=== PATIENT | male | born 1940 | race Caucasian/White ===

== ENCOUNTER 2019-05-14 06:48 | Observation (INO) ==
--- NOTE | 2019-04-29 08:36 | Anesthesiology Consultation ---
Date of Service April 29, 2019 Assessment & Plan (1) Encounter for pre-operative examination: Chart Review Chart Review: Acceptable Risk for Surgery and Patient seen in Pre Admission Testing EKG reviewed by cardio- no significant change since 2014. Discussed with Dr. Nguyen, due to nature of surgery, patient's unremarkable PE and vital signs, no cardiac symptoms, and no significant noted risk factors, patient is acceptable risk for surgery. Teaching & Discussion Pre-Anesthesia Teaching/Discussion Notes: Instructed NPO after midnight before surgery,except medications with 15 cc of water. Medication instructions provided according to the PAT guidelines. History Surgery Operation Date: 05/14/19 09:15 Proposed Procedures p Left Total Knee Arthroplasty - Sánchez Wright DO Height/Weight Height: 5 ft 4 in Weight: 74.5 kg Allergies Allergy/AdvReac Type Severity Reaction Status Date / Time No Known Allergies Allergy Unverified 04/27/19 10:34 Medications Home Medications Medication Instructions Recorded Confirmed Last Taken No Known Home Medications 04/27/19 04/27/19 Unknown Past Medical History Medical History [place] (hard of hearing) Osteoarthritis Right club foot congenital Exercise / Class Metabolic Activity II 4-5 Yardwork/Stairs/Walk up hill (one flight of stairs- no chest pain or SOB ) Past Family History Family History Other No family history of adverse response to anesthesia Past Surgical History Surgical History History of surgery Right clubfoot correction - multiple procedures as a child Past Anesthesia History No Hx of Anesthesia Complications and No Family Hx of Anesthesia Complications History of PONV No Hx of PONV and No Hx of Motion Sickness Social History Smoking Status: Former smoker (Smoked x 25 years - <1PPD ) tobacco type: cigarettes and smokeless tobacco Do You Dip or Chew Tobacco: Yes (Using alternate snuff (nicotine free per patient) 1/3can per day ) Smoking End Date: 30 years ago Hx Alcohol Use: Yes Alcohol type: beer alcohol intake frequency: a few times a week Alcohol Intake Frequency Comment: Drinks usually weekends - total 12 beers; occ on weekedays 2/day Hx Substance Use: Yes substance use type: marijuana (Occasionally ) Last Used Substance Other:: 3-4 weeks ago Review of Systems Patient denies chest pain, shortness of breath, dyspnea on exertion, reflux, cough, wheezing, palpitations. No hx of seizures, stroke, SC, apnea/snoring. No hx of blood clots or blood transfusions No recent steroid use Physical Exam Vital Signs VITALS BP 134/91 P 96 TEMP 98.5 SP02 97% RESP 20 Constitutional no acute distress ENMT Mouth: + dentures; no TMJ clicking Thyromental Distance: > or= 3.5 Finger Breadths (3.5) Mallampati Class: III Full dentures top and bottom Neck + limited neck extension (minimal ) Respiratory normal respiratory effort; no respiratory distress Auscultation: lungs clear to auscultation bilaterally and + diminished lung sounds (mildly throughout ); no wheezes Cardiovascular Rate/Rhythm: regular rate and regular rhythm Heart Sounds: no murmur Vessels: no carotid bruit Extremities: no edema Musculoskeletal Spine: no pain with cervical ROM Neurologic moves all extremities Psychiatric Orientation: alert Testing Laboratory Results 04/29/19 08:50 04/29/19 08:50 PT 10.2 Seconds (9.0-12.0) 04/29/19 08:50 INR 1.0 (0.9-1.1) 04/29/19 08:50 APTT 27.1 Seconds (21.0-31.0) 04/29/19 08:50 Hemoglobin A1c 5.0 % (4.5-5.6) 04/29/19 08:50 Blood Type O Positive 04/29/19 08:50 Antibody Screen NEGATIVE 04/29/19 08:50 Electrocardiogram Date: 04/29/19 Findings: + NSR @ (87) Possible inferior infarct (cited on or before 02/12/15); compared to 02/12/15- fusion complexes no longer present, PVCs no longer present Chest X-Ray Date: 04/29/19 Cardiomegaly and minor basilar interstitial thickening. No evidence of lobar consolidation. No evidence of failure.
--- NOTE | 2019-04-29 09:20 | XRay Report ---
XR chest Pre-admission PA/Lat CLINICAL HISTORY: Preoperative chest COMPARISON STUDY: February 12, 2015 FINDINGS: The cardiac and mediastinal contours are normal. There is no evidence of focal pulmonary co nsolidation. There is no evidence of failure. No pleural effusions are visualized.[ IMPRESSION: Cardiomegaly and minor basilar interstitial thickening. No evidence of lobar consolidatio n. No evidence of failure. ACT 112: Negative or not required by law. Electronically signed by: Mauricio Palmer M.D. 04/29/2019 9:18 AM
[2019-04-29 11:02] LABS: Basophils # (auto) 0.02 K/uL (0-0.2); Basophils % (auto) 0.2 %; Eosinophils # (auto) 0.27 K/uL (0-0.5); Eosinophils % (auto) 2.7 %; Hematocrit (blood only) 44.6 % (42-52); Hemoglobin 14.9 g/dL (14.0-18.0); Immature Granulocytes # (auto) 0.05 K/uL (0.00-0.02); Immature Granulocytes % (auto) 0.5 %; Lymphocytes # (auto) 2.08 K/uL (1.2-3.4); Lymphocytes % (auto) 21.2 %; Mean Corpuscular Hemoglobin 30.1 pg (25-34); Mean Corpuscular Hgb Conc 33.4 g/dL (32-36); Mean Corpuscular Volume 90.1 fL (80-100); Mean Platelet Volume 10.7 fL (7.4-10.4); Monocytes # (auto) 0.88 K/uL (0.11-0.59); Neutrophils # (auto) 6.53 K/uL (1.4-6.5); Neutrophils % (auto) 66.4 %; Platelet Count 186 K/uL (130-400); RDW Coefficient of Variation 13.7 % (11.5-14.5); RDW Standard Deviation 44.5 fL (36.4-46.3); Red Blood Count 4.95 M/uL (4.7-6.1); White Blood Count 9.83 K/uL (4.8-10.8)
[2019-04-29 11:14] LABS: Partial Thromboplastin Time 27.1 Seconds (21.0-31.0); Prothrombin Time 10.2 Seconds (9.0-12.0)
[2019-04-29 11:24] LABS: Albumin Level 3.3 gm/dl (3.4-5.0); BUN Creatinine Ratio 25.8 (10-20); Calcium 9.4 mg/dl (8.5-10.1); Creatinine Clr Calc Pharmacy 67.5 ml/min; Est GFR (African American) 97.6; Est GFR (Non-African American) 84.2; Potassium 4.2 mmol/L (3.5-5.1)
[2019-04-29 11:41] LABS: Estimated Average Glucose 97 mg/dl
--- NOTE | 2019-04-30 00:18 | Electrocardiogram Report ---
Test Reason : Blood Pressure : / mmHG Vent. Rate : 087 BPM Atrial Rate : 087 BPM P-R Int : 142 ms QRS Dur : 076 ms QT Int : 342 ms P-R-T Axes : 053 010 048 degrees QTc Int : 411 ms Normal sinus rhythm Possible Inferior infarct (cited on or before 12-FEB-2015) Abnormal ECG When compared with ECG of 12-FEB-2015 17:08, Fusion complexes are no longer Present Premature ventricular complexes are no longer Present Confirmed by Jose Larios [id number]) on 04/30/2019 12:18:21 AM Referred By: Sánchez Wright Confirmed By:Jose Larios
--- NOTE | 2019-05-12 13:31 | History & Physical Report ---
Date of Service May 12, 2019 Assessment & Plan (1) Osteoarthritis of left knee: Schedule a Left Total Knee Replacement with Sagola with long stem implants in femur and tibia for 05.14.2019. All potential risks, benefits, complications, alternatives, and rehab have been discussed with the patient and he wishes to proceed. Plan for home with home health upon d/c. ASA 81 mg BID x 30 days post op for DVT prophylaxis. (2) Genu varum of left lower extremity: History of Present Illness Chief Complaint: left knee pain and deformity Primary Care Provider: Bryant Celaya MD This is a patient with a chronic left knee deformity and pain. He was treated conservatively for knee osteoarthritis, however, he has failed all conservative management. He had previously undergone removal of maximino from the distal femur with the understanding that he will need to have a TKA. He is now being set up for left TKA. Allergies Allergy/AdvReac Type Severity Reaction Status Date / Time No Known Allergies Allergy Unverified 04/27/19 10:34 Home Medications Home Medications Medication Instructions Recorded Confirmed Type No Known Home Medications 04/27/19 04/27/19 History Past Med/Surg History Medical History [place] (hard of hearing) Osteoarthritis Right club foot congenital Surgical History History of surgery Right clubfoot correction - multiple procedures as a child Family History Other No family history of adverse response to anesthesia Social History Preferred Language: Sami Communication Ability: Effective 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 Beliefs That Will Affect Care: None Current Living Situation: Alone Other Information That Helps Us Care for You: No Feels Safe at Home: Yes Safety Concerns: Feels Safe At This Time Smoking Status: Former smoker (Smoked x 25 years - <1PPD ) Tobacco Type: cigarettes and smokeless tobacco ; Do You Dip or Chew Tobacco: Yes (Using alternate snuff (nicotine free per patient) 1/3can per day ) ; Smoking End Date: 30 years ago ; Second Hand Exposure: No ; Tobacco Cessation Education Requested by Patient: No Hx Alcohol Use: Yes Alcohol type: beer Hx Substance Use: Yes substance use type: marijuana (Occasionally ) Last Used Substance Other:: 3-4 weeks ago Physical Exam Constitutional: well developed and well nourished; no acute distress Neck: trachea midline, no thyromegaly Respiratory: normal respiratory effort, lungs clear to auscultation Cardiovascular: Rate/Rhythm: regular rate and regular rhythm Gastrointestinal (Abdomen): normal bowel sounds, soft, nontender, no hepatosplenomegaly Musculoskeletal: Gait: + antalgic gait (left) Knee: + effusion (left), + abarca rgical incision (healed left knee incisions), + limited ROM of knee (left with flexion and extension), + joint line tenderness (medial and lateral left ) and + varus alignment (left); no skin erythema and no ecchymosis Skin: no rashes, warm and dry Neurologic: normal touch/pain/proprioception Psychiatric: A+Ox3, euthymic affect Lymphatic: no cervical or axillary lymphadenopathy
[~2019-05-14 06:48] MED LIST: ACETAMINOPHEN 500 MG TAB PO SCH; BUPIVACAINE 0.5 % 5 MG/1 ML PF 10ML VIAL ONE; CEFAZOLIN 2000MG 2,000 MG/15 ML SYR IV SCH; CeleBREX 200 MG CAP PO SCH; EPINEPHrine INJ 1 MG/ML AMP ONE; FAMOTIDINE 20 MG TAB PO SCH; GABAPENTIN 300 MG CAP PO SCH; LR 500ML BOLUS, THEN 15ML/HR IV SCH; METOCLOPRAMIDE HCL 10 MG TABLET PO SCH; ROPIVACAINE 0.5% 5 MG/ML 30 ML VIAL ONE; ROPIVACAINE 0.5% HCL/PF 150 MG, BUPIVACAINE 0.5% MPF 30 ML, EPINEPHrine 30MG/30ML (OR U... INSTIL SCH; dexAMETHasone 4 MG TAB PO SCH
[2019-05-14] MEDS ORDERED: HYDROmorphone INJ 1 MG/ML SYRINGE IV PRN (08:29)
[2019-05-14] MEDS ORDERED: fentaNYL citrate 100 MCG/2 ML VIAL IV PRN (08:29)
[2019-05-14] MEDS ORDERED: ePHEDrine sulfate 50 MG/ML AMP IV PRN (08:29)
[2019-05-14] MEDS ORDERED: MEPERIDINE HCL 25 MG/ML CARP/VIAL IV PRN (08:29)
[2019-05-14] MEDS ORDERED: ATROPINE SULFATE 0.1 MG/ML 10ML SYR IV PRN (08:29)
[2019-05-14] MEDS ORDERED: LABETALOL HCL IV 5 MG/ML 20ML IV PRN (08:29)
[2019-05-14] MEDS ORDERED: PHENYLEPHRINE 100MCG/ML 5ML SYR IV PRN (08:29)
[2019-05-14] MEDS ORDERED: ONDANSETRON INJ 2 MG/ML 2 ML VIAL IV PRN ×2 (08:29→15:48)
[2019-05-14] MEDS ORDERED: LIDOCAINE HCL 2% 2 ML VIAL/AMP(20MG/ML) INFIL ONE (08:52)
[2019-05-14] MEDS ORDERED: ONDANSETRON INJ 2 MG/ML 2 ML VIAL ONE (08:52)
[2019-05-14] MEDS ORDERED: MIDAZOLAM HCL 1 MG/ML 2ML VIAL ONE (08:52)
[2019-05-14] MEDS ORDERED: fentaNYL citrate 100 MCG/2 ML VIAL ONE ×2 (08:52→14:13)
[2019-05-14] MEDS ORDERED: PROPOFOL IV EMULSION 10 MG/ML 20 ML VIAL IV ONE ×6 (08:52→14:24)
[2019-05-14] MEDS ORDERED: ORTHO JOINT ANESTHETIC ONE (09:07)
[2019-05-14] MEDS ORDERED: BACITRACIN INJ 50,000 UNIT VIAL ONE (09:07)
[2019-05-14] MEDS ORDERED: TRANEXAMIC ACID / 0.7% NACL 1,000 MG/100 ML BAG IV STA (10:02)
--- NOTE | 2019-05-14 10:05 | History & Physical Bridge Note ---
Date of Service May 14, 2019 History & Physical Bridge Note I have examined the patient, reviewed the History & Physical and in the interval since the performance of the History & Physical I have noted the following changes of clinical significance: no changes noted
--- NOTE | 2019-05-14 13:17 | Fluoroscopy Report ---
FL knee LT 1 or 2V CLINICAL HISTORY: LEFT TKA COMPARISON STUDY: None. FLUOROSCOPY TIME: 10 seconds. FINDINGS: 2 fluoroscopic spot images of the left knee were submitted for review. Only the distal femu r is identified. There is a long stem knee prosthesis. The hardware appears intact. No fractures. IMPRESSION: Fluoroscopy provided for left total knee arthroplasty stem positioning. ACT 112: Negative or not required by law. Electronically signed by: Donovan Nguyen M.D. 05/14/2019 1:16 PM
[2019-05-14] MEDS ORDERED: KETAMINE HCL INJ 50 MG/ML 10 ML VIAL ONE (14:06)
--- NOTE | 2019-05-14 14:11 | Post Operative Brief Note ---
Immediate Post Op Note v1 Date of Surgery May 14, 2019 Pre & Post Diagnosis Operation Date: 05/14/19 10:05 Pre-Op Diagnosis: Left Knee Osteoarthritis, genu varum, flexion contracture, leg length discrepancy, severe bone loss of tibia and medial femur Post-Op Diagnosis: Left Knee Osteoarthritis, genu varum, flexion contracture, leg length discrepancy, severe bone loss of tibia and medial femur, surgical time greater than 2 hours due to limb deformity and enhanced difficulty I identified the patient and participated in the time-out.: Yes Procedure Operation Date: 05/14/19 10:05 Actual Procedures p Left Total Knee Arthroplasty with Torrey size 5 triathlon total stabilizer femoral component, triathlon 13 mm x 100 mm fluted stem, triathlon 4 mm offset adapter, triathlon X3 symmetric patella 33 mm x 9 mm, size 4 triathlon tibial baseplate with a 2 mm offset and a 12 mm x 100 mm fluted stem, triathlon X3 size 4 x 13 mm constrained liner. Partial release medial collateral ligament, surgical time over 2 hours due to limb deformity and enhanced difficulty. (Left) - Sánchez Wright DO Surgeon Sánchez Wright DO Sales Agent Protective Service Koby Esquivel PA-C Estimated Blood Loss 50 Findings Consistent with Post-Op Diagnosis Specimens Bone and tissue left knee Drains Kc Catheter and Hemovac Drain (dual lumen) Anesthesia Type Spinal MAC Complications none Disposition Accompanied Patient To Recovery: No Disposition: Recovery Room Overlapping Procedure I was present for: the critical portions of procedure. I was immediately available: during the entire case.
--- NOTE | 2019-05-14 15:10 | Anesthesiology Progress Note ---
Date of Service May 14, 2019 Anesthesia Post Procedure Vital Signs Vital Signs: Temp Pulse Pulse Resp BP Pulse Ox 05/14/19 14:50 84 15 97/63 L 97 05/14/19 14:42 36.3 C L 92 H 16 111/61 98 05/14/19 07:20 36.8 C 115 H 18 140/81 98 Transfer of Care Handoff Completed per policy Notes Mental Status: alert / awake / arousable Patient Amnestic to Procedure: Yes Nausea / Vomiting: adequately controlled Pain: adequately controlled Airway Patency, RR, SpO2: stable & adequate BP & HR: stable & adequate Hydration State: stable & adequate Neuraxial Anesthesia: was administered and sensory block is resolving Anesthetic Complications: no major complications apparent and Pt Satisfied with anesthetic care
--- NOTE | 2019-05-14 15:11 | XRay Report ---
XR knee LT 1 or 2V routine HISTORY: 78 years-old Male Surgical Post Op left knee total joint arthroplasty COMPARISON: Fluoroscopic images of the left knee of same day TECHNIQUE: 2 views of the left knee FINDINGS: Left knee total joint imaged arthroplasty with elongated tibial and femoral stems. There is satisfact ory alignment without acute fracture, dislocation or retained foreign body identified. Anterior midli ne skin maximino are noted along with expected postsurgical soft tissue swelling and deep tissue air w ith surgical drainage catheter. Arterial calcifications are noted. IMPRESSION: Left knee total joint arthroplasty with expected postoperative findings. ACT 112: Negative or not required by law. The above report was generated using voice recognition software. It may contain grammatical, syntax o r spelling errors. Electronically signed by: Bobo Tavares M.D. 05/14/2019 3:10 PM
[2019-05-14] MEDS ORDERED: NALOXONE HCL 0.4 MG/1 ML VIAL/CARP IV PRN (15:48)
[2019-05-14] MEDS ORDERED: OXYCODONE HCL IR 5 MG TAB (IMMEDIATE RELEASE) PO PRN (15:48)
[2019-05-14] MEDS ORDERED: HYDROmorphone INJ 0.5 MG/0.5 ML SYR IV PRN (15:48)
[2019-05-14] MEDS ORDERED: METOCLOPRAMIDE HCL INJ 5 MG/ML 2 ML VIAL IV PRN (15:48)
[2019-05-14] MEDS ORDERED: TAMSULOSIN HCL 0.4 MG CAP PO PRN (15:48)
[2019-05-14] MEDS ORDERED: ALUMINUM/MAGNESIUM SUSP 30 ML UDC PO PRN (15:48)
[2019-05-14] MEDS ORDERED: MAGNESIUM HYDROXIDE SUSP 30 ML UDC PO PRN (15:48)
[2019-05-14] MEDS ORDERED: bisacodyL 10 MG SUPP PR PRN (15:48)
[2019-05-14] MEDS ORDERED: PNEUMOCOCCAL ADMINISTRATION CHARGE ONE (15:53)
[2019-05-14] MEDS ORDERED: PNEUMOCOCCAL POLYSACCHARIDES 25 MCG/0.5 ML VIAL/SYR IM ONE (15:53)
[2019-05-14] MEDS: SODIUM CHLORIDE 0.9% 1000ML 1,000 ML IV SCH (16:04)
[2019-05-14] MEDS: ACETAMINOPHEN 500 MG TAB PO SCH ×2 (16:33→22:08)
[2019-05-14] MEDS: KETOROLAC TROMETHAMINE 15 MG/ML VIAL IV SCH ×2 (16:35→22:09)
[2019-05-14] MEDS: CEFAZOLIN 2000MG 2,000 MG/15 ML SYR IV SCH (17:51)
--- NOTE | 2019-05-14 18:37 | Consultation ---
Date of Consultation May 14, 2019 Assessment & Plan (1) Osteoarthritis of left knee: (2) Genu varum of left lower extremity: S/P L TKR by Dr. Wright POD #0 EBL 50ml; hemovac 60ml Patient tolerated procedure well Pain/wound management per Ortho Activity and therapy as directed by Ortho Encourage incentive spirometry Monitor H&H DVT prophylaxis per Ortho-ASA twice daily Remove Kc at discretion of ortho (3) Tobacco abuse: hx of tobacco abuse with smoking and chewing tobacco has switched to nicotine/tobacco free snuff for past 2 weeks (4) Alcohol abuse: ~ 10-14 beers/wk last drink was 12 days ago in preparation for surgery per pt monitor (5) DVT prophylaxis: ASA BID per ortho Disposition: per primary Follow up: PCP Dr. Celaya upon discharge, pt with scheduled appt 06/11/2019 Pt was seen and examined in collaboration with Dr. Lehman, please see addendum Starting 05/15/2019 patient will be under the care of Dr. Kaye Thank you for this consultation. We will follow the patient with you during their hospital stay. You can reach a member of the [facility] Hospitalist Team 30/09 via pager @ [phone]. 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 History of Present Illness Requesting Physician: Dr. Wright Reason for Consultation: Postop medical manage ment Attending Physician: Sánchez Wright DO History of Present Illness This is a 78-year-old male who has a remote history of hypertension currently not on any oral antihypertensives, B12 deficiency, alcohol use, tobacco abuse disorder who presents to [facility] for elective left total knee arthroplasty by Dr. Wright. He failed outpatient conservative treatment for left knee osteoarthritis. He tolerated the procedure well. He currently complains of 5/10 left knee pain but otherwise is without complaint. He denies any fever, chills, sweats, lightheadedness, dizziness, chest pain, shortness breath, palpitations, cough, nausea, vomiting, abdominal pain. Last BM was yesterday. He currently has a Kc catheter in place. His son is at bedside. He does reveal he has a history of clubfoot which required multiple surgeries as a child. He does not take any medications. Does have a remote history of smoking and approximately 2 weeks ago he stopped chewing tobacco. He does drink 12-14 beers weekly. His last drink was 12 days ago. Allergies Allergy/AdvReac Type Severity Reaction Status Date / Time No Known Allergies Allergy Verified 05/14/19 07:10 Home Medications Home Medications Medication Instructions Recorded Confirmed Type No Known Home Medications 04/27/19 05/14/19 History Patient History Medical History 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: No Beliefs That Will Affect Care: None Current Living Situation: Alone Other Information That Helps Us Care for You: No Feels Safe at Home: Yes Safety Concerns: Feels Safe At This Time Smoking Status: Former smoker (Smoked x 25 years - <1PPD ) Tobacco Type: cigarettes and smokeless tobacco ; Do You Dip or Chew Tobacco: Yes (Using alternate snuff (nicotine free per patient) 1/3can per day ) ; Smoking End Date: 30 years ago ; Second Hand Exposure: No ; Tobacco Cessation Education Requested by Patient: No Hx Alcohol Use: Yes Alcohol type: beer Hx Substance Use: Yes substance use type: marijuana (Occasionally ) Last Used Substance Other:: 3-4 weeks ago Review of Systems Review of Systems: All systems reviewed & are unremarkable except as noted in HPI & below Physical Exam Physical Exam: Constitutional: WD/WN, vitals as above, NAD, sitting up in bed, pleasant, conversing easily Head: Normocephalic, Atraumatic Eyes: PERRL, conjunctivae normal, anicteric sclerae ENMT: external ear and nose normal, oropharynx normal Neck: trachea midline, no thyromegaly normal visual inspection Respiratory: normal respiratory effort, lungs clear to auscultation, no wheeze, rales, rhonchi. Normal insp/exp effort, no accessory muscle use Cardiovascular: RRR, no murmur, no edema Vessels: no JVD or carotid bruit Chest: normal inspection of chest Abdomen: normal bowel sounds, soft, nontender, no hepatosplenomegaly Musculoskeletal: no cyanosis or clubbing, LLE with dressing CDI, hemovac in tact, NVI distally Skin: no rashes, warm and dry normal turgor Neurologic: PERRL, EOMI, accommodation nl, no face palsy, no dysarthria CN's II-XI intact bilaterally and moves all extremities Psychiatric: A+Ox3, euthymic affect Lymphatic: no cervical or axillary lymphadenopathy : deferred Results & Data ([facility]) Vital Signs (Past 12 Hours) Vital Signs Temp Pulse Pulse Pulse Resp BP Pulse Ox 05/14/19 17:21 36.3 C L 97 H 16 124/65 94 05/14/19 16:31 36.3 C L 96 H 18 115/68 95 05/14/19 15:59 36.3 C L 85 18 127/79 94 05/14/19 15:30 36.3 C L 84 18 131/76 94 05/14/19 15:10 36.3 C L 83 15 116/71 94 05/14/19 15:00 84 16 116/69 99 05/14/19 14:50 84 15 97/63 L 97 05/14/19 14:42 36.3 C L 92 H 16 111/61 98 05/14/19 07:20 36.8 C 115 H 18 140/81 98 Laboratory Results Pre op Lab 04/29/19 CBC revealed WBC 9.83, H&H 14.9 and 44.6, platelet 186 BMP revealed sodium 139, K4.2, BUN 22, creatinine 0.86, glucose 97 Diagnostic Findings Preop CXR: IMPRESSION: Cardiomegaly and minor basilar interstitial thickening. No evidence of lobar consolidation. No evidence of failure. Knee Xray: IMPRESSION: Fluoroscopy provided for left total knee arthroplasty stem positioning. Medications Administered Acetaminophen (Tylenol) 1,000 mg PO Q8 CHEO Stop: 06/13/19 15:59 Last Admin: 05/14/19 16:33 Dose: 1,000 mg Documented by: [id number] Cefazolin Sodium (Ancef 2000mg) 2,000 mg in 15 mls @ 3.75 mls/min IV Q8H CHEO; Protocol Stop: 05/15/19 02:03 Last Admin: 05/14/19 17:51 Dose: 3.75 mls/min Documented by: [id number] Sodium Chloride (Nss 1000ml) 1,000 mls @ 100 mls/hr IV .Q10H CHEO Stop: 05/15/19 06:00 Last Admin: 05/14/19 16:04 Dose: 100 mls/hr Documented by: [id number] Ketorolac Tromethamine (Toradol) 15 mg IV Q6H CHEO Stop: 05/16/19 10:31 Last Admin: 05/14/19 16:35 Dose: 15 mg Documented by: [id number] Discontinued Medications Acetaminophen (Tylenol) 1,000 mg PO PREOP CHEO Stop: 05/14/19 18:00 Last Admin: 05/14/19 07:42 Dose: 1,000 mg Documented by: [id number] Bacitracin (Bacitracin) Confirm Administered Dose 50,000 units .ROUTE .K-MED ONE Stop: 05/14/19 09:08 Last Admin: 05/14/19 11:09 Dose: 50,000 units Documented by: [id number] Celecoxib (Celebrex) 200 mg PO PREOP CHEO Stop: 05/14/19 18:00 Last Admin: 05/14/19 07:42 Dose: 200 mg Documented by: [id number] Dexamethasone (Decadron) 8 mg PO PREOP CHEO Stop: 05/14/19 18:00 Last Admin: 05/14/19 07:41 Dose: 8 mg Documented by: [id number] Famotidine (Pepcid) 20 mg PO PREOP CHEO Stop: 05/14/19 18:00 Last Admin: 05/14/19 07:42 Dose: 20 mg Documented by: [id number] Gabapentin (Neurontin) 300 mg PO PREOP CHEO Stop: 05/14/19 18:00 Last Admin: 05/14/19 07:42 Dose: 300 mg Documented by: [id number] Lactated Ringer's (Lr) 1,000 mls @ 15 mls/hr IV .Q24H CHEO Stop: 05/14/19 18:00 Last Infusion: 05/14/19 10:21 Dose: 0 mls/hr Documented by: [id number] Admin: 05/14/19 07:30 Dose: 15 mls/hr Documented by: [id number] Cefazolin Sodium (Ancef 2000mg) 2,000 mg in 15 mls @ 3.75 mls/min IV PREOP CHEO; Protocol Stop: 05/14/19 18:00 Last Admin: 05/14/19 10:21 Dose: 3.75 mls/min Documented by: [id number] Ropivacaine 150 mg/Bupivacaine HCl 30 ml/Epinephrine HCl 0.15 mg/Ketorolac Tromethamine 30 mg/Dexamethasone 4 mg/ Ketamine HCl 10 mg/ Clonidine HCl 100 mcg/ Sodium Chloride 93.35 mls @ 0 mls/hr INSTIL PREOP CHEO Stop: 05/14/19 06:01 Last Admin: 05/14/19 11:10 Dose: 93.35 mls/hr Documented by: [id number] Tranexamic Acid (Tranexamic Acid / 0.7% Nacl) 1,000 mg in 100 mls @ 600 mls/hr IV NOW STA Stop: 05/14/19 10:11 Last Infusion: 05/14/19 11:23 Dose: 0 mls/hr Documented by: [id number] Admin: 05/14/19 10:57 Dose: 600 mls/hr Documented by: [id number] Metoclopramide HCl (Reglan) 10 mg PO PREOP CHEO Stop: 05/14/19 18:00 Last Admin: 05/14/19 07:42 Dose: 10 mg Documented by: [id number] Miscellaneous (Ortho Joint Anesthetic) Confirm Administered Dose 1 ea .ROUTE .STK-MED ONE Stop: 05/14/19 09:08 Last Admin: 05/14/19 11:09 Dose: Not Given Documented by: [id number] ECG Rate (beats per minute): 87 Rhythm: normal sinus
[2019-05-14] MEDS: ASPIRIN 81 MG ECTAB PO SCH (20:43)
[2019-05-14] MEDS: SENNA 8.6 MG TAB PO SCH (20:43)
[2019-05-14] MEDS: DOCUSATE SODIUM 100 MG CAP PO SCH (20:43)
--- NOTE | 2019-05-15 00:29 | Operative Report (OR) ---
DATE OF OPERATION: 05/14/2019 PREOPERATIVE DIAGNOSES: 1. Left knee degenerative joint disease. 2. Osteoarthritis of the knee. 3. Genu varum deformity. 4. Leg length discrepancy. 5. Flexion contracture of the knee. 6. Severe bone loss of the medial tibia and medial femoral condyle. 7. Surgical time greater than 2 hours due to limb deformity and difficulty of surgical procedure requiring revision implants. POSTOPERATIVE DIAGNOSES: 1. Left knee degenerative joint disease. 2. Osteoarthritis of the knee. 3. Genu varum deformity. 4. Leg length discrepancy. 5. Flexion contracture of the knee. 6. Severe bone loss of the medial tibia and medial femoral condyle. 7. Surgical time greater than 2 hours due to limb deformity and difficulty of surgical procedure requiring revision implants. PROCEDURE: 1. Left total knee arthroplasty with use of revision arthroplasty components due to complexity. 2. Partial release of the medial collateral ligament. 3. Surgical time greater than 2 hours due to limb deformity and enhanced difficulty of procedure. SURGEON: Sánchez Wright DO DA[employer]ODU[employer] MAKER: Koby Esquivel PA-C who was present for patient positioning, sterile prep and drape, management of retractors and instruments. He was present through the critical portions of the case including wound closure, application of sterile dressing and transport of the patient to recovery. ANESTHESIA: Spinal, MAC regional. SPECIMENS: Bone and tissue left knee. DRAINS: Hemovac x2. COMPLICATIONS: None; however enhanced difficulty to limb deformity and increased technical difficulty due to deformity. BLOOD LOSS: 50 mL. PERTINENT HISTORY: This is a 78-year-old gentleman with chronic worsening deformity of his left lower knee. For the last 40 years, he has had difficulty with ambulation due to severe leg length discrepancy and worsening congenital deformity of the limb. He had a compensated painful gait for many years. He attempted and failed physical therapy, bracing, anti-inflammatories, rest, use of an assistive device, modification of activities and observation. Radiographs and CT scan demonstrate severe deformity of the left knee with complete loss of medial joint space with severe varus deformity of the tibia, varus alignment of the distal femur, leg length discrepancy and severe morphological changes of the left knee joint. The patient failed all conservative modalities as noted above. The patient was then scheduled for surgery as indicated. All potential risks, benefits, complications, alternatives, rehab, potential for incomplete relief of symptoms, need for further surgery, DVT, PE, , persistent pain, swelling, scarring, weakness, neurovascular injury, wound complications, hardware failure, nonunion, malunion and bone fracture were discussed with the patient. Also, discussed loss of flexibility, persistent painful arthroplasty and need for revision surgery. The patient decided to proceed with procedure as indicated. DESCRIPTION OF PROCEDURE: After the patient was administered an adductor canal block in the preop holding area, then taken to the operative suite, placed supine on the operating table. After review of consent and identification of proper operative site, the patient was sedated. Spinal anesthetic was injected and an adductor canal block had been provided. Next, a tourniquet was applied high on the left thigh over cast padding, left lower extremity was then sterilely prepped and draped in usual fashion, elevated and exsanguinated with bandage, tourniquet inflated to 300 mmHg. Next, a 10-blade scalpel was used to make a midline incision centered over the left knee extending proximally and distally. Next, the skin incision was deepened through subcutaneous tissue. Meticulous hemostasis was achieved with electrocautery. Skin rakes were applied with mild traction. Next, the median parapatellar incision was made with a second 10-blade scalpel. There was noted to be significant effusion within the joint and this was then released. The patella was then partially everted and measured and noted to be 22 mm in thickness. A Ruth was then used to doreen the patella over a large rongeur and then a sagittal saw was then used to resurface the patella, taking it down to approximately 12 mm in thickness. Fragment of bone was then removed as the patellar sizer was used and then the patellar button was drilled and trial implant was placed and noted to be stable and intact. Patellar trial was then removed and attention then directed toward the femur. The deformity of the femur with severe varus was noted. Also the tibial varus, flexion contracture, loss of range of motion and severe bone loss necessitated use of the revision instruments though this is a primary arthroplasty. Enhanced level of difficulty was noted. Next, intramedullary guide was then drilled off set laterally to compensate for the deformity of the femur. The canal finder was placed in the femur and then sequential reaming was then performed up to approximately size 17. Next, this fit well in the femur. Radiographs had to be obtained to confirm alignment in the distal femur. This was performed with sterile fluoroscopy. Next, the distal femoral cut was then measured off the intramedullary canal. The block was pinned in place. Distal femoral cut was made, a +2 cut was made to allow for the flexion contracture and severe bone loss medially. The medial femoral condyle was noted to be significantly deficient. Intramedullary alignment as well as intramedullary fixation was decided upon for certain at this time. Next, after distal femoral cut was made, the posterior referencing sizing guide was applied and initially a size 6 was decided upon; however, the medial lateral offset was noted to be off and therefore an offset guide was determined to be useful. Next, a size 5 cutting block was pinned in place. Anterior, posterior, anterior chamfer, posterior chamfer cuts were made. The femoral notch guide was then pinned in place. Femoral notch cut was made with a reciprocating saw. The block of bone was then removed using a Ruth and a electrocautery. Next, the sagittal saw was then used to smooth and contour the distal femur and the offset guide was then placed on the femoral alignment guide. Offset was determined and the trial components were then impacted into the femur. Next, after this was fitted and radiographs were obtained confirming center-center alignment with intramedullary stabilization with a medium post, attention then directed toward the tibia. Next, the medial and lateral menisci were then resected using a lamina foam charger. Posterior osteophytes were removed using pituitary rongeur and a curved curette. Once this was completed, there was increased enhanced space to visualize the tibia. Next, the tibia was then protracted anteriorly using a blunt Hohmann retractor. Sharp Hohmann retractors were placed medially and laterally. Anterior fat pad was then resected from the anterior aspect of the patella. Circumferential electrocautery was then performed around the patella to provide a partial surface retinacular release. Next, the intramedullary alignment guide was then drilled into the proximal tibia and then sequential reaming up to a size 17 with a 150 mm depth was then performed. After this, the proximal tibial cut guide was then placed over the intramedullary alignment kush. The proximal tibial cut was made using Hohmann retractors. Once the fragment of bone was removed proximally, the medial side was then noted to be severely eburnated due to the chronic deformity and multiple drill holes were drilled in the medial tibial plateau to encourage cement interdigitation. Next, the medial tibial plateau was also rongeured slightly to change the contour. This has been dysmorphic over many years. Next, the tibial tray alignment component was applied, aligned along the medial one-third of the tibial tubercle. The drop alignment kush was placed to reference the second ray of the left foot. This tibial tray was then pinned in place followed by use of appropriate offset guide. Once this was aligned, tibial punch and the tibial drill was then used. Once this was completed, the femoral component was then placed into the intramedullary portion of the distal femur and then a trial polyethylene with a posterior stabilized constrained 13 mm liner was then placed. There was noted to be excessive tightness of the medial collateral ligament. Then, a fractional lengthening was then performed with an 18 gauge spinal needle with both flexion and extension with polyethylene engaged. After this was performed, the medial collateral ligament was then balanced with the lateral collateral ligament. There is no mid flexion instability noted and the trial components were removed. All sites were then pulsatile lavaged. At this point, the tourniquet was then released for a period of 20 minutes while the components were opened and then assembled on the backtable. Finally, the components sizes tibial baseplate size 4 fluted with a fluted stem 12 mm x 100 mm with a 2 mm offset Triathlon X3 posterior stabilized constrained tibial insert size 4 x 13 mm, a Triathlon X3 symmetric patella size 33 mm with a Triathlon total stabilizer femoral component size 5 with a 4 mm offset and a 13 mm x 100 mm Triathlon fluted stem was then opened and assembled on the backtable. Orthomix was injected in and around the intra-articular surfaces of the left knee, taking care to aspirate and avoid any intravascular injection. There is no injection performed around the common peroneal nerve. Next, the Palacos R+G cement was then mixed and then placed on the components up to the level of the flange and on the backside of the patellar component. Next, the femur, tibia and patella were all irrigated and suctioned dry. Tourniquet was inflated at this time followed by implantation of the components, beginning with the tibia, followed by the femur, placement of the posterior stabilized constrained polyethylene, tibial tray liner and a 33 mm patella was then also cemented. The knee was held in extension with the patellar clamp in place until all components firmed. All excess cement was removed from the joint and stable range of motion without mid flexion instability was noted. Full range of motion 0-140 degrees of flexion was appreciated on the table. Next, the dilute Betadine was injected into the incision site for a period of 3 minutes and irrigated and suctioned dry. Final irrigation performed with sterile normal saline with bacitracin with pulsatile lavage followed by placement of a #10-[place] Hemovac drains x2. The joint capsule was then closed using interrupted #1 Vicryl sutures followed by closure of the dermis with buried interrupted 2-0 Vicryl and skin was closed using skin maximino. A sterile compressive dressing and well-padded soft dressing was applied from the toes to groin. Tourniquet time was noted to be over 2 hours due to the severe deformity, leg length discrepancy and enhanced surgical difficulty. After tourniquet was released for the second time, toes noted to pink and warm. The tourniquet was released. The patient was awakened and taken to recovery in stable condition. I attest to the content of the Intraoperative Record and any orders documented therein. Any exception s are noted below.
[2019-05-15] MEDS: CEFAZOLIN 2000MG 2,000 MG/15 ML SYR IV SCH (01:38)
[2019-05-15] MEDS: SODIUM CHLORIDE 0.9% 1000ML 1,000 ML IV SCH (01:38)
[2019-05-15] MEDS: KETOROLAC TROMETHAMINE 15 MG/ML VIAL IV SCH ×4 (05:34→21:31)
[2019-05-15] MEDS: ACETAMINOPHEN 500 MG TAB PO SCH ×3 (05:34→21:31)
[2019-05-15 05:50] LABS: Hemoglobin 11.7 g/dL (14.0-18.0); Mean Corpuscular Hemoglobin 29.9 pg (25-34); Mean Corpuscular Hgb Conc 33.4 g/dL (32-36); Mean Corpuscular Volume 89.5 fL (80-100); Mean Platelet Volume 9.1 fL (7.4-10.4); Platelet Count 169 K/uL (130-400); RDW Coefficient of Variation 13.4 % (11.5-14.5); RDW Standard Deviation 43.6 fL (36.4-46.3); Red Blood Count 3.91 M/uL (4.7-6.1); White Blood Count 15.05 K/uL (4.8-10.8)
[2019-05-15 06:21] LABS: BUN Creatinine Ratio 24.1 (10-20); Calcium 8.2 mg/dl (8.5-10.1); Creatinine Clr Calc Pharmacy 68.1 ml/min; Est GFR (African American) 97.6; Est GFR (Non-African American) 84.2
[2019-05-15] MEDS: MULTIVITAMIN TAB PO SCH (08:44)
[2019-05-15] MEDS: DOCUSATE SODIUM 100 MG CAP PO SCH ×2 (08:44→20:25)
[2019-05-15] MEDS: ASPIRIN 81 MG ECTAB PO SCH ×2 (08:44→20:25)
--- NOTE | 2019-05-15 10:13 | Orthopedic Progress Note ---
Date of Service May 15, 2019 Assessment & Plan (1) Osteoarthritis of left knee: POD #1 Left TKA ASA, LUTHER, SCD Plan for discharge to home with HH likely tomorrow after PTx Admission and Anticipated Discharge Date Admission Date: May 14, 2019 Subjective patient walking with therapy back to room. He notes that he is feeling good. Denies CP sob, dizziness, lightheadedness Physical Exam Physical Exam: Toes mobile, NVI. Calves soft, non tender. VIDYA Dressing in place and hemovac Results & Data ([facility]) Vital Signs (Past 12 Hours) Vital Signs Temp Pulse Resp BP Pulse Ox 05/15/19 07:48 36.4 C L 82 18 118/68 100 05/15/19 03:10 36.4 C L 63 18 102/60 94 05/15/19 00:00 36.4 C L 77 16 95/62 L 93
--- NOTE | 2019-05-15 12:16 | Hospitalist Progress Note ---
Date of Service May 15, 2019 Assessment & Plan (1) Osteoarthritis of left knee: S/P LEFT TKA POD # 1. (2) Alcohol use: Drinks about 10-14 beers / week. Last beer was about 12 days before surgery. No signs / symptoms of alcohol withdrawal. (3) DVT prophylaxis: Per Ortho protocol. (4) Encounter for consultation: Thank you for this consultation. We will follow the patient with you during their hospital stay. My cell # is [phone]. You can reach a member of the [facility] Medicine Team 30/09 via pager @ [phone]. Admission and Anticipated Discharge Date Admission Date: May 14, 2019 Subjective Recheck for medical management. Patient seen in their room around 1120. Doing well postoperatively. No chest pain, cough, SOB, nausea, vomiting. Not passing any flatus or stool yest. Pain well-controlled. Review of Systems: Constitutional- no fever. Cardiac- as noted above. Pulmonary- as noted above. GI- as noted above. - no urinary symptoms. Otherwise, as noted above. Physical Exam Constitutional: no acute distress Respiratory: no respiratory distress Auscultation: lungs clear to auscultation bilaterally Cardiovascular: Rate/Rhythm: regular rate and regular rhythm Vessels: no JVD Extremities: no calf tenderness and no edema Gastrointestinal (Abdomen): normal bowel sounds, soft, nontender, no hepatosplenomegaly Musculoskeletal: left leg wrapped with elastic bandage chronic deformities RLE Skin: no rashes, warm and dry Psychiatric: Orientation: alert and oriented x 3 Results & Data ([facility]) Vital Signs (Past 12 Hours) Vital Signs Temp Pulse Resp BP Pulse Ox 05/15/19 07:48 36.4 C L 82 18 118/68 100 05/15/19 03:10 36.4 C L 63 18 102/60 94 Laboratory Results 05/15/19 05:37 05/15/19 05:37
[2019-05-15] MEDS: SENNA 8.6 MG TAB PO SCH (20:25)
[2019-05-16] MEDS: ACETAMINOPHEN 500 MG TAB PO SCH (05:00)
[2019-05-16] MEDS: KETOROLAC TROMETHAMINE 15 MG/ML VIAL IV SCH (05:00)
[2019-05-16] MEDS: ASPIRIN 81 MG ECTAB PO SCH (08:06)
[2019-05-16] MEDS: MULTIVITAMIN TAB PO SCH (08:06)
[2019-05-16] MEDS: DOCUSATE SODIUM 100 MG CAP PO SCH (08:07)
--- NOTE | 2019-05-16 08:39 | Hospitalist Progress Note ---
Date of Service May 16, 2019 Assessment & Plan (1) Osteoarthritis of left knee: S/P LEFT TKA POD # 2. (2) Alcohol use: Drinks about 10-14 beers / week. Last beer was about 12 days before surgery. No signs / symptoms of alcohol withdrawal. (3) DVT prophylaxis: Per Ortho protocol. (4) Encounter for consultation: Thank you for this consultation. We will follow the patient with you during their hospital stay. My cell # is [phone]. You can reach a member of the [facility] Medicine Team 30/09 via pager @ [phone]. Admission and Anticipated Discharge Date Admission Date: May 14, 2019 Subjective Recheck for medical management. Patient seen in their room around 0800. Doing well postoperatively. No chest pain, cough, SOB, nausea, vomiting. Had some loose stools yesterday (receiving Colace and Senokot-S). Pain well-controlled. Review of Systems: Constitutional- no fever. Cardiac- as noted above. Pulmonary- as noted above. GI- as noted above. - no urinary symptoms. Otherwise, as noted above. Physical Exam Constitutional: no acute distress Respiratory: no respiratory distress Auscultation: lungs clear to auscultation bilaterally Cardiovascular: Rate/Rhythm: regular rate and regular rhythm Vessels: no JVD Extremities: no calf tenderness and no edema Gastrointestinal (Abdomen): normal bowel sounds, soft, nontender, no hepatosplenomegaly Musculoskeletal: left knee bandaged chronic deformities RLE Skin: no rashes, warm and dry Psychiatric: Orientation: alert and oriented x 3 Results & Data ([facility]) Vital Signs (Past 12 Hours) Vital Signs Temp Pulse Resp BP Pulse Ox 05/16/19 07:12 36.6 C 78 18 116/64 96 05/15/19 22:49 36.6 C 79 16 115/71 96
--- NOTE | 2019-05-16 09:19 | Orthopedic Progress Note ---
Date of Service May 16, 2019 Assessment & Plan (1) Osteoarthritis of left knee: POD #2 Left TKA ASA, LUTHER, SCD Plan for discharge to home with HH today after PTx Admission and Anticipated Discharge Date Admission Date: May 14, 2019 Subjective Patient resting in bed today. Feels better today. Denies Chest pain, Shortness of breath, dizziness, and lightheadedness. Physical Exam Physical Exam: Toes mobile, NVI. Calves soft, non tender. SHIRLEY Dressing in place. Results & Data ([facility]) Vital Signs (Past 12 Hours) Vital Signs Temp Pulse Resp BP Pulse Ox 05/16/19 07:12 36.6 C 78 18 116/64 96 05/15/19 22:49 36.6 C 79 16 115/71 96
[2019-05-16] MEDS ORDERED: OXYCODONE HCL IR 5 MG TAB (IMMEDIATE RELEASE) PO PRN (09:42)
[2019-05-16] MEDS ORDERED: CeleBREX 200 MG CAP PO SCH (21:00)
--- NOTE | 2019-05-20 17:36 | Discharge Summary (DS) ---
DISCHARGE DIAGNOSIS: Left knee osteoarthritis with genu varum and flexion contracture. CONSULTS: AZUL Finch/Dr. Dominik SOLO. COMPLICATIONS: None. PROCEDURES: Left total knee arthroplasty with use of revision arthroplasty. Components by Dr. Wright on 05/14/2019. BRIEF HISTORY: As dictated in the history and physical. HOSPITAL SUMMARY: The patient was admitted on the above-noted date and had the above-noted surgery performed, which he tolerated well. On the first postoperative day, patient was walking with therapy back to his room, he noted that he was feeling well, no complaints and denied shortness of breath, chest pain or dizziness. Toes were mobile. Neurovascularly intact. Calves were soft, nontender and dressings were in place. Hemovac was functioning. Vital signs were stable and he was afebrile. Hemoglobin was 11.7. By his second postoperative day, he was resting in bed and was feeling better each day and had no complaints. Calves were soft, nontender. Héctor dressing was in place and intact. Toes were mobile. Vital signs were stable. He was afebrile. He was progressing with his PT and was remaining medically stable and it was felt that he could be discharged to home. For further review, please see chart. LABORATORY AND X-RAY DATA: As per chart. DISCHARGE INSTRUCTIONS: The patient was discharged to home in satisfactory condition on 05/16/2019. DIET: Regular. ACTIVITY: Follow TK instruction sheets and special care instructions as noted. Follow up with Dr. Wright in 2 weeks. The patient to call for appointment if one has not been made for you. DISCHARGE MEDICATIONS: Acetaminophen 1000 mg p.o. q. 8 hours, aspirin 81 mg p.o. b.i.d., Celebrex 200 mg p.o. b.i.d., multivitamin 1 tab p.o. q.a.m., oxycodone 5 mg p.o. q. 4 hours p.r.n., sennoside 17.2 mg p.o. at bedtime.
--- NOTE | 2019-05-27 11:50 | Coding Query ---
A supporting diagnosis is required for the test/procedure performed on this patient in order for us to be reimbursed by the patient's insurance. Please provide a supporting diagnosis for the following test/procedure listed below next to the test name along with your signature. *If there is no additional diagnosis for this patient that would support the following test/procedure please document that below next to the test/procedure. Test(s)/Procedure(s) that require a supporting diagnosis: HBA1C DIAGNOSIS: Provider Signature: Date: Thank you Faina Kam Health Information Management Once completed, please kindly fax back to [phone] For questions please call [phone] MOLINA
== END 2019-05-16 11:09 | disposition home health service (06) ==
LOC: ASU 06:48 → INTOOBSV 14:48 → 3E 14:48

== ENCOUNTER 2021-05-06 12:02 | Inpatient (IN) ==
--- NOTE | 2021-05-06 12:34 | Emergency Department Note ---
Impression & Plan Weakness, Sacral ulcer, Leukocytosis, Acute dehydration, Acute hypernatremia ED Provider Note NAME: SABINE GALDAMEZ AGE: 80 SEX: M : 1940 ARRIVES VIA: Ambulance INFORMANT: Patient ED PROVIDER(S): Quentin Causey DO CHIEF COMPLAINT: fall HPI: Patient is a 80-year-old male with past medical history of alcohol abuse, clubfeet, tobacco abuse who presents the ER brought in by EMS. He went to sit down onto the floor to watch TV and fell onto his buttocks. He was unable to get up afterwards. He denies any headache or change in vision. Did not hit his head or neck. No chest pain or shortness of breath. No nausea, vomiting, or diarrhea. No dysuria, urgency, or frequency. He notes he feels very weak all over. He does drink alcohol fairly regularly but over the past week he has currently stopped drinking. He is only had 2 beers over the past week. He notes he does feel little shaking in the upper extremities. ROS: See above HPI for pertinent positives & negatives. A total of 10 systems reviewed and were otherwise negative. PAST MEDICAL HISTORY:See Below PAST SURGICAL HISTORY:See Below FAMILY HISTORY:See Below SOCIAL HISTORY:See Below HOME MEDICATIONS:See Below ALLERGIES:See Below VITALS:See Below PHYSICAL EXAMINATION: GENERAL: alert, chronically ill-appearing, disheveled, no acute distress covered in urine and stool HEAD: normal cephalic, atraumatic EYE EXAM: normal conjunctiva, PERRL and EOM's grossly intact OROPHARYNX: no exudate, no erythema, lips, buccal mucosa, and tongue normal and mucous membranes are moist EARS: TMs clear b/l NECK: supple, no nuchal rigidity, no adenopathy, non-tender CHEST: stable to compression anteriorly and posteriorly LUNGS: clear to auscultation. Normal chest wall mechanics HEART: no murmurs, S1 normal and S2 normal ABDOMEN: abdomen soft, non-tender, normo-active bowel sounds, no masses, no renetta ound or guarding. PELVIS: stable to compression anteriorly and posteriorly BACK: Back is symmetrical on inspection and there is no deformity, no midline tenderness, no CVA tenderness. Moderate sized sacral ulcer which appears to track closely down to the bone with surrounding skin breakdown. UPPER EXTREMITIES: full active and passive range of motion of all joints without tenderness to palpation LOWER EXTREMITIES: full active and passive range of motion of all joints without tenderness to palpation but multiple surgeries on right ankle with what appears to be chronic angulation NEURO EXAM: Sitting up in bed oriented to person place and time moving all extremities nonfocal GCS 15 MEDICAL DECISION MAKING: Patient is a 80-year-old male who presents the ER with above-stated complaint. IV was established blood was obtained. Labs show leukocytosis of 19,000. No significant anemia. BMP with a slightly elevated sodium at 147. Troponin was negative. CK was only 400. Lipase and LFTs were fairly unremarkable. Alcohol was negative. CT head and x-rays of the pelvis were unremarkable. Patient was given IV fluids x2 L as well as Zosyn and vancomycin to cover the ulcer on his sacrum. Patient was updated bedside discussed with the hospitalist admitted for further work-up. Discussed with Dr. Wyman for admission and further work-up. Triage Nursing notes reviewed. Limited review of prior medical records performed Vital Signs: reviewed and remarkable for hypertension tachycardic Differential diagnosis: Differential diagnoses include major intracranial, cervical, spinal, thoracic, abdominal, pelvic and neurologic injury. Fracture, contusion, sprain, strain, laceration, abrasions included as well. ER treatment provided: See below Diagnostics interpreted by me: ECG: Sinus tachycardia rate of 116 Normal axis No PVCs Poor baseline QTC 422 Cardiac Monitoring: An order was placed for continuous cardiac monitoring. The monitor shows a rate of 101 with sinus rhythm. Laboratory studies: As stated above and show below. Imaging studies: CT head was negative X-ray of the pelvis and knee showed no acute fractures Consultation(s): Discussed with Dr. Wyman Procedures: none Critical Care: None Past Med/Surg History Medical History (Updated 05/06/21 @ 14:20 by Quentin Causey DO) [place] ([place]) Osteoarthritis Right club foot congenital Surgical History History of surgery Right clubfoot correction - multiple procedures as a child Family History (Updated 05/14/19 @ 18:29 by Shanice Swenson PA-C) Other No family history of adverse response to anesthesia Denies family history of Coronary heart disease Social History Smoking Status: Never smoker Second Hand Exposure: No; Hx Alcohol Use: Yes Alcohol type: beer Hx Substance Use: Yes Last Used Substance Other:: 3-4 weeks ago Preferred Language: [place] Communication Ability: Effective [place] Required: No Beliefs That Will Affect Care: None Current Living Situation: Alone Feels Safe at Home: Yes Assistive Devices: Walker Allergies Allergies Allergy/AdvReac Type Severity Reaction Status Date / Time No Known Allergies Allergy Verified 05/06/21 13:56 Home Meds Home Medications Medication Instructions Recorded Confirmed No Known Home Medications 05/06/21 05/06/21 Results & Data (ED) Vital Signs Vital Signs - 24 hr 05/06/21 12:16 05/06/21 12:23 Temperature 36.7 C Temperature Source Oral Pulse Rate 109 H Pulse Rhythm Regular Pulse Strength Normal Respiratory Rate 20 Respiratory Effort / Characteristics Non-Labored Spontaneous Respiratory Depth Normal Respiratory Pattern Regular Blood Pressure 153/82 H Blood Pressure Mean 105 Blood Pressure Position Sitting Pulse Oximetry 96 Oxygen Delivery Method Room Air Sepsis Recent Fever Within 48 Hours No Sepsis New/Unexplained Change in Mental Status No Sepsis Action Taken by Nursing No Action Required Laboratory Data Result diagrams: 05/06/21 12:45 05/06/21 12:45 Lab Results 05/06/21 05/06/21 05/06/21 Range/Units 12:45 12:45 12:45 WBC 19.70 H (4.8-10.8) K/uL RBC 5.41 (4.7-6.1) M/uL Hgb 12.5 L (14.0-18.0) g/dL Hct 40.2 L (42-52) % MCV 74.3 L (80-100) fL MCH 23.1 L (25-34) pg MCHC 31.1 L (32-36) g/dL RDW Std Deviation 57.3 H (36.4-46.3) fL RDW Coeff of Flako 21.4 H (11.5-14.5) % Plt Count 325 (130-400) K/uL MPV 8.8 (7.4-10.4) fL Immature Gran % (Auto) 1.0 % Neut % (Auto) 84.4 % Lymph % (Auto) 5.0 % Sampson % (Auto) 8.9 % Eos % (Auto) 0.6 % Baso % (Auto) 0.1 % Neut # (Auto) 16.62 H (1.4-6.5) K/uL Lymph # (Auto) 0.99 L (1.2-3.4) K/uL Sampson # (Auto) 1.76 H (0.11-0.59) K/uL Eos # (Auto) 0.12 (0-0.5) K/uL Baso # (Auto) 0.02 (0-0.2) K/uL Immature Gran # (Auto) 0.19 H (0.00-0.02) K/uL Anisocytosis Present Microcytosis Present Ovalocytes 1+ Sodium 147 H (136-145) mmol/L Potassium 4.5 (3.5-5.1) mmol/L Chloride 111 H (98-107) mmol/L Carbon Dioxide 21 (21-32) mmol/L Anion Gap 15 H (3-11) BUN 31 H (6-23) mg/dl Creatinine 0.84 (0.6-1.4) mg/dl Est Cr Clr Drug Dosing Not Reportable Est GFR ( Amer) 97.2 ml/min Est GFR (Non-Af Amer) 83.9 ml/min BUN/Creatinine Ratio 36.9 H (10-20) Glucose 99 (70-99(Fasting)) mg/dl Calcium 9.8 (8.5-10.1) mg/dl Total Bilirubin 1.0 (0.2-1.0) mg/dl AST 38 (13-39) U/L ALT 20 (7-52) U/L Alkaline Phosphatase 137 H (34-104) U/L Total Creatine Kinase 411 H (30-223) U/L Troponin I 0.03 (0-0.04) ng/ml Total Protein 6.3 (6.0-8.3) gm/dl Albumin 3.2 L (3.4-5.0) gm/dl Globulin 3.1 (2.5-4.0) gm/dl Albumin/Globulin Ratio 1.0 (0.9-2) Lipase 19 (11-82) U/L Ethyl Alcohol mg/dL < 10.0 (<10.0) mg/dl Administered Medications Sodium Chloride (Nss 1000ml) 2,000 mls @ 999 mls/hr IV .Q2H1M ONE Stop: 05/06/21 15:46 Last Admin: 05/06/21 14:00 Dose: 999 mls/hr Documented by: [id number] Piperacillin Sod/Tazobactam Sod (Zosyn) 4.5 gm in 120 mls @ 240 mls/hr IV NOW ONE Stop: 05/06/21 14:15 Last Admin: 05/06/21 14:00 Dose: 240 mls/hr Documented by: [id number] Discontinued Medications Lorazepam (Lorazepam 2 Mg/1 Ml Vial) 0.5 mg IV NOW STA Stop: 05/06/21 13:47 Last Admin: 05/06/21 14:00 Dose: 0.5 mg Documented by: [id number] Imaging Data Radiologist's Impression: Knee X-Ray 05/06/21 12:17 XR knee LT 3V CLINICAL HISTORY: Left knee pain. COMPARISON STUDY: Left knee 05/14/2019 FINDINGS: There is a constrained longstem left total knee arthroplasty. The hardware appears intact. No abnormal periprosthetic lucency. No fracture or dislocation within the left knee. Small knee effusion. No soft tissue swelling. Vascular calcifications are noted. Dense calcification overlying the mid left fibula, unchanged. IMPRESSION: 1. No fracture or dislocation within the left knee. 2. Small left knee effusion. 3. Left total knee arthroplasty. ACT 112: Negative or not required by law. Electronically signed by: Donovan Nguyen M.D. 05/06/2021 12:42 PM Pelvis X-Ray 05/06/21 12:17 XR pelvis 1-2V routine CLINICAL HISTORY: Fall. Pelvic pain. COMPARISON STUDY: None. FINDINGS: No fracture or dislocation within the pelvis or hips. The sacrum is intact. Mild degenerative changes within the bilateral hips. Soft tissues are unremarkable. No radiopaque foreign bodies. Vascular calcifications are noted. IMPRESSION: No fracture or dislocation within the pelvis or hips. ACT 112: Negative or not required by law. Electronically signed by: Donovan Nguyen M.D. 05/06/2021 12:[address] 05/06/21 12:[address] DOSE: 614.27 mGy.cm HISTORY: fall TECHNIQUE: Multiaxial CT images of the head were performed without the use of intravenous contrast. Automated exposure control was utilized for this study. A dose lowering technique was utilized adhering to the principles of ALARA. Comparison: Head CT 02/12/2015. Findings: The paranasal sinuses and mastoid air cells are clear. The calvarium and skull base are intact. There is no mass, hematoma, midline shift, acute infarct. White matter hypodensity is nonspecific but suggestive of microvascular ischemic change. The ventricles and sulci demonstrate mild age-related involutional changes. Mild scalp swelling at the high convexity posteriorly. 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 Old small infarct within the left occipital lobe, unchanged. Impression: No acute intracranial abnormality. Atrophy and microvascular ischemic changes. ACT 112: Negative or not required by law. Electronically signed by: Donovan Nguyen M.D. 05/06/2021 1:52 PM Discharge Plan Visit Data Chief Complaint: Fall ED Provider: Quentin Causey Discharge Problem: Weakness, Sacral ulcer, Leukocytosis, Acute dehydration, Acute hypernatremia Forms Stand Alone Forms: [facility] [employer] Prescriptions Prescriptions: No Action No Known Home Medications RF: 0 Referrals Referrals: Bryant Celaya MD [Primary Care Provider] -
--- NOTE | 2021-05-06 12:43 | XRay Report ---
XR knee LT 3V CLINICAL HISTORY: Left knee pain. COMPARISON STUDY: Left knee 05/14/2019 FINDINGS: There is a constrained longstem left total knee arthroplasty. The hardware appears intact. No abnormal periprosthetic lucency. No fracture or dislocation within the left knee. Small knee effus ion. No soft tissue swelling. Vascular calcifications are noted. Dense calcification overlying the mi d left fibula, unchanged. IMPRESSION: 1. No fracture or dislocation within the left knee. 2. Small left knee effusion. 3. Left total knee arthroplasty. ACT 112: Negative or not required by law. Electronically signed by: Donovan Nguyen M.D. 05/06/2021 12:42 PM
--- NOTE | 2021-05-06 12:45 | XRay Report ---
XR pelvis 1-2V routine CLINICAL HISTORY: Fall. Pelvic pain. COMPARISON STUDY: None. FINDINGS: No fracture or dislocation within the pelvis or hips. The sacrum is intact. Mild degenerati ve changes within the bilateral hips. Soft tissues are unremarkable. No radiopaque foreign bodies. Va scular calcifications are noted. IMPRESSION: No fracture or dislocation within the pelvis or hips. ACT 112: Negative or not required by law. Electronically signed by: Donovan Nguyen M.D. 05/06/2021 12:44 PM
[2021-05-06 12:54] LABS: Basophils # (auto) 0.02 K/uL (0-0.2); Basophils % (auto) 0.1 %; Eosinophils # (auto) 0.12 K/uL (0-0.5); Eosinophils % (auto) 0.6 %; Hematocrit (blood only) 40.2 % (42-52); Hemoglobin 12.5 g/dL (14.0-18.0); Immature Granulocytes # (auto) 0.19 K/uL (0.00-0.02); Lymphocytes # (auto) 0.99 K/uL (1.2-3.4); Mean Corpuscular Hemoglobin 23.1 pg (25-34); Mean Corpuscular Hgb Conc 31.1 g/dL (32-36); Mean Corpuscular Volume 74.3 fL (80-100); Mean Platelet Volume 8.8 fL (7.4-10.4); Monocytes # (auto) 1.76 K/uL (0.11-0.59); Monocytes % (auto) 8.9 %; Neutrophils # (auto) 16.62 K/uL (1.4-6.5); Neutrophils % (auto) 84.4 %; Platelet Count 325 K/uL (130-400); RDW Coefficient of Variation 21.4 % (11.5-14.5); RDW Standard Deviation 57.3 fL (36.4-46.3); Red Blood Count 5.41 M/uL (4.7-6.1)
[2021-05-06 13:15] LABS: Anisocytosis Present; Microcytosis Present; Ovalocytes 1+
[2021-05-06 13:18] LABS: Alanine Aminotransferase 20 U/L (7-52); Albumin Level 3.2 gm/dl (3.4-5.0); Alkaline Phosphatase 137 U/L (34-104); Anion Gap 15 (3-11); Aspartate Aminotransferase 38 U/L (13-39); BUN Creatinine Ratio 36.9 (10-20); Blood Urea Nitrogen 31 mg/dl (6-23); Calcium 9.8 mg/dl (8.5-10.1); Carbon Dioxide 21 mmol/L (21-32); Chloride 111 mmol/L (98-107); Creatine Kinase 411 U/L (30-223); Est GFR (African American) 97.2 ml/min; Est GFR (Non-African American) 83.9 ml/min; Globulin 3.1 gm/dl (2.5-4.0); Glucose 99 mg/dl (70-99(Fasting)); Lipase 19 U/L (11-82); Potassium 4.5 mmol/L (3.5-5.1); Sodium 147 mmol/L (136-145); Total Protein 6.3 gm/dl (6.0-8.3); Troponin I 0.03 ng/ml (0-0.04)
[2021-05-06] MEDS ORDERED: PIPERACILLIN/TAZOBACTAM 4.5 GM/120 ML BAG IV ONE (13:46)
[2021-05-06] MEDS ORDERED: SODIUM CHLORIDE 0.9% 1000ML 2,000 ML IV ONE (13:46)
[2021-05-06] MEDS ORDERED: PIPERACILL/TAZOBAC CONSULT ACTIVE PRN (13:46)
[2021-05-06] MEDS ORDERED: VANCOMYCIN HCL 1,250 MG in SODIUM CHLORIDE 0.9% 500 ML IV ONE (13:46)
[2021-05-06] MEDS ORDERED: VANCOMYCIN CONSULT ACTIVE PRN (13:46)
[2021-05-06] MEDS ORDERED: LORazepam 2 MG/1 ML VIAL IV STA (13:46)
--- NOTE | 2021-05-06 13:54 | CT Scan Report ---
HEAD CT NONCONTRAST CT DOSE: 614.27 mGy.cm HISTORY: fall TECHNIQUE: Multiaxial CT images of the head were performed without the use of intravenous contrast. A utomated exposure control was utilized for this study. A dose lowering technique was utilized adheri ng to the principles of ALARA. Comparison: Head CT 02/12/2015. Findings: The paranasal sinuses and mastoid air cells are clear. The calvarium and skull base are int act. There is no mass, hematoma, midline shift, acute infarct. White matter hypodensity is nonspecifi c but suggestive of microvascular ischemic change. The ventricles and sulci demonstrate mild age-rela yen involutional changes. Mild scalp swelling at the high convexity posteriorly. 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 Old small infarct within the left occip ital lobe, unchanged. Impression: No acute intracranial abnormality. Atrophy and microvascular ischemic changes. ACT 112: Negative or not required by law. Electronically signed by: Donovan Nguyen M.D. 05/06/2021 1:52 PM
[2021-05-06] MEDS ORDERED: GABAPENTIN 1200MG ALCOHOL WITHDRAWAL LOAD PO STA (14:22)
[2021-05-06] MEDS ORDERED: CONSULT PHARMACY STA (14:25)
[2021-05-06] MEDS ORDERED: GABAPENTIN 1200MG ALCOHOL WITHDRAWAL LOAD PO SCH (15:00)
[2021-05-06] MEDS ORDERED: LORazepam 0.5 MG TAB PO PRN (15:31)
--- NOTE | 2021-05-06 15:34 | History & Physical Report ---
Date of Service May 06, 2021 Assessment & Plan (1) Sacral ulcer: Plan: Sepsis Meets SIRS Criteria Possible Source: Sacral Wound infection, UTI CXR pending Blood culture, urine culture pending COVID screen negative Normal lactate levels Started on broad-spectrum antibiotics vancomycin, Zosyn Continue IV fluids Wound care consulted Mechanical fall Ambulatory dysfunction Mild elevation of CK levels Fall precautions PT OT Imaging studies negative for any acute fractures Monitor CK tomorrow Urinary retention Kc catheter placed Bladder scan as needed Consider urology if needed Voiding trial prior to discharge Acute hypernatremia Likely dehydration Monitor sodium levels Continue IV fluids Alcohol use disorder Monitor for withdrawal Continue gabapentin protocol Thiamine, folic acid Ativan as needed Tobacco use disorder Counseled to quit Nicotine patch HTN As per records Currently not on any medications Monitor Vitamin B12 deficiency Check vitamin B12 levels DVT prophylaxis Lovenox SQ CODE STATUS Full code Disposition PT OT prior to discharge History of Present Illness Chief Complaint: Fall, Ambulatory Dysfunction Primary Care Provider: Bryant Celaya MD Patient is a 77-year-old male with history of hypertension, alcohol use disorder, tobacco use, clubfoot, vitamin B12 deficiency and other medical problems presents with history of fall and ambulatory dysfunction. Most of the history is obtained from patient as well as patient's son and ER physician. Patient states that he was going to living room to watch television and his left knee buckled up and gave way resulting in fall landing on his buttocks. He states having left knee surgery 2 years ago. He denies any head trauma, loss of consciousness. Patient's son informs that patient has been having ambulatory dysfunction lately for the past 2 weeks has been using clutches to walk around. Patient states that he had a similar fall previously secondary to his postoperative knee. Patient could not get up from the floor after the fall. He also states having trouble urinating since the fall. He feels anxious while in ED and has shakiness. He admits to drinking alcohol on regular basis but has been trying to cut down and his last alcohol drink is 2 weeks ago. Also chews Tobacco and uses Marijuana intermittently. Denies any history of chest pain, SOB, dizziness, diaphoresis, cough, fever, chills, headache, focal weakness, numbness, change in vision, nausea, vomiting, abdominal pain, diarrhea, dysuria, recent change in medications. Allergies Allergy/AdvReac Type Severity Reaction Status Date / Time No Known Allergies Allergy Verified 05/06/21 13:56 Home Medications Medication Instructions Recorded Confirmed Type No Known Home Medications 05/06/21 05/06/21 History Past Med/Surg History Medical History [place] (hard of hearing) Osteoarthritis Right club foot congenital Surgical History History of surgery Right clubfoot correction - multiple procedures as a child Family History Other No family history of adverse response to anesthesia Denies family history of Coronary heart disease Social History Smoking Status: Never smoker Second Hand Exposure: No; Hx Alcohol Use: Yes Alcohol type: beer Hx Substance Use: Yes Last Used Substance Other:: 3-4 weeks ago Preferred Language: Faroese Communication Ability: Effective Fixed Wing Pilot Required: No Beliefs That Will Affect Care: None Current Living Situation: Alone Feels Safe at Home: Yes Assistive Devices: Walker Review of Systems Review of Systems: All systems reviewed & are unremarkable except as noted in Subjective Physical Exam Physical Exam: Physical Exam: Vitals signs as noted above General Appearance:Chronic ill appearing, + shakiness, no apparent distress Head: normocephalic, Atraumatic Eyes: normal inspection, EOMI Neck: supple, Trachea midline Respiratory/Chest: Normal breath sounds, CTA, No accessory muscle use Cardiovascular: S1, S2, No murmur, +Tachycardia Abdomen/GI:Soft, Non tender, Bowel sounds present Back: Sacral wound Extremities/Musculoskeletal:normal inspection, + Club feet, Left knee tender, healed surgical site Neurologic/Psych:AAOX3, grossly no focal neurological deficits Skin: normal color, warm Results & Data Results & Data ([facility]) Vital Signs (Past 12 Hours) Vital Signs Temp Pulse Resp BP Pulse Ox 05/06/21 15:00 113 H 23 105/68 96 05/06/21 14:31 113 H 28 H 136/76 94 05/06/21 14:00 125 H 22 135/92 98 05/06/21 13:31 132 H 23 115/81 95 05/06/21 13:00 110 H 20 129/94 85 L 05/06/21 12:30 118 H 20 115/83 88 L 05/06/21 12:23 96 05/06/21 12:16 36.7 C 109 H 20 153/82 H Laboratory Results Short CBC 05/06/21 Range/Units 12:45 WBC 19.70 H (4.8-10.8) K/uL Hgb 12.5 L (14.0-18.0) g/dL Hct 40.2 L (42-52) % Plt Count 325 (130-400) K/uL BMP 05/06/21 12:45 Sodium 147 H Potassium 4.5 Chloride 111 H Carbon Dioxide 21 BUN 31 H Creatinine 0.84 Glucose 99 Calcium 9.8 Cardiac Enzymes 05/06/21 Range/Units 12:45 Total Creatine Kinase 411 H (30-223) U/L Troponin I 0.03 (0-0.04) ng/ml Liver Function 05/06/21 Range/Units 12:45 Total Bilirubin 1.0 (0.2-1.0) mg/dl AST 38 (13-39) U/L ALT 20 (7-52) U/L Alkaline Phosphatase 137 H (34-104) U/L Albumin 3.2 L (3.4-5.0) gm/dl Urine 05/06/21 Range/Units 17:00 Urine Color War Urine Appearance Turbid A (Clear) Urine pH 5.5 (4.5-7.5) Ur Specific [place] 1.022 (1.000-1.030) Urine Protein 2+ H (Negative) Urine Glucose (UA) Negative (Negative) Diagnostic Findings --CT head:No acute intracranial abnormality. Atrophy and microvascular ischemic changes. --Pelvic X ray:No fracture or dislocation within the pelvis or hips. --Left Knee X ray: No fracture or dislocation within the left knee. Small left knee effusion. Left total knee arthroplasty. Code Status & VTE Plan VTE Prophylaxis Plan VTE Prophylaxis will be ordered: Yes (1) Sacral ulcer Non-pressure ulcer stage: unspecified non-pressure ulcer stage Qualified Code(s): L98.429 - Non-pressure chronic ulcer of back with unspecified severity
[2021-05-06] MEDS: PATIENT'S HEIGHT AND/OR WEIGHT NEEDED SCH ×2 (16:06→20:25)
[2021-05-06 17:24] LABS: Appearance Urine Turbid (Clear); Bacteria Urine Automated 3+ (Negative); Blood Urine 3+ (Negative); Color Urine Orange; Epithelial Cell Urine Auto 0-5 /lpf (0-5); Glucose Urine UA Negative (Negative); Ketones Urine 2+ (Negative); Leukocyte Esterase Urine 3+ (Negative); Nitrite Urine Negative (Negative); Protein Urine 2+ (Negative); Specific Gravity Urine 1.022 (1.000-1.030); Urobilinogen Urine Negative (Negative); WBC Urine Automated >30 /hpf (0-5); pH Urine 5.5 (4.5-7.5)
[2021-05-06 17:27] LABS: Bilirubin Urine 1+ (Negative)
[2021-05-06 17:36] LABS: RBC Urine Automated >30 /hpf (0-4)
--- NOTE | 2021-05-06 19:49 | XRay Report ---
XR chest 2V PA/lateral CLINICAL HISTORY: Sepsis COMPARISON STUDY: Chest radiograph April 29, 2019. FINDINGS: No pneumothorax or pleural effusion is present. There is no consolidation to suggest pneumo chico. Cardiomegaly is unchanged. Subtle interstitial thickening is unchanged. IMPRESSION: No acute cardiopulmonary findings. No change in appearance of the chest. ACT 112: Negative or not required by law. Electronically signed by: Burton Garcia M.D. 05/06/2021 7:47 PM
--- NOTE | 2021-05-06 19:50 | Pharmacy Report ---
Pharmacy Vanc AUC Short Note - Date of Service May 06, 2021 - Assessment & Plan Assessment 80 year old M receiving Vancomycin and Zosyn for empiric treatment of sepsis. * Afebrile with a leukocytosis of 20,000. Renal fxn is adequate. Urine and blood cultures pending. * UA showed 3+ LE, >30 WBCs, 0-5 epi's and 3+ bacteria Plan Vancomycin * AUC/NENA is the preferred PK/PD target for vancomycin * AUC guided dosing is effective and associated with decreased risk of nephrotoxicity compared to traditional trough targets * Loading dose: 1250 mg IV x 1 * Maintenance dose: 750 mg IV every 12 hours is predicted to achieve target AUC/NENA of 400-600 mg/L.hr and may be associated with a 13% risk of nephrotoxicity * No trough level ordered unless therapy to extend beyond 48 hours Zosyn * 4.5 g IV x 1 then 3.375 g IV every 8 hours Pharmacy will continue to follow and will adjust dose/frequency as necessary. Thank you.
[2021-05-06] MEDS: GABAPENTIN 1200MG LOADING DOSE PO SCH ×2 (20:45→21:10)
[2021-05-06] MEDS ORDERED: POLYETHYLENE (MIRALAX) 17 GM PACK PO PRN (20:58)
[2021-05-06] MEDS ORDERED: ONDANSETRON INJ 2 MG/ML 2 ML VIAL IV PRN (20:58)
[2021-05-06] MEDS ORDERED: GABAPENTIN 600 MG TAB PO ONE (20:58)
[2021-05-06] MEDS ORDERED: GABAPENTIN 600 MG TAB PO SCH (20:58)
[2021-05-06] MEDS: PIPERACILLIN/TAZOBACTAM 3.375 GM in DEXTROSE 5% 100 ML IV SCH (21:07)
[2021-05-06] MEDS ORDERED: LORazepam 2 MG/1 ML VIAL IV PRN (21:07)
[2021-05-06] MEDS ORDERED: MULTI-VITAMIN INFUSION 10 ML, THIAMINE HCL 100 MG, FOLIC ACID 1 MG in SODIUM CHLORIDE 0... IV ONE (21:15)
[2021-05-06] MEDS: NICOTINE 21 MG/24 HR TDSY TD SCH (22:25)
[2021-05-06] MEDS: THIAMINE HCL 100 MG TAB PO SCH (22:27)
[2021-05-06] MEDS: FOLIC ACID 1 MG TAB PO SCH (22:29)
[2021-05-06] MEDS ORDERED: SODIUM CHLORIDE 0.45 % 1,000 ML IV ONE (22:39)
[2021-05-06] MEDS ORDERED: LACTATED RINGER'S 1,000 ML IV SCH (23:15)
[2021-05-07] MEDS: GABAPENTIN 600MG Q6H DOSE PO SCH ×2 (00:20→06:51)
[2021-05-07] MEDS ORDERED: SODIUM CHLORIDE 0.45 % 1,000 ML IV ONE (01:30)
[2021-05-07] MEDS ORDERED: VANCOMYCIN HCL 750 MG in SODIUM CHLORIDE 0.9% 250 ML IV SCH (04:00)
[2021-05-07] MEDS: PIPERACILLIN/TAZOBACTAM 3.375 GM in DEXTROSE 5% 100 ML IV SCH ×3 (04:23→21:12)
[2021-05-07 08:03] LABS: Basophils # (auto) 0.01 K/uL (0-0.2); Basophils % (auto) 0.1 %; Eosinophils # (auto) 0.14 K/uL (0-0.5); Eosinophils % (auto) 1.4 %; Hematocrit (blood only) 31.4 % (42-52); Hemoglobin 9.6 g/dL (14.0-18.0); Immature Granulocytes # (auto) 0.05 K/uL (0.00-0.02); Immature Granulocytes % (auto) 0.5 %; Lymphocytes # (auto) 0.79 K/uL (1.2-3.4); Lymphocytes % (auto) 8.1 %; Mean Corpuscular Hemoglobin 22.9 pg (25-34); Mean Corpuscular Hgb Conc 30.6 g/dL (32-36); Mean Corpuscular Volume 74.8 fL (80-100); Mean Platelet Volume 8.1 fL (7.4-10.4); Monocytes # (auto) 1.12 K/uL (0.11-0.59); Monocytes % (auto) 11.5 %; Neutrophils # (auto) 7.61 K/uL (1.4-6.5); Neutrophils % (auto) 78.4 %; Platelet Count 202 K/uL (130-400); RDW Coefficient of Variation 21.7 % (11.5-14.5); RDW Standard Deviation 58.4 fL (36.4-46.3); White Blood Count 9.72 K/uL (4.8-10.8)
[2021-05-07 08:10] LABS: BUN Creatinine Ratio 29.4 (10-20); Calcium 7.9 mg/dl (8.5-10.1); Est GFR (Non-African American) 91.5 ml/min; Magnesium 1.7 mg/dl (1.7-2.4); Potassium 3.1 mmol/L (3.5-5.1)
[2021-05-07 08:20] LABS: Anisocytosis Present; Ovalocytes 1+
[2021-05-07] MEDS: NICOTINE 21 MG/24 HR TDSY TD SCH (08:25)
[2021-05-07] MEDS: THIAMINE HCL 100 MG TAB PO SCH (08:26)
[2021-05-07] MEDS: FOLIC ACID 1 MG TAB PO SCH (08:26)
[2021-05-07] MEDS: ENOXAPARIN INJ 40 MG/0.4 ML SYR SQ SCH (08:26)
[2021-05-07] MEDS ORDERED: POTASSIUM CHLORIDE CRTAB 20 MEQ TABCR PO ONE (09:02)
[2021-05-07] MEDS ORDERED: GABAPENTIN 600 MG TAB PO SCH (10:30)
[2021-05-07] MEDS: SODIUM CHLOR 0.45% + 20MEQ KCL 20 MEQ/1,000 ML BAG IV SCH ×2 (12:05→20:15)
[2021-05-07] MEDS: POTASSIUM CHLORIDE / WTR 10 MEQ/100 ML PLCT IV SCH ×2 (12:05→13:06)
--- NOTE | 2021-05-07 12:45 | Electrocardiogram Report ---
Test Reason : Blood Pressure : / mmHG Vent. 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
--- NOTE | 2021-05-07 13:08 | Electrocardiogram Report ---
Test Reason : Blood Pressure : / mmHG Vent. 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
[2021-05-07] MEDS: GABAPENTIN 600MG Q8H DOSE PO SCH ×2 (13:20→21:15)
--- NOTE | 2021-05-07 16:15 | Hospitalist Progress Note ---
Date of Service May 07, 2021 Assessment & Plan (1) Sacral ulcer: Plan: Sepsis Meets SIRS Criteria Sources: Bacteremia, sacral Wound infection, suspected UTI CXR: No acute cardiopulmonary findings. No change in appearance of the chest. Blood culture growing gram-positive cocci in chains urine culture pending COVID screen negative Normal lactate levels Continue Continue vancomycin, Zosyn Day #2 Continue IV fluids Continue Wound care Check ECHO Will order repeat blood cultures tomorrow Mechanical fall Ambulatory dysfunction Imaging studies negative for any acute fractures Mild elevation of CK levels Fall precautions CK levels trending down PT OT Hypokalemia Replace electrolytes as needed Urinary retention Kc catheter placed Bladder scan as needed Consider urology if needed Voiding trial prior to discharge Acute hypernatremia Likely dehydration Monitor sodium levels Continue IV fluids Alcohol use disorder Monitor for withdrawal Continue gabapentin protocol Thiamine, folic acid Ativan as needed Tobacco use disorder Counseled to quit Nicotine patch HTN As per records Currently not on any medications Monitor Vitamin B12 deficiency vitamin B12 levels normal DVT prophylaxis Lovenox SQ CODE STATUS Full code Disposition Needs Rehab placement Admission and Anticipated Discharge Date Admission Date: May 06, 2021 Subjective Patient is seen and examined at bedside Very drowsy this morning More alert, awake and oriented later part of the day Complains of chronic back pain Otherwise feels well Discussed with patient's son at bedside Denies any chest pain, shortness of breath, dizziness, nausea, abdominal pain Did not do well with PT earlier today Review of Systems Review of Systems: All systems reviewed & are unremarkable except as noted in Subjective Physical Exam Physical Exam: Physical Exam: Vitals signs as noted above General Appearance:Chronic ill appearing, + shakiness, no apparent distress Head: normocephalic, Atraumatic Eyes: normal inspection, EOMI Neck: supple, Trachea midline Respiratory/Chest: Normal breath sounds, CTA, No accessory muscle use Cardiovascular: S1, S2, No murmur Abdomen/GI:Soft, Non tender, Bowel sounds present Back: Sacral wound Extremities/Musculoskeletal:normal inspection, + Club feet, Left knee tender, healed surgical site Neurologic/Psych:AAOX3, grossly no focal neurological deficits Skin: normal color, warm Results & Data Results & Data ([facility]) Vital Signs (Past 12 Hours) Vital Signs Temp Pulse Pulse Resp BP Pulse Ox 05/07/21 15:30 36.5 C 92 H 20 113/62 90 05/07/21 14:54 87 05/07/21 11:35 36.6 C 82 20 113/62 93 05/07/21 07:27 36.5 C 79 18 108/55 L 95 05/07/21 07:00 83 Laboratory Results Short CBC 05/07/21 Range/Units 07:10 WBC 9.72 (4.8-10.8) K/uL Hgb 9.6 L (14.0-18.0) g/dL Hct 31.4 L (42-52) % Plt Count 202 (130-400) K/uL BMP 05/07/21 05/07/21 00:28 07:10 Sodium 149 H 147 H Potassium 3.1 L D Chloride 118 H Carbon Dioxide 21 BUN 20 Creatinine 0.68 Glucose 86 Calcium 7.9 L Cardiac Enzymes 05/07/21 Range/Units 07:10 Total Creatine Kinase 242 H (30-223) U/L Urine 05/06/21 Range/Units 17:00 Urine Color [place] Urine Appearance Turbid A (Clear) Urine pH 5.5 (4.5-7.5) Ur Specific [place] 1.022 (1.000-1.030) Urine Protein 2+ H (Negative) Urine Glucose (UA) Negative (Negative) (1) Sacral ulcer Non-pressure ulcer stage: unspecified non-pressure ulcer stage Qualified Code(s): L98.429 - Non-pressure chronic ulcer of back with unspecified severity
[2021-05-07] MEDS: VANCOMYCIN HCL 1,000 MG in SODIUM CHLORIDE 0.9% 250 ML IV SCH (16:19)
[2021-05-08] MEDS: VANCOMYCIN HCL 1,000 MG in SODIUM CHLORIDE 0.9% 250 ML IV SCH ×2 (03:05→16:25)
[2021-05-08] MEDS: SODIUM CHLOR 0.45% + 20MEQ KCL 20 MEQ/1,000 ML BAG IV SCH ×2 (04:07→11:59)
[2021-05-08] MEDS: PIPERACILLIN/TAZOBACTAM 3.375 GM in DEXTROSE 5% 100 ML IV SCH ×3 (04:36→20:00)
[2021-05-08] MEDS: GABAPENTIN 600MG Q8H DOSE PO SCH (05:32)
[2021-05-08 07:19] LABS: Hematocrit (blood only) 31.6 % (42-52); Hemoglobin 9.5 g/dL (14.0-18.0); Mean Corpuscular Hemoglobin 22.6 pg (25-34); Mean Corpuscular Hgb Conc 30.1 g/dL (32-36); Mean Corpuscular Volume 75.1 fL (80-100); Mean Platelet Volume 8.4 fL (7.4-10.4); Platelet Count 217 K/uL (130-400); RDW Coefficient of Variation 21.8 % (11.5-14.5); RDW Standard Deviation 59.2 fL (36.4-46.3); Red Blood Count 4.21 M/uL (4.7-6.1); White Blood Count 10.05 K/uL (4.8-10.8)
[2021-05-08 07:46] LABS: BUN Creatinine Ratio 29.3 (10-20); Creatinine Clr Calc Pharmacy 87.9 ml/min; Est GFR (African American) 113.2 ml/min; Est GFR (Non-African American) 97.7 ml/min; Magnesium 1.7 mg/dl (1.7-2.4); Potassium 3.5 mmol/L (3.5-5.1)
[2021-05-08] MEDS: NICOTINE 21 MG/24 HR TDSY TD SCH (08:17)
[2021-05-08] MEDS: ENOXAPARIN INJ 40 MG/0.4 ML SYR SQ SCH (08:20)
[2021-05-08] MEDS: FOLIC ACID 1 MG TAB PO SCH (08:21)
[2021-05-08] MEDS: THIAMINE HCL 100 MG TAB PO SCH (08:21)
[2021-05-08] MEDS ORDERED: GABAPENTIN 600 MG TAB PO SCH (14:30)
--- NOTE | 2021-05-08 16:57 | Hospitalist Progress Note ---
Date of Service May 08, 2021 Assessment & Plan (1) Sacral ulcer: Plan: Sepsis Meets SIRS Criteria Bacteremia Pressure ulcer of sacral region, stage 3 UTI CXR: No acute cardiopulmonary findings. No change in appearance of the chest. --ECHO: No clear vegetation identified. Blood culture, urine culture pending--probable Enterococcus Repeat blood cultures pending Wound culture pending COVID screen negative Normal lactate levels Continue Continue vancomycin, Zosyn Day #3 Continue IV fluids Continue Wound care Consider ID evaluation if needed Leukocytosis resolved May need surgical evaluation of the sacral wound if no improvement with current management Mechanical fall Ambulatory dysfunction Left knee effusion Imaging studies negative for any acute fractures Mild elevation of CK levels Fall precautions CK levels trending down PT OT Orthopedics consulted for evaluation of left knee Hypokalemia Replace electrolytes as needed Urinary retention Kc catheter placed Bladder scan as needed Consider urology if needed Voiding trial prior to discharge Acute hypernatremia Likely dehydration Monitor sodium levels Continue IV fluids Sodium levels improving Alcohol use disorder Monitor for withdrawal Continue gabapentin protocol Thiamine, folic acid Ativan as needed Tobacco use disorder Counseled to quit Nicotine patch HTN As per records Currently not on any medications Monitor Vitamin B12 deficiency vitamin B12 levels normal DVT prophylaxis Lovenox SQ CODE STATUS Full code Disposition Needs Rehab placement Admission and Anticipated Discharge Date Admission Date: May 06, 2021 Subjective Patient is seen and examined at bedside Very drowsy this morning More alert, awake and oriented later part of the day Complains of chronic back pain Otherwise feels well Discussed with patient's son at bedside Denies any chest pain, shortness of breath, dizziness, nausea, abdominal pain Did not do well with PT earlier today Review of Systems Review of Systems: All systems reviewed & are unremarkable except as noted in Subjective Physical Exam Physical Exam: Physical Exam: Vitals signs as noted above General Appearance:Chronic ill appearing, + shakiness, no apparent distress Head: normocephalic, Atraumatic Eyes: normal inspection, EOMI Neck: supple, Trachea midline Respiratory/Chest: Normal breath sounds, CTA, No accessory muscle use Cardiovascular: S1, S2, No murmur Abdomen/GI:Soft, Non tender, Bowel sounds present Back: Sacral wound Extremities/Musculoskeletal:normal inspection, + Club feet, Left knee tender, healed surgical site Neurologic/Psych:AAOX3, grossly no focal neurological deficits Skin: normal color, warm Results & Data Results & Data ([facility]) Vital Signs (Past 12 Hours) Vital Signs Temp Pulse Pulse Resp BP BP Pulse Ox 05/08/21 16:15 36.6 C 76 20 112/65 96 05/08/21 15:36 87 05/08/21 10:53 36.4 C L 79 20 96/55 L 94 05/08/21 07:23 91 H 05/08/21 07:00 36.5 C 90 20 121/61 94 Laboratory Results Short CBC 05/08/21 Range/Units 06:40 WBC 10.05 (4.8-10.8) K/uL Hgb 9.5 L (14.0-18.0) g/dL Hct 31.6 L (42-52) % Plt Count 217 (130-400) K/uL BMP 05/08/21 06:40 Sodium 141 Potassium 3.5 Chloride 115 H Carbon Dioxide 22 BUN 17 Creatinine 0.58 L Glucose 93 Calcium 8.0 L (1) Sacral ulcer Non-pressure ulcer stage: unspecified non-pressure ulcer stage Qualified Code(s): L98.429 - Non-pressure chronic ulcer of back with unspecified severity
[2021-05-08] MEDS: GABAPENTIN 600MG Q12H DOSE PO SCH (17:28)
[2021-05-08] MEDS ORDERED: DICLOFENAC SOD 1% GEL 100 GM TUBE EXT PRN (20:09)
[2021-05-08] MEDS: ACETAMINOPHEN 325 MG TAB PO PRN (20:51)
[2021-05-09] MEDS ORDERED: VANCOMYCIN TROUGH ONE (03:30)
[2021-05-09 03:56] LABS: Hematocrit (blood only) 29.4 % (42-52); Mean Corpuscular Hemoglobin 22.7 pg (25-34); Mean Corpuscular Hgb Conc 30.6 g/dL (32-36); Mean Corpuscular Volume 74.2 fL (80-100); Mean Platelet Volume 8.5 fL (7.4-10.4); Platelet Count 188 K/uL (130-400); RDW Coefficient of Variation 21.6 % (11.5-14.5); Red Blood Count 3.96 M/uL (4.7-6.1); White Blood Count 10.05 K/uL (4.8-10.8)
[2021-05-09] MEDS: VANCOMYCIN HCL 1,000 MG in SODIUM CHLORIDE 0.9% 250 ML IV SCH (04:09)
[2021-05-09 04:18] LABS: BUN Creatinine Ratio 30.5 (10-20); Calcium 8.8 mg/dl (8.5-10.1); Creatinine Clr Calc Pharmacy 86.4 ml/min; Est GFR (African American) 112.4 ml/min; Potassium 3.6 mmol/L (3.5-5.1)
[2021-05-09] MEDS: PIPERACILLIN/TAZOBACTAM 3.375 GM in DEXTROSE 5% 100 ML IV SCH ×2 (04:56→11:23)
[2021-05-09] MEDS: GABAPENTIN 600MG Q12H DOSE PO SCH (06:08)
[2021-05-09] MEDS: THIAMINE HCL 100 MG TAB PO SCH (08:07)
[2021-05-09] MEDS: FOLIC ACID 1 MG TAB PO SCH (08:07)
[2021-05-09] MEDS: ENOXAPARIN INJ 40 MG/0.4 ML SYR SQ SCH (08:09)
[2021-05-09] MEDS: NICOTINE 21 MG/24 HR TDSY TD SCH (08:10)
--- NOTE | 2021-05-09 08:12 | Pharmacy Report ---
Pharmacy Vanc AUC Short Note - Date of Service May 09, 2021 - Assessment & Plan Assessment 80 year old M receiving vancomycin/Zosyn for treatment of sacral ulcer and bacteremia. Pertinent microbiologic data includes: blood culture growing probable enterococcus. Day # 4 of antimicrobial therapy. Plan Vancomycin * AUC/NENA is the preferred PK/PD target for vancomycin * AUC guided dosing is effective and associated with decreased risk of nephrotoxicity compared to traditional trough targets * Trough level of 11.1 mcg/mL is predicted to achieve less than target AUC/NENA of 400-600 mg/L.hr and may be associated with a 7 % risk of nephrotoxicity * Change to 1250 mg IV every 12 hours (associated with higher probability of achieving target AUC/NENA of 400-600 mg/L.hr and may be associated with 10% risk of nephrotoxicity). * Trough to be ordered if continued past 2 days Pharmacy will continue to follow and will adjust dose/frequency as necessary. Thank you.
[2021-05-09] MEDS: AMPICILLIN/SULBACTAM SOD 3,000 MG in 0.9 % SODIUM CHLORIDE 100 ML IV SCH ×2 (12:45→17:31)
--- NOTE | 2021-05-09 13:41 | Orthopedic Consultation ---
Date of Consultation May 09, 2021 Assessment & Plan (1) Left knee pain: X-rays reviewed with Dr. Cerrato. No obvious fractures or loosening noted of the components. Motion at this time is without pain. No overt swelling of the left knee. Does not appear to be infected and no reason for aspiration at this time. Would plan PT and OT protocols weightbearing as tolerated to see how the patient progresses. We will continue to follow. History of Present Illness Reason for Consultation: Left Knee Pain Attending Physician: Jayjay Maza MD History of Present Illness Patient is a 77-year-old male with history of hypertension, alcohol use disorder, tobacco use, clubfoot, vitamin B12 deficiency and other medical problems presents with history of fall and ambulatory dysfunction.Patient is currently awake and alert. He states that he has been having left knee pain for several weeks off and on. He states that he did not have any of the pain whenever he was sitting down however when he was trying to ambulate and move the knee, he was having pain over the anteromedial aspect of the knee. He states that he has not had any problems with his knee since he has had the total knee replacement. He denies any popping, clicking, snapping when he does range of motion. Patient denies any falls recently however history in the HPI states that the patient did have an episode of buckling of the left knee of where he had actually fallen onto his buttocks. Per the history from the patient's son, he has been having some ambulation dysfunction over the last couple of weeks. He currently denies any pain in the left knee at this time. We have been asked to see him for his left knee pain. Allergies Allergy/AdvReac Type Severity Reaction Status Date / Time No Known Allergies Allergy Verified 05/06/21 13:56 Home Medications Medication Instructions Recorded Confirmed Type No Known Home Medications 05/06/21 05/06/21 History Patient History Medical History LAC COURTE OREILLES (hard of hearing) Osteoarthritis Right club foot congenital Surgical History History of surgery Right clubfoot correction - multiple procedures as a child Family History Other No family history of adverse response to anesthesia Denies family history of Coronary heart disease Social History Smoking Status: Former smoker Smoking End Date: > 30 years ago; Second Hand Exposure: No; Hx Alcohol Use: Yes Alcohol type: beer Hx Substance Use: No Preferred Language: Bulgarian Communication Ability: Effective [employer] Required: No Beliefs That Will Affect Care: None marital status: Current Living Situation: Alone How many Children do You have: 1 Other Information That Helps Us Care for You: No Feels Safe at Home: Yes Safety Concerns: Feels Safe At This Time Assistive Devices: Denture - Upper and Denture - Lower Physical Exam Physical Exam: On examination, the patient is awake and alert. Oriented to person and place. No acute distress. Pleasant cooperative. On examination of his left lower extremity, he has a well-healed scar over his left knee from his revision left total knee arthroplasty done in 2019. He has further scars down the lower extremity from previous surgeries. He has a pillow under the left knee at this time for comfort. The knee does not appear overtly swollen at this time. He does not have a tense effusion. There is no erythema, and there is no overt warmth of the left knee compared to the right. He does have some residual swelling from the left knee surgery compared to the right. He has no pain on palpation over the knee at this time. Areas where he described pain over the anteromedial aspect of the joint and patella are nontender at this time. He is able to almost fully extend his knee and has a small extension lag of about 5 degrees. He is able to do a straight leg raise on his own. I cannot appreciate any defects in the quadriceps tendon region on palpation. Patient is able to take his left knee through active range of motion on his own without difficulty. He can flex the knee to approximately 90 degrees and then extend the knee with a 5 degree loss of extension. He has no pain during this time of range of motion. There is no crepitus that I can appreciate during range of motion. Calves are soft and nontender. Foot drop noted left foot. Some noted ability to dorsiflex but not a complete strong dorsiflexion of the foot. Noted leg length discrepancy compared to RLL which he has had for a long time. Results & Data ([facility]) Vital Signs (Past 12 Hours) Vital Signs Temp Pulse Pulse Resp BP BP Pulse Ox 05/09/21 09:40 104/54 L 05/09/21 09:26 36.5 C 97 H 20 95/58 L 92 05/09/21 07:10 78 05/09/21 03:35 36.5 C 81 20 101/60 96 Laboratory Results Laboratory Results WBC 10.05 K/uL (4.8-10.8) 05/09/21 03:42 RBC 3.96 M/uL (4.7-6.1) L 05/09/21 03:42 Hgb 9.0 g/dL (14.0-18.0) L 05/09/21 03:42 Hct 29.4 % (42-52) L 05/09/21 03:42 MCV 74.2 fL (80-100) L 05/09/21 03:42 MCH 22.7 pg (25-34) L 05/09/21 03:42 MCHC 30.6 g/dL (32-36) L 05/09/21 03:42 RDW Std Deviation 58.0 fL (36.4-46.3) H 05/09/21 03:42 RDW Coeff of [place] 21.6 % (11.5-14.5) H 05/09/21 03:42 Plt Count 188 K/uL (130-400) 05/09/21 03:42 MPV 8.5 fL (7.4-10.4) 05/09/21 03:42 Immature Gran % (Auto) 0.5 % 05/07/21 07:10 Neut % (Auto) 78.4 % 05/07/21 07:10 Lymph % (Auto) 8.1 % 05/07/21 07:10 [place] % (Auto) 11.5 % 05/07/21 07:10 Eos % (Auto) 1.4 % 05/07/21 07:10 Baso % (Auto) 0.1 % 05/07/21 07:10 Neut # (Auto) 7.61 K/uL (1.4-6.5) H 05/07/21 07:10 Lymph # (Auto) 0.79 K/uL (1.2-3.4) L 05/07/21 07:10 [place] # (Auto) 1.12 K/uL (0.11-0.59) H 05/07/21 07:10 Eos # (Auto) 0.14 K/uL (0-0.5) 05/07/21 07:10 Baso # (Auto) 0.01 K/uL (0-0.2) 05/07/21 07:10 Immature Gran # (Auto) 0.05 K/uL (0.00-0.02) H 05/07/21 07:10 Anisocytosis Present 05/07/21 07:10 Microcytosis Present 05/06/21 12:45 Ovalocytes 1+ 05/07/21 07:10 Sodium 138 mmol/L (136-145) 05/09/21 03:42 Potassium 3.6 mmol/L (3.5-5.1) 05/09/21 03:42 Chloride 111 mmol/L (98-107) H 05/09/21 03:42 Carbon Dioxide 23 mmol/L (21-32) 05/09/21 03:42 Anion Gap 4 (3-11) 05/09/21 03:42 BUN 18 mg/dl (6-23) 05/09/21 03:42 Creatinine 0.59 mg/dl (0.6-1.4) L 05/09/21 03:42 Est Cr Clr Drug Dosing 86.4 ml/min 05/09/21 03:42 Est GFR ( Amer) 112.4 ml/min 05/09/21 03:42 Est GFR (Non-Af Amer) 97.0 ml/min 05/09/21 03:42 BUN/Creatinine Ratio 30.5 (10-20) H 05/09/21 03:42 Glucose 96 mg/dl (70-99(Fasting)) 05/09/21 03:42 Lactate 1.3 mmol/L (0.4-2.0) 05/06/21 14:10 Calcium 8.8 mg/dl (8.5-10.1) 05/09/21 03:42 Magnesium 1.7 mg/dl (1.7-2.4) 05/08/21 06:40 Total Bilirubin 1.0 mg/dl (0.2-1.0) 05/06/21 12:45 AST 38 U/L (13-39) 05/06/21 12:45 ALT 20 U/L (7-52) 05/06/21 12:45 Alkaline Phosphatase 137 U/L (34-104) H 05/06/21 12:45 Ammonia 26.0 umol/L (18-72) 05/07/21 00:28 Total Creatine Kinase 242 U/L (30-223) H 05/07/21 07:10 Troponin I 0.03 ng/ml (0-0.04) 05/06/21 12:45 Total Protein 6.3 gm/dl (6.0-8.3) 05/06/21 12:45 Albumin 3.2 gm/dl (3.4-5.0) L 05/06/21 12:45 Globulin 3.1 gm/dl (2.5-4.0) 05/06/21 12:45 Albumin/Globulin Ratio 1.0 (0.9-2) 05/06/21 12:45 Lipase 19 U/L (11-82) 05/06/21 12:45 Vitamin B12 651 pg/ml (180-914) 05/07/21 07:10 TSH 3.010 uIu/ml (0.300-4.500) 05/06/21 12:45 Urine Color [place] 05/06/21 17:00 Urine Appearance Turbid (Clear) A 05/06/21 17:00 Urine pH 5.5 (4.5-7.5) 05/06/21 17:00 Ur Specific [place] 1.022 (1.000-1.030) 05/06/21 17:00 Urine Protein 2+ (Negative) H 05/06/21 17:00 Urine Glucose (UA) Negative (Negative) 05/06/21 17:00 Urine Ketones 2+ (Negative) H 05/06/21 17:00 Urine Blood 3+ (Negative) H 05/06/21 17:00 Urine Nitrite Negative (Negative) 05/06/21 17:00 Urine Bilirubin 1+ (Negative) H 05/06/21 17:00 Urine Urobilinogen Negative (Negative) 05/06/21 17:00 Ur Leukocyte Esterase 3+ (Negative) H 05/06/21 17:00 Urine WBC (Auto) >30 /hpf (0-5) H 05/06/21 17:00 Urine RBC (Auto) >30 /hpf (0-4) H 05/06/21 17:00 U Hyaline Cast (Auto) 1-5 /lpf (0-5) 05/06/21 17:00 U Epithel Cells (Auto) 0-5 /lpf (0-5) 05/06/21 17:00 Urine Bacteria (Auto) 3+ (Negative) H 05/06/21 17:00 Urine Yeast Not Reportable 05/06/21 17:00 Nasal Screen MRSA (PCR) Negative (Negative) 05/09/21 11:35 Vancomycin Trough 11.1 mcg/ml (10-20) 05/09/21 03:42 Ethyl Alcohol mg/dL < 10.0 mg/dl (<10.0) 05/06/21 12:45 SARS-CoV-2, RNA, NAAT NEGATIVE (NEGATIVE) 05/06/21 14:20 Impressions Knee X-Ray 05/06/21 12:17 XR knee LT 3V CLINICAL HISTORY: Left knee pain. COMPARISON STUDY: Left knee 05/14/2019 FINDINGS: There is a constrained longstem left total knee arthroplasty. The hardware appears intact. No abnormal periprosthetic lucency. No fracture or dislocation within the left knee. Small knee effusion. No soft tissue swelling. Vascular calcifications are noted. Dense calcification overlying the mid left fibula, unchanged. IMPRESSION: 1. No fracture or dislocation within the left knee. 2. Small left knee effusion. 3. Left total knee arthroplasty. ACT 112: Negative or not required by law. Electronically signed by: Donovan Nguyen M.D. 05/06/2021 12:42 PM Addendum May 09, 2021 15:10 My evaluation of his left leg was that he did have some weakness of dorsiflexion of his left foot good plantar flexion strength and had poor active function of his right foot which is fixed in an externally rotated position. He has s ignificant leg length discrepancy making it difficult to walk with his knee in the fully extended position. He has mild extensor lag weakness no pain with range of motion no significant effusion with just a very mild small amount of joint fluid which would not be infectious. No substantial ligamentous laxity that would cause instability. He had no knee or hip pain on exam with range of motion. Straight leg raise test causing some pain in his left leg. When I asked him about how the pain started he said he started with left flank pain low back pain that made him have to use ambulatory support and then pain started developing in his left leg and knee. Radiographs demonstrate well aligned total knee replacement which was a primary knee replacement done with revision components per history. At this point there is no intervention required surgically with regard to his knee. Since his pain by history began in his low back lumbar spine x-rays are recommended. May need pain management consult or [facility] spine consult. I think he would benefit from physical therapy and I think he would benefit from evaluation by a counselor marriage and family to look at his gait analysis and possible right leg orthopedic shoe orthotic or left or bracing.
--- NOTE | 2021-05-09 14:51 | Hospitalist Progress Note ---
Date of Service May 09, 2021 Assessment & Plan (1) Sacral ulcer: Plan: per Dr. Wyman's notes with addendum: Sepsis Meets SIRS Criteria Bacteremia Pressure ulcer of sacral region, stage 3 UTI CXR: No acute cardiopulmonary findings. No change in appearance of the chest. --ECHO: No clear vegetation identified. Blood culture, urine culture pending--probable Enterococcus Repeat blood cultures pending Wound culture pending COVID screen negative Normal lactate levels Continue Continue vancomycin, Zosyn Day #3 Continue IV fluids Continue Wound care Consider ID evaluation if needed Leukocytosis resolved May need surgical evaluation of the sacral wound if no improvement with current management 05/09/21 afebrile Blood culture: Enterococcus 2nd Blood culture: negative so far Urine culture: Enterococcus Wound culture: skin jorge alberto continue Unasyn Gen Surg Consulted Lumbar/Sacrum xr to r/o Osteo: pending L Knee edema, small effusion -- Ortho consulted: unlikely septic arthiritis Mechanical fall Ambulatory dysfunction Imaging studies negative for any acute fractures Mild elevation of CK levels Fall precautions CK levels trending down PT OT Hypokalemia K 3.6 Urinary retention Kc catheter placed Bladder scan as needed Voiding trial prior to discharge Acute hypernatremia Likely dehydration resolved Alcohol use disorder Monitor for withdrawal Continue gabapentin protocol Thiamine, folic acid Ativan as needed Tobacco use disorder counseling done Nicotine patch HTN As per records Currently not on any medications BP on the lower side, monitor Vitamin B12 deficiency vitamin B12 levels normal DVT prophylaxis Lovenox SQ CODE STATUS Full code Disposition Needs Rehab placement Admission and Anticipated Discharge Date Admission Date: May 06, 2021 Subjective ff up for sepsis, bacteremia, UTI, sacral wound ulcer, etc seen resting in bed, comfortable states he feels ok overall except for L knee discomfort has occasional back pain no chest pain, dyspnea, palpitations, dizziness no other symptoms Review of Systems Review of Systems: all noted and negative except for above Physical Exam Physical Exam: General- oriented x 2, not in distress, speaks in sentences with no effort or accessory muscle use Head- atraumatic Eyes- PERRL, EOMI, anicteric ENT- oropharynx clear Neck- supple, no JVD, no adenopathy, no thyromegaly; carotids +2/2, no bruits appreciated Lungs- clear to auscultation bilaterally, no rales/wheezes Heart- normal rate, regular rhythm; no murmur, no gallop, no rub appreciated Abdomen- normal bowel sounds, nondistended, soft, nontender, no masses or hepatosplenomegaly Extremities- L knee: moderate edema, no warmth, mild tenderness R knee: essentially normal no pretibial edema, no calf tenderness; peripheral pulses intact Back - open wound on the sacral area no bleeding, mild serous discharge Neuro- alert, oriented x 2; CN 2-12 grossly intact; motor 5/5 bilaterally;sensation 100% on all extremities; no other gross focal neurologic deficits Skin- warm & dry Results & Data Results & Data ([facility]) Vital Signs (Past 12 Hours) Vital Signs Temp Pulse Pulse Resp BP BP Pulse Ox 05/09/21 09:40 104/54 L 05/09/21 09:26 36.5 C 97 H 20 95/58 L 92 05/09/21 07:10 78 05/09/21 03:35 36.5 C 81 20 101/60 96 all noted and reviewed including below (1) Sacral ulcer Non-pressure ulcer stage: unspecified non-pressure ulcer stage Qualified Code(s): L98.429 - Non-pressure chronic ulcer of back with unspecified severity
[2021-05-09] MEDS ORDERED: VANCOMYCIN HCL 1,250 MG in SODIUM CHLORIDE 0.9% 250 ML IV SCH (16:00)
--- NOTE | 2021-05-09 16:13 | Surgery Consultation ---
Date of Consultation May 09, 2021 Assessment & Plan (1) Sacral ulcer: 80-year-old gentleman with stage II sacral decubitus ulcer. Had a discussion with the wound care nurse, with whom I saw the wound. The wound measures 9 x 11 cm. We are using Optifoam currently. There is no dry eschar to be surgically debrided. It is still not delineated itself. We will continue with the OPTi foam. No surgical intervention at this time. History of Present Illness Reason for Consultation: sacral decubitus ulcer Requesting Physician: Jayjay Maza MD Attending Physician: Jayjya Maza MD History of Present Illness MD-year-old gentleman presents to the emergency department due to a fall. He had pain in his knee. While he was here he was determined to have a sacral decubitus ulcer as well as a UTI. Symptoms of SIRS. He was admitted to the hospital. Wound care has been seeing his sacral decub. We have been asked to consult by the physician. Allergies Allergy/AdvReac Type Severity Reaction Status Date / Time No Known Allergies Allergy Verified 05/06/21 13:56 Home Medications Medication Instructions Recorded Confirmed Type No Known Home Medications 05/06/21 05/06/21 History Patient History Medical History [place] (hard of hearing) Osteoarthritis Right club foot congenital Surgical History History of surgery Right clubfoot correction - multiple procedures as a child Family History Other No family history of adverse response to anesthesia Denies family history of Coronary heart disease Social History Smoking Status: Former smoker Smoking End Date: > 30 years ago; Second Hand Exposure: No; Hx Alcohol Use: Yes Alcohol type: beer Hx Substance Use: No Preferred Language: Irish Communication Ability: Effective 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 Beliefs That Will Affect Care: None marital status: Current Living Situation: Alone How many Children do You have: 1 Other Information That Helps Us Care for You: No Feels Safe at Home: Yes Safety Concerns: Feels Safe At This Time Assistive Devices: Denture - Upper and Denture - Lower Review of Systems Review of Systems: All systems reviewed & are unremarkable except as noted in HPI & below Physical Exam Constitutional: WD/WN, vitals as above Neck: trachea midline, no thyromegaly Respiratory: normal respiratory effort; no respiratory distress and no labored breathing Cardiovascular: Rate/Rhythm: regular rate Gastrointestinal (Abdomen): Percussion/Palpation: abdomen soft Musculoskeletal: Extremities: no cyanosis and no clubbing Skin: no rashes, warm and dry Sacral decubitus ulcer measuring 9 cm x 11 cm, superficial, stage II; macerated appearance, no dry eschar; no purulent drainage; minimal erythema Psychiatric: A+Ox3, euthymic affect Results & Data ([facility]) Vital Signs (Past 12 Hours) Vital Signs Temp Pulse Pulse Resp BP Pulse Ox 05/09/21 15:34 89 05/09/21 09:40 104/54 L 05/09/21 09:26 36.5 C 97 H 20 95/58 L 92 05/09/21 07:10 78 (1) Sacral ulcer Non-pressure ulcer stage: unspecified non-pressure ulcer stage Qualified Code(s): L98.429 - Non-pressure chronic ulcer of back with unspecified severity
--- NOTE | 2021-05-09 17:40 | XRay Report ---
XR lumbar spine 2-3V CLINICAL HISTORY: lumbosacral wound, r/o osteomyelitis COMPARISON STUDY: No previous studies for comparison. FINDINGS: No lumbar spine fracture is noted. Sacroiliac joints are intact. No bony erosions are ident ified by radiography. Mild multilevel degenerative changes within the lumbar spine are present. No ac sanjay fracture is identified within visualized skeletal structures. IMPRESSION: No bony erosions identified to suggest osteomyelitis although sensitivity diminished giv en radiographic technique. ACT 112: Negative or not required by law. Electronically signed by: Burton Garcia M.D. 05/09/2021 5:39 PM
--- NOTE | 2021-05-09 19:01 | XRay Report ---
SACRUM AND COCCYX 3 VIEWS CLINICAL HISTORY: Sacral wound. FINDINGS: 3 views of the sacrum and coccyx are obtained. No prior studies are available for compariso n at the time of dictation. The skeletal structures are osteopenic. There is no radiographic evidence of fracture. There is no radiographic evidence of bony erosion. Sclerotic change is noted in the sac roiliac joints. Vascular calcifications are seen in the pelvis. IMPRESSION: No acute bony abnormality is identified by x-ray. Electronically signed by: Ezequiel Bryant M.D. 05/09/2021 6:59 PM
[2021-05-10] MEDS: AMPICILLIN/SULBACTAM SOD 3,000 MG in 0.9 % SODIUM CHLORIDE 100 ML IV SCH ×4 (00:07→15:48)
[2021-05-10] MEDS ORDERED: GABAPENTIN 600 MG TAB PO SCH (02:30)
[2021-05-10] MEDS ORDERED: GABAPENTIN 600MG X1 DOSE PO SCH (06:00)
[2021-05-10] MEDS: NICOTINE 21 MG/24 HR TDSY TD SCH (08:03)
[2021-05-10] MEDS: ENOXAPARIN INJ 40 MG/0.4 ML SYR SQ SCH (08:05)
[2021-05-10] MEDS: THIAMINE HCL 100 MG TAB PO SCH (08:05)
[2021-05-10] MEDS: FOLIC ACID 1 MG TAB PO SCH (08:05)
--- NOTE | 2021-05-10 12:53 | Hospitalist Progress Note ---
Date of Service May 10, 2021 Assessment & Plan (1) Sacral ulcer: Plan: per Dr. Wyman's notes with addendum: Sepsis Bacteremia, UTI Enterococcus Pressure ulcer of sacral region, stage 3 r/o Osteomyelitis CXR: No acute cardiopulmonary findings. No change in appearance of the chest. --ECHO: No clear vegetation identified. Blood culture, urine culture pending--probable Enterococcus Repeat blood cultures pending Wound culture pending COVID screen negative Normal lactate levels Continue Continue vancomycin, Zosyn Day #3 Continue IV fluids Continue Wound care Consider ID evaluation if needed Leukocytosis resolved May need surgical evaluation of the sacral wound if no improvement with current management 05/10/21 afebrile Blood culture: Enterococcus 2nd Blood culture: negative so far Urine culture: Enterococcus Wound culture: skin jorge alberto Gen Surg Consulted: debridement not recommended afebrile clinically improving continue Unasyn IV Lumbar/Sacrum xr to r/o Osteo: no signs of Osteo Lumbar spine MRI: pending L Knee edema, small effusion -- Ortho consulted: unlikely septic arthiritis Mechanical Fall Ambulatory Dysfunction Imaging studies negative for any acute fractures Mild elevation of CK levels CK levels trending down PT OT Hypokalemia resolved Urinary retention Kc catheter placed Bladder scan as needed Voiding trial prior to discharge Acute hypernatremia Likely dehydration resolved Alcohol use disorder Monitor for withdrawal Continue gabapentin protocol Thiamine, folic acid Ativan as needed Tobacco use disorder counseling done Nicotine patch HTN As per records Currently not on any medications BP on the lower side, monitor Vitamin B12 deficiency vitamin B12 levels normal DVT prophylaxis Lovenox SQ CODE STATUS Full code Disposition Needs Rehab placement Admission and Anticipated Discharge Date Admission Date: May 06, 2021 Subjective ff up for Enterococcus Bacteremia, UTI, Sacral wound, etc seen resting in bed, not in distress reports moderate pain over his lower back with movement minimal intermittent L knee pain no chest pain, dyspnea, palpitations, dizziness no abdominal pain, nausea/vomiting, fever/chills no other symptoms Review of Systems Review of Systems: all noted and negative except for above Physical Exam Physical Exam: General- oriented x 2, not in distress, speaks in sentences with no effort or accessory muscle use Eyes- anicteric Neck- no JVD Lungs- clear breath sounds bilaterally, no rales/wheezes Heart- normal rate, regular rhythm; no murmurs Abdomen- normal bowel sounds, nondistended, soft, nontender Extremities- L knee: mild edema, no erythema/warmth/tenderness no pretibial edema, no calf tenderness Neuro- alert, oriented x 2; no gross focal neurologic deficits Skin- warm & dry Results & Data Results & Data ([facility]) Vital Signs (Past 12 Hours) Vital Signs Temp Pulse Pulse Resp BP Pulse Ox 05/10/21 07:46 96 H 05/10/21 07:36 37 C 86 18 112/68 95 05/10/21 04:00 36.6 C 87 18 109/54 L 92 all noted and reviewed including below (1) Sacral ulcer Non-pressure ulcer stage: unspecified non-pressure ulcer stage Qualified Code(s): L98.429 - Non-pressure chronic ulcer of back with unspecified severity
[2021-05-10] MEDS ORDERED: GADOBUTROL 65ML VIAL IV ONE (13:19)
--- NOTE | 2021-05-10 14:22 | Magnetic Resonance Report ---
MRI OF THE LUMBAR SPINE WITH AND WITHOUT CONTRAST CLINICAL HISTORY: Low back pain. Sacral decubitus ulcer. Evaluate for osteomyelitis. COMPARISON STUDY: Lumbar spine radiographs May 09, 2021. TECHNIQUE: Utilizing a 1.5 Nafisa magnet and dedicated coil, multiplanar, multiecho imaging of the ramo ar spine was performed before and after uneventful IV administration of 7 mL of Gadavist. FINDINGS: For purposes of numbering on this exam, the L5-S1 disc space is assigned to axial image 27 of 30. Thi s exam is mildly compromised by motion artifact. Diffuse marrow signal heterogeneity is present. No i ntracanalicular mass or fluid collection is present. The conus terminates at the mid L1 level. Parave rtebral soft tissues are unremarkable. Kc balloon within the bladder is noted. There is slight los s of height of the superior endplate of L4. There is no marrow edema within the sacrum or visualized portions of the coccyx. Presacral edema is present. Note is made of a 1.6 cm T2 hyperintense lesion a long the lateral aspect of the left psoas muscle shown on axial image 11 of 30. This demonstrates no enhancement. This is probably benign. Note is made of increased fluid signal within the L3-L4 disc. T here is marked marrow edema and enhancement within the adjacent L3 and L4 vertebral bodies. This sugg ests discitis and osteomyelitis. No epidural abscess is present. There is mild left paravertebral tay ma and enhancement. No additional sites of marrow edema or present. Central canal is patent. Mild mul tilevel degenerative disc disease and facet arthrosis is present. There is mild multilevel neural for aminal stenosis. IMPRESSION: 1. Findings highly suggestive of L3-L4 discitis/osteomyelitis. Mild loss of height of the superior en dplate of L4. No epidural abscess. Mild left paravertebral inflammation. This finding will be called/ faxed to the ordering provider at time of dictation. 2. No sacral or coccygeal edema to suggest osteomyelitis within the sacrum or coccyx. 3. Marrow signal heterogeneity, probably age-related. 4. Exam mildly compromise motion artifact. 5. Mild multilevel degenerative disc disease and facet arthrosis within the lumbar spine. ACT 112: Negative or not required by law. Electronically signed by: Burton Garcia M.D. 05/10/2021 2:21 PM
[2021-05-10] MEDS: ACETAMINOPHEN 325 MG TAB PO PRN (15:48)
[2021-05-11] MEDS: AMPICILLIN/SULBACTAM SOD 3,000 MG in 0.9 % SODIUM CHLORIDE 100 ML IV SCH ×3 (01:00→12:53)
[2021-05-11] MEDS: FOLIC ACID 1 MG TAB PO SCH (07:51)
[2021-05-11] MEDS: THIAMINE HCL 100 MG TAB PO SCH (07:51)
[2021-05-11] MEDS: ENOXAPARIN INJ 40 MG/0.4 ML SYR SQ SCH (07:51)
[2021-05-11] MEDS: NICOTINE 21 MG/24 HR TDSY TD SCH (07:52)
--- NOTE | 2021-05-11 08:26 | Orthopedic Consultation ---
Date of Consultation May 11, 2021 Assessment & Plan (1) Lumbar discitis: I have reviewed the case with Dr. Shanks. There is no indication for acute surgical intervention at this time. Recommend medical management including IV antibiotics and infectious disease consult. They should continue mobilization efforts with physical therapy. Maintain GI and DVT prophylaxis as well as pain control. If there is any changes in neurologic status please notify our service. History of Present Illness Attending Physician: Jayjay Maza MD History of Present Illness Patient is 72-year-old male who had a fall just over 2 weeks ago. He has history significant for previous knee surgery 2 years prior. States he was walking from the kitchen to the living room and his knee buckled and fell to the floor directly on his backside. He was unable to get up on his own. He was using crutches for ambulation. He then was unable to ambulate and started having urinary retention. He was brought to the emergency room and admitted to the medical service. He has significant pain in the lower portion of the back this morning. His knee pain has improved with ice. He still is not able to ambulate independently. He has developed a sacral decubitus which is being treated nonoperatively. An MRI is obtained to determine there is osteomyelitis at the site of the decubitus. There is been development of increased signal at L3-4 consistent with a possible discitis and osteomyelitis. He is not having any loraine radicular complaints at this time. He denies any other numbness, tingling, or paresthesias. Allergies Allergy/AdvReac Type Severity Reaction Status Date / Time No Known Allergies Allergy Verified 05/06/21 13:56 Home Medications Medication Instructions Recorded Confirmed Type No Known Home Medications 05/06/21 05/06/21 History Patient History Medical History [place] (hard of hearing) Osteoarthritis Right club foot congenital Surgical History History of surgery Right clubfoot correction - multiple procedures as a child Family History Other No family history of adverse response to anesthesia Denies family history of Coronary heart disease Social History Smoking Status: Former smoker Smoking End Date: > 30 years ago; Second Hand Exposure: No; Hx Alcohol Use: Yes Alcohol type: beer Hx Substance Use: No Preferred Language: Swedish Communication Ability: Effective 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 He is alert and oriented. He has full strength in his lower extremities. He is nontender along the lower portion of lumbar spine. The sacral decubitus was not examined. His sensation is intact distally. He has full range motion of the hips and knees. His gait was not observed. Results & Data ([facility]) Vital Signs (Past 12 Hours) Vital Signs Temp Pulse Pulse Resp BP Pulse Ox 05/11/21 07:41 37 C 80 20 116/67 95 05/11/21 07:10 82 05/11/21 04:00 37.0 C 70 18 108/62 98 05/10/21 23:56 36.9 C 86 18 120/63 95 05/10/21 20:58 82 Diagnostic Findings MRI of lumbar spine performed recently was reviewed with Dr. Shanks. This reveals increased signal in the L3-4 disc space with edema in the endplates consistent with discitis. Do not appreciate any significant epidural abscess or neurologic compression.
[2021-05-11 09:50] LABS: Basophils # (auto) 0.03 K/uL (0-0.2); Basophils % (auto) 0.2 %; Eosinophils # (auto) 0.83 K/uL (0-0.5); Eosinophils % (auto) 6.9 %; Hematocrit (blood only) 31.7 % (42-52); Immature Granulocytes # (auto) 0.25 K/uL (0.00-0.02); Immature Granulocytes % (auto) 2.1 %; Lymphocytes # (auto) 1.64 K/uL (1.2-3.4); Lymphocytes % (auto) 13.6 %; Mean Corpuscular Hemoglobin 23.4 pg (25-34); Mean Corpuscular Hgb Conc 31.5 g/dL (32-36); Mean Corpuscular Volume 74.1 fL (80-100); Mean Platelet Volume 8.1 fL (7.4-10.4); Monocytes # (auto) 1.24 K/uL (0.11-0.59); Monocytes % (auto) 10.3 %; Neutrophils % (auto) 66.9 %; Platelet Count 224 K/uL (130-400); RDW Coefficient of Variation 22.2 % (11.5-14.5); RDW Standard Deviation 58.5 fL (36.4-46.3); Red Blood Count 4.28 M/uL (4.7-6.1); White Blood Count 12.09 K/uL (4.8-10.8)
[2021-05-11 10:15] LABS: BUN Creatinine Ratio 32.8 (10-20); Creatinine Clr Calc Pharmacy 95.2 ml/min; Est GFR (African American) 113.2 ml/min; Est GFR (Non-African American) 97.7 ml/min; Potassium 3.1 mmol/L (3.5-5.1)
[2021-05-11 10:46] LABS: Anisocytosis Present; Ovalocytes 2+
--- NOTE | 2021-05-11 12:20 | Hospitalist Progress Note ---
Date of Service May 11, 2021 Assessment & Plan (1) Sacral ulcer: Plan: per Dr. Wyman's notes with addendum: Sepsis Bacteremia, UTI : Lumbar Spine Discitis, Osteomyelitis Pressure ulcer of sacral region, stage 3 CXR: No acute cardiopulmonary findings. No change in appearance of the chest. --ECHO: No clear vegetation identified. afebrile x few days clinically improved 1st Blood culture: Enterococcus 2nd Blood culture: negative so far Urine culture: Enterococcus Wound culture: skin jorge alberto Lumbar spine MRI: 1. Findings highly suggestive of L3-L4 discitis/osteomyelitis. Mild loss of height of the superior endplate of L4. No epidural abscess. Mild left paravertebral inflammation. This finding will be called/faxed to the ordering provider at time of dictation. 2. No sacral or coccygeal edema to suggest osteomyelitis within the sacrum or coccyx. Gen Surg Consulted- Dr. Andres Carnes: wound debridement not recommended Ortho Spine Consulted- Dr. Shanks: no surgery recommended ID consulted- Sarita Larson: continue Unasyn IV x 6 weeks afebrile clinically improving ID consulted: continue Unasyn IV x 6 weeks weekly CBC and CMP continue daily wound care ff up with ID and Ortho in 2-3 weeks L Knee edema, small effusion -- Ortho consulted- [facility], Dr. Cerrato : unlikely septic arthiritis Mechanical Fall Ambulatory Dysfunction Imaging studies negative for any acute fractures Mild elevation of CK levels CK levels trending down PT OT: recommend Acute Rehab Urinary retention Kc catheter placed Bladder scan as needed Voiding trial in Acute Rehab Hypokalemia resolved Acute hypernatremia Likely dehydration resolved Alcohol use disorder no overt signs of alcohol withdrawal completed gabapentin protocol Thiamine, folic acid Ativan as needed Tobacco use disorder counseling done Nicotine patch HTN As per records Currently not on any medications BP on the lower side, monitor Vitamin B12 deficiency vitamin B12 levels normal DVT prophylaxis Lovenox SQ CODE STATUS Full code Disposition transition to Rehab ff up with ID Clinic in 2-3 weeks ff up with Ortho in 3 weeks Admission and Anticipated Discharge Date Admission Date: May 06, 2021 Subjective ff up for Enterococcus Bacteremia, UTI, Sacral Decubitus, Lumbar spine osteomyelitis/discitis, etc seen resting in chair, comfortable, not in distress oriented x 2 answers questions appropriately has mild lower back pain no leg weakness/numbness no fever/chill, abdominal pain no chest pain, dyspnea, palpitations, dizziness no other symptoms states he is ready and agreeable for discharge today Review of Systems Review of Systems: all noted and negative except for above Physical Exam Physical Exam: General- oriented x 2, not in distress, speaks in sentences with no effort or accessory muscle use Eyes- anicteric Neck- no JVD Lungs- clear BS BL no rales/wheezing Heart- normal rate, regular rhythm; no murmurs Abdomen- normal bowel sounds, nondistended, soft, nontender Extremities- no pretibial edema, no calf tenderness left knee: mild edema, no erythema/warmth/tenderness Neuro- alert, oriented x 2; no gross focal neurologic deficits Skin- warm & dry Results & Data Results & Data ([facility]) Vital Signs (Past 12 Hours) Vital Signs Temp Pulse Pulse Resp BP Pulse Ox 05/11/21 10:50 36.7 C 81 21 107/62 98 05/11/21 07:41 37 C 80 20 116/67 95 05/11/21 07:10 82 05/11/21 04:00 37.0 C 70 18 108/62 98 all noted and reviewed including below (1) Sacral ulcer Non-pressure ulcer stage: unspecified non-pressure ulcer stage Qualified Code(s): L98.429 - Non-pressure chronic ulcer of back with unspecified severity
--- NOTE | 2021-05-11 12:24 | Discharge Summary ---
Date of Service May 11, 2021 Admission HPI Per Admitting Provider Patient is a 77-year-old male with history of hypertension, alcohol use disorder, tobacco use, clubfoot, vitamin B12 deficiency and other medical problems presents with history of fall and ambulatory dysfunction. Most of the history is obtained from patient as well as patient's son and ER physician. Patient states that he was going to living room to watch television and his left knee buckled up and gave way resulting in fall landing on his buttocks. He states having left knee surgery 2 years ago. He denies any head trauma, loss of consciousness. Patient's son informs that patient has been having ambulatory dysfunction lately for the past 2 weeks has been using clutches to walk around. Patient states that he had a similar fall previously secondary to his postoperative knee. Patient could not get up from the floor after the fall. He also states having trouble urinating since the fall. He feels anxious while in ED and has shakiness. He admits to drinking alcohol on regular basis but has been trying to cut down and his last alcohol drink is 2 weeks ago. Also chews Tobacco and uses Marijuana intermittently. Denies any history of chest pain, SOB, dizziness, diaphoresis, cough, fever, chills, headache, focal weakness, numbness, change in vision, nausea, vomiting, abdominal pain, diarrhea, dysuria, recent change in medications. Admission Exam (Per Admitting) Constitutional Vitals signs as noted above General Appearance:Chronic ill appearing, + shakiness, no apparent distress Head: normocephalic, Atraumatic Eyes: normal inspection, EOMI Neck: supple, Trachea midline Respiratory/Chest: Normal breath sounds, CTA, No accessory muscle use Cardiovascular: S1, S2, No murmur, +Tachycardia Abdomen/GI:Soft, Non tender, Bowel sounds present Back: Sacral wound Extremities/Musculoskeletal:normal inspection, + Club feet, Left knee tender, healed surgical site Neurologic/Psych:AAOX3, grossly no focal neurological deficits Skin: normal color, warm Discharge Data Consultations 05/06/21 13:48 ED Decision to Admit Stat 05/08/21 15:35 Consult Orthopedic Surgery Routine 05/09/21 10:26 Consult Infectious Diseases Routine 05/09/21 14:50 Consult General Surgery Routine 05/10/21 14:29 Consult Infectious Diseases Routine 05/10/21 14:30 Consult Orthopedic Surgery Routine Procedures Performed MRI OF THE LUMBAR SPINE WITH AND WITHOUT CONTRAST CLINICAL HISTORY: Low back pain. Sacral decubitus ulcer. Evaluate for osteomyelitis. COMPARISON STUDY: Lumbar spine radiographs May 09, 2021. TECHNIQUE: Utilizing a 1.5 Nafisa magnet and dedicated coil, multiplanar, multiecho imaging of the lumbar spine was performed before and after uneventful IV administration of 7 mL of Gadavist. FINDINGS: For purposes of numbering on this exam, the L5-S1 disc space is assigned to axial image 27 of 30. This exam is mildly compromised by motion artifact. Diffuse marrow signal heterogeneity is present. No intracanalicular mass or fluid collection is present. The conus terminates at the mid L1 level. Paravertebral soft tissues are unremarkable. Kc balloon within the bladder is noted. There is slight loss of height of the superior endplate of L4. There is no marrow edema within the sacrum or visualized portions of the coccyx. Presacral edema is present. Note is made of a 1.6 cm T2 hyperintense lesion along the lateral aspect of the left psoas muscle shown on axial image 11 of 30. This demonstrates no enhancement. This is probably benign. Note is made of increased fluid signal within the L3-L4 disc. There is marked marrow edema and enhancement within the adjacent L3 and L4 vertebral bodies. This suggests discitis and osteomyelitis. No epidural abscess is present. There is mild left paravertebral edema and enhancement. No additional sites of marrow edema or present. Central canal is patent. Mild multilevel degenerative disc disease and facet arthrosis is present. There is mild multilevel neural foraminal stenosis. IMPRESSION: 1. Findings highly suggestive of L3-L4 discitis/osteomyelitis. Mild loss of height of the superior endplate of L4. No epidural abscess. Mild left paravertebral inflammation. This finding will be called/faxed to the ordering provider at time of dictation. 2. No sacral or coccygeal edema to suggest osteomyelitis within the sacrum or coccyx. 3. Marrow signal heterogeneity, probably age-related. 4. Exam mildly compromise motion artifact. 5. Mild multilevel degenerative disc disease and facet arthrosis within the lumbar spine. ACT 112: Negative or not required by law. HEAD CT NONCONTRAST CT DOSE: 614.27 mGy.cm HISTORY: fall TECHNIQUE: Multiaxial CT images of the head were performed without the use of intravenous contrast. Automated exposure control was utilized for this study. A dose lowering technique was utilized adhering to the principles of ALARA. Comparison: Head CT 02/12/2015. Findings: The paranasal sinuses and mastoid air cells are clear. The calvarium and skull base are intact. There is no mass, hematoma, midline shift, acute infarct. White matter hypodensity is nonspecific but suggestive of microvascular ischemic change. The ventricles and sulci demonstrate mild age-related involutional changes. Mild scalp swelling at the high convexity posteriorly. 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 Old small infarct within the left occipital lobe, unchanged. Impression: No acute intracranial abnormality. Atrophy and microvascular ischemic changes. ACT 112: Negative or not required by law. Hospital Course (1) Sacral ulcer: per Dr. Wyman's notes with addendum: Sepsis Bacteremia, UTI : Lumbar Spine Discitis, Osteomyelitis Pressure ulcer of sacral region, stage 3 CXR: No acute cardiopulmonary findings. No change in appearance of the chest. --ECHO: No clear vegetation identified. afebrile x few days clinically improved 1st Blood culture: Enterococcus 2nd Blood culture: negative so far Urine culture: Enterococcus Wound culture: skin jorge alberto Lumbar spine MRI: 1. Findings highly suggestive of L3-L4 discitis/osteomyelitis. Mild loss of height of the superior endplate of L4. No epidural abscess. Mild left paravertebral inflammation. This finding will be called/faxed to the ordering provider at time of dictation. 2. No sacral or coccygeal edema to suggest osteomyelitis within the sacrum or coccyx. Gen Surg Consulted- Dr. Andres Carnes: wound debridement not recommended Ortho Spine Consulted- Dr. Shanks: no surgery recommended ID consulted- Sarita Larson: continue Unasyn IV x 6 weeks afebrile clinically improving ID consulted: continue Unasyn IV x 6 weeks weekly CBC and CMP continue daily wound care ff up with ID and Ortho in 2-3 weeks L Knee edema, small effusion -- Ortho consulted- Dr. Saqib Huynh : unlikely septic arthiritis Mechanical Fall Ambulatory Dysfunction Imaging studies negative for any acute fractures Mild elevation of CK levels CK levels trending down PT OT: recommend Acute Rehab Urinary retention Kc catheter placed Bladder scan as needed Voiding trial in Acute Rehab Hypokalemia resolved Acute hypernatremia Likely dehydration resolved Alcohol use disorder no overt signs of alcohol withdrawal completed gabapentin protocol Thiamine, folic acid Ativan as needed Tobacco use disorder counseling done Nicotine patch HTN As per records Currently not on any medications BP on the lower side, monitor 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 Old small infarct within the left occipital lobe, unchanged. patient should be on ASA 81mg po daily Vitamin B12 deficiency vitamin B12 levels normal DVT prophylaxis Lovenox SQ CODE STATUS Full code Disposition transition to Rehab ff up with ID Clinic in 2-3 weeks ff up with Ortho in 3 weeks
--- NOTE | 2021-05-11 12:42 | Hospitalist Progress Note ---
Date of Service May 11, 2021 Assessment & Plan Admission and Anticipated Discharge Date Admission Date: May 06, 2021 Results & Data Results & Data ([facility]) Vital Signs (Past 12 Hours) Vital Signs Temp Pulse Pulse Resp BP Pulse Ox 05/11/21 10:50 36.7 C 81 21 107/62 98 05/11/21 07:41 37 C 80 20 116/67 95 05/11/21 07:10 82 05/11/21 04:00 37.0 C 70 18 108/62 98
[2021-05-11] MEDS ORDERED: POTASSIUM CHLORIDE CRTAB 20 MEQ TABCR PO STA (13:08)
--- NOTE | 2021-05-18 13:46 | Coding Query ---
CODING QUERY To promote full compliance with coding requirements relating to patient care, provider participation is requested in all cases of identity management consultant uncertainty. Please assist us with the question(s) below: Coding Question(s): Please provide further specificity for the diagnosis of alcohol use disorder. Physician's Response(s): ( ) MILD alcohol use disorder ( ) MODERATE OR SEVERE alcohol use disorder Thank you Stephy Covarrubias Principal Diagnosis: "that condition established after study, to be chiefly responsible for occasioning the admission of the patient to the hospital for care." Co-Existing Principal Diagnosis: "when two or more diagnoses equally meet the criteria for principal diagnosis as determined by the circumstances of admission, diagnostic work up, and/or therapy provided, and the Alphabetic Index, Tabular List, or another coding guideline does not provide sequencing direction, any one of the diagnoses may be sequenced first." "When the physician has documented what appears to be a current diagnosis in the body of the record, but has not included the diagnosis in the final diagnostic statement, the physician should be asked whether the diagnosis should be added." (Source Coding Clinic 2 QTR90. p3-4) MOLINA
== END 2021-05-11 17:57 | DRG 871 ==
LOC: ED 12:02 → SUATTDRO 14:16 → 2N 14:16

== ENCOUNTER 2021-05-26 15:23 | Inpatient (IN) ==
[2021-05-26] MEDS ORDERED: SODIUM CHLORIDE 0.9% 1000ML 1,000 ML IV ONE ×2 (15:36→20:32)
[2021-05-26 15:55] LABS: Basophils # (auto) 0.03 K/uL (0-0.2); Basophils % (auto) 0.2 %; Eosinophils # (auto) 0.59 K/uL (0-0.5); Eosinophils % (auto) 3.9 %; Hematocrit (blood only) 29.9 % (42-52); Hemoglobin 9.1 g/dL (14.0-18.0); Immature Granulocytes % (auto) 0.7 %; Lymphocytes # (auto) 1.47 K/uL (1.2-3.4); Lymphocytes % (auto) 9.8 %; Mean Corpuscular Hgb Conc 30.4 g/dL (32-36); Mean Corpuscular Volume 75.7 fL (80-100); Mean Platelet Volume 8.3 fL (7.4-10.4); Monocytes # (auto) 1.45 K/uL (0.11-0.59); Monocytes % (auto) 9.7 %; Neutrophils # (auto) 11.31 K/uL (1.4-6.5); Neutrophils % (auto) 75.7 %; Platelet Count 438 K/uL (130-400); RDW Coefficient of Variation 21.2 % (11.5-14.5); RDW Standard Deviation 59.3 fL (36.4-46.3); Red Blood Count 3.95 M/uL (4.7-6.1); White Blood Count 14.95 K/uL (4.8-10.8)
--- NOTE | 2021-05-26 16:04 | Emergency Department Note ---
Impression & Plan Sacral ulcer, Pressure ulcer, Weakness, Anemia ED Provider Note NAME: SABINE GALDAMEZ AGE: 80 SEX: M : 1940 ARRIVES VIA: Ambulance INFORMANT: Patient, EMS ED PROVIDER(S): Garcia Elmore DO CHIEF COMPLAINT: Pressure ulcer HPI: The patient is a 80-year-old male who presented to the emergency department by ambulance for an evaluation of skin ulcer. The patient has a pressure ulcer on his sacrum. He is receiving IV antibiotics at home for this. He was found on the floor and unable to stand by his visiting nurse. The patient denies having any fever or cough. He denies having any chest pain. He does have a history of tobacco use. He states that the area does appear somewhat painful and draining. He denies having any recent trauma. When he was on the floor this is because he could not stand and not because of significant fall. He denies having any abdominal pain. ROS: See above HPI for pertinent positives & negatives. A total of 10 systems reviewed and were otherwise negative. PAST MEDICAL HISTORY: See Below PAST SURGICAL HISTORY: See Below FAMILY HISTORY: See Below SOCIAL HISTORY: See Below HOME MEDICATIONS: See Below ALLERGIES: See Below VITALS: See Below PHYSICAL EXAMINATION: MEDICAL DECISION MAKING: GENERAL: Patient is awake alert in no acute distress patient is resting comfortably and showing no signs of anxiety EYES: The conjunctivae are clear. The pupils are round and reactive. EARS, NOSE, MOUTH AND THROAT: The nose is without any evidence of any deformity. NECK: The neck is nontender and supple. RESPIRATORY: Normal respiratory effort is noted there is no evidence of wheezing rhonchi or rales CARDIOVASCULAR: Regular rate and rhythm noted there no murmurs rubs or gallops normal S1 normal S2. GASTROINTESTINAL: The abdomen is soft. Abdomen is nontender. MUSCULOSKELETAL/EXTREMITIES: There is no evidence of gross deformity full range of motion is noted in the hips and shoulders. SKIN: Pedal edema was noted bilaterally. There is a pressure ulceration noted over the sacrum. There is a white eschar noted. A small amount of clear drainage was noted. NEUROLOGIC: Patient is awake alert and oriented x3 Triage Nursing notes reviewed. The patient is a 80-year-old male who presented to the emergency department by ambulance for an evaluation of pressure ulcer. The patient was seen in our facility recently and diagnosed with a sacral ulcer. He was prescribed outpatient antibiotics. He was also admitted to rehab for a short period of time. He then went home. His son states that he was on the floor and was very weak. He has been having difficulty giving himself his IV medications as well. The area does appear to be infected. There was a small amount of drainage as well. I discussed the patient's laboratory results with him. I do feel the patient may require further inpatient management for IV antibiotics. He was agreeable to this plan. I was discussing the case with the on-call [facility] Hospitalist. They have agreed to evaluate the patient in the emergency department for further management and disposition. Vital Signs: reviewed and remarkable for no significant abnormalities Differential diagnosis: Cellulitis, abscess, MRSA infection, DVT, necrotizing fasciitis, dermatitis, drug eruption, allergic reaction, as well as other pathologies. ER treatment provided: See below Diagnostics interpreted by me: ECG: EKG was obtained in the emergency department. My interpretation is normal sinus rhythm at 96 bpm. There is no ectopy. There is no acute ST segment abnormalities noted. This was compared to a tracing from May 072021. No changes were noted. Cardiac Monitoring: An order was placed for continuous cardiac monitoring. The monitor shows a rate of 94 bpm with sinus rhythm. Laboratory studies: As stated above and show below. Imaging studies: See below Consultation(s): Discussed this case with Dr. Atkins who is on-call for the [facility] Hospitalist group. Past Med/Surg History Medical History [place] (hard of hearing) Osteoarthritis Right club foot congenital Surgical History History of surgery Right clubfoot correction - multiple procedures as a child Family History Other No family history of adverse response to anesthesia Denies family history of Coronary heart disease Social History Smoking Status: Never smoker Second Hand Exposure: No; Hx Alcohol Use: Yes Alcohol type: beer Hx Substance Use: No Preferred Language: Mauritanian Communication Ability: Effective Hog Operator Required: No Beliefs That Will Affect Care: None marital status: Current Living Situation: Alone How many Children do You have: 1 Feels Safe at Home: Yes Assistive Devices: Walker Allergies Allergies Allergy/AdvReac Type Severity Reaction Status Date / Time No Known Allergies Allergy Verified 05/26/21 15:38 Home Meds Home Medications Medication Instructions Recorded Confirmed ferrous sulfate 325 mg (65 mg 325 mg PO BID 05/26/21 05/26/21 iron) tablet tamsulosin 0.4 mg capsule 0.4 mg PO DAILY 05/26/21 05/26/21 Previous Rx's Medication Instructions Recorded Lactobacillus acidoph-L.bulgaricus 1 tab PO DAILY #30 tab 05/11/21 1 million cell tablet (Floranex) acetaminophen 325 mg tablet 650 mg PO Q4H PRN 30 Days tab 05/11/21 ampicillin-sulbactam 3 gram 3 g IV Q6H 39 Days ea 05/11/21 solution for injection (Unasyn) aspirin 81 mg capsule 81 mg PO DAILY #30 cap 05/11/21 folic acid 1 mg tablet 1 mg PO QAM 30 Days #30 tab 05/11/21 thiamine HCl (vitamin B1) 100 mg 100 mg PO QAM 30 Days #30 tab 05/11/21 tablet Results & Data (ED) Vital Signs Vital Signs - 24 hr 05/26/21 15:29 05/26/21 15:51 05/26/21 16:19 Temperature 36.9 C Temperature Source Oral Pulse Rate 92 H Pulse Rate [Right Finger] 91 H Respiratory Rate 22 19 Respiratory Effort / Characteristics Non-Labored Spontaneous Respiratory Depth Normal Blood Pressure 115/75 Blood Pressure [Left Arm] 120/62 Blood Pressure Mean 88 Blood Pressure Mean [Left Arm] 81 Pulse Oximetry 96 94 94 Oxygen Delivery Method Room Air Room Air Sepsis Recent Fever Within 48 Hours No Sepsis New/Unexplained Change in Mental Status N/A Sepsis Action Taken by Nursing No Action Required 05/26/21 17:15 05/26/21 17:59 05/26/21 18:19 Temperature Temperature Source Pulse Rate Pulse Rate [Right Finger] 89 95 H 94 H Respiratory Rate 16 16 16 Respiratory Effort / Characteristics Respiratory Depth Blood Pressure Blood Pressure [Left Arm] 119/62 117/68 111/65 Blood Pressure Mean Blood Pressure Mean [Left Arm] 81 84 80 Pulse Oximetry 94 95 94 Oxygen Delivery Method Room Air Sepsis Recent Fever Within 48 Hours Sepsis New/Unexplained Change in Mental Status Sepsis Action Taken by Group Home Medications Current Medication List: was personally reviewed by me Laboratory Data Attestation: I reviewed the patient's lab results. Result diagrams: 05/26/21 15:44 05/26/21 15:44 Lab Results 05/26/21 05/26/21 05/26/21 Range/Units 15:44 15:44 15:44 WBC 14.95 H (4.8-10.8) K/uL RBC 3.95 L (4.7-6.1) M/uL Hgb 9.1 L (14.0-18.0) g/dL Hct 29.9 L (42-52) % MCV 75.7 L (80-100) fL MCH 23.0 L (25-34) pg MCHC 30.4 L (32-36) g/dL RDW Std Deviation 59.3 H (36.4-46.3) fL RDW Coeff of Flako 21.2 H (11.5-14.5) % Plt Count 438 H (130-400) K/uL MPV 8.3 (7.4-10.4) fL Immature Gran % (Auto) 0.7 % Neut % (Auto) 75.7 % Lymph % (Auto) 9.8 % Gordon % (Auto) 9.7 % Eos % (Auto) 3.9 % Baso % (Auto) 0.2 % Neut # (Auto) 11.31 H (1.4-6.5) K/uL Lymph # (Auto) 1.47 (1.2-3.4) K/uL Gordon # (Auto) 1.45 H (0.11-0.59) K/uL Eos # (Auto) 0.59 H (0-0.5) K/uL Baso # (Auto) 0.03 (0-0.2) K/uL Immature Gran # (Auto) 0.10 H (0.00-0.02) K/uL Ovalocytes 1+ Echinocytes 1+ ESR (0-20) mm/hr PT 13.0 H (9.0-12.0) Seconds INR 1.2 H (0.9-1.1) APTT 34.6 H (21.0-31.0) Seconds PTT Ratio 1.3 Sodium 137 (136-145) mmol/L Potassium 3.8 (3.5-5.1) mmol/L Chloride 106 (98-107) mmol/L Carbon Dioxide 19 L (21-32) mmol/L Anion Gap 12 H (3-11) BUN 14 (6-23) mg/dl Creatinine 0.77 (0.6-1.4) mg/dl Est Cr Clr Drug Dosing 68.8 ml/min Est GFR ( Amer) 100.7 ml/min Est GFR (Non-Af Amer) 86.9 ml/min BUN/Creatinine Ratio 18.2 (10-20) Glucose 78 (70-99(Fasting)) mg/dl Lactate (0.4-2.0) mmol/L Calcium 8.6 (8.5-10.1) mg/dl Magnesium 2.1 (1.7-2.4) mg/dl Total Bilirubin 0.6 (0.2-1.0) mg/dl AST 65 H (13-39) U/L ALT 21 (7-52) U/L Alkaline Phosphatase 104 (34-104) U/L Troponin I 0.04 (0-0.04) ng/ml C-Reactive Protein 12.27 H (0-0.5) mg/dl Total Protein 5.6 L (6.0-8.3) gm/dl Albumin 2.9 L (3.4-5.0) gm/dl Globulin 2.7 (2.5-4.0) gm/dl Albumin/Globulin Ratio 1.1 (0.9-2) Procalcitonin (0-0.5) ng/ml SARS-CoV-2, RNA, NAAT (NEGATIVE) 05/26/21 05/26/21 05/26/21 Range/Units 15:44 15:44 15:44 WBC (4.8-10.8) K/uL RBC (4.7-6.1) M/uL Hgb (14.0-18.0) g/dL Hct (42-52) % MCV (80-100) fL MCH (25-34) pg MCHC (32-36) g/dL RDW Std Deviation (36.4-46.3) fL RDW Coeff of Flako (11.5-14.5) % Plt Count (130-400) K/uL MPV (7.4-10.4) fL Immature Gran % (Auto) % Neut % (Auto) % Lymph % (Auto) % Gordon % (Auto) % Eos % (Auto) % Baso % (Auto) % Neut # (Auto) (1.4-6.5) K/uL Lymph # (Auto) (1.2-3.4) K/uL Gordon # (Auto) (0.11-0.59) K/uL Eos # (Auto) (0-0.5) K/uL Baso # (Auto) (0-0.2) K/uL Immature Gran # (Auto) (0.00-0.02) K/uL Ovalocytes Echinocytes ESR 39 H (0-20) mm/hr PT (9.0-12.0) Seconds INR (0.9-1.1) APTT (21.0-31.0) Seconds PTT Ratio Sodium (136-145) mmol/L Potassium (3.5-5.1) mmol/L Chloride (98-107) mmol/L Carbon Dioxide (21-32) mmol/L Anion Gap (3-11) BUN (6-23) mg/dl Creatinine (0.6-1.4) mg/dl Est Cr Clr Drug Dosing ml/min Est GFR ( Amer) ml/min Est GFR (Non-Af Amer) ml/min BUN/Creatinine Ratio (10-20) Glucose (70-99(Fasting)) mg/dl Lactate 1.0 (0.4-2.0) mmol/L Calcium (8.5-10.1) mg/dl Magnesium (1.7-2.4) mg/dl Total Bilirubin (0.2-1.0) mg/dl AST (13-39) U/L ALT (7-52) U/L Alkaline Phosphatase (34-104) U/L Troponin I (0-0.04) ng/ml C-Reactive Protein (0-0.5) mg/dl Total Protein (6.0-8.3) gm/dl Albumin (3.4-5.0) gm/dl Globulin (2.5-4.0) gm/dl Albumin/Globulin Ratio (0.9-2) Procalcitonin 1.20 H (0-0.5) ng/ml SARS-CoV-2, RNA, NAAT (NEGATIVE) 05/26/21 Range/Units 15:44 WBC (4.8-10.8) K/uL RBC (4.7-6.1) M/uL Hgb (14.0-18.0) g/dL Hct (42-52) % MCV (80-100) fL MCH (25-34) pg MCHC (32-36) g/dL RDW Std Deviation (36.4-46.3) fL RDW Coeff of Flako (11.5-14.5) % Plt Count (130-400) K/uL MPV (7.4-10.4) fL Immature Gran % (Auto) % Neut % (Auto) % Lymph % (Auto) % Gordon % (Auto) % Eos % (Auto) % Baso % (Auto) % Neut # (Auto) (1.4-6.5) K/uL Lymph # (Auto) (1.2-3.4) K/uL Gordon # (Auto) (0.11-0.59) K/uL Eos # (Auto) (0-0.5) K/uL Baso # (Auto) (0-0.2) K/uL Immature Gran # (Auto) (0.00-0.02) K/uL Ovalocytes Echinocytes ESR (0-20) mm/hr PT (9.0-12.0) Seconds INR (0.9-1.1) APTT (21.0-31.0) Seconds PTT Ratio Sodium (136-145) mmol/L Potassium (3.5-5.1) mmol/L Chloride (98-107) mmol/L Carbon Dioxide (21-32) mmol/L Anion Gap (3-11) BUN (6-23) mg/dl Creatinine (0.6-1.4) mg/dl Est Cr Clr Drug Dosing ml/min Est GFR ( Amer) ml/min Est GFR (Non-Af Amer) ml/min BUN/Creatinine Ratio (10-20) Glucose (70-99(Fasting)) mg/dl Lactate (0.4-2.0) mmol/L Calcium (8.5-10.1) mg/dl Magnesium (1.7-2.4) mg/dl Total Bilirubin (0.2-1.0) mg/dl AST (13-39) U/L ALT (7-52) U/L Alkaline Phosphatase (34-104) U/L Troponin I (0-0.04) ng/ml C-Reactive Protein (0-0.5) mg/dl Total Protein (6.0-8.3) gm/dl Albumin (3.4-5.0) gm/dl Globulin (2.5-4.0) gm/dl Albumin/Globulin Ratio (0.9-2) Procalcitonin (0-0.5) ng/ml SARS-CoV-2, RNA, NAAT NEGATIVE (NEGATIVE) Administered Medications Discontinued Medications Sodium Chloride (Nss 1000ml) 1,000 mls @ 999 mls/hr IV .Q1H1M ONE Stop: 05/26/21 16:36 Last Infusion: 05/26/21 16:39 Dose: 0 mls/hr Documented by: [id number] Admin: 05/26/21 15:52 Dose: 999 mls/hr Documented by: [id number] Ampicillin Sodium/Sulbactam Sodium 3,000 mg/ Sodium Chloride 108 mls @ 200 mls/hr IV NOW STA; Protocol Stop: 05/26/21 17:17 Last Infusion: 05/26/21 17:47 Dose: 0 mls/hr Documented by: [id number] Admin: 05/26/21 17:13 Dose: 200 mls/hr Documented by: [id number] Imaging Data Radiologist's Impression: Chest X-Ray 05/26/21 15:36 XR chest 1V portable CLINICAL HISTORY: SEPSIS COMPARISON STUDY: Chest radiograph May 06, 2021. FINDINGS: Right PICC is in place. Lung volumes are normal. Minimal left basilar opacity favors atelectasis. There is no pneumothorax or pleural effusion. Cardiomegaly is unchanged. Mediastinal contours are normal. There is no evidence for pulmonary edema. IMPRESSION: No acute cardiopulmonary findings. ACT 112: Negative or not required by law. Electronically signed by: Burton Garcia M.D. 05/26/2021 4:06 PM Discharge Plan Visit Data Chief Complaint: Skin Problem Stated Complaint: ULCER ED Provider: Garcia Elmore Discharge Problem: Sacral ulcer, Pressure ulcer, Weakness, Anemia Patient Disposition: Being Evaluated by Hospitalist Forms Stand Alone Forms: [facility] Prescriptions Prescriptions: No Action acetaminophen 325 mg Tablet 650 mg PO Q4H PRN (Reason: fever or pain) 30 Days RF: 0 thiamine HCl (vitamin B1) 100 mg Tablet 100 mg PO QAM 30 Days Qty: 30 RF: 0 folic acid 1 mg Tablet 1 mg PO QAM 30 Days Qty: 30 RF: 0 ampicillin-sulbactam [Unasyn] 3 gram recon soln 3 g IV Q6H 39 Days RF: 0 aspirin 81 mg capsule 81 mg PO DAILY Qty: 30 RF: 2 Lactobacillus acidoph-L.bulgar [Floranex] 1 million cell tablet 1 tab PO DAILY Qty: 30 RF: 1 tamsulosin 0.4 mg capsule 0.4 mg PO DAILY RF: 0 ferrous sulfate 325 mg (65 mg iron) tablet 325 mg PO BID RF: 0 Referrals Referrals: Bryant Celaya MD [Primary Care Provider] -
--- NOTE | 2021-05-26 16:08 | XRay Report ---
XR chest 1V portable CLINICAL HISTORY: SEPSIS COMPARISON STUDY: Chest radiograph May 06, 2021. FINDINGS: Right PICC is in place. Lung volumes are normal. Minimal left basilar opacity favors atelec tasis. There is no pneumothorax or pleural effusion. Cardiomegaly is unchanged. Mediastinal contours are normal. There is no evidence for pulmonary edema. IMPRESSION: No acute cardiopulmonary findings. ACT 112: Negative or not required by law. Electronically signed by: Burton Garcia M.D. 05/26/2021 4:06 PM
[2021-05-26 16:14] LABS: INR 1.2 (0.9-1.1); Partial Thromboplastin Ratio 1.3; Partial Thromboplastin Time 34.6 Seconds (21.0-31.0)
[2021-05-26 16:16] LABS: Troponin I 0.04 ng/ml (0-0.04)
[2021-05-26 16:23] LABS: Albumin Globulin Ratio 1.1 (0.9-2); Albumin Level 2.9 gm/dl (3.4-5.0); BUN Creatinine Ratio 18.2 (10-20); Bilirubin,Total 0.6 mg/dl (0.2-1.0); C Reactive Protein 12.27 mg/dl (0-0.5); Calcium 8.6 mg/dl (8.5-10.1); Creatinine Clr Calc Pharmacy 68.8 ml/min; Est GFR (African American) 100.7 ml/min; Est GFR (Non-African American) 86.9 ml/min; Globulin 2.7 gm/dl (2.5-4.0); Magnesium 2.1 mg/dl (1.7-2.4); Potassium 3.8 mmol/L (3.5-5.1); Total Protein 5.6 gm/dl (6.0-8.3)
[2021-05-26 16:28] LABS: Echinocytes 1+; Ovalocytes 1+
[2021-05-26] MEDS ORDERED: AMPICILLIN/SULBACTAM SOD 3,000 MG in 0.9 % SODIUM CHLORIDE 100 ML IV STA (16:45)
--- NOTE | 2021-05-26 18:32 | History & Physical Report ---
Date of Service May 26, 2021 Assessment & Plan (1) Sacral decubitus ulcer, stage III: Plan: Worsening pain and appearance of infection to sacral decubitus ulcer. Patient is sedentary and not likely able to easily stay off this area. He lives alone with son coming to help once per day but can't be with him 30/09. This has likely worsened and may be superficially infected with its appearance and reported recent drainage. Elevated inflammatory markers noted today with CRP 12, WBC 15 and platelets are elevated (acute phase reactant). Procalcitonin is also up and he has an elevated heart rate and soft blood pressure. Lactate is normal, however, a possible developing sepsis is considered. Will add vancomycin to ongoing unasyn at this time and consult General surgery for consideration for debridement. Will consult wound care and turn q2h. PT/OT consulted for ongoing weakness. Patient may need higher level of care than home such as SNF pending clinical response to therapy. (2) Lumbar discitis: Plan: Recently hospitalized for this and placed on Unasyn for 6 weeks time. Transitioned to a continuous infusion on of last week. Cont with scheduled dosing. CRP elevated, however, this is likely indicating infection above and not necessarily failure to treatment. (3) Weakness: Plan: Likely a result of those issues outlined above. (4) Left knee pain: Plan: s/p left knee replacement with ongoing pain in this knee. Due to see ortho pedics in outpatient follow-up after this hospital stay. PT/OT to evaluate. (5) Alcohol use: Plan: Heavy drinker (approx 6 pck per day) but hasn't drank anything for 30 days as he has been in and out of facilities. (6) Tobacco use: Plan: dips snuff. Encouraged to quit. Nicotine patch PRN. (7) DVT prophylaxis: Plan: Lovenox Full code confirmed with he and his son on admission. Dispo-to floor DO Sarita Blanton Hospitalist History of Present Illness Chief Complaint: weakness, ongoing treatment for spinal infection Primary Care Provider: Bryant Celaya MD 77 yo M recently hospitalized from 05/06/21 to 05/11/21 for sepsis 2/2 enterococcus bacteremia with UTI and lumbar spine discitis/osteomyelitis. He also had a noted Stage III sacral decubitus ulcer. Per ID, he was discharged on Unasyn for 6 weeks. Notably he was seen by ortho spine and general surgery and no surgery was recommended at that time. He was sent to rehab and was discharged home. He presents today after being found on the floor unable to stand. He was found by his home health nurse. ER notes state his sacral wound is now painful and draining and was the main reason for his evaluation today, and it does appear infected on exam. He has a leukocytosis and his heart rate is increased. Patient reports that when he went to sit, he grabbed onto onto a chair rung that broke off in the kitchen. This caused his fall and surprised him. He reports feeling OK since leaving [facility], however, son states he didn't have much therapy each time he called and when he got home he was struggling to ambulate with his walker. The patient has remained weak since getting out of [facility] last . He was also transitioned from scheduled Unasyn doses to a continuous infusion when he returned home. Home Health asked for son's help but he is very unsure how to do this and doesn't feel comfortable with the responsibility. ER doc also reported there may have been some antibiotic not infused correctly per home health staff. Patient denies any fevers or chills. He reports poor PO intake and weight loss recently. He reports since having lost his appetite since the infection started. No nausea, vomiting, no changes in his stools. He is very sedentary and is sitting in his chair for most of the day. Some incontinence of urine noted and he is currently soiled. Allergies Allergy/AdvReac Type Severity Reaction Status Date / Time No Known Allergies Allergy Verified 05/26/21 15:38 Home Medications Medication Instructions Recorded Confirmed Type Lactobacillus acidoph-L.bulgaricus 1 tab PO DAILY #30 tab 05/11/21 05/26/21 Rx 1 million cell tablet (Floranex) acetaminophen 325 mg tablet 650 mg PO Q4H PRN 30 Days tab 05/11/21 05/26/21 Rx ampicillin-sulbactam 3 gram 3 g IV Q6H 39 Days ea 05/11/21 05/26/21 Rx solution for injection (Unasyn) aspirin 81 mg capsule 81 mg PO DAILY #30 cap 05/11/21 05/26/21 Rx folic acid 1 mg tablet 1 mg PO QAM 30 Days #30 tab 05/11/21 05/26/21 Rx thiamine HCl (vitamin B1) 100 mg 100 mg PO QAM 30 Days #30 tab 05/11/21 05/26/21 Rx tablet ferrous sulfate 325 mg (65 mg 325 mg PO BID 05/26/21 05/26/21 History iron) tablet tamsulosin 0.4 mg capsule 0.4 mg PO DAILY 05/26/21 05/26/21 History Past Med/Surg History Medical History Alcohol use [place] (hard of hearing) Osteoarthritis Right club foot congenital Sacral decubitus ulcer, stage III Surgical History History of surgery Right clubfoot correction - multiple procedures as a child Status post left knee replacement Family History Other No family history of adverse response to anesthesia Denies family history of Coronary heart disease Social History Smoking Status: Former smoker Second Hand Exposure: No; Do You Dip or Chew Tobacco: Yes; Hx Alcohol Use: Yes Alcohol type: beer Hx Substance Use: No Preferred Language: Swedish Communication Ability: Effective Preschool Education Director Required: No Beliefs That Will Affect Care: None marital status: Current Living Situation: Alone How many Children do You have: 1 Other Information That Helps Us Care for You: No Feels Safe at Home: Yes Safety Concerns: Feels Safe At This Time Assistive Devices: Cane and Walker Review of Systems Review of Systems: All systems were reviewed and negative except as indicated in HPI above. Physical Exam Physical Exam: CONSTITUTIONAL: WNWD, vitals as above, generally well- appearing, NAD EYES: normal conjunctivae, no scleral icterus ENT: external ear and nose normal, MMM NECK: trachea midline RESPIRATORY: clear to auscultation bilaterally, no crackles, rales or wheezes, normal respiratory effort CARDIOVASCULAR: regular rate and rhythm, S1 and 2 heard without murmurs, gallops or rubs, no JVD, no peripheral edema CHEST: inspection of chest was normal GASTROINTESTINAL: soft, nontender, ND, no guarding MUSCULOSKELETAL: generalized weakness throughout, especially in his legs. Head is normocephalic and atraumatic SKIN: warm and dry, he has an area of ecchymosis with a small skin tear along his left elbow. NEUROLOGIC: CN 2-12 grossly intact, normal cognition, normal speech, no gross focal deficits. PSYCHIATRIC: alert cooperative and oriented to person, place and time. Results & Data Results & Data ([facility]) Vital Signs (Past 12 Hours) Vital Signs Temp Pulse Pulse Resp BP BP Pulse Ox 05/26/21 18:30 101 H 23 111/66 93 05/26/21 18:29 16 93 05/26/21 18:19 94 H 16 111/65 94 05/26/21 17:59 95 H 16 117/68 95 05/26/21 17:15 89 16 119/62 94 05/26/21 16:19 91 H 19 120/62 94 05/26/21 15:51 94 05/26/21 15:29 36.9 C 92 H 22 115/75 96 Laboratory Results Short CBC 05/26/21 Range/Units 15:44 WBC 14.95 H (4.8-10.8) K/uL Hgb 9.1 L (14.0-18.0) g/dL Hct 29.9 L (42-52) % Plt Count 438 H (130-400) K/uL BMP 05/26/21 15:44 Sodium 137 Potassium 3.8 Chloride 106 Carbon Dioxide 19 L BUN 14 Creatinine 0.77 Glucose 78 Calcium 8.6 Cardiac Enzymes 05/26/21 Range/Units 15:44 Troponin I 0.04 (0-0.04) ng/ml Liver Function 05/26/21 Range/Units 15:44 Total Bilirubin 0.6 (0.2-1.0) mg/dl AST 65 H (13-39) U/L ALT 21 (7-52) U/L Alkaline Phosphatase 104 (34-104) U/L Albumin 2.9 L (3.4-5.0) gm/dl Diagnostic Findings Chest X-Ray 05/26/21 15:36 XR chest 1V portable CLINICAL HISTORY: SEPSIS COMPARISON STUDY: Chest radiograph May 06, 2021. FINDINGS: Right PICC is in place. Lung volumes are normal. Minimal left basilar opacity favors atelectasis. There is no pneumothorax or pleural effusion. Cardiomegaly is unchanged. Mediastinal contours are normal. There is no evidence for pulmonary edema. IMPRESSION: No acute cardiopulmonary findings. ACT 112: Negative or not required by law. Electronically signed by: Burton Garcia M.D. 05/26/2021 4:06 PM Medications Administered Unasyn given in ER Code Status & VTE Plan VTE Prophylaxis Plan VTE Prophylaxis will be ordered: Yes
[2021-05-26] MEDS ORDERED: CONSULT PHARMACY STA (20:31)
[2021-05-26] MEDS ORDERED: VANCOMYCIN CONSULT ACTIVE PRN (21:39)
[2021-05-26] MEDS ORDERED: traMADol HCL 50 MG TABLET PO STA (21:39)
[2021-05-26] MEDS ORDERED: VANCOMYCIN HCL 1,500 MG in SODIUM CHLORIDE 0.9% 500 ML IV STA (21:44)
--- NOTE | 2021-05-26 21:56 | Pharmacy Report ---
Pharmacy Vanc AUC Short Note - Date of Service May 26, 2021 - Assessment & Plan Assessment * 80 year old M w recent hospitalization 05/06 to 05/11 for Enterococcus bacteremia with UTI and discitis/osteomylitis and discharged on 6 weeks of Unasyn per ID. Re-admitted 05/26 with worsening sacral decubitus ulcer and notable WBC and procal * Continue Unasyn, but change from continuous infusion as an outpatient to 3 g IV q6h * Add vancomycin for worsening sacral decubitus ulcer Vancomycin * AUC/NENA is the preferred PK/PD target for vancomycin * AUC guided dosing is effective and associated with decreased risk of nephrotoxicity compared to traditional trough targets * Will start with 23 mg/kg IV x1 then dose per AUC estimate Plan * Vancomycin 1500 mg IV x1 then 1000 mg IV q12h * Trough 05/28 @ 0930 Pharmacy will continue to follow and will adjust dose/frequency as necessary. Thank you.
[2021-05-26] MEDS ORDERED: SODIUM CHLORIDE 0.9% 1000ML 1,000 ML IV SCH (22:35)
[2021-05-26] MEDS ORDERED: POLYETHYLENE (MIRALAX) 17 GM PACK PO PRN (22:35)
[2021-05-26] MEDS: FERROUS SULFATE 325 MG TAB PO SCH (23:55)
[2021-05-26] MEDS: AMPICILLIN/SULBACTAM SOD 3,000 MG in 0.9 % SODIUM CHLORIDE 100 ML IV SCH (23:55)
[2021-05-27 04:23] LABS: Appearance Urine Cloudy (Clear); Bacteria Urine Automated Negative (Negative); Bilirubin Urine Negative (Negative); Blood Urine 3+ (Negative); Color Urine Yellow; Glucose Urine UA Negative (Negative); Ketones Urine 1+ (Negative); Leukocyte Esterase Urine 1+ (Negative); Nitrite Urine Negative (Negative); Protein Urine 1+ (Negative); Specific Gravity Urine 1.022 (1.000-1.030); Urobilinogen Urine Negative (Negative); WBC Urine Automated >30 /hpf (0-5)
[2021-05-27] MEDS: AMPICILLIN/SULBACTAM SOD 3,000 MG in 0.9 % SODIUM CHLORIDE 100 ML IV SCH ×4 (05:49→23:05)
[2021-05-27 06:37] LABS: Hematocrit (blood only) 26.3 % (42-52); Hemoglobin 7.9 g/dL (14.0-18.0); Mean Corpuscular Volume 76.7 fL (80-100); Mean Platelet Volume 8.5 fL (7.4-10.4); Platelet Count 426 K/uL (130-400); RDW Coefficient of Variation 21.9 % (11.5-14.5); RDW Standard Deviation 61.9 fL (36.4-46.3); Red Blood Count 3.43 M/uL (4.7-6.1); White Blood Count 11.78 K/uL (4.8-10.8)
[2021-05-27 07:03] LABS: BUN Creatinine Ratio 18.8 (10-20); C Reactive Protein 13.27 mg/dl (0-0.5); Creatinine Clr Calc Pharmacy 79.7 ml/min; Est GFR (African American) 108.7 ml/min; Est GFR (Non-African American) 93.8 ml/min; Phosphorus 2.9 mg/dl (2.5-4.9); Potassium 3.7 mmol/L (3.5-5.1)
[2021-05-27] MEDS: ASPIRIN 81 MG ECTAB PO SCH (08:11)
[2021-05-27] MEDS: TAMSULOSIN HCL 0.4 MG CAP PO SCH (08:12)
[2021-05-27] MEDS: FERROUS SULFATE 325 MG TAB PO SCH ×2 (08:12→20:33)
[2021-05-27] MEDS: ADVANCED PROBIOTIC 1250 MG CAPSULE PO SCH (08:12)
[2021-05-27] MEDS: ENOXAPARIN INJ 40 MG/0.4 ML SYR SQ SCH (08:12)
--- NOTE | 2021-05-27 10:27 | Electrocardiogram Report ---
Test Reason : Blood Pressure : / mmHG Vent. Rate : 096 BPM Atrial Rate : 096 BPM P-R Int : 152 ms QRS Dur : 056 ms QT Int : 342 ms P-R-T Axes : 033 000 030 degrees QTc Int : 432 ms Poor data quality, interpretation may be adversely affected Normal sinus rhythm Normal ECG When compared with ECG of 07-MAY-2021 10:40, Nonspecific T wave abnormality no longer evident in Anterior leads Confirmed by Stephen Miranda ([id number]) on 05/27/2021 10:27:00 AM Referred By: REFERRED SELF Confirmed By:Benjamin Miranda
[2021-05-27] MEDS: VANCOMYCIN HCL 1,000 MG in SODIUM CHLORIDE 0.9% 250 ML IV SCH ×2 (11:07→21:24)
--- NOTE | 2021-05-27 14:47 | Surgery Consultation ---
Date of Consultation May 27, 2021 Assessment & Plan (1) Sacral decubitus ulcer, stage III: 80-year-old man with a large sacral ulcer with some necrotic material. This is improved on IV antibiotics but still likely requires debridement. Unfortunately he ate lunch today and so this cannot be done today. I will ask one of my partners to take over his care tomorrow and see when the debridement can be performed. We will tentatively make him n.p.o. after midnight in case it can happen tomorrow. We discussed risks of failure to heal infection bleeding and recurrence. History of Present Illness Reason for Consultation: worsening sacral decubitus Requesting Physician: Jayjay Maza MD Attending Physician: Jayjay Maza MD History of Present Illness 80-year-old man admitted after a fall yesterday. He has a history of multiple operations for right clubfoot. He was recently admitted for sepsis due to Enterococcus. He was in the hospital from May 06 to May 11, 2021. He was also found to have a urinary tract infection and lumbar spine discitis /osteomyelitis. He was discharged on Unasyn for 6 weeks. He presented today after having a fall. He denies noticing any changes with the sacral ulcer. However, review of the notes state that it has increased in size and been more draining than usual. Denies any pain. Of note, he just ate lunch today. He denies any prior surgical procedures on the sacral ulcer. He was recently in rehab for alcholism. Allergies Allergy/AdvReac Type Severity Reaction Status Date / Time No Known Allergies Allergy Verified 05/26/21 15:38 Home Medications Medication Instructions Recorded Confirmed Type Lactobacillus acidoph-L.bulgaricus 1 tab PO DAILY #30 tab 05/11/21 05/26/21 Rx 1 million cell tablet (Floranex) acetaminophen 325 mg tablet 650 mg PO Q4H PRN 30 Days tab 05/11/21 05/26/21 Rx ampicillin-sulbactam 3 gram 3 g IV Q6H 39 Days ea 05/11/21 05/26/21 Rx solution for injection (Unasyn) aspirin 81 mg capsule 81 mg PO DAILY #30 cap 05/11/21 05/26/21 Rx folic acid 1 mg tablet 1 mg PO QAM 30 Days #30 tab 05/11/21 05/26/21 Rx thiamine HCl (vitamin B1) 100 mg 100 mg PO QAM 30 Days #30 tab 05/11/21 05/26/21 Rx tablet ferrous sulfate 325 mg (65 mg 325 mg PO BID 05/26/21 05/26/21 History iron) tablet tamsulosin 0.4 mg capsule 0.4 mg PO DAILY 05/26/21 05/26/21 History Patient History Medical History Alcohol use [place] (hard of hearing) Osteoarthritis Right club foot congenital Sacral decubitus ulcer, stage III Surgical History History of surgery Right clubfoot correction - multiple procedures as a child Status post left knee replacement Family History Other No family history of adverse response to anesthesia Denies family history of Coronary heart disease Social History Smoking Status: Former smoker Second Hand Exposure: No; Do You Dip or Chew Tobacco: Yes; Hx Alcohol Use: Yes Alcohol type: beer Hx Substance Use: No Preferred Language: Lao Communication Ability: Effective Electronics Computer Mechanic Required: No Beliefs That Will Affect Care: None marital status: Current Living Situation: Alone How many Children do You have: 1 Other Information That Helps Us Care for You: No Feels Safe at Home: Yes Safety Concerns: Feels Safe At This Time Assistive Devices: Crutches and Walker Physical Exam Constitutional: WD/WN, vitals as above Respiratory: normal respiratory effort, lungs clear to auscultation Cardiovascular: RRR, no murmur, no edema Musculoskeletal: right club foot, difficulty moving right lower extremity Skin: sacral ulcer 8 x 8 cm with necrotic fibrinous eschar over majority of the ucler; no foul smelling drainage, no surrounding cellullitis Psychiatric: A+Ox3, euthymic affect Results & Data ([facility]) Vital Signs (Past 12 Hours) Vital Signs Temp Pulse Pulse Resp BP Pulse Ox 05/27/21 11:00 36.7 C 84 18 108/66 96 05/27/21 07:59 94 H 05/27/21 06:00 37.0 C 82 19 106/54 L 95 05/27/21 04:00 36.9 C 82 20 104/55 L 96 Laboratory Results 05/27/21 05/27/21 05/27/21 Range/Units 06:08 06:08 06:08 WBC 11.78 H (4.8-10.8) K/uL RBC 3.43 L (4.7-6.1) M/uL Hgb 7.9 L (14.0-18.0) g/dL Hct 26.3 L (42-52) % MCV 76.7 L (80-100) fL MCH 23.0 L (25-34) pg MCHC 30.0 L (32-36) g/dL RDW Std Deviation 61.9 H (36.4-46.3) fL RDW Coeff of [place] 21.9 H (11.5-14.5) % Plt Count 426 H (130-400) K/uL MPV 8.5 (7.4-10.4) fL Immature Gran % (Auto) % Neut % (Auto) % Lymph % (Auto) % [place] % (Auto) % Eos % (Auto) % Baso % (Auto) % Neut # (Auto) (1.4-6.5) K/uL Lymph # (Auto) (1.2-3.4) K/uL [place] # (Auto) (0.11-0.59) K/uL Eos # (Auto) (0-0.5) K/uL Baso # (Auto) (0-0.2) K/uL Immature Gran # (Auto) (0.00-0.02) K/uL Ovalocytes Echinocytes ESR (0-20) mm/hr PT (9.0-12.0) Seconds INR (0.9-1.1) APTT (21.0-31.0) Seconds PTT Ratio Sodium 140 (136-145) mmol/L Potassium 3.7 (3.5-5.1) mmol/L Chloride 112 H (98-107) mmol/L Carbon Dioxide 20 L (21-32) mmol/L Anion Gap 8 (3-11) BUN 12 (6-23) mg/dl Creatinine 0.64 (0.6-1.4) mg/dl Est Cr Clr Drug Dosing 79.7 ml/min Est GFR ( Amer) 108.7 ml/min Est GFR (Non-Af Amer) 93.8 ml/min BUN/Creatinine Ratio 18.8 (10-20) Glucose 74 (70-99(Fasting)) mg/dl Lactate (0.4-2.0) mmol/L Calcium 8.0 L (8.5-10.1) mg/dl Phosphorus 2.9 (2.5-4.9) mg/dl Magnesium 2.0 (1.7-2.4) mg/dl Total Bilirubin (0.2-1.0) mg/dl AST (13-39) U/L ALT (7-52) U/L Alkaline Phosphatase (34-104) U/L Troponin I (0-0.04) ng/ml C-Reactive Protein 13.27 H (0-0.5) mg/dl Total Protein (6.0-8.3) gm/dl Albumin (3.4-5.0) gm/dl Globulin (2.5-4.0) gm/dl Albumin/Globulin Ratio (0.9-2) Procalcitonin 0.90 H (0-0.5) ng/ml Urine Color Urine Appearance (Clear) Urine pH (4.5-7.5) Ur Specific [place] (1.000-1.030) Urine Protein (Negative) Urine Glucose (UA) (Negative) Urine Ketones (Negative) Urine Blood (Negative) Urine Nitrite (Negative) Urine Bilirubin (Negative) Urine Urobilinogen (Negative) Ur Leukocyte Esterase (Negative) Urine WBC (Auto) (0-5) /hpf Urine RBC (Auto) (0-4) /hpf U Hyaline Cast (Auto) (0-5) /lpf U Epithel Cells (Auto) (0-5) /lpf Urine Bacteria (Auto) (Negative) Urine Yeast SARS-CoV-2, RNA, NAAT (NEGATIVE) 05/27/21 05/26/21 05/26/21 Range/Units 04:00 15:44 15:44 WBC (4.8-10.8) K/uL RBC (4.7-6.1) M/uL Hgb (14.0-18.0) g/dL Hct (42-52) % MCV (80-100) fL MCH (25-34) pg MCHC (32-36) g/dL RDW Std Deviation (36.4-46.3) fL RDW Coeff of [place] (11.5-14.5) % Plt Count (130-400) K/uL MPV (7.4-10.4) fL Immature Gran % (Auto) % Neut % (Auto) % Lymph % (Auto) % [place] % (Auto) % Eos % (Auto) % Baso % (Auto) % Neut # (Auto) (1.4-6.5) K/uL Lymph # (Auto) (1.2-3.4) K/uL [place] # (Auto) (0.11-0.59) K/uL Eos # (Auto) (0-0.5) K/uL Baso # (Auto) (0-0.2) K/uL Immature Gran # (Auto) (0.00-0.02) K/uL Ovalocytes Echinocytes ESR 39 H (0-20) mm/hr PT (9.0-12.0) Seconds INR (0.9-1.1) APTT (21.0-31.0) Seconds PTT Ratio Sodium (136-145) mmol/L Potassium (3.5-5.1) mmol/L Chloride (98-107) mmol/L Carbon Dioxide (21-32) mmol/L Anion Gap (3-11) BUN (6-23) mg/dl Creatinine (0.6-1.4) mg/dl Est Cr Clr Drug Dosing ml/min Est GFR ( Amer) ml/min Est GFR (Non-Af Amer) ml/min BUN/Creatinine Ratio (10-20) Glucose (70-99(Fasting)) mg/dl Lactate (0.4-2.0) mmol/L Calcium (8.5-10.1) mg/dl Phosphorus (2.5-4.9) mg/dl Magnesium (1.7-2.4) mg/dl Total Bilirubin (0.2-1.0) mg/dl AST (13-39) U/L ALT (7-52) U/L Alkaline Phosphatase (34-104) U/L Troponin I (0-0.04) ng/ml C-Reactive Protein (0-0.5) mg/dl Total Protein (6.0-8.3) gm/dl Albumin (3.4-5.0) gm/dl Globulin (2.5-4.0) gm/dl Albumin/Globulin Ratio (0.9-2) Procalcitonin (0-0.5) ng/ml Urine Color Yellow Urine Appearance Cloudy A (Clear) Urine pH 5.0 (4.5-7.5) Ur Specific [place] 1.022 (1.000-1.030) Urine Protein 1+ H (Negative) Urine Glucose (UA) Negative (Negative) Urine Ketones 1+ H (Negative) Urine Blood 3+ H (Negative) Urine Nitrite Negative (Negative) Urine Bilirubin Negative (Negative) Urine Urobilinogen Negative (Negative) Ur Leukocyte Esterase 1+ H (Negative) Urine WBC (Auto) >30 H (0-5) /hpf Urine RBC (Auto) 5-10 H (0-4) /hpf U Hyaline Cast (Auto) 1-5 (0-5) /lpf U Epithel Cells (Auto) 10-20 H (0-5) /lpf Urine Bacteria (Auto) Negative (Negative) Urine Yeast Not Reportable SARS-CoV-2, RNA, NAAT NEGATIVE (NEGATIVE) 05/26/21 05/26/21 05/26/21 Range/Units 15:44 15:44 15:44 WBC (4.8-10.8) K/uL RBC (4.7-6.1) M/uL Hgb (14.0-18.0) g/dL Hct (42-52) % MCV (80-100) fL MCH (25-34) pg MCHC (32-36) g/dL RDW Std Deviation (36.4-46.3) fL RDW Coeff of [place] (11.5-14.5) % Plt Count (130-400) K/uL MPV (7.4-10.4) fL Immature Gran % (Auto) % Neut % (Auto) % Lymph % (Auto) % [place] % (Auto) % Eos % (Auto) % Baso % (Auto) % Neut # (Auto) (1.4-6.5) K/uL Lymph # (Auto) (1.2-3.4) K/uL [place] # (Auto) (0.11-0.59) K/uL Eos # (Auto) (0-0.5) K/uL Baso # (Auto) (0-0.2) K/uL Immature Gran # (Auto) (0.00-0.02) K/uL Ovalocytes Echinocytes ESR (0-20) mm/hr PT (9.0-12.0) Seconds INR (0.9-1.1) APTT (21.0-31.0) Seconds PTT Ratio Sodium 137 (136-145) mmol/L Potassium 3.8 (3.5-5.1) mmol/L Chloride 106 (98-107) mmol/L Carbon Dioxide 19 L (21-32) mmol/L Anion Gap 12 H (3-11) BUN 14 (6-23) mg/dl Creatinine 0.77 (0.6-1.4) mg/dl Est Cr Clr Drug Dosing 68.8 ml/min Est GFR ( Amer) 100.7 ml/min Est GFR (Non-Af Amer) 86.9 ml/min BUN/Creatinine Ratio 18.2 (10-20) Glucose 78 (70-99(Fasting)) mg/dl Lactate 1.0 (0.4-2.0) mmol/L Calcium 8.6 (8.5-10.1) mg/dl Phosphorus (2.5-4.9) mg/dl Magnesium 2.1 (1.7-2.4) mg/dl Total Bilirubin 0.6 (0.2-1.0) mg/dl AST 65 H (13-39) U/L ALT 21 (7-52) U/L Alkaline Phosphatase 104 (34-104) U/L Troponin I 0.04 (0-0.04) ng/ml C-Reactive Protein 12.27 H (0-0.5) mg/dl Total Protein 5.6 L (6.0-8.3) gm/dl Albumin 2.9 L (3.4-5.0) gm/dl Globulin 2.7 (2.5-4.0) gm/dl Albumin/Globulin Ratio 1.1 (0.9-2) Procalcitonin 1.20 H (0-0.5) ng/ml Urine Color Urine Appearance (Clear) Urine pH (4.5-7.5) Ur Specific [place] (1.000-1.030) Urine Protein (Negative) Urine Glucose (UA) (Negative) Urine Ketones (Negative) Urine Blood (Negative) Urine Nitrite (Negative) Urine Bilirubin (Negative) Urine Urobilinogen (Negative) Ur Leukocyte Esterase (Negative) Urine WBC (Auto) (0-5) /hpf Urine RBC (Auto) (0-4) /hpf U Hyaline Cast (Auto) (0-5) /lpf U Epithel Cells (Auto) (0-5) /lpf Urine Bacteria (Auto) (Negative) Urine Yeast SARS-CoV-2, RNA, NAAT (NEGATIVE) 05/26/21 05/26/21 Range/Units 15:44 15:44 WBC 14.95 H (4.8-10.8) K/uL RBC 3.95 L (4.7-6.1) M/uL Hgb 9.1 L (14.0-18.0) g/dL Hct 29.9 L (42-52) % MCV 75.7 L (80-100) fL MCH 23.0 L (25-34) pg MCHC 30.4 L (32-36) g/dL RDW Std Deviation 59.3 H (36.4-46.3) fL RDW Coeff of [place] 21.2 H (11.5-14.5) % Plt Count 438 H (130-400) K/uL MPV 8.3 (7.4-10.4) fL Immature Gran % (Auto) 0.7 % Neut % (Auto) 75.7 % Lymph % (Auto) 9.8 % [place] % (Auto) 9.7 % Eos % (Auto) 3.9 % Baso % (Auto) 0.2 % Neut # (Auto) 11.31 H (1.4-6.5) K/uL Lymph # (Auto) 1.47 (1.2-3.4) K/uL [place] # (Auto) 1.45 H (0.11-0.59) K/uL Eos # (Auto) 0.59 H (0-0.5) K/uL Baso # (Auto) 0.03 (0-0.2) K/uL Immature Gran # (Auto) 0.10 H (0.00-0.02) K/uL Ovalocytes 1+ Echinocytes 1+ ESR (0-20) mm/hr PT 13.0 H (9.0-12.0) Seconds INR 1.2 H (0.9-1.1) APTT 34.6 H (21.0-31.0) Seconds PTT Ratio 1.3 Sodium (136-145) mmol/L Potassium (3.5-5.1) mmol/L Chloride (98-107) mmol/L Carbon Dioxide (21-32) mmol/L Anion Gap (3-11) BUN (6-23) mg/dl Creatinine (0.6-1.4) mg/dl Est Cr Clr Drug Dosing ml/min Est GFR ( Amer) ml/min Est GFR (Non-Af Amer) ml/min BUN/Creatinine Ratio (10-20) Glucose (70-99(Fasting)) mg/dl Lactate (0.4-2.0) mmol/L Calcium (8.5-10.1) mg/dl Phosphorus (2.5-4.9) mg/dl Magnesium (1.7-2.4) mg/dl Total Bilirubin (0.2-1.0) mg/dl AST (13-39) U/L ALT (7-52) U/L Alkaline Phosphatase (34-104) U/L Troponin I (0-0.04) ng/ml C-Reactive Protein (0-0.5) mg/dl Total Protein (6.0-8.3) gm/dl Albumin (3.4-5.0) gm/dl Globulin (2.5-4.0) gm/dl Albumin/Globulin Ratio (0.9-2) Procalcitonin (0-0.5) ng/ml Urine Color Urine Appearance (Clear) Urine pH (4.5-7.5) Ur Specific [place] (1.000-1.030) Urine Protein (Negative) Urine Glucose (UA) (Negative) Urine Ketones (Negative) Urine Blood (Negative) Urine Nitrite (Negative) Urine Bilirubin (Negative) Urine Urobilinogen (Negative) Ur Leukocyte Esterase (Negative) Urine WBC (Auto) (0-5) /hpf Urine RBC (Auto) (0-4) /hpf U Hyaline Cast (Auto) (0-5) /lpf U Epithel Cells (Auto) (0-5) /lpf Urine Bacteria (Auto) (Negative) Urine Yeast SARS-CoV-2, RNA, NAAT (NEGATIVE)
--- NOTE | 2021-05-27 15:23 | Hospitalist Progress Note ---
Date of Service May 27, 2021 Assessment & Plan (1) Sacral decubitus ulcer, stage III: Plan: (1) Sacral decubitus ulcer, stage III: lumbar spine osteomyelitis Plan: Admitted for worsening pain and appearance of infection to sacral decubitus ulcer. Wound culture: Pending Blood cultures: Pending Afebrile, leukocytosis improving Continue IV Unasyn (ongoing times total of 6 weeks), IV vancomycin added on admission ID consulted General surgery consulted-plan for possible debridement tomorrow (2) Lumbar discitis: Plan: Per Dr. Atkins's notes: Recently hospitalized for this and placed on Unasyn for 6 weeks time. Transitioned to a continuous infusion on of last week. (3) Weakness: Plan: Likely a result of those issues outlined above. PT/OT (4) Left knee pain: Plan: s/p left knee replacement with ongoing pain in this knee. Due to see orthopedics in outpatient follow-up after this hospital stay. PT/OT to evaluate. (5) Alcohol use: Plan: Heavy drinker (approx 6 pck per day) but hasn't drank anything for 30 days as he has been in and out of facilities. (6) Tobacco use: Plan: dips snuff. Encouraged to quit. Nicotine patch PRN. (7) DVT prophylaxis: Plan: Lovenox Full code confirmed with he and his son on admission. Dispo-pending Will likely need transition to intermediate facility upon discharge Admission and Anticipated Discharge Date Admission Date: May 26, 2021 Subjective Follow-up for weakness, status post fall, lumbar spine osteomyelitis, sacral ulcer, Enterococcus bacteremia, etc. Seen resting in bed, awake and alert, oriented, answers all questions appropriately States he feels improved today Less weak, appetite is good Denies fevers or chills, nausea or vomiting Has mild discomfort over his lower back, unchanged, chronic Has mild discomfort over his left knee, chronic No other symptoms Review of Systems Review of Systems: all noted and negative except for above Physical Exam Physical Exam: General- oriented x 3, not in distress, speaks in sentences with no effort or accessory muscle use Eyes- anicteric Neck- no JVD Lungs- clear breath sounds bilaterally, no rales/wheezes Heart- normal rate, regular rhythm; no murmurs Abdomen- normal bowel sounds, nondistended, soft, nontender Back-sacral wound with granulation tissue, healing borders, no surrounding erythema or edema No active discharge Extremities- no pretibial edema, no calf tenderness Left knee-no edema/erythema/warmth/tenderness Neuro- alert, oriented x 3; no gross focal neurologic deficits Skin- warm & dry Results & Data Results & Data ([facility]) Vital Signs (Past 12 Hours) Vital Signs Temp Pulse Pulse Resp BP Pulse Ox 05/27/21 15:11 36.6 C 76 19 116/62 96 05/27/21 11:00 36.7 C 84 18 108/66 96 05/27/21 07:59 94 H 05/27/21 06:00 37.0 C 82 19 106/54 L 95 05/27/21 04:00 36.9 C 82 20 104/55 L 96 all noted and reviewed including below
[2021-05-27] MEDS ORDERED: PNEUMOCOCCAL Polysaccharide Vaccine 25mcg/0.5mL vial/Syr IM ONE (16:30)
[2021-05-27] MEDS: traMADol HCL 50 MG TABLET PO PRN (17:36)
[2021-05-28] MEDS: AMPICILLIN/SULBACTAM SOD 3,000 MG in 0.9 % SODIUM CHLORIDE 100 ML IV SCH ×3 (06:21→18:22)
[2021-05-28] MEDS: ASPIRIN 81 MG ECTAB PO SCH (08:16)
[2021-05-28] MEDS: ADVANCED PROBIOTIC 1250 MG CAPSULE PO SCH (08:17)
[2021-05-28] MEDS: TAMSULOSIN HCL 0.4 MG CAP PO SCH (08:17)
[2021-05-28] MEDS: FERROUS SULFATE 325 MG TAB PO SCH ×2 (08:17→20:05)
[2021-05-28] MEDS: ACETAMINOPHEN 325 MG TAB PO PRN ×3 (08:33→20:11)
[2021-05-28] MEDS ORDERED: VANCOMYCIN TROUGH ONE (09:30)
[2021-05-28] MEDS: VANCOMYCIN HCL 1,000 MG in SODIUM CHLORIDE 0.9% 250 ML IV SCH (09:59)
[2021-05-28 10:16] LABS: Hematocrit (blood only) 26.8 % (42-52); Hemoglobin 8.2 g/dL (14.0-18.0); Mean Corpuscular Hemoglobin 23.3 pg (25-34); Mean Corpuscular Hgb Conc 30.6 g/dL (32-36); Mean Corpuscular Volume 76.1 fL (80-100); Mean Platelet Volume 8.7 fL (7.4-10.4); Platelet Count 440 K/uL (130-400); RDW Coefficient of Variation 21.8 % (11.5-14.5); RDW Standard Deviation 60.7 fL (36.4-46.3); Red Blood Count 3.52 M/uL (4.7-6.1); White Blood Count 11.53 K/uL (4.8-10.8)
[2021-05-28 10:17] LABS: Calcium 8.1 mg/dl (8.5-10.1); Creatinine Clr Calc Pharmacy 111.7 ml/min; Est GFR (African American) 120.3 ml/min; Est GFR (Non-African American) 103.8 ml/min; Potassium 3.7 mmol/L (3.5-5.1)
[2021-05-28] MEDS ORDERED: LIDOCAINE 1% LOCAL 20 ML VIAL ONE (10:17)
[2021-05-28 10:24] LABS: Anisocytosis Present; Basophils # (auto) 0.02 K/uL (0-0.2); Basophils % (auto) 0.2 %; Eosinophils # (auto) 1.32 K/uL (0-0.5); Eosinophils % (auto) 11.4 %; Immature Granulocytes # (auto) 0.09 K/uL (0.00-0.02); Immature Granulocytes % (auto) 0.8 %; Lymphocytes # (auto) 1.52 K/uL (1.2-3.4); Lymphocytes % (auto) 13.2 %; Monocytes # (auto) 1.14 K/uL (0.11-0.59); Monocytes % (auto) 9.9 %; Neutrophils # (auto) 7.44 K/uL (1.4-6.5); Neutrophils % (auto) 64.5 %; Ovalocytes 1+
--- NOTE | 2021-05-28 10:41 | Pharmacy Report ---
Pharmacy Vanc AUC Short Note - Date of Service May 28, 2021 - Assessment & Plan Assessment * 80 year old M w recent hospitalization 05/06 to 05/11 for Enterococcus bacteremia with UTI and discitis/osteomylitis and discharged on 6 weeks of Unasyn per ID. Re-admitted 05/26 with worsening sacral decubitus ulcer and notable WBC and procal * Continues on unasyn and vancomycin for sacral decubitus ulcer Day # 3 of vancomycin therapy. ID consulted this admission Plan Vancomycin * AUC/NENA is the preferred PK/PD target for vancomycin * AUC guided dosing is effective and associated with decreased risk of nephrotoxicity compared to traditional trough targets * Trough level came back at ~12.4 mcg/ml - this dosing is estimated to achieve an AUC/NENA of ~400 * Plan to increase vancomycin dosing to 1250 mg iv q 12 hrs to target higher AUC/NENA of 500-600 due to severity of infection * Patient likely needs debridement of area per surgery Pharmacy will continue to follow and will adjust dose/frequency as necessary. Thank you.
--- NOTE | 2021-05-28 10:52 | Surgery Progress Note ---
Date of Service May 28, 2021 Assessment & Plan (1) Sacral decubitus ulcer, stage III: Plan: 80-year-old man with a large sacral ulcer with some necrotic material. This is improved on IV antibiotics but still likely requires debridement. Unfortunately he ate lunch today and so this cannot be done today. I will ask one of my partners to take over his care tomorrow and see when the debridement can be performed. We will tentatively make him n.p.o. after midnight in case it can happen tomorrow. We discussed risks of failure to heal infection bleeding and recurrence. 05/28/2021 10:47AM, Dr. Li I recommend to do debridement sacral ulcer at bedside, D/w benefits, risks and alternatives of the surgery, the risks - infection, bleeding, sepsis, may need more surgery, pt understood, he agrees with the surgery, he signed informed consent, I answered all questions, under local anesthesia, debridement sacral ulcer done at bedside, pt tolerated it well, wound culture sent, wound care nurse consult, will F/U, Admission and Anticipated Discharge Date Admission Date: May 26, 2021 Subjective Follow-up for weakness, status post fall, lumbar spine osteomyelitis, sacral ulcer, Enterococcus bacteremia, etc. Seen resting in bed, awake and alert, oriented, answers all questions appropriately States he feels improved today Less weak, appetite is good Denies fevers or chills, nausea or vomiting Has mild discomfort over his lower back, unchanged, chronic Has mild discomfort over his left knee, chronic No other symptoms 05/28/2021 10:44AM Dr. Li F/U consult sacral ulcer, I reviewed pt's H/P, labs with pt, pt denies fever, Physical Exam Constitutional: WD/WN, vitals as above Eyes: PERRL, conjunctivae normal, anicteric sclerae Neck: trachea midline, no thyromegaly Respiratory: normal respiratory effort, lungs clear to auscultation Cardiovascular: RRR, no murmur, no edema Gastrointestinal (Abdomen): normal bowel sounds, soft, nontender, no hepatosplenomegaly Skin: 8x8cm sacral ulcer stage III with necrotic tissue, dry, no drainage , no redness around ulcer, Psychiatric: A+Ox3, euthymic affect Results & Data ([facility]) Vital Signs (Past 12 Hours) Vital Signs Temp Pulse Pulse Resp BP Pulse Ox 05/28/21 08:00 36.7 C 81 18 122/65 96 05/28/21 07:45 79 05/28/21 04:00 36.7 C 83 18 118/70 97 05/28/21 02:21 83 05/27/21 23:00 37.1 C 81 18 123/66 93 Laboratory Results Abnormal lab results 05/28/21 05/28/21 Range/Units 09:19 09:19 WBC 11.53 H (4.8-10.8) K/uL RBC 3.52 L (4.7-6.1) M/uL Hgb 8.2 L (14.0-18.0) g/dL Hct 26.8 L (42-52) % MCV 76.1 L (80-100) fL MCH 23.3 L (25-34) pg MCHC 30.6 L (32-36) g/dL RDW Std Deviation 60.7 H (36.4-46.3) fL RDW Coeff of [place]ako 21.8 H (11.5-14.5) % Plt Count 440 H (130-400) K/uL Neut # (Auto) 7.44 H (1.4-6.5) K/uL [place] # (Auto) 1.14 H (0.11-0.59) K/uL Eos # (Auto) 1.32 H (0-0.5) K/uL Immature Gran # (Auto) 0.09 H (0.00-0.02) K/uL Chloride 108 H (98-107) mmol/L Creatinine 0.50 L (0.6-1.4) mg/dl Calcium 8.1 L (8.5-10.1) mg/dl
[2021-05-28] MEDS: ENOXAPARIN INJ 40 MG/0.4 ML SYR SQ SCH (11:46)
--- NOTE | 2021-05-28 14:33 | Hospitalist Progress Note ---
Date of Service May 28, 2021 Assessment & Plan (1) Sacral decubitus ulcer, stage III: Plan: (1) Sacral decubitus ulcer, stage III: lumbar spine discitis, osteomyelitis Plan: Admitted for worsening pain and appearance of infection to sacral decubitus ulcer. Wound culture: gram negative bacilli gram negative bacilli #2 Blood cultures: Pending Debridement wound culture: pending Afebrile, leukocytosis improving Continue IV Unasyn (ongoing times total of 6 weeks), IV vancomycin added on admission ID consulted General surgery consulted-plan for possible debridement tomorrow (2) Lumbar discitis: Plan: Per Dr. Atkins's notes: Recently hospitalized for this and placed on Unasyn for 6 weeks time. Transitioned to a continuous infusion on of last week. (3) Weakness: Plan: Likely a result of those issues outlined above. PT/OT (4) Left knee pain: Plan: s/p left knee replacement with ongoing pain in this knee. Due to see orthopedics in outpatient follow-up after this hospital stay. PT/OT to evaluate. (5) Alcohol use: Plan: Heavy drinker (approx 6 pck per day) but hasn't drank anything for 30 days as he has been in and out of facilities. (6) Tobacco use: Plan: dips snuff. Encouraged to quit. Nicotine patch PRN. (7) DVT prophylaxis: Plan: Lovenox Full code confirmed with he and his son on admission. Dispo-pending Will likely need [facility] upon discharge Admission and Anticipated Discharge Date Admission Date: May 26, 2021 Subjective ff up for lumbar spine osteomyelitis, sacral ulcer, etc seen resting in bed, comfortable states he feels ok overall minimal discomfort over lower back no fever/chills no other symptoms Review of Systems Review of Systems: all noted and negative except for above Physical Exam Physical Exam: General- oriented x 3, not in distress, speaks in sentences with no effort or accessory muscle use Eyes- anicteric Neck- no JVD Lungs- clear breath sounds bilaterally, no rales/wheezes Heart- normal rate, regular rhythm; no murmurs Abdomen- normal bowel sounds, nondistended, soft, nontender Extremities- no pretibial edema, no calf tenderness knee: no edema/warmth/tenderness Neuro- alert, oriented x 3; no gross focal neurologic deficits Skin- warm & dry Results & Data Results & Data ([facility]) Vital Signs (Past 12 Hours) Vital Signs Temp Pulse Pulse Resp BP Pulse Ox 05/28/21 11:29 36.6 C 88 18 123/76 95 05/28/21 08:00 36.7 C 81 18 122/65 96 05/28/21 07:45 79 05/28/21 04:00 36.7 C 83 18 118/70 97 all noted and reviewed including below
--- NOTE | 2021-05-28 15:03 | Operative Report (OR) ---
DATE OF PROCEDURE: 05/28/2021 PREOPERATIVE DIAGNOSIS: Sacral ulcer. POSTOPERATIVE DIAGNOSIS: Sacral ulcer. OPERATION: Debridement of the sacral ulcer. SURGEON: David Li MD. ANESTHESIA: Local. ESTIMATED BLOOD LOSS: About 1 mL FINDINGS: Sacral ulcer size about 8 x 8 cm deep to muscle layer, stage III. COMPLICATIONS: None. INDICATIONS FOR THE PROCEDURE: This is a 80-year-old gentleman who was admitted to the hospital for fall and also the patient had a sacral ulcer and the patient required consult for debridement of the sacral ulcer. I did talk to the patient about the benefit, risk, alternate procedure. I indicated the risks may include, but not limited to, such as bleeding, infection, sepsis, may need more procedure, the patient understands. He signed informed consent and I answered all questions. DETAILS OF PROCEDURE: We did debridement procedure at the patient's bedside. We turned the patient to the left side decubitus position and reexamined and found the patient had a sacral ulcer size about 8 x 8 cm and covered with necrosis tissue stage III. The ulcer area was prepped and draped in routine sterile fashion. After timeout, I injected the local anesthesia by using 1% lidocaine mixed with 0.5% Marcaine around the ulcer area. Then, I used a soft scissor and removed all of the necrosis tissue deep to the muscle layer and removed the tissue size about 8 x 8 cm. We sent also wound culture. Hemostasis was obtained. Then, we put the dressing on. The patient tolerated the procedure well and continue IV antibiotic treatment. Wound culture sent. We will consult the wound care nurse for dressing change. The patient understands. I answered all questions. Job ID: [id number] [facility]
[2021-05-28] MEDS ORDERED: VANCOMYCIN HCL 1,250 MG in SODIUM CHLORIDE 0.9% 250 ML IV SCH (22:00)
[2021-05-29] MEDS: AMPICILLIN/SULBACTAM SOD 3,000 MG in 0.9 % SODIUM CHLORIDE 100 ML IV SCH ×3 (00:22→11:35)
[2021-05-29 07:04] LABS: BUN Creatinine Ratio 18.6 (10-20); Calcium 8.1 mg/dl (8.5-10.1); Creatinine Clr Calc Pharmacy 94.3 ml/min; Est GFR (African American) 112.4 ml/min; Potassium 3.8 mmol/L (3.5-5.1)
[2021-05-29] MEDS: FERROUS SULFATE 325 MG TAB PO SCH ×2 (07:51→20:31)
[2021-05-29] MEDS: ENOXAPARIN INJ 40 MG/0.4 ML SYR SQ SCH (07:51)
[2021-05-29] MEDS: ADVANCED PROBIOTIC 1250 MG CAPSULE PO SCH (07:51)
[2021-05-29] MEDS: TAMSULOSIN HCL 0.4 MG CAP PO SCH (07:51)
[2021-05-29] MEDS: ASPIRIN 81 MG ECTAB PO SCH (07:51)
[2021-05-29] MEDS: traMADol HCL 50 MG TABLET PO PRN (07:52)
--- NOTE | 2021-05-29 10:53 | Surgery Progress Note ---
Date of Service May 29, 2021 Assessment & Plan (1) Sacral decubitus ulcer, stage III: Plan: POD # 1 s/p bedisde debridement of Sacral decubitus ulcer with necrosis under local anesthesia -afebrile, vss - wound with gram - bacilli - mild to moderate pain - healthy tissue now present in wound Plan: Wound care nurse for further wound care management continue ABx continue diet repositioning every 2 hours and off loading recommended our services signing off, please call with questions/concerns Dr. Li has seen and examined pt, agrees with above. Admission and Anticipated Discharge Date Admission Date: May 26, 2021 Subjective having some pain at ulcer site, not severe tolerating diet Physical Exam Constitutional: WD/WN, vitals as above no acute distress and not ill appearing Neck: normal visual inspection and trachea midline Respiratory: normal respiratory effort; no respiratory distress Gastrointestinal (Abdomen): Sacral wound with fibrinous tissue present, no necrosis. Measures about 8 x 8 cm Skin: no rashes, warm and dry Psychiatric: A+Ox3, euthymic affect Results & Data ([facility]) Vital Signs (Past 12 Hours) Vital Signs Temp Pulse Pulse Resp BP Pulse Ox 05/29/21 06:56 36.6 C 79 18 126/59 L 98 05/29/21 06:15 73 05/29/21 02:57 36.9 C 79 18 102/57 L 95 05/28/21 23:59 83 05/28/21 23:16 37.0 C 80 18 105/57 L 97 Laboratory Results 05/29/21 Range/Units 06:19 Sodium 137 (136-145) mmol/L Potassium 3.8 (3.5-5.1) mmol/L Chloride 107 (98-107) mmol/L Carbon Dioxide 24 (21-32) mmol/L Anion Gap 6 (3-11) BUN 11 (6-23) mg/dl Creatinine 0.59 L (0.6-1.4) mg/dl Est Cr Clr Drug Dosing 94.3 ml/min Est GFR ( Amer) 112.4 ml/min Est GFR (Non-Af Amer) 97.0 ml/min BUN/Creatinine Ratio 18.6 (10-20) Glucose 86 (70-99(Fasting)) mg/dl Calcium 8.1 L (8.5-10.1) mg/dl
[2021-05-29] MEDS ORDERED: PIPERACILLIN/TAZOBACTAM 3.375 GM in DEXTROSE 5% 100 ML IV ONE (17:00)
--- NOTE | 2021-05-29 18:26 | Hospitalist Progress Note ---
Date of Service May 29, 2021 Assessment & Plan (1) Sacral decubitus ulcer, stage III: Plan: (1) Sacral decubitus ulcer, stage III: lumbar spine discitis, osteomyelitis Plan: Admitted for worsening pain and appearance of infection to sacral decubitus ulcer. Wound culture: Pseudomonas Aeruginosa, Asha albicans Blood cultures: Negative x48 hours Status post bedside debridement 05/28/2021 by general surgery Debridement wound culture: Negative bacilli Afebrile, leukocytosis improving Discussed with ID Recommendation: Zosyn IV x5 days, then ampicillin 2 g IV every 6 hours or continuous infusion through June 18, 2021 Weekly CBC with differential, BMP, CRP through June 18 the CRP weekly or every other week through 08/18/2021 (please refer to [facility] ID consult note by Dr. Bryant Fisher) (2) Lumbar discitis: Plan: Per Dr. Atkins's notes: Recently hospitalized for this and placed on Unasyn for 6 weeks time. Transitioned to a continuous infusion on of last week. Progressing per ID, recommend to change Unasyn to ampicillin 2 g IV every 6 hours or continuous infusion through June 19, 2021 Please refer to above (3) Weakness: Plan: Likely a result of those issues outlined above. PT/OT (4) Left knee pain: Plan: s/p left knee replacement with ongoing pain in this knee. Due to see orthopedics in outpatient follow-up after this hospital stay. PT/OT to evaluate. (5) Alcohol use: Plan: Heavy drinker (approx 6 pck per day) but hasn't drank anything for 30 days as he has been in and out of facilities. (6) Tobacco use: Plan: dips snuff. Encouraged to quit. Nicotine patch PRN. (7) DVT prophylaxis: Plan: Lovenox Full code Dispo- Will l need to transition to nursing home facility upon discharge Admission and Anticipated Discharge Date Admission Date: May 26, 2021 Subjective Follow-up for fall, weakness, ongoing treatment for sacral decubitus ulcer, lumbar spine osteomyelitis with IV Unasyn, etc. Resting in bed, comfortable, not in distress Status post bedside debridement yesterday States he has increased pain over the sacral decub ulcer today No fevers or chills No shortness of breath, palpitations, dizziness, chest pain No other symptoms Review of Systems Review of Systems: all noted and negative except for above Physical Exam Physical Exam: General- oriented x 3, not in distress, speaks in sentences with no effort or accessory muscle use Eyes- anicteric Neck- no JVD Lungs- clear breath sounds bilaterally, no crackles or wheezing Heart- normal rate, regular rhythm; no murmurs Abdomen- normal bowel sounds, nondistended, soft, nontender Extremities- no pretibial edema, no calf tenderness Neuro- alert, oriented x 3; no gross focal neurologic deficits Skin- warm & dry Results & Data Results & Data ([facility]) Vital Signs (Past 12 Hours) Vital Signs Temp Pulse Pulse Resp BP Pulse Ox 05/29/21 15:08 37.0 C 78 18 105/65 95 05/29/21 14:20 98 H 05/29/21 11:54 36.8 C 83 18 103/59 L 95 05/29/21 06:56 36.6 C 79 18 126/59 L 98 all noted and reviewed including below
[2021-05-29] MEDS: ACETAMINOPHEN 325 MG TAB PO PRN (20:29)
[2021-05-29] MEDS: PIPERACILLIN/TAZOBACTAM 3.375 GM in DEXTROSE 5% 100 ML IV SCH (20:31)
--- NOTE | 2021-05-30 02:27 | Hospitalist Progress Note ---
Date of Service May 30, 2021 Assessment & Plan Admission and Anticipated Discharge Date Admission Date: May 26, 2021 Subjective Hematuria. Follow UA. Hold Lovenox. follow labs. Urology consult in am. Thanks Results & Data Results & Data ([facility]) Vital Signs (Past 12 Hours) Vital Signs Temp Pulse Pulse Resp BP Pulse Ox 05/29/21 23:43 103 H 05/29/21 23:17 36.7 C 91 H 18 94/50 L 94 05/29/21 19:36 37.2 C 87 18 116/64 05/29/21 15:08 37.0 C 78 18 105/65 95
[2021-05-30 03:51] LABS: Appearance Urine Cloudy (Clear); Bacteria Urine Automated Negative (Negative); Blood Urine 3+ (Negative); Color Urine Red; Epithelial Cell Urine Auto 0-5 /lpf (0-5); Glucose Urine UA Negative (Negative); Ketones Urine Negative (Negative); Leukocyte Esterase Urine 2+ (Negative); Nitrite Urine Negative (Negative); Protein Urine 2+ (Negative); RBC Urine Automated >30 /hpf (0-4); Specific Gravity Urine 1.018 (1.000-1.030); Urobilinogen Urine Negative (Negative); WBC Urine Automated >30 /hpf (0-5); pH Urine 5.5 (4.5-7.5)
[2021-05-30 03:54] LABS: Bilirubin Urine 1+ (Negative)
[2021-05-30 04:04] LABS: Cast Urine Automated 0 /lpf (0-5)
[2021-05-30] MEDS: PIPERACILLIN/TAZOBACTAM 3.375 GM in DEXTROSE 5% 100 ML IV SCH ×3 (05:34→21:36)
[2021-05-30 06:04] LABS: Basophils # (auto) 0.03 K/uL (0-0.2); Basophils % (auto) 0.3 %; Eosinophils # (auto) 1.14 K/uL (0-0.5); Eosinophils % (auto) 11.1 %; Hematocrit (blood only) 26.5 % (42-52); Hemoglobin 8.3 g/dL (14.0-18.0); Immature Granulocytes # (auto) 0.07 K/uL (0.00-0.02); Immature Granulocytes % (auto) 0.7 %; Lymphocytes # (auto) 0.69 K/uL (1.2-3.4); Lymphocytes % (auto) 6.7 %; Mean Corpuscular Hemoglobin 23.7 pg (25-34); Mean Corpuscular Hgb Conc 31.3 g/dL (32-36); Mean Corpuscular Volume 75.7 fL (80-100); Mean Platelet Volume 8.7 fL (7.4-10.4); Monocytes # (auto) 0.66 K/uL (0.11-0.59); Monocytes % (auto) 6.4 %; Neutrophils # (auto) 7.67 K/uL (1.4-6.5); Neutrophils % (auto) 74.8 %; Platelet Count 397 K/uL (130-400); RDW Coefficient of Variation 21.9 % (11.5-14.5); RDW Standard Deviation 60.9 fL (36.4-46.3); White Blood Count 10.26 K/uL (4.8-10.8)
[2021-05-30 06:29] LABS: BUN Creatinine Ratio 18.6 (10-20); Calcium 8.1 mg/dl (8.5-10.1); Creatinine Clr Calc Pharmacy 79.5 ml/min; Est GFR (African American) 104.8 ml/min; Est GFR (Non-African American) 90.4 ml/min; Potassium 3.8 mmol/L (3.5-5.1)
[2021-05-30 06:36] LABS: Anisocytosis Present; Ovalocytes 1+
[2021-05-30] MEDS: ADVANCED PROBIOTIC 1250 MG CAPSULE PO SCH (07:57)
[2021-05-30] MEDS: FERROUS SULFATE 325 MG TAB PO SCH ×2 (07:57→21:29)
[2021-05-30] MEDS: ASPIRIN 81 MG ECTAB PO SCH (07:57)
[2021-05-30] MEDS: TAMSULOSIN HCL 0.4 MG CAP PO SCH (07:57)
[2021-05-30] MEDS ORDERED: COLLAGENASE OINT 30 GM TUBE EXT PRN (11:19)
--- NOTE | 2021-05-30 15:20 | Hospitalist Progress Note ---
Date of Service May 30, 2021 Assessment & Plan (1) Sacral decubitus ulcer, stage III: Plan: #. Sacral decubitus ulcer, stage III: #. Lumbar spine discitis, osteomyelitis Admitted for worsening pain and appearance of infection to sacral decubitus ulcer. Admitting blood and urine culture: Negative 05/27 superficial wound culture: Asha/Pseudomonas with few WBCs. S/P bedside debridement 05/28 by Gen Sx ---> 05/28 deep wound/debridement wound culture: Pseudomonas Afebrile, leukocytosis improving ID (Dr. Bryant Fisher) evaluated 05/28 the patient: Zosyn IV x5 days, then ampicillin 2 g IV every 6 hours or continuous infusion through June 18, 2021 Weekly CBC with differential, BMP, CRP through June 18 the CRP weekly or every other week through 08/18/2021 Pt will need ongoing wound care and OP f/u w/ wound clinic #. Lumbar discitis: Pt was recently hospitalized for this and placed on Unasyn for 6 weeks time. Transitioned to a continuous infusion on of last week [employer]. Per ID, recommend to change Unasyn to ampicillin 2 g IV every 6 hours or continuous infusion through June 18, 2021 See above. #. Hematuria Pt noted to have hematuria overnight 05/30 05/30 UA +blood, UCx pending HnH stable, continue to monitor Consider Uro if worsening Will need OP UA in 4-6 weeks for eval of hematuria #. Weakness: likely due acute conditions as above and ongoing antibiotic therapy. PT/OT. Probiotic. #. Left knee pain: s/p left knee replacement with ongoing pain in this knee. Due to see orthopedics in outpatient follow-up after this hospital stay. PT/OT to evaluate. #. Alcohol use: Heavy drinker (approx 6 pck per day) but hasn't drank anything for 30 days as he has been in and out of facilities. Advise against drinking alcoholic products in future. #. Tobacco use: Encouraged to quit. Nicotine patch PRN. #. DVT prophylaxis: Lovenox held, Re-hematuria #. Full code #. Dispo - Will need to transition to long-term facility upon discharge, Pt fairly stable for DC. Admission and Anticipated Discharge Date Admission Date: May 26, 2021 Subjective Patient seen and examined at bedside as a follow-up of sacral decubitus ulcer, stage III. Patient lying in bed, on room air, NAD, no new acute events overnight. Patient reports eating okay and moving bowels okay. Patient reports some low back pain, denies any fever/chills/headache/chest pain/palpitations/belly pain/other review of symptoms. Physical Exam Physical Exam: GENERAL: Alert and oriented x3. NAD, on RA. HEENT: No pallor, no icterus. Pupils equal, round and reactive to light. Oral mucosa moist. NECK: No JVD, no neck masses. HEART: S1 and S2 heard. Regular rate and rhythm. No murmur, no gallop. RESPIRATORY SYSTEM: Normal AP diameter. No accessory muscle use. No wheezing, no crackles. ABDOMEN: Soft, bowel sounds present, nontender, no distention. CENTRAL NERVOUS SYSTEM: No facial droop. Speech is clear. Obeys simple commands. Moves extremities. EXTREMITIES: No edema, no erythema seen. Sacral wound with wound vac noted. Results & Data Results & Data ([facility]) Vital Signs (Past 12 Hours) Vital Signs Temp Pulse Resp BP Pulse Ox 05/30/21 07:31 36.7 C 80 18 122/70 96 05/30/21 06:45 37.0 C 73 18 111/64 94 05/30/21 04:02 36.7 C 68 18 123/75 97
[2021-05-30] MEDS: traMADol HCL 50 MG TABLET PO PRN (21:28)
[2021-05-31] MEDS: PIPERACILLIN/TAZOBACTAM 3.375 GM in DEXTROSE 5% 100 ML IV SCH ×3 (05:37→21:35)
[2021-05-31 07:26] LABS: Hematocrit (blood only) 27.6 % (42-52); Hemoglobin 8.7 g/dL (14.0-18.0); Mean Corpuscular Hgb Conc 31.5 g/dL (32-36); Mean Corpuscular Volume 76.2 fL (80-100); Mean Platelet Volume 8.6 fL (7.4-10.4); Platelet Count 368 K/uL (130-400); Red Blood Count 3.62 M/uL (4.7-6.1); White Blood Count 10.05 K/uL (4.8-10.8)
[2021-05-31 07:52] LABS: BUN Creatinine Ratio 22.6 (10-20); Calcium 8.2 mg/dl (8.5-10.1); Creatinine Clr Calc Pharmacy 89.7 ml/min; Est GFR (African American) 110.1 ml/min; Magnesium 1.8 mg/dl (1.7-2.4)
[2021-05-31] MEDS: ASPIRIN 81 MG ECTAB PO SCH (08:15)
[2021-05-31] MEDS: TAMSULOSIN HCL 0.4 MG CAP PO SCH (08:15)
[2021-05-31] MEDS: ADVANCED PROBIOTIC 1250 MG CAPSULE PO SCH (08:15)
[2021-05-31] MEDS: FERROUS SULFATE 325 MG TAB PO SCH ×2 (08:15→21:33)
[2021-05-31] MEDS: traMADol HCL 50 MG TABLET PO PRN (08:17)
[2021-05-31] MEDS: ACETAMINOPHEN 325 MG TAB PO PRN (13:52)
--- NOTE | 2021-05-31 16:58 | Hospitalist Progress Note ---
Date of Service May 31, 2021 Assessment & Plan (1) Sacral decubitus ulcer, stage III: Plan: #. Sacral decubitus ulcer, stage III: #. Lumbar spine discitis, osteomyelitis Admitted for worsening pain and appearance of infection to sacral decubitus ulcer. Admitting blood and urine culture: Negative 05/27 superficial wound culture: Asha/Pseudomonas with few WBCs. S/P bedside debridement 05/28 by Gen Sx ---> 05/28 deep wound/debridement wound culture: Pseudomonas Afebrile, leukocytosis improving ID (Dr. Bryant Fisher) evaluated 05/28 the patient: Zosyn IV x5 days, then ampicillin 2 g IV every 6 hours or continuous infusion through June 18, 2021 Weekly CBC with differential, BMP, CRP through June 18 the CRP weekly or every other week through 08/18/2021 Pt will need ongoing wound care and OP f/u w/ wound clinic #. Lumbar discitis: Pt was recently hospitalized for this and placed on Unasyn for 6 weeks time. Transitioned to a continuous infusion on of last week [employer]. Per ID, recommend to change Unasyn to ampicillin 2 g IV every 6 hours or continuous infusion through June 18, 2021 See above. #. Hematuria Pt noted to have hematuria overnight 05/30 05/30 UA +blood, UCx pending HnH stable, continue to monitor Consider Uro if worsening Will need OP UA in 4-6 weeks for eval of hematuria #. Weakness: likely due acute conditions as above and ongoing antibiotic therapy. PT/OT. Probiotic. #. Left knee pain: s/p left knee replacement with ongoing pain in this knee. Due to see orthopedics in outpatient follow-up after this hospital stay. PT/OT to evaluate. #. Alcohol use: Heavy drinker (approx 6 pck per day) but hasn't drank anything for 30 days as he has been in and out of facilities. Advise against drinking alcoholic products in future. #. Tobacco use: Encouraged to quit. Nicotine patch PRN. #. DVT prophylaxis: Lovenox held, Re-hematuria #. Full code #. Dispo - stable for DC, awaiting placement. Admission and Anticipated Discharge Date Admission Date: May 26, 2021 Subjective Patient seen and examined at bedside as a follow-up of sacral decubitus ulcer, stage III. Patient lying in bed, on room air, NAD, no new acute events overnight. Patient reports eating okay and moving bowels okay. Patient reports some low back pain ongoing, denies any fever/chills/headache/chest pain/palpitations/belly pain/other review of symptoms. Physical Exam Physical Exam: GENERAL: Alert and oriented x3. NAD, on RA. HEENT: No pallor, no icterus. Pupils equal, round and reactive to light. Oral mucosa moist. NECK: No JVD, no neck masses. HEART: S1 and S2 heard. Regular rate and rhythm. No murmur, no gallop. RESPIRATORY SYSTEM: Normal AP diameter. No accessory muscle use. No wheezing, no crackles. ABDOMEN: Soft, bowel sounds present, nontender, no distention. CENTRAL NERVOUS SYSTEM: No facial droop. Speech is clear. Obeys simple commands. Moves extremities. EXTREMITIES: No edema, no erythema seen. Sacral wound with wound vac noted. Results & Data Results & Data ([facility]) Vital Signs (Past 12 Hours) Vital Signs Temp Pulse Pulse Resp BP Pulse Ox 05/31/21 16:00 89 05/31/21 15:31 36.5 C 80 20 93/57 L 91 05/31/21 10:52 36.7 C 96 H 19 97/59 L 91 05/31/21 07:17 85 05/31/21 07:14 36.8 C 85 20 95/56 L 95
[2021-06-01] MEDS: PIPERACILLIN/TAZOBACTAM 3.375 GM in DEXTROSE 5% 100 ML IV SCH (06:05)
[2021-06-01 06:36] LABS: Hematocrit (blood only) 27.4 % (42-52); Hemoglobin 8.5 g/dL (14.0-18.0)
[2021-06-01 07:02] LABS: BUN Creatinine Ratio 22.4 (10-20); Calcium 8.3 mg/dl (8.5-10.1); Creatinine Clr Calc Pharmacy 76.1 ml/min; Est GFR (African American) 106.7 ml/min; Magnesium 1.9 mg/dl (1.7-2.4); Potassium 4.1 mmol/L (3.5-5.1)
[2021-06-01] MEDS: FERROUS SULFATE 325 MG TAB PO SCH (08:41)
[2021-06-01] MEDS: ASPIRIN 81 MG ECTAB PO SCH (08:42)
[2021-06-01] MEDS: ADVANCED PROBIOTIC 1250 MG CAPSULE PO SCH (08:42)
[2021-06-01] MEDS: TAMSULOSIN HCL 0.4 MG CAP PO SCH (08:42)
--- NOTE | 2021-06-01 12:27 | Discharge Summary ---
Date of Service June 01, 2021 Admission HPI Per Admitting Provider 77 yo M recently hospitalized from 05/06/21 to 05/11/21 for sepsis 2/2 enterococcus bacteremia with UTI and lumbar spine discitis/osteomyelitis. He also had a noted Stage III sacral decubitus ulcer. Per ID, he was discharged on Unasyn for 6 weeks. Notably he was seen by ortho spine and general surgery and no surgery was recommended at that time. He was sent to rehab and was discharged home. He presents today after being found on the floor unable to stand. He was found by his home health nurse. ER notes state his sacral wound is now painful and draining and was the main reason for his evaluation today, and it does appear infected on exam. He has a leukocytosis and his heart rate is increased. Patient reports that when he went to sit, he grabbed onto onto a chair rung that broke off in the kitchen. This caused his fall and surprised him. He reports feeling OK since leaving [facility], however, son states he didn't have much therapy each time he called and when he got home he was struggling to ambulate with his walker. The patient has remained weak since getting out of [facility] last . He was also transitioned from scheduled Unasyn doses to a continuous infusion when he returned home. Home Health asked for son's help but he is very unsure how to do this and doesn't feel comfortable with the responsibility. ER doc also reported there may have been some antibiotic not infused correctly per home health staff. Patient denies any fevers or chills. He reports poor PO intake and weight loss recently. He reports since having lost his appetite since the infection started. No nausea, vomiting, no changes in his stools. He is very sedentary and is sitting in his chair for most of the day. Some incontinence of urine noted and he is currently soiled. Admission Exam Per Admitting Provider CONSTITUTIONAL: WNWD, vitals as above, generally well-appearing, NAD EYES: normal conjunctivae, no scleral icterus ENT: external ear and nose normal, MMM NECK: trachea midline RESPIRATORY: clear to auscultation bilaterally, no crackles, rales or wheezes, normal respiratory effort CARDIOVASCULAR: regular rate and rhythm, S1 and 2 heard without murmurs, gallops or rubs, no JVD, no peripheral edema CHEST: inspection of chest was normal GASTROINTESTINAL: soft, nontender, ND, no guarding MUSCULOSKELETAL: generalized weakness throughout, especially in his legs. Head is normocephalic and atraumatic SKIN: warm and dry, he has an area of ecchymosis with a small skin tear along his left elbow. NEUROLOGIC: CN 2-12 grossly intact, normal cognition, normal speech, no gross focal deficits. PSYCHIATRIC: alert cooperative and oriented to person, place and time. Principal Diagnosis Sacral decubitus ulcer, stage III Lumbar spine discitis, osteomyelitis Hematuria Weakness Alcohol abuse Tobacco abuse Discharge Exam GENERAL: Alert and oriented x3. NAD, on RA. HEENT: No pallor, no icterus. Pupils equal, round and reactive to light. Oral mucosa moist. NECK: No JVD, no neck masses. HEART: S1 and S2 heard. Regular rate and rhythm. No murmur, no gallop. RESPIRATORY SYSTEM: Normal AP diameter. No accessory muscle use. No wheezing, no crackles. ABDOMEN: Soft, bowel sounds present, nontender, no distention. CENTRAL NERVOUS SYSTEM: No facial droop. Speech is clear. Obeys simple commands. Moves extremities. EXTREMITIES: No edema, no erythema seen. Sacral wound with wound vac noted. Discharge Data Allergies Allergy/AdvReac Type Severity Reaction Status Date / Time No Known Allergies Allergy Verified 05/26/21 15:38 Consultations 05/26/21 18:18 ED Decision to Admit Stat 05/26/21 20:31 Consult General Surgery Routine 05/27/21 07:54 Consult Infectious Diseases Routine Hospital Course (1) Sacral decubitus ulcer, stage III: 80 yo Male, he was managed for the following while in hospital: #. Sacral decubitus ulcer, stage III: #. Lumbar spine discitis, osteomyelitis Admitted for worsening pain and appearance of infection to sacral decubitus ulcer. Admitting blood and urine culture: Negative 05/27 superficial wound culture: Asha/Pseudomonas with few WBCs. S/P bedside debridement 05/28 by Gen Sx ---> 05/28 deep wound/debridement wound culture: Pseudomonas. Prior attending got in touch w/ ID after this result and Antibiotic was revised (see below) Afebrile, leukocytosis improved. ID (Dr. Bryant Fisher) evaluated 05/28 the patient: Zosyn IV x5 days, then ampicillin 2 g IV every 6 hours or continuous infusion through June 18, 2021 Weekly CBC with differential, BMP, CRP through June 18 the CRP weekly or every other week through 08/18/2021 Pt will need ongoing wound care and OP f/u w/ wound clinic #. Lumbar discitis: Pt was recently hospitalized for this and placed on Unasyn for 6 weeks time. Transitioned to a continuous infusion on of last week [employer]. Per ID, recommend to change Unasyn to ampicillin 2 g IV every 6 hours or continuous infusion through June 18, 2021 See above. #. Hematuria Pt noted to have hematuria overnight 05/30 05/30 UA +blood, UCx pending HnH stable, continue to monitor Consider Uro if worsening Will need OP UA in 4-6 weeks for eval of hematuria #. Weakness: likely due acute conditions as above and ongoing antibiotic therapy. PT/OT. Probiotic. #. Left knee pain: s/p left knee replacement with ongoing pain in this knee. Due to see orthopedics in outpatient follow-up after this hospital stay. PT/OT to evaluate. #. Alcohol use: Heavy drinker (approx 6 pck per day) but hasn't drank anything for 30 days as he has been in and out of facilities. Advise against drinking alcoholic products in future. #. Tobacco use: Encouraged to quit. Nicotine patch PRN. #. DVT prophylaxis: Lovenox held, Re-hematuria #. Full code Patient being discharged to SNF with following instruction at the point of discharge: Follow-up with your primary care physician within 1 week time. Follow-up with infectious disease doctor in the first week of June prior to your antibiotics doses being done. Follow-up with wound care as an outpatient. Continue with wound care instruction as instructed by wound care nurse. Get your urine analysis in 1 to 2 months upon discharge to ensure the resolution of hematuria noted while in hospital, if persistent hematuria, you will need outpatient follow-up with urology. Increase protein content in diet to aid with wound healing. Recommend against using any alcohol or tobacco products in future. You are yet to be done with 5 more doses of your antibiotic Zosyn and then you will be back on your antibiotic ampicillin through June 18. You will need weekly CBC with differential, BMP, CRP through June 18 and then CRP weekly or every other week through 08/18/2021. For your left knee pain, reschedule your orthopedic appointment as an outpatient upon discharge. Take your medications as prescribed. Total Time Total Time Spent Total Time Spent (In Minutes): 40 Discharge Plan Discharge Items Patient Disposition: Transfer Custodial Fac Reason For Visit: WEAKNESS, BACK INFECTION Discharge Diagnosis: Sacral decubitus ulcer, stage III Lumbar spine discitis, osteomyelitis Hematuria Weakness Alcohol abuse Tobacco abuse Activity: Resume your previous activity Non-emergency contact: Primary Care Provider Call non-emergency contact if: you have any medication questions, your symptoms worsen, your pain is not controlled and your temperature is above 101 Follow-up/Referrals: Bryant Celaya MD [Primary Care Provider] - Diet: Regular Diet Comment: Increase protein content in diet. Addtl Attending Provider Instructions: Follow-up with your primary care physician within 1 week time. Follow-up with infectious disease doctor in the first week of June prior to your antibiotics doses being done. Follow-up with wound care as an outpatient. Continue with wound care instruction as instructed by wound care nurse. Get your urine analysis in 1 to 2 months upon discharge to ensure the resolution of hematuria noted while in hospital, if persistent hematuria, you will need outpatient follow-up with urology. Increase protein content in diet to aid with wound healing. Recommend against using any alcohol or tobacco products in future. You are yet to be done with 5 more doses of your antibiotic Zosyn and then you will be back on your antibiotic ampicillin through June 18. You will need weekly CBC with differential, BMP, CRP through June 18 and then CRP weekly or every other week through 08/18/2021. For your left knee pain, reschedule your orthopedic appointment as an outpatient upon discharge. Take your medications as prescribed. Pending Studies at Discharge: No Stand-Alone Forms: My [facility] Skilled Items Patient informed of condition?: Yes DNR: No Discharge Level of Care: Skilled Communicable Disease: No Discharge Prognosis: Stable Lines: PICC Urinary Catheter: No Medications and DC Order Prescriptions: New ampicillin sodium 2 gram recon soln 2 g IV Q6H 16 Days Qty: 64 RF: 0 tramadol 50 mg Tablet 50 mg PO Q6H PRN (Reason: severe pain (scale score 7-10)) 3 Days Qty: 12 RF: 0 polyethylene glycol 3350 [Miralax] 17 gram Powder In Packet 17 g PO DAILY PRN (Reason: constipation) Qty: 30 RF: 0 Santyl 250 unit/gram Ointment 1 applic EXT DAILY PRN (Reason: wound care) Qty: 90 RF: 0 Zosyn in dextrose (iso-osm) 3.375 gram/50 mL piggyback 3.375 g IV Q8H 3 Days Qty: 281 RF: 0 Continued acetaminophen 325 mg Tablet 650 mg PO Q4H PRN (Reason: fever or pain) 30 Days RF: 0 thiamine HCl (vitamin B1) 100 mg Tablet 100 mg PO QAM 30 Days Qty: 30 RF: 0 folic acid 1 mg Tablet 1 mg PO QAM 30 Days Qty: 30 RF: 0 aspirin 81 mg capsule 81 mg PO DAILY Qty: 30 RF: 2 tamsulosin 0.4 mg capsule 0.4 mg PO DAILY RF: 0 ferrous sulfate 325 mg (65 mg iron) tablet 325 mg PO BID RF: 0 Lactobacillus acidoph-L.bulgar [Floranex] 1 million cell tablet 1 tab PO DAILY Qty: 30 RF: 1 Discontinued ampicillin-sulbactam [Unasyn] 3 gram recon soln 3 g IV Q6H 39 Days RF: 0 Discharge Orders: Discharge Order (Routine); Ordered 06/01/21 Ordered By: Kalpesh White Admission Data Admit Date/Time: 05/26/21 18:29 Attending Provider: Kalpesh White Admit Provider: Caryn Atkins Primary Care Provider: Bryant Celaya Other Providers: Janelle Knight ; Caryn Atkins ; Saeed Staples ; Jaycob Amaya ; Goldy Pinto I. ; Josh Noriega II ; Melany Larson ; Bryant Fisher ; Azeem Muñoz ; [facility] ; [facility] ; [facility]
[2021-06-03] MEDS ORDERED: AMPICILLIN 2,000 MG in SODIUM CHLOR 0.9% AD-VAN 100 ML IV SCH (06:00)
== END 2021-06-01 13:15 | DRG 981 ==
LOC: ED 15:23 → SUATTDRO 18:29 → 2N 18:29

== ENCOUNTER 2022-08-18 14:17 | Inpatient (IN) ==
[2022-08-18] MEDS ORDERED: SODIUM CHLORIDE 0.9% 1000ML 500 ML IV ONE (14:27)
--- NOTE | 2022-08-18 14:30 | Emergency Department Note ---
Impression & Plan Acute UTI, Fall, Abrasion of scalp ED Provider Note Provider: Pelon Oneil MD DATE OF SERVICE: 08/18/2022 CHIEF COMPLAINT: Fall, head injury HISTORY OF PRESENT ILLNESS: Patient is a 82-year-old gentleman found outside the [place] and is passed out on the ground with signs of head trauma by EMS and brought here for further evaluation. Patient is unable to give details exactly how he fell. For EMS he was initially somewhat confused. Here he talks about calluses on his foot but cannot relate exactly how he fell today. Does relate that he had 2 beers at the [place] before falling. Denies any food today. Denies significant head pain, neck pain, chest pain, or abdominal pain. Denies dizziness or nausea or vomiting. Denies new injury to his extremities. PAST MEDICAL HISTORY: As noted above MEDICATIONS: Reviewed home medications includes aspirin by record but the patient is unsure if he takes this SOCIAL HISTORY: Drinks alcohol PHYSICAL EXAM: GENERAL: alert and oriented to person in no acute distress on stretcher Head: Patient with some dried matted blood in the left parietal region of the head with a small area of abrasion here without significant 40 body or crepitus. EYES: No injection, discharge or icterus. PERRL, EOMI. NECK: Trachea midline. Supple. ENT: Mucous membranes pink and moist. LUNGS: Airway patent. No retractions. Breath sounds clear with good air entry bilaterally. HEART: Regular rate and rhythm. No chest wall tenderness ABDOMEN: Soft and non-tender, without guarding or rebound. No hepatosplenomegaly or masses BACK: No midline tenderness, No bilateral flank tenderness. SKIN: Acyanotic, warm, dry, without rashes EXTREMITIES: Without swelling or tenderness of the extremities with noted deformity consistent with right foot clubfoot. No erythema. NEUROLOGICAL: No focal deficits moving all extremities. No aphasia. No facial droop or slurred speech. Ambulatory with some assistance EK bpm normal sinus rhythm. No PVC or PAC. No acute ST segment elevation or depression with QTc of 411. CONTINUOUS CARDIAC MONITORING: was ordered and showed a heart rate of 80s to 90s bpm in normal sinus rhythm occasional PAC GCS 15. Patient's laboratory studies and imaging reviewed. Differential includes traumatic injury, infection, dehydration, metabolic abnormality, hypo/hyperglycemia, electrolyte disturbance, anemia, hypoxia, cardiac sources, neurologic, alcohol intoxication, as well as other pathologies. IMPRESSION/MEDICAL DECISION MAKING: Patient evidently drinking at the [facility] fell and sustained a bit of a head injury. Patient interactive and moving all extremities and following commands but a little bit off on initial evaluation. Unable to tell me exactly how this happened. Basic blood work obtained. CT of the head and cervical spine obtained. Chest x-ray questions a right lower lobe consolidation. Denies significant shortness of breath. Afebrile here not hypoxic. No chest wall pain or abdominal pain and doubt significant traumatic injury here. CT head and cervical spine per etiology without significant acute traumatic injury noted. Some incidental thyroid nodules noted. Blood work significant for significant leukocytosis of 19.7. Chest x-ray questions right lower lobe consolidation of the patient denies significant shortness of breath or cough symptoms. Not hypoxic here and not sure this is a real pneumonia. History of back infections as well as urine infections. Urine sample obtained. Chem istries otherwise fairly reassuring. Lactic and cultures added with leukocytosis. Denies any back pain or sciatic symptoms or neurological symptoms and low suspicion for acute infection here. Questionable infection from the lungs but seems pretty clearly a UTI. Covered empirically with Zosyn based on prior sensitivities. Son at bedside. States his father is maybe a bit off from his baseline. Was ambulatory here to the bathroom via urine sample and again a low suspicion for acute CVA. Medical alcohol level not significantly elevated. Given the leukocytosis and still with some confusion discussed with him staying for further evaluation. DIAGNOSIS: Fall, scalp abrasion, acute UTI DISPOSITION: Hospitalist will evaluate Patient was agreeable with this plan. Past Med/Surg History Medical History Alcohol use [place] (hard of hearing) Osteoarthritis Right club foot congenital Sacral decubitus ulcer, stage III Surgical History History of surgery Right clubfoot correction - multiple procedures as a child Status post left knee replacement Family History Other No family history of adverse response to anesthesia Denies family history of Coronary heart disease Social History Smoking Status: Former smoker Second Hand Exposure: No; Do You Dip or Chew Tobacco: Yes; Hx Alcohol Use: Yes Alcohol type: beer Hx Substance Use: No Preferred Language: Syriac Communication Ability: Effective 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 Beliefs That Will Affect Care: None marital status: Current Living Situation: Alone How many Children do You have: 1 Feels Safe at Home: Yes Assistive Devices: Walker Allergies Allergies Allergy/AdvReac Type Severity Reaction Status Date / Time No Known Allergies Allergy Verified 05/26/21 15:38 Home Meds Home Medications Medication Instructions Recorded Confirmed No Known Home Medications 08/18/22 08/18/22 Results & Data (ED) Vital Signs Vital Signs - 24 hr 08/18/22 14:22 08/18/22 14:27 08/18/22 14:53 Temperature 36.4 C L Temperature Source Oral Pulse Rate 109 H 90 Pulse Rate from SpO2 Sensor 90 Respiratory Rate 20 24 Respiratory Effort / Characteristics Non-Labored Blood Pressure 94/72 L Blood Pressure Mean 79 Pulse Oximetry 97 97 95 Oxygen Delivery Method Room Air Room Air Sepsis Recent Fever Within 48 Hours No Sepsis New/Unexplained Change in Mental Status N/A Sepsis Action Taken by Nursing Physician Notified 08/18/22 15:00 08/18/22 15:00 08/18/22 15:28 Temperature Temperature Source Pulse Rate 84 84 Pulse Rate from SpO2 Sensor 84 84 Respiratory Rate 27 H 19 Respiratory Effort / Characteristics Blood Pressure 114/69 Blood Pressure Mean 84 Pulse Oximetry 97 99 Oxygen Delivery Method Sepsis Recent Fever Within 48 Hours Sepsis New/Unexplained Change in Mental Status Sepsis Action Taken by Nursing 08/18/22 15:28 08/18/22 15:30 08/18/22 15:31 Temperature Temperature Source Pulse Rate 85 83 Pulse Rate from SpO2 Sensor 80 83 Respiratory Rate 21 16 Respiratory Effort / Characteristics Blood Pressure 142/81 H Blood Pressure Mean 96 Pulse Oximetry 98 98 Oxygen Delivery Method Sepsis Recent Fever Within 48 Hours Sepsis New/Unexplained Change in Mental Status Sepsis Action Taken by Nursing 08/18/22 15:31 08/18/22 16:12 08/18/22 16:00 Temperature Temperature Source Pulse Rate 86 Pulse Rate from SpO2 Sensor Respiratory Rate Respiratory Effort / Characteristics Blood Pressure 139/71 127/95 Blood Pressure Mean 85 100 Pulse Oximetry Oxygen Delivery Method Sepsis Recent Fever Within 48 Hours Sepsis New/Unexplained Change in Mental Status Sepsis Action Taken by Nursing 08/18/22 16:00 08/18/22 16:30 Temperature Temperature Source Pulse Rate 82 86 Pulse Rate from SpO2 Sensor 78 69 Respiratory Rate 17 19 Respiratory Effort / Characteristics Blood Pressure Blood Pressure Mean Pulse Oximetry 97 94 Oxygen Delivery Method Sepsis Recent Fever Within 48 Hours Sepsis New/Unexplained Change in Mental Status Sepsis Action Taken by Nursing Laboratory Data 08/18/22 14:26 08/18/22 14:26 Lab Results 08/18/22 08/18/22 08/18/22 Range/Units 14:26 14:26 14:26 WBC 19.77 H (4.8-10.8) K/ul RBC 4.46 L (4.70-6.10) M/uL Hgb 11.5 L (14.0-18.0) g/dl Hct 35.3 L (42.0-52.0) % MCV 79.1 L (80.0-100.0) fL MCH 25.8 (25.0-34.0) pg MCHC 32.6 (32.0-36.0) g/dL RDW Std Deviation 43.3 (36.4-46.3) fL RDW Coeff of [place]ako 15.2 H (11.5-14.5) % Plt Count 313 (130-400) K/uL MPV 9.4 (9.4-12.4) fL Immature Gran % (Auto) 0.9 % Neut % (Auto) 67.5 % Lymph % (Auto) 10.3 % [place] % (Auto) 6.5 % Eos % (Auto) 14.3 % Baso % (Auto) 0.5 % Neut # (Auto) 13.36 H (1.40-6.50) K/uL Lymph # (Auto) 2.03 (1.2-3.4) K/uL [place] # (Auto) 1.29 H (0.11-0.59) K/uL Eos # (Auto) 2.82 H (0-0.50) K/uL Baso # (Auto) 0.10 (0-0.2) K/uL Immature Gran # (Auto) 0.17 (0.01-0.20) K/uL PT 10.9 (9.0-12.0) Seconds INR 1.0 (0.9-1.1) Sodium 134 L (136-145) mmol/L Potassium TNP Chloride 104 (98-107) mmol/L Carbon Dioxide 21 (21-32) mmol/L Anion Gap 9 (3-11) BUN 18 (6-23) mg/dl Creatinine 0.65 (0.6-1.4) mg/dl Est Cr Clr Drug Dosing 78.8 ml/min Est GFR ( Amer) 106.5 ml/min Est GFR (Non-Af Amer) 91.9 ml/min BUN/Creatinine Ratio 27.7 H (10-20) Glucose 85 (70-99(Fasting)) mg/dl Calcium 8.8 (8.6-10.3) mg/dl Magnesium 1.9 (1.7-2.4) mg/dl Total Bilirubin 0.4 (0.2-1.0) mg/dl AST TNP ALT 5 L (7-52) U/L Alkaline Phosphatase 92 (34-104) U/L Troponin I High Sens 4.7 (0-20) pg/ml Total Protein 5.9 L (6.0-8.3) gm/dl Albumin 3.2 L (3.4-5.0) gm/dl Globulin 2.7 (2.5-4.0) gm/dl Albumin/Globulin Ratio 1.2 (0.9-2) Procalcitonin (0-0.5) ng/ml TSH (0.300-4.500) uIu/ml Urine Color Urine Appearance (Clear) Urine pH (4.5-7.5) Ur Specific [place] (1.000-1.030) Urine Protein (Negative) Urine Glucose (UA) (Negative) Urine Ketones (Negative) Urine Blood (Negative) Urine Nitrite (Negative) Urine Bilirubin (Negative) Urine Urobilinogen (Negative) Ur Leukocyte Esterase (Negative) Urine RBC (0-4) /hpf Urine WBC (0-5) /hpf Ur Epithelial Cells (0-5) /lpf Amorphous Sediment (None Prsent) Urine Bacteria (Negative) Ethyl Alcohol mg/dL (<10.0) mg/dl SARS-CoV-2, RNA, NAAT (NEGATIVE) 08/18/22 08/18/22 08/18/22 Range/Units 14:26 14:26 14:54 WBC (4.8-10.8) K/ul RBC (4.70-6.10) M/uL Hgb (14.0-18.0) g/dl Hct (42.0-52.0) % MCV (80.0-100.0) fL MCH (25.0-34.0) pg MCHC (32.0-36.0) g/dL RDW Std Deviation (36.4-46.3) fL RDW Coeff of [place] (11.5-14.5) % Plt Count (130-400) K/uL MPV (9.4-12.4) fL Immature Gran % (Auto) % Neut % (Auto) % Lymph % (Auto) % [place] % (Auto) % Eos % (Auto) % Baso % (Auto) % Neut # (Auto) (1.40-6.50) K/uL Lymph # (Auto) (1.2-3.4) K/uL [place] # (Auto) (0.11-0.59) K/uL Eos # (Auto) (0-0.50) K/uL Baso # (Auto) (0-0.2) K/uL Immature Gran # (Auto) (0.01-0.20) K/uL PT (9.0-12.0) Seconds INR (0.9-1.1) Sodium (136-145) mmol/L Potassium Chloride (98-107) mmol/L Carbon Dioxide (21-32) mmol/L Anion Gap (3-11) BUN (6-23) mg/dl Creatinine (0.6-1.4) mg/dl Est Cr Clr Drug Dosing ml/min Est GFR ( Amer) ml/min Est GFR (Non-Af Amer) ml/min BUN/Creatinine Ratio (10-20) Glucose (70-99(Fasting)) mg/dl Calcium (8.6-10.3) mg/dl Magnesium (1.7-2.4) mg/dl Total Bilirubin (0.2-1.0) mg/dl AST ALT (7-52) U/L Alkaline Phosphatase (34-104) U/L Troponin I High Sens (0-20) pg/ml Total Protein (6.0-8.3) gm/dl Albumin (3.4-5.0) gm/dl Globulin (2.5-4.0) gm/dl Albumin/Globulin Ratio (0.9-2) Procalcitonin 0.06 (0-0.5) ng/ml TSH 3.406 (0.300-4.500) uIu/ml Urine Color Urine Appearance (Clear) Urine pH (4.5-7.5) Ur Specific [place] (1.000-1.030) Urine Protein (Negative) Urine Glucose (UA) (Negative) Urine Ketones (Negative) Urine Blood (Negative) Urine Nitrite (Negative) Urine Bilirubin (Negative) Urine Urobilinogen (Negative) Ur Leukocyte Esterase (Negative) Urine RBC (0-4) /hpf Urine WBC (0-5) /hpf Ur Epithelial Cells (0-5) /lpf Amorphous Sediment (None Prsent) Urine Bacteria (Negative) Ethyl Alcohol mg/dL (<10.0) mg/dl SARS-CoV-2, RNA, NAAT NEGATIVE (NEGATIVE) 08/18/22 08/18/22 08/18/22 Range/Units 15:36 15:37 16:06 WBC (4.8-10.8) K/ul RBC (4.70-6.10) M/uL Hgb (14.0-18.0) g/dl Hct (42.0-52.0) % MCV (80.0-100.0) fL MCH (25.0-34.0) pg MCHC (32.0-36.0) g/dL RDW Std Deviation (36.4-46.3) fL RDW Coeff of [place] (11.5-14.5) % Plt Count (130-400) K/uL MPV (9.4-12.4) fL Immature Gran % (Auto) % Neut % (Auto) % Lymph % (Auto) % [place] % (Auto) % Eos % (Auto) % Baso % (Auto) % Neut # (Auto) (1.40-6.50) K/uL Lymph # (Auto) (1.2-3.4) K/uL [place] # (Auto) (0.11-0.59) K/uL Eos # (Auto) (0-0.50) K/uL Baso # (Auto) (0-0.2) K/uL Immature Gran # (Auto) (0.01-0.20) K/uL PT (9.0-12.0) Seconds INR (0.9-1.1) Sodium (136-145) mmol/L Potassium 4.1 Chloride (98-107) mmol/L Carbon Dioxide (21-32) mmol/L Anion Gap (3-11) BUN (6-23) mg/dl Creatinine (0.6-1.4) mg/dl Est Cr Clr Drug Dosing ml/min Est GFR ( Amer) ml/min Est GFR (Non-Af Amer) ml/min BUN/Creatinine Ratio (10-20) Glucose (70-99(Fasting)) mg/dl Calcium (8.6-10.3) mg/dl Magnesium (1.7-2.4) mg/dl Total Bilirubin (0.2-1.0) mg/dl AST 11 L ALT (7-52) U/L Alkaline Phosphatase (34-104) U/L Troponin I High Sens (0-20) pg/ml Total Protein (6.0-8.3) gm/dl Albumin (3.4-5.0) gm/dl Globulin (2.5-4.0) gm/dl Albumin/Globulin Ratio (0.9-2) Procalcitonin (0-0.5) ng/ml TSH (0.300-4.500) uIu/ml Urine Color Yellow Urine Appearance Cloudy A (Clear) Urine pH 5.5 (4.5-7.5) Ur Specific [place] >= 1.030 (1.000-1.030) Urine Protein 2+ H (Negative) Urine Glucose (UA) Negative (Negative) Urine Ketones Negative (Negative) Urine Blood 3+ H (Negative) Urine Nitrite Positive A (Negative) Urine Bilirubin Negative (Negative) Urine Urobilinogen Negative (Negative) Ur Leukocyte Esterase 1+ H (Negative) Urine RBC >30 H (0-4) /hpf Urine WBC >30 H (0-5) /hpf Ur Epithelial Cells 0-5 (0-5) /lpf Amorphous Sediment Present A (None Prsent) Urine Bacteria 4+ H (Negative) Ethyl Alcohol mg/dL 19.4 H (<10.0) mg/dl SARS-CoV-2, RNA, NAAT (NEGATIVE) Administered Medications Thiamine HCl 100 mg/ Folic (Acid 1 mg/ Sodium Chloride) 1,001.2 mls @ 500 mls/hr IV .Q2H1M [facility]; Protocol Stop: 08/18/22 22:07 Last Admin: 08/18/22 20:36 Dose: 500 mls/hr Documented By: TEE Discontinued Medications Sodium Chloride (Nss 1000ml) 500 mls @ 999 mls/hr IV .Q31M ONE Stop: 08/18/22 14:57 Last Infusion: 08/18/22 15:21 Dose: 0 mls/hr Documented By: Admin: 08/18/22 14:53 Dose: 999 mls/hr Documented By: RSL Piperacillin Sod/Tazobactam Sod (Zosyn) 4.5 gm in 120 mls @ 240 mls/hr IV NOW ONE Stop: 08/18/22 16:38 Last Infusion: 08/18/22 17:43 Dose: 0 mls/hr Documented By: Admin: 08/18/22 17:12 Dose: 240 mls/hr Documented By: RSL Sodium Chloride (Nss 1000ml) 1,000 mls @ 999 mls/hr IV .Q1H1M ONE Stop: 08/18/22 17:09 Last Infusion: 08/18/22 18:16 Dose: 0 mls/hr Documented By: Admin: 08/18/22 17:12 Dose: 999 mls/hr Documented By: RSL Multivitamins/Minerals (Cerovite Adv Formula Tab) 1 tab PO ONE STA Stop: 08/18/22 20:08 Last Admin: 08/18/22 20:36 Dose: 1 tab Documented By: Imaging Data Radiologist's Impression: Cervical Spine CT 08/18/22 14:26 CT cervical spine wo con CLINICAL HISTORY: fall TECHNIQUE: Multidetector row helical CT of the cervical spine was performed without administration of intravenous contrast. Coronal and sagittal reformations were obtained. Automated dose lowering techniques and/or adjustment according to patient size were utilized for this exam. Comparison: None available at the time of this dictation. FINDINGS: No acute fractures or subluxations are identified. Degenerative changes are seen in the visualized spine. The alignment is normal. Enlarged nodular thyroid is se en. IMPRESSION: Thyromegaly is seen with partial visualization of a few cysts. If not previously evaluated, nonemergent thyroid ultrasound can be performed. ACT 112: Negative or not required by law. Electronically signed by: Larry Mercado M.D. 08/18/2022 3:24 PM Chest X-Ray 08/18/22 14:26 XR chest 1V portable CLINICAL HISTORY: fall TECHNIQUE: Single frontal radiograph of the chest was obtained. Comparison: Comparison is made to chest radiograph 05/26/2021 FINDINGS: No lines and tubes are seen. Calcified aortic knob is seen. Right lower lung airspace opacities are seen. No evidence of pleural effusion or pneumothorax. IMPRESSION: Right lower lung airspace opacity likely represents atelectasis, aspiration, and/or pneumonia. ACT 112: Negative or not required by law. Electronically signed by: Larry Mercado M.D. 08/18/2022 2:[address] 08/18/22 14:26 CT head/brain wo con CLINICAL HISTORY: fall, Left head contusion, confusion, etoh Technique: Contiguous axial CT images of the head were acquired from the base of the skull to the vertex without intravenous contrast administration. Images were viewed in brain, subdural and bone windows. Automated dose lowering techniques and/or adjustment according to patient size were utilized for this exam. Comparison: Comparison is made to CT head 05/06/2021 Findings: Areas of decreased attenuation are present in the periventricular and subcortical white matter bilaterally consistent with small vessel ischemic disease. Generalized cerebral atrophy with commensurate enlargement of the ventricles, sulci, and cisterns is also present. There is no acute intracranial hemorrhage or evidence of acute territorial infarction. No shift of the midline structures, mass effect, or extra-axial abnormalities are shown. Atherosclerotic calcifications are present in the intracranial segments of the internal carotid arteries. Calcification of the falx is seen. Imaged portions of the paranasal sinuses and mastoid air cells are clear. The orbits appear normal. There are no acute fractures of the calvaria or scalp swelling. Impression: No acute intracranial hemorrhage, no evidence of acute territorial infarction or other acute intracranial disease process. ACT 112: Negative or not required by law. Electronically signed by: Larry Mercado M.D. 08/18/2022 3:17 PM Discharge Plan Visit Data Chief Complaint: Fall Stated Complaint: FALL, HEAD CONTUSION ED Provider: Pelon Oneil Discharge Problem: Acute UTI, Fall, Abrasion of scalp Patient Disposition: Being Evaluated by Hospitalist Fall Qualifiers: Encounter type: initial encounter Qualified Code(s): W19.XXXA - Unspecified fall, initial encounter Abrasion of scalp Qualifiers: Encounter type: initial encounter Qualified Code(s): S00.01XA - Abrasion of scalp, initial encounter
--- NOTE | 2022-08-18 14:39 | XRay Report ---
XR chest 1V portable CLINICAL HISTORY: fall TECHNIQUE: Single frontal radiograph of the chest was obtained. Comparison: Comparison is made to chest radiograph 05/26/2021 FINDINGS: No lines and tubes are seen. Calcified aortic knob is seen. Right lower lung airspace opacities are s een. No evidence of pleural effusion or pneumothorax. IMPRESSION: Right lower lung airspace opacity likely represents atelectasis, aspiration, and/or pneumonia. ACT 112: Negative or not required by law. Electronically signed by: Larry Mercado M.D. 08/18/2022 2:38 PM
[2022-08-18 15:00] LABS: Basophils % (auto) 0.5 %; Eosinophils # (auto) 2.82 K/uL (0-0.50); Eosinophils % (auto) 14.3 %; Hematocrit (blood only) 35.3 % (42.0-52.0); Hemoglobin 11.5 g/dl (14.0-18.0); Immature Granulocytes # (auto) 0.17 K/uL (0.01-0.20); Immature Granulocytes % (auto) 0.9 %; Lymphocytes # (auto) 2.03 K/uL (1.2-3.4); Lymphocytes % (auto) 10.3 %; Mean Corpuscular Hemoglobin 25.8 pg (25.0-34.0); Mean Corpuscular Hgb Conc 32.6 g/dL (32.0-36.0); Mean Corpuscular Volume 79.1 fL (80.0-100.0); Mean Platelet Volume 9.4 fL (9.4-12.4); Monocytes # (auto) 1.29 K/uL (0.11-0.59); Monocytes % (auto) 6.5 %; Neutrophils # (auto) 13.36 K/uL (1.40-6.50); Neutrophils % (auto) 67.5 %; Platelet Count 313 K/uL (130-400); RDW Coefficient of Variation 15.2 % (11.5-14.5); RDW Standard Deviation 43.3 fL (36.4-46.3); Red Blood Count 4.46 M/uL (4.70-6.10); White Blood Count 19.77 K/ul (4.8-10.8)
--- NOTE | 2022-08-18 15:19 | CT Scan Report ---
CT head/brain wo con CLINICAL HISTORY: fall, Left head contusion, confusion, etoh Technique: Contiguous axial CT images of the head were acquired from the base of the skull to the [place] without intravenous contrast administration. Images were viewed in brain, subdural and bone windo ws. Automated dose lowering techniques and/or adjustment according to patient size were utilized for this exam. Comparison: Comparison is made to CT head 05/06/2021 Findings: Areas of decreased attenuation are present in the periventricular and subcortical white matter bilate rally consistent with small vessel ischemic disease. Generalized cerebral atrophy with commensurate e nlargement of the ventricles, sulci, and cisterns is also present. There is no acute intracranial hem orrhage or evidence of acute territorial infarction. No shift of the midline structures, mass effect, or extra-axial abnormalities are shown. Atherosclerotic calcifications are present in the intracran ial segments of the internal carotid arteries. Calcification of the falx is seen. Imaged portions of the paranasal sinuses and mastoid air cells are clear. The orbits appear normal. There are no acute fractures of the calvaria or scalp swelling. Impression: No acute intracranial hemorrhage, no evidence of acute territorial infarction or other acute intracra nial disease process. ACT 112: Negative or not required by law. Electronically signed by: Larry Mercado M.D. 08/18/2022 3:17 PM
--- NOTE | 2022-08-18 15:27 | CT Scan Report ---
CT cervical spine wo con CLINICAL HISTORY: fall TECHNIQUE: Multidetector row helical CT of the cervical spine was performed without administration of intravenous contrast. Coronal and sagittal reformations were obtained. Automated dose lowering techn iques and/or adjustment according to patient size were utilized for this exam. Comparison: None available at the time of this dictation. FINDINGS: No acute fractures or subluxations are identified. Degenerative changes are seen in the visualized sp ine. The alignment is normal. Enlarged nodular thyroid is seen. IMPRESSION: Thyromegaly is seen with partial visualization of a few cysts. If not previously evaluated, nonemerge nt thyroid ultrasound can be performed. ACT 112: Negative or not required by law. Electronically signed by: Larry Mercado M.D. 08/18/2022 3:24 PM
[2022-08-18 15:28] LABS: Prothrombin Time 10.9 Seconds (9.0-12.0); Troponin I High Sensitivity 4.7 pg/ml (0-20)
[2022-08-18 15:31] LABS: Alanine Aminotransferase 5 U/L (7-52); Albumin Globulin Ratio 1.2 (0.9-2); Albumin Level 3.2 gm/dl (3.4-5.0); Alkaline Phosphatase 92 U/L (34-104); Anion Gap 9 (3-11); BUN Creatinine Ratio 27.7 (10-20); Bilirubin,Total 0.4 mg/dl (0.2-1.0); Blood Urea Nitrogen 18 mg/dl (6-23); Calcium 8.8 mg/dl (8.6-10.3); Carbon Dioxide 21 mmol/L (21-32); Chloride 104 mmol/L (98-107); Creatinine Clr Calc Pharmacy 78.8 ml/min; Est GFR (African American) 106.5 ml/min; Est GFR (Non-African American) 91.9 ml/min; Globulin 2.7 gm/dl (2.5-4.0); Glucose 85 mg/dl (70-99(Fasting)); Magnesium 1.9 mg/dl (1.7-2.4); Sodium 134 mmol/L (136-145); Total Protein 5.9 gm/dl (6.0-8.3)
[2022-08-18] MEDS ORDERED: PIPERACILLIN/TAZOBACTAM 4.5 GM/120 ML BAG IV ONE (16:09)
[2022-08-18] MEDS ORDERED: SODIUM CHLORIDE 0.9% 1000ML 1,000 ML IV ONE (16:09)
[2022-08-18 16:17] LABS: Potassium 4.1 mmol/L (3.5-5.1)
[2022-08-18 16:34] LABS: Appearance Urine Cloudy (Clear); Bilirubin Urine Negative (Negative); Blood Urine 3+ (Negative); Color Urine Yellow; Glucose Urine UA Negative (Negative); Ketones Urine Negative (Negative); Leukocyte Esterase Urine 1+ (Negative); Nitrite Urine Positive (Negative); Protein Urine 2+ (Negative); Specific Gravity Urine >= 1.030 (1.000-1.030); Urobilinogen Urine Negative (Negative); pH Urine 5.5 (4.5-7.5)
[2022-08-18 16:41] LABS: Epithelial Cell Urine 0-5 /lpf (0-5)
[2022-08-18 16:42] LABS: Bacteria Urine 4+ (Negative); RBC Urine >30 /hpf (0-4); WBC Urine >30 /hpf (0-5)
[2022-08-18 16:43] LABS: Amorphous Sediment Urine Present (None Prsent)
--- NOTE | 2022-08-18 17:07 | History & Physical Report ---
Date of Service August 18, 2022 Assessment & Plan (1) Acute metabolic encephalopathy: Plan: Very mild confusion today and he is alert and oriented. Possibly related to infection with plan as outlined below. Has some memory issues at baseline per son who is at bedside. Patient is at higher risk for delirium. (2) Acute UTI: Plan: Patient denies symptoms, but also has some memory issues and presented with alcohol in system after being found down on the ground with blood coming from head outside of a bar. Infection certainly might have contributed to this and there is significant bacteriuria in the urine sample. h/o pseudomonas infection in the past. Cont with Zosyn empirically pending culture results. (3) Aspiration pneumonia: Plan: possible aspiration pneumonia. Cover empirically with Zosyn. Sputum and blood cultures pending. No evidence of sepsis. Will consult speech to assist with risk of aspiration. (4) Alcohol abuse: Plan: Patient reports drinking consistently and on the weekends, and doesn't consider himself an alcoholic. (5) Alcohol intoxication: Plan: Elevated EtOH levels on arrival that are consistent with his report of drinking a couple of beers at the bar. Monitor for withdrawal. He does have some tremulousness but appears to be cold. (6) Fall: Plan: Gait is compromised by having a club foot and ambulating with an assistive device. No apparent loss of consciousness. Workup in the ER including head cT and C-spine CT was unremarkable. PT/OT to assess. (7) Abrasion of scalp: Plan: minimal cut with no sutures required, very superficial and non-bleeding. No pain to palpation of scalp or neck. Minor wound to elbow. Will consult wound nurse to assist with skin assessment and dressings/wound care of the left elbow. Lovenox Full Code per my discussion with him with son present. Dispo-to [facility] Caryn Atkins DO [facility] Hospitalist History of Present Illness Chief Complaint: fall Primary Care Provider: Bryant Celaya MD 82-year-old man with a history of alcohol abuse presented to the ER via EMS after being found outside the [facility] passed out on the ground with signs of head trauma. In the ER he was unable to give details of exactly how he fell but does relay that he had been drinking beers at the movies prior to fall ing. On physical exam he was alert and oriented to person with some dried matted blood on the left parietal region of the head with a small area of an abrasion. Cardiopulmonary exam was unremarkable and abdomen was soft nontender without guarding or rebound. Skin was warm and dry and acyanotic. Neurologically there were no gross focal deficits seen. He was ambulatory with some assistance. CT the head and cervical spine have no acute traumatic injury noted. 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 He appears to have a UTI today. Alcohol level is elevated. For me, the patient is AxO x 3 and reports only having two beers. He states that he fell because of his feet and caluses, which are a longstanding issue. 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 His son is with him and does report some issues with memory that he states are "getting progressively worse." Son states he doesn't have room in his house for Dad, so it sounds like that has been considered before. Son was stating that dad seems a little more confused currently, especially when the patient didn't remember having a large sacral wound last year. We discussed that he may have some aspiration pneumonia (patient denies any recent respiratory symptoms, fevers, chills or other malaise and has none of these symptoms now, either) and a possible UTI (patient denies urinary urgency, increased frequency or dysuria) and these things may be contributing to confusion along with the elevated alcohol level. Patient reports not "having marijuana" for at least 3 years and denies any other recreational drug use. Allergies Allergy/AdvReac Type Severity Reaction Status Date / Time No Known Allergies Allergy Verified 05/26/21 15:38 Home Medications Medication Instructions Recorded Confirmed Type No Known Home Medications 08/18/22 08/18/22 History Past Med/Surg History Medical History Alcohol use [place] (hard of hearing) Osteoarthritis Right club foot congenital Sacral decubitus ulcer, stage III Surgical History History of surgery Right clubfoot correction - multiple procedures as a child Status post left knee replacement Family History Other No family history of adverse response to anesthesia Denies family history of Coronary heart disease Social History Smoking Status: Former smoker Second Hand Exposure: No; Do You Dip or Chew Tobacco: Yes; Hx Alcohol Use: Yes Alcohol type: beer Hx Substance Use: No Preferred Language: Danish Communication Ability: Effective Channel Specialist Required: No Beliefs That Will Affect Care: None marital status: Current Living Situation: Alone How many Children do You have: 1 Feels Safe at Home: Yes Assistive Devices: Walker Review of Systems Review of Systems: All systems reviewed negative except as indicated above. Physical Exam Physical Exam: CONSTITUTIONAL: WNWD, vitals as above, generally well-appearing, NAD but with some general shakiness as if he were cold. EYES: pupils are round and equal bilaterally, normal conjunctivae, no scleral icterus ENT: external ear and nose normal, oropharynx clear NECK: trachea midline RESPIRATORY: clear to auscultation bilaterally, no crackles, rales or wheezes, normal respiratory effort CARDIOVASCULAR: regular rate and rhythm, S1 and 2 heard without murmurs, gallops or rubs, no JVD, no peripheral edema CHEST: inspection of chest was normal GASTROINTESTINAL: soft, nontender, ND, no guarding MUSCULOSKELETAL: strength 5/5 throughout, head is normocephalic and atraumatic SKIN: small 1cm abrasion to left parietal region that is closed and superficial. Skin is warm and dry, no evidence of sacral breakdown NEUROLOGIC: CN 2-12 grossly intact, no sensory deficit, normal cognition, normal speech, +generalized tremor PSYCHIATRIC: alert cooperative and oriented to person, place and time. Euthymic mood, makes good eye contact, language grossly intact, recent and remote memory grossly intact. Results & Data Results & Data Vital Signs (Past 12 Hours) Vital Signs Temp Pulse Resp BP Pulse Ox O2 Del Method 08/18/22 16:12 86 08/18/22 15:31 139/71 08/18/22 15:31 83 16 98 08/18/22 15:30 85 21 98 08/18/22 15:28 142/81 H 08/18/22 15:28 84 19 99 08/18/22 15:00 84 27 H 97 08/18/22 15:00 114/69 08/18/22 14:53 90 24 95 08/18/22 14:27 97 Room Air 08/18/22 14:22 36.4 C L 109 H 20 94/72 L 97 Room Air Laboratory Results Short CBC 08/18/22 Range/Units 14:26 WBC 19.77 H (4.8-10.8) K/ul Hgb 11.5 L (14.0-18.0) g/dl Hct 35.3 L (42.0-52.0) % Plt Count 313 (130-400) K/uL BMP 08/18/22 08/18/22 14:26 15:37 Sodium 134 L Potassium TNP 4.1 Chloride 104 Carbon Dioxide 21 BUN 18 Creatinine 0.65 Glucose 85 Calcium 8.8 Liver Function 08/18/22 08/18/22 Range/Units 14:26 15:37 Total Bilirubin 0.4 (0.2-1.0) mg/dl AST TNP 11 L ALT 5 L (7-52) U/L Alkaline Phosphatase 92 (34-104) U/L Albumin 3.2 L (3.4-5.0) gm/dl Urine 08/18/22 Range/Units 16:06 Urine Color Yellow Urine Appearance Cloudy A (Clear) Urine pH 5.5 (4.5-7.5) Ur Specific [place] >= 1.030 (1.000-1.030) Urine Protein 2+ H (Negative) Urine Glucose (UA) Negative (Negative) Diagnostic Findings Cervical Spine CT 08/18/22 14:26 CT cervical spine wo con CLINICAL HISTORY: fall TECHNIQUE: Multidetector row helical CT of the cervical spine was performed without administration of intravenous contrast. Coronal and sagittal reformations were obtained. Automated dose lowering techniques and/or adjustment according to patient size were utilized for this exam. Comparison: None available at the time of this dictation. FINDINGS: No acute fractures or subluxations are identified. Degenerative changes are seen in the visualized spine. The alignment is normal. Enlarged nodular thyroid is seen. IMPRESSION: Thyromegaly is seen with partial visualization of a few cysts. If not previously evaluated, nonemergent thyroid ultrasound can be performed. ACT 112: Negative or not required by law. Electronically signed by: Larry Mercado M.D. 08/18/2022 3:24 PM Chest X-Ray 08/18/22 14:26 XR chest 1V portable CLINICAL HISTORY: fall TECHNIQUE: Single frontal radiograph of the chest was obtained. Comparison: Comparison is made to chest radiograph 05/26/2021 FINDINGS: No lines and tubes are seen. Calcified aortic knob is seen. Right lower lung airspace opacities are seen. No evidence of pleural effusion or pneumothorax. IMPRESSION: Right lower lung airspace opacity likely represents atelectasis, aspiration, and/or pneumonia. ACT 112: Negative or not required by law. Electronically signed by: Larry Mercado M.D. 08/18/2022 2:[address] 08/18/22 14:26 CT head/brain wo con CLINICAL HISTORY: fall, Left head contusion, confusion, etoh Technique: Contiguous axial CT images of the head were acquired from the base of the skull to the vertex without intravenous contrast administration. Images were viewed in brain, subdural and bone windows. Automated dose lowering techniques and/or adjustment according to patient size were utilized for this exam. Comparison: Comparison is made to CT head 05/06/2021 Findings: Areas of decreased attenuation are present in the periventricular and subcortical white matter bilaterally consistent with small vessel ischemic disease. Generalized cerebral atrophy with commensurate enlargement of the ventricles, sulci, and cisterns is also present. There is no acute intracranial hemorrhage or evidence of acute territorial infarction. No shift of the midline structures, mass effect, or extra-axial abnormalities are shown. Atherosclerotic calcifications are present in the intracranial segments of the internal carotid arteries. Calcification of the falx is seen. Imaged portions of the paranasal sinuses and mastoid air cells are clear. The orbits appear normal. There are no acute fractures of the calvaria or scalp swelling. Impression: No acute intracranial hemorrhage, no evidence of acute territorial infarction or other acute intracranial disease process. ACT 112: Negative or not required by law. Electronically signed by: Larry Mercado M.D. 08/18/2022 3:17 PM Code Status & VTE Plan VTE Prophylaxis Plan VTE Prophylaxis will be ordered: Yes (6) Fall Encounter type: initial encounter Qualified Code(s): W19.XXXA - Unspecified fall, initial encounter (7) Abrasion of scalp Encounter type: initial encounter Qualified Code(s): S00.01XA - Abrasion of scalp, initial encounter
[2022-08-18] MEDS ORDERED: THIAMINE HCL 100 MG, FOLIC ACID 1 MG in SODIUM CHLORIDE 0.9% 1000ML 1,000 ML IV SCH (20:07)
[2022-08-18] MEDS ORDERED: ALUMINUM/MAGNESIUM SUSP 30 ML UDC PO PRN (20:07)
[2022-08-18] MEDS ORDERED: ACETAMINOPHEN 325 MG TAB PO PRN (20:07)
[2022-08-18] MEDS ORDERED: POLYETHYLENE (MIRALAX) 17 GM PACK PO PRN (20:07)
[2022-08-18] MEDS ORDERED: LORazepam 2 MG/1 ML VIAL IV PRN (20:07)
[2022-08-18] MEDS ORDERED: CEROVITE ADV FORMULA TAB PO STA (20:07)
[2022-08-18] MEDS: SODIUM CHLORIDE 0.9% 1000ML 1,000 ML IV SCH (22:43)
[2022-08-18] MEDS: PIPERACILLIN/TAZOBACTAM 4.5 GM in DEXTROSE 5% 100 ML IV SCH (23:03)
[2022-08-18] MEDS: ENOXAPARIN INJ 40 MG/0.4 ML SYR SQ SCH (23:03)
[2022-08-19] MEDS: PIPERACILLIN/TAZOBACTAM 4.5 GM in DEXTROSE 5% 100 ML IV SCH ×3 (05:47→21:04)
[2022-08-19] MEDS: SODIUM CHLORIDE 0.9% 1000ML 1,000 ML IV SCH ×2 (06:39→16:00)
[2022-08-19 07:56] LABS: Hemoglobin 10.8 g/dl (14.0-18.0); Mean Corpuscular Hemoglobin 25.5 pg (25.0-34.0); Mean Corpuscular Hgb Conc 31.8 g/dL (32.0-36.0); Mean Corpuscular Volume 80.2 fL (80.0-100.0); Mean Platelet Volume 9.4 fL (9.4-12.4); Platelet Count 254 K/uL (130-400); RDW Coefficient of Variation 15.2 % (11.5-14.5); RDW Standard Deviation 44.3 fL (36.4-46.3); Red Blood Count 4.24 M/uL (4.70-6.10); White Blood Count 11.27 K/ul (4.8-10.8)
[2022-08-19 08:15] LABS: BUN Creatinine Ratio 18.7 (10-20); Calcium 7.9 mg/dl (8.6-10.3); Est GFR (African American) 100.4 ml/min; Est GFR (Non-African American) 86.6 ml/min; Phosphorus 2.5 mg/dl (2.5-4.9); Potassium 3.8 mmol/L (3.5-5.1)
[2022-08-19] MEDS: FOLIC ACID 1 MG TAB PO SCH (08:46)
[2022-08-19] MEDS: THIAMINE HCL 100 MG TAB PO SCH (08:46)
[2022-08-19 09:41] LABS: Amphetamines+Metham, Urine Neg (Neg); Barbiturates, Urine Neg (Neg); Benzodiazepine, Urine Neg (Neg); Cocaine, Urine Neg (Neg); MDMA (Ecstacy), Urine Neg (Neg); Methadone, Urine Neg (Neg); Opiate, Urine Neg (Neg); Phencyclidine, Urine Neg (Neg)
--- NOTE | 2022-08-19 14:01 | Hospitalist Progress Note ---
Date of Service August 19, 2022 Assessment & Plan (1) Acute metabolic encephalopathy: Plan: --CT head:No acute intracranial hemorrhage, no evidence of acute territorial infarction or other acute intracranial disease process. Mental status back to baseline Monitor (2) Acute UTI: Plan: Possible Sepsis Likely Source UTI Blood culture pending Urine culture growing gram-negative Empirically on Zosyn Continue IV fluids (3) Aspiration pneumonia: Plan: Denies any cough, dyspnea Procalcitonin normal Empirically on Zosyn as above Incentive Spirometry Aspiration precautions (4) Alcohol abuse: Plan: Patient denies drinking alcohol on regular basis Continue thiamine, folic acid Monitor for withdrawal Consider gabapentin protocol if needed Thyromegaly/Thyroid cysts Incidental finding on CT CT:Thyromegaly is seen with partial visualization of a few cysts. If not previously evaluated, nonemergent thyroid ultrasound can be performed. Normal TSH Follow-up as outpatient (5) Alcohol intoxication: Plan: Management as above (6) Fall: Plan: Mechanical fall Ambulatory dysfunction Imaging studies showed no acute fractures Fall precautions PT OT . (7) Abrasion of scalp: Plan: Continue wound care DVT Px: Lovenox SQ Code Status Full Code Admission and Anticipated Discharge Date Admission Date: August 18, 2022 Subjective Patient is seen and examined at bedside States feeling well morning Offers no new complaints Denies any dysuria, hematuria, chest pain, dyspnea, dizziness, nausea, urine culture pending Review of Systems Review of Systems: All systems reviewed & are unremarkable except as noted in Subjective Physical Exam Physical Exam: Physical Exam: Vitals signs as noted above General Appearance:Moderately built and nourished, no apparent distress, Chronic ill appearing Head: normocephalic, Atraumatic Eyes: normal inspection, EOMI Neck: supple, Trachea midline Respiratory/Chest: Normal breath sounds, CTA, No accessory muscle use Cardiovascular: S1, S2, No murmur Abdomen/GI:Soft, Non tender, Bowel sounds present Extremities/Musculoskeletal:normal inspection, Trace edema, R club foot, +Well healed surgical scars on B/L LE Neurologic/Psych:AAOX3, grossly no focal neurological deficits Skin: normal color, warm Results & Data Results & Data Vital Signs (Past 12 Hours) Vital Signs Temp Pulse Pulse Resp BP Pulse Ox O2 Del Method 08/19/22 07:47 36.8 C 67 20 93/52 L 98 Room Air 08/19/22 07:00 69 08/19/22 04:00 36.9 C 68 20 128/85 96 Room Air Laboratory Results Short CBC 08/18/22 08/19/22 Range/Units 14:26 07:10 WBC 19.77 H 11.27 H (4.8-10.8) K/ul Hgb 11.5 L 10.8 L (14.0-18.0) g/dl Hct 35.3 L 34.0 L (42.0-52.0) % Plt Count 313 254 (130-400) K/uL BMP 08/18/22 08/18/22 08/19/22 14:26 15:37 07:10 Sodium 134 L 137 Potassium TNP 4.1 3.8 Chloride 104 108 H Carbon Dioxide 21 24 BUN 18 14 Creatinine 0.65 0.75 Glucose 85 79 Calcium 8.8 7.9 L Liver Function 08/18/22 08/18/22 Range/Units 14:26 15:37 Total Bilirubin 0.4 (0.2-1.0) mg/dl AST TNP 11 L ALT 5 L (7-52) U/L Alkaline Phosphatase 92 (34-104) U/L Albumin 3.2 L (3.4-5.0) gm/dl Urine 08/18/22 Range/Units 16:06 Urine Color Yellow Urine Appearance Cloudy A (Clear) Urine pH 5.5 (4.5-7.5) Ur Specific [place] >= 1.030 (1.000-1.030) Urine Protein 2+ H (Negative) Urine Glucose (UA) Negative (Negative) (6) Fall Encounter type: initial encounter Qualified Code(s): W19.XXXA - Unspecified fall, initial encounter (7) Abrasion of scalp Encounter type: initial encounter Qualified Code(s): S00.01XA - Abrasion of scalp, initial encounter
--- NOTE | 2022-08-19 15:58 | Electrocardiogram Report ---
Test Reason : Blood Pressure : / mmHG Vent. Rate : 096 BPM Atrial Rate : 096 BPM P-R Int : 142 ms QRS Dur : 072 ms QT Int : 326 ms P-R-T Axes : 038 005 048 degrees QTc Int : 411 ms Normal sinus rhythm Low voltage QRS Borderline ECG When compared with ECG of 26-MAY-2021 15:29, No significant change was found Confirmed by Stephen Miranda ([id number]) on 08/19/2022 3:57:49 PM Referred By: REFERRED SELF Confirmed By:Benjamin Miranda
[2022-08-19] MEDS: ENOXAPARIN INJ 40 MG/0.4 ML SYR SQ SCH (21:04)
[2022-08-20] MEDS: SODIUM CHLORIDE 0.9% 1000ML 1,000 ML IV SCH (00:05)
[2022-08-20] MEDS: PIPERACILLIN/TAZOBACTAM 4.5 GM in DEXTROSE 5% 100 ML IV SCH ×3 (06:03→22:13)
[2022-08-20 06:36] LABS: Hematocrit (blood only) 36.4 % (42.0-52.0); Hemoglobin 11.4 g/dl (14.0-18.0); Mean Corpuscular Hemoglobin 25.3 pg (25.0-34.0); Mean Corpuscular Hgb Conc 31.3 g/dL (32.0-36.0); Mean Corpuscular Volume 80.9 fL (80.0-100.0); Mean Platelet Volume 9.1 fL (9.4-12.4); Platelet Count 264 K/uL (130-400); RDW Coefficient of Variation 15.3 % (11.5-14.5); RDW Standard Deviation 44.5 fL (36.4-46.3)
[2022-08-20 06:51] LABS: BUN Creatinine Ratio 16.8 (10-20); Calcium 8.4 mg/dl (8.6-10.3); Creatinine Clr Calc Pharmacy 44.2 ml/min; Est GFR (African American) 75.6 ml/min; Est GFR (Non-African American) 65.2 ml/min
[2022-08-20] MEDS: FOLIC ACID 1 MG TAB PO SCH (08:39)
[2022-08-20] MEDS: THIAMINE HCL 100 MG TAB PO SCH (08:39)
--- NOTE | 2022-08-20 14:50 | Hospitalist Progress Note ---
Date of Service August 20, 2022 Assessment & Plan (1) Acute metabolic encephalopathy: Plan: --CT head:No acute intracranial hemorrhage, no evidence of acute territorial infarction or other acute intracranial disease process. Mental status back to baseline Monitor (2) Acute UTI: Plan: Possible Sepsis Likely Source UTI Blood culture: No growth to date Urine culture E.Coli Continue Zosyn Received IV fluids (3) Aspiration pneumonia: Plan: Denies any cough, dyspnea Procalcitonin normal Continue Zosyn Incentive Spirometry Aspiration precautions (4) Alcohol abuse: Plan: Patient denies drinking alcohol on regular basis Continue thiamine, folic acid Monitor for withdrawal Consider gabapentin protocol if needed Thyromegaly/Thyroid cysts Incidental finding on CT CT:Thyromegaly is seen with partial visualization of a few cysts. If not previously evaluated, nonemergent thyroid ultrasound can be performed. Normal TSH Follow-up as outpatient (5) Alcohol intoxication: Plan: Management as above (6) Fall: Plan: Mechanical fall Ambulatory dysfunction Imaging studies showed no acute fractures Fall precautions PT OT:Recommends Return Home . (7) Abrasion of scalp: Plan: Continue wound care DVT Px: Lovenox SQ Code Status Full Code Admission and Anticipated Discharge Date Admission Date: August 18, 2022 Subjective Patient is seen and examined at bedside No new complaints Eager to get discharged Denies any dysuria, hematuria, chest pain, dyspnea, dizziness, nausea, urine culture pending Urine culture growing E. coli Review of Systems Review of Systems: All systems reviewed & are unremarkable except as noted in Subjective Physical Exam Physical Exam: Physical Exam: Vitals signs as noted above General Appearance:Moderately built and nourished, no apparent distress, Chronic ill appearing Head: normocephalic, Atraumatic Eyes: normal inspection, EOMI Neck: supple, Trachea midline Respiratory/Chest: Normal breath sounds, CTA, No accessory muscle use Cardiovascular: S1, S2, No murmur Abdomen/GI:Soft, Non tender, Bowel sounds present Extremities/Musculoskeletal:normal inspection, Trace edema, R club foot, +Well healed surgical scars on B/L LE Neurologic/Psych:AAOX3, grossly no focal neurological deficits Skin: normal color, warm Results & Data Results & Data Vital Signs (Past 12 Hours) Vital Signs Temp Pulse Pulse Resp BP Pulse Ox O2 Del Method 08/20/22 11:08 37.0 C 70 18 133/62 95 Room Air 08/20/22 07:47 36.7 C 73 18 136/68 96 Room Air 08/20/22 07:34 91 H 08/20/22 05:08 36.8 C 98 H 20 128/81 94 Room Air 08/20/22 03:21 36.8 C 81 18 122/77 98 Room Air Laboratory Results Short CBC 08/20/22 Range/Units 06:14 WBC 14.90 H (4.8-10.8) K/ul Hgb 11.4 L (14.0-18.0) g/dl Hct 36.4 L (42.0-52.0) % Plt Count 264 (130-400) K/uL BMP 08/20/22 06:14 Sodium 140 Potassium 4.0 Chloride 112 H Carbon Dioxide 21 BUN 18 Creatinine 1.07 D Glucose 88 Calcium 8.4 L (6) Fall Encounter type: initial encounter Qualified Code(s): W19.XXXA - Unspecified fall, initial encounter (7) Abrasion of scalp Encounter type: initial encounter Qualified Code(s): S00.01XA - Abrasion of scalp, initial encounter
[2022-08-20] MEDS: ENOXAPARIN INJ 40 MG/0.4 ML SYR SQ SCH (22:08)
[2022-08-21] MEDS: PIPERACILLIN/TAZOBACTAM 4.5 GM in DEXTROSE 5% 100 ML IV SCH (05:57)
[2022-08-21 06:29] LABS: Hematocrit (blood only) 35.1 % (42.0-52.0); Hemoglobin 11.4 g/dl (14.0-18.0); Mean Corpuscular Hemoglobin 25.4 pg (25.0-34.0); Mean Corpuscular Hgb Conc 32.5 g/dL (32.0-36.0); Mean Corpuscular Volume 78.3 fL (80.0-100.0); Mean Platelet Volume 9.2 fL (9.4-12.4); Platelet Count 270 K/uL (130-400); RDW Coefficient of Variation 15.5 % (11.5-14.5); Red Blood Count 4.48 M/uL (4.70-6.10); White Blood Count 17.85 K/ul (4.8-10.8)
[2022-08-21 06:50] LABS: BUN Creatinine Ratio 11.8 (10-20); Calcium 8.8 mg/dl (8.6-10.3); Creatinine Clr Calc Pharmacy 24.5 ml/min; Est GFR (African American) 36.6 ml/min; Est GFR (Non-African American) 31.6 ml/min; Potassium 3.7 mmol/L (3.5-5.1)
[2022-08-21] MEDS: FOLIC ACID 1 MG TAB PO SCH (07:23)
[2022-08-21] MEDS: THIAMINE HCL 100 MG TAB PO SCH (07:23)
[2022-08-21] MEDS ORDERED: SODIUM CHLORIDE 0.9% 1000ML 1,000 ML IV SCH (07:45)
[2022-08-21] MEDS: LACTATED RINGER'S 1,000 ML IV SCH ×3 (08:22→23:12)
[2022-08-21] MEDS: TAMSULOSIN HCL 0.4 MG CAP PO SCH (08:40)
--- NOTE | 2022-08-21 08:52 | Urology Consultation ---
Date of Consultation August 21, 2022 Assessment & Plan (1) Urinary retention: (2) Acute UTI: Plan 82yo/M admitted with acute metabolic encephalopathy felt secondary to acute UTI, possible aspiration pneumonia. Urology consulted for urinary retention. He is afebrile and hemodynamically stable. Labs today show creatinine elevated to 1.95, compared to 1.09 yesterday. Patient also has a leukocytosis of 17.85 (19.77 on admit) and hemoglobin 11.4. Urine culture from 08/18 grew E. coli, initially on Zosyn now changed to Cefepime. Blood cultures preliminary no growth. Patient was found to have a high PVR this morning by staff and a 16Fr Kc catheter was placed by nursing. Currently draining clear yellow urine.. Renal ultrasound reviewed - 7.9 cm bladder mass, mild bilateral hydronephrosis, probable nonobstructing left renal stone. Reviewed ultrasound findings with patient. We discussed recommendation for further work-up as an outpatient for the bladder mass findings with CT imaging and cystoscopy. He is agreeable. Maintain Kc catheter for now. Will arrange outpatient follow-up with our service for voiding trial and cystoscopy. Continue supportive care and antibiotic therapy. Can consider addition of tamsulosin. Continue to trend labs. Urology will follow. Supervising Physician Co-Signing Physician Notes Discussed patient with SARAH. Agree with plan. History of Present Illness Reason for Consultation: Urinary retention Attending Physician: Lars Wyman MD History of Present Illness 82-year-old man with a past medical history of alcohol and tobacco use, osteoarthritis, and club foot who presented to the ED on 08/18 after being found down outside the [facility] with signs of head trauma. CT the head and cervical spine have no acute traumatic injury noted. He was admitted to edicine service due to altered mental status secondary to elevated alcohol level, possible aspiration pneumonia, and suspected UTI. On arrival had a leukocytosis of 19 and creatinine 0.65. Urinalysis showing 3+ blood, positive nitrite, 4+ bacteria, 1+LE. Treated empirically with Zosyn. Urine culture grew E.coli. Now on IV Cefepime. Blood cultures preliminary no growth. Urology consulted today 08/21 for urinary retention. Patient was noted to have an elevated creatinine today of 1.95, compared to 1.09 yesterday. Staff bladder scanned the patient for >743ml. PVR completed showing 543ml. A 16Fr Kc cath placed by nursing this morning. Renal ultrasound ordered by primary team. Patient examined at bedside this AM. Awake, resting in bed on arrival. No acute distress. Kc catheter intact, draining clear yellow urine with some sediment in tubing. Patient denies abdominal, flank, suprapubic pain. Denies fevers, chills, nausea, vomiting. Denied bothersome urinary symptoms or issues at baseline. Denied urgency, frequency, hesitancy. Nocturia 2. Stream ok. Powers he was emptying ok. Denies gross hematuria. He denies prior urological history. Has never seen a urologist. Allergies Allergy/AdvReac Type Severity Reaction Status Date / Time No Known Allergies Allergy Verified 05/26/21 15:38 Home Medications Medication Instructions Recorded Confirmed Type cefdinir 300 mg capsule 300 mg PO BID #12 caps 08/22/22 Rx folic acid 1 mg tablet 1 mg PO QAM #30 tabs 08/22/22 Rx tamsulosin 0.4 mg capsule 0.4 mg PO QAM #30 caps 08/22/22 Rx thiamine HCl (vitamin B1) 100 mg 100 mg PO QAM #30 tabs 08/22/22 Rx tablet Patient History Medical History Alcohol use [id number] (hard of hearing) Osteoarthritis Right club foot congenital Sacral decubitus ulcer, stage III Surgical History History of surgery Right clubfoot correction - multiple procedures as a child Status post left knee replacement Family History Other No family history of adverse response to anesthesia Denies family history of Coronary heart disease Social History Smoking Status: Former smoker Second Hand Exposure: Yes; Do You Dip or Chew Tobacco: Yes; Tobacco Cessation Education Requested by Patient: No Hx Alcohol Use: Yes Alcohol type: beer Hx Substance Use: No Preferred Language: Macedonian Communication Ability: Effective Manager Of Corporate Required: No Beliefs That Will Affect Care: None marital status: Current Living Situation: Alone Current Living Situation Comment: Lives alone in an apartment How many Children do You have: 1 Other Information That Helps Us Care for You: No Feels Safe at Home: Yes Safety Concerns: Feels Safe At This Time Assistive Devices: Cane and Walker Assistive Devices Comment: Cane, dentures present Review of Systems Review of Systems: All systems reviewed & are unremarkable except as noted in HPI & below Physical Exam Constitutional: no acute distress Neck: normal visual inspection Respiratory: no respiratory distress and no labored breathing Gastrointestinal (Abdomen): Inspection/Auscultation: abdomen normal to inspection Musculoskeletal: Head/Neck/Chest: normocephalic Skin: No visible rashes or lesions to exposed skin areas Neurologic: moves all extremities and awake Psychiatric: Orientation: alert and oriented x 3 Genitourinary: Kc catheter intact Results & Data Vital Signs (Past 12 Hours) Vital Signs Temp Pulse Pulse Resp BP Pulse Ox O2 Del Method 08/21/22 07:25 Room Air 08/21/22 07:09 36.8 C 74 18 145/62 H 93 Room Air 08/21/22 02:47 37.0 C 73 18 137/80 95 Room Air 08/20/22 23:25 84 08/20/22 23:04 36.9 C 76 18 145/74 H 96 Room Air PG Care Time/CCT Total # of Minutes Spent Total Time Spent with Patient: Total time spent is greater than 50% in coordination of care (as documented) at patient's floor/unit and/or counseling patient: Coding Level of Care Code 04669 INT INP/OBS CARE 2/55MIN Diagnoses Urinary retention R33.9 Acute UTI N39.0
[2022-08-21] MEDS ORDERED: CEFEPIME 2,000 MG in SYRINGE 0 ML IV ONE (09:00)
--- NOTE | 2022-08-21 10:31 | Ultrasound Report ---
RENAL ULTRASOUND HISTORY: Acute kidney injury CHANDU COMPARISON: None. FINDINGS: Right kidney: 9.6 x 5.9 x 5.6 cm. Mild hydronephrosis. 2.0 x 1.9 x 1.9 cm cyst of the inferior pole. Corticomedullary differentiation and cortical thickness. Left kidney: 10.6 x 6.2 x 5.0 cm. Mild hydronephrosis. 6 mm echogenic focus in the inferior pole left kidney without posterior acoustic shadowing. 1.6 x 1.7 x 1.9 cm exophytic hypoechoic lesion of the l ateral interpolar left kidney suggestive of a cyst. Normal corticomedullary differentiation and corti casandra thickness. Bladder: Kc catheter within the urinary bladder. Heterogeneous area of variable echogenicity noted within the region of the urinary bladder measuring 7.9 x 6.1 x 7.5 cm demonstrating areas of color f low. IMPRESSION: 1. 7.9 cm pelvic mass appears to be within the urinary bladder and is suggestive of neoplasm. Correla tion with cystoscopy recommended. 2. Mild bilateral hydronephrosis. 3. Probable nonobstructing calculus of the left kidney. ACT 112: Negative or not required by law. Electronically signed by: Tam Tavares M.D. 08/21/2022 10:29 AM
--- NOTE | 2022-08-21 14:42 | Hospitalist Progress Note ---
Date of Service August 21, 2022 Assessment & Plan (1) Acute metabolic encephalopathy: Plan: --CT head:No acute intracranial hemorrhage, no evidence of acute territorial infarction or other acute intracranial disease process. Mental status back to baseline Monitor (2) Acute UTI: Plan: Possible Sepsis Likely Source UTI Blood culture: No growth to date Urine culture E.Coli Continue Zosyn>> changed to cefepime Received IV fluids Bladder mass ? Neoplasm Obstructive uropathy secondary to above Acute urinary retention CHANDU secondary to above -Renal USD:7.9 cm pelvic mass appears to be within the urinary bladder and is suggestive of neoplasm. Correlation with cystoscopy recommended. Mild bilateral hydronephrosis. Probable nonobstructing calculus of the left kidney. -Continue Kc catheter Started on Flomax Appreciate urology input Continue IV fluids Monitor renal function Needs outpatient urology follow-up for cystoscopy and voiding trial (3) Aspiration pneumonia: Plan: Denies any cough, dyspnea Procalcitonin normal Received Zosyn empirically Incentive Spirometry Aspiration precautions (4) Alcohol abuse: Plan: Patient denies drinking alcohol on regular basis Continue thiamine, folic acid Monitor for withdrawal Consider gabapentin protocol if needed No signs of withdrawal today Thyromegaly/Thyroid cysts Incidental finding on CT CT:Thyromegaly is seen with partial visualization of a few cysts. If not previously evaluated, nonemergent thyroid ultrasound can be performed. Normal TSH Follow-up as outpatient (5) Alcohol intoxication: Plan: Management as above (6) Fall: Plan: Mechanical fall Ambulatory dysfunction Imaging studies showed no acute fractures Fall precautions PT OT:Recommends Return Home . (7) Abrasion of scalp: Plan: Continue wound care DVT Px: Heparin SQ--- May need to hold Lovenox if patient develops hematuria Code Status Full Code Admission and Anticipated Discharge Date Admission Date: August 18, 2022 Subjective Patient is seen and examined at bedside Subjectively feels well Had developed urinary retention Renal function worsened Denies any dysuria, hematuria, chest pain, dyspnea, dizziness, nausea, abdominal pain Review of Systems Review of Systems: All systems reviewed & are unremarkable except as noted in Subjective Physical Exam Physical Exam: Physical Exam: Vitals signs as noted above General Appearance:Moderately built and nourished, no apparent distress, Chronic ill appearing Head: normocephalic, Atraumatic Eyes: normal inspection, EOMI Neck: supple, Trachea midline Respiratory/Chest: Normal breath sounds, CTA, No accessory muscle use Cardiovascular: S1, S2, No murmur Abdomen/GI:Soft, Non tender, Bowel sounds present Extremities/Musculoskeletal:normal inspection, Trace edema, R club foot, +Well healed surgical scars on B/L LE Neurologic/Psych:AAOX3, grossly no focal neurological deficits Skin: normal color, warm Results & Data Results & Data Vital Signs (Past 12 Hours) Vital Signs Temp Pulse Pulse Resp BP Pulse Ox O2 Del Method 08/21/22 11:17 36.6 C 70 16 160/78 H 93 Room Air 08/21/22 07:00 83 08/21/22 07:25 Room Air 08/21/22 07:09 36.8 C 74 18 145/62 H 93 Room Air 08/21/22 02:47 37.0 C 73 18 137/80 95 Room Air Laboratory Results Short CBC 08/21/22 Range/Units 06:06 WBC 17.85 H (4.8-10.8) K/ul Hgb 11.4 L (14.0-18.0) g/dl Hct 35.1 L (42.0-52.0) % Plt Count 270 (130-400) K/uL BMP 08/21/22 06:06 Sodium 142 Potassium 3.7 Chloride 113 H Carbon Dioxide 21 BUN 23 Creatinine 1.95 H D Glucose 86 Calcium 8.8 (6) Fall Encounter type: initial encounter Qualified Code(s): W19.XXXA - Unspecified fall, initial encounter (7) Abrasion of scalp Encounter type: initial encounter Qualified Code(s): S00.01XA - Abrasion of scalp, initial encounter
[2022-08-21] MEDS: HEPARIN SOD 5,000 UNIT/0.5 ML VIAL SQ SCH (21:41)
[2022-08-21] MEDS: CEFEPIME 1,000 MG in SYRINGE 0 ML IV SCH (21:46)
[2022-08-22] MEDS: LACTATED RINGER'S 1,000 ML IV SCH (06:22)
--- NOTE | 2022-08-22 07:27 | Urology Progress Note ---
Date of Service August 22, 2022 Assessment & Plan (1) Bladder mass: (2) Urinary retention: (3) Acute UTI: Plan 82yo/M admitted with acute metabolic encephalopathy felt secondary to acute UTI, possible aspiration pneumonia. Urology consulted for urinary retention. He is afebrile and hemodynamically stable. Labs today show leukocytosis down from 17.85-15.83, hemoglobin 10.6, and creatinine improved to 1.03. Urine culture from 08/18 grew E. coli, initially on Zosyn now changed to Cefepime. Blood cultures preliminary no growth x 48hours. Kc catheter placed yesterday due to urinary retention. Currently draining clear yellow urine with sediment in tubing. Renal ultrasound reviewed - 7.9 cm bladder mass, mild bilateral hydronephrosis, probable nonobstructing left renal stone. Reviewed ultrasound findings with patient. We discussed recommendation for further work-up as an outpatient for the bladder mass findings with CT imaging and cystoscopy. He is agreeable. Maintain Kc catheter for now. Will arrange outpatient follow-up with our service for voiding trial and cystoscopy. Continue supportive care and antibiotic therapy. Continue tamsulosin Urology will sign-off. Please contact us any further questions, concerns, or change in patient status Admission and Anticipated Discharge Date Admission Date: August 18, 2022 Subjective Patient examined at bedside this AM. Awake, resting in bed on arrival. No acute distress. Kc catheter intact, draining clear yellow urine with sediment in tubing. Tolerating the catheter with minimal bother. Denies fevers, chills, nausea, vomiting. Eager to go home. Review of Systems Constitutional: as per Subjective / HPI Gastrointestinal: as per Subjective / HPI Genitourinary: + as per Subjective / HPI Physical Exam Constitutional: no acute distress Respiratory: no respiratory distress and no labored breathing Skin: No visible rashes or lesions to exposed skin areas Neurologic: awake Psychiatric: Orientation: alert and oriented x 3 Genitourinary: Kc catheter intact Results & Data Vital Signs (Past 12 Hours) Vital Signs Temp Pulse Pulse Resp BP Pulse Ox O2 Del Method 08/22/22 04:20 36.8 C 75 16 144/68 H 96 Room Air 08/22/22 01:36 74 08/21/22 23:00 37.0 C 79 18 145/64 H 96 Room Air 08/21/22 19:27 37.0 C 77 18 125/62 96 Room Air PG Care Time/CCT Total # of Minutes Spent Total Time Spent with Patient: Total time spent is greater than 50% in coordination of care (as documented) at patient's floor/unit and/or counseling patient: Coding Level of Care Code 01565 SUB INP/OBS CARE 2/35MIN Diagnoses Bladder mass N32.89 Urinary retention R33.9 Acute UTI N39.0
[2022-08-22 07:39] LABS: Hematocrit (blood only) 33.3 % (42.0-52.0); Hemoglobin 10.6 g/dl (14.0-18.0); Mean Corpuscular Hemoglobin 25.2 pg (25.0-34.0); Mean Corpuscular Hgb Conc 31.8 g/dL (32.0-36.0); Mean Corpuscular Volume 79.3 fL (80.0-100.0); Mean Platelet Volume 9.2 fL (9.4-12.4); Platelet Count 270 K/uL (130-400); RDW Coefficient of Variation 15.6 % (11.5-14.5); White Blood Count 15.83 K/ul (4.8-10.8)
[2022-08-22 07:53] LABS: BUN Creatinine Ratio 13.6 (10-20); Creatinine Clr Calc Pharmacy 46.1 ml/min; Est GFR (African American) 79.1 ml/min; Est GFR (Non-African American) 68.3 ml/min; Potassium 3.8 mmol/L (3.5-5.1)
[2022-08-22] MEDS: THIAMINE HCL 100 MG TAB PO SCH (08:12)
[2022-08-22] MEDS: CEFEPIME 1,000 MG in SYRINGE 0 ML IV SCH (08:12)
[2022-08-22] MEDS: HEPARIN SOD 5,000 UNIT/0.5 ML VIAL SQ SCH (08:12)
[2022-08-22] MEDS: TAMSULOSIN HCL 0.4 MG CAP PO SCH (08:13)
[2022-08-22] MEDS: FOLIC ACID 1 MG TAB PO SCH (08:13)
--- NOTE | 2022-08-22 11:50 | Hospitalist Progress Note ---
Date of Service August 22, 2022 Assessment & Plan (1) Acute metabolic encephalopathy: Plan: --CT head:No acute intracranial hemorrhage, no evidence of acute territorial infarction or other acute intracranial disease process. Mental status back to baseline Monitor (2) Acute UTI: Plan: Possible Sepsis Likely Source UTI Blood culture: No growth to date Urine culture E.Coli Continue Zosyn>> changed to cefepime Received IV fluids Plan to discharge on oral antibiotics to complete the course Bladder mass ? Neoplasm Obstructive uropathy secondary to above Acute urinary retention CHANDU secondary to above -Renal USD:7.9 cm pelvic mass appears to be within the urinary bladder and is suggestive of neoplasm. Correlation with cystoscopy recommended. Mild bilateral hydronephrosis. Probable nonobstructing calculus of the left kidney. 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 If not previously evaluated, nonemergent thyroid ultrasound can be performed. Normal TSH Advised to follow up as outpatient (5) Alcohol intoxication: Plan: Management as above (6) Fall: Plan: Mechanical fall Ambulatory dysfunction Imaging studies showed no acute fractures Fall precautions PT OT:Recommends Return Home . (7) Abrasion of scalp: Plan: Continue wound care DVT Px: Heparin SQ Code Status Full Code Admission and Anticipated Discharge Date Admission Date: August 18, 2022 Subjective Patient is seen and examined at bedside No new complaints Renal function improved Urine draining well with no issues Denies any dysuria, hematuria, chest pain, dyspnea, dizziness, nausea, abdominal pain Plan to discharge home today Review of Systems Review of Systems: All systems reviewed & are unremarkable except as noted in Subjective Physical Exam Physical Exam: Physical Exam: Vitals signs as noted above General Appearance:Moderately built and nourished, no apparent distress, Chronic ill appearing Head: normocephalic, Atraumatic Eyes: normal inspection, EOMI Neck: supple, Trachea midline Respiratory/Chest: Normal breath sounds, CTA, No accessory muscle use Cardiovascular: S1, S2, No murmur Abdomen/GI:Soft, Non tender, Bowel sounds present Extremities/Musculoskeletal:normal inspection, Trace edema, R club foot, +Well healed surgical scars on B/L LE Neurologic/Psych:AAOX3, grossly no focal neurological deficits Skin: normal color, warm Results & Data Results & Data Vital Signs (Past 12 Hours) Vital Signs Temp Pulse Pulse Resp BP Pulse Ox O2 Del Method 08/22/22 08:10 Room Air 08/22/22 07:16 36.9 C 80 18 134/69 96 Room Air 08/22/22 07:33 82 08/22/22 04:20 36.8 C 75 16 144/68 H 96 Room Air 08/22/22 01:36 74 Laboratory Results Short CBC 08/22/22 Range/Units 07:03 WBC 15.83 H (4.8-10.8) K/ul Hgb 10.6 L (14.0-18.0) g/dl Hct 33.3 L (42.0-52.0) % Plt Count 270 (130-400) K/uL BMP 08/22/22 07:03 Sodium 143 Potassium 3.8 Chloride 111 H Carbon Dioxide 26 BUN 14 Creatinine 1.03 D Glucose 76 Calcium 9.0 (6) Fall Encounter type: initial encounter Qualified Code(s): W19.XXXA - Unspecified fall, initial encounter (7) Abrasion of scalp Encounter type: initial encounter Qualified Code(s): S00.01XA - Abrasion of scalp, initial encounter
--- NOTE | 2022-08-22 12:10 | Discharge Summary ---
Date of Service August 22, 2022 Admission HPI Per Admitting Provider 82-year-old man with a history of alcohol abuse presented to the ER via EMS after being found outside the [employer] club passed out on the ground with signs of head trauma. In the ER he was unable to give details of exactly how he fell but does relay that he had been drinking beers at the movies prior to falling. On physical exam he was alert and oriented to person with some dried matted blood on the left parietal region of the head with a small area of an abrasion. Cardiopulmonary exam was unremarkable and abdomen was soft nontender without guarding or rebound. Skin was warm and dry and acyanotic. Neur ologically there were no gross focal deficits seen. He was ambulatory with some assistance. CT the head and cervical spine have no acute traumatic injury noted. 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 He appears to have a UTI today. Alcohol level is elevated. For me, the patient is AxO x 3 and reports only having two beers. He states that he fell because of his feet and caluses, which are a longstanding issue. 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 His son is with him and does report some issues with memory that he states are "getting progressively worse." Son states he doesn't have room in his house for Dad, so it sounds like that has been considered before. Son was stating that dad seems a little more confused currently, especially when the patient didn't remember having a large sacral wound last year. We discussed that he may have some aspiration pneumonia (patient denies any recent respiratory symptoms, fevers, chills or other malaise and has none of these symptoms now, either) and a possible UTI (patient denies urinary urgency, increased frequency or dysuria) and these things may be contributing to confusion along with the elevated alcohol level. Patient reports not "having marijuana" for at least 3 years and denies any other re creational drug use. Admission Exam Per Admitting Provider CONSTITUTIONAL: WNWD, vitals as above, generally well-appearing, NAD but with some general shakiness as if he were cold. EYES: pupils are round and equal bilaterally, normal conjunctivae, no scleral icterus ENT: external ear and nose normal, oropharynx clear NECK: trachea midline RESPIRATORY: clear to auscultation bilaterally, no crackles, rales or wheezes, normal respiratory effort CARDIOVASCULAR: regular rate and rhythm, S1 and 2 heard without murmurs, gallops or rubs, no JVD, no peripheral edema CHEST: inspection of chest was normal GASTROINTESTINAL: soft, nontender, ND, no guarding MUSCULOSKELETAL: strength 5/5 throughout, head is normocephalic and atraumatic SKIN: small 1cm abrasion to left parietal region that is closed and superficial. Skin is warm and dry, no evidence of sacral breakdown NEUROLOGIC: CN 2-12 grossly intact, no sensory deficit, normal cognition, normal speech, +generalized tremor PSYCHIATRIC: alert cooperative and oriented to person, place and time. Euthymic mood, makes good eye contact, language grossly intact, recent and remote memory grossly intact. Principal Diagnosis Urinary tract infection Acute metabolic encephalopathy Bladder mass Obstructive uropathy Acute kidney injury Possible aspiration pneumonia Thyromegaly/thyroid cyst Alcohol intoxication Discharge Data Allergies Allergy/AdvReac Type Severity Reaction Status Date / Time No Known Allergies Allergy Verified 05/26/21 15:38 Consultations 08/18/22 16:50 ED Decision to Admit Stat 08/21/22 07:51 Consult Urology Routine Procedures Performed Laboratory Results WBC 15.83 K/ul (4.8-10.8) H 08/22/22 07:03 RBC 4.20 M/uL (4.70-6.10) L 08/22/22 07:03 Hgb 10.6 g/dl (14.0-18.0) L 08/22/22 07:03 Hct 33.3 % (42.0-52.0) L 08/22/22 07:03 MCV 79.3 fL (80.0-100.0) L 08/22/22 07:03 MCH 25.2 pg (25.0-34.0) 08/22/22 07:03 MCHC 31.8 g/dL (32.0-36.0) L 08/22/22 07:03 RDW Std Deviation 45.0 fL (36.4-46.3) 08/22/22 07:03 RDW Coeff of Flako 15.6 % (11.5-14.5) H 08/22/22 07:03 Plt Count 270 K/uL (130-400) 08/22/22 07:03 MPV 9.2 fL (9.4-12.4) L 08/22/22 07:03 Immature Gran % (Auto) 0.9 % 08/18/22 14:26 Neut % (Auto) 67.5 % 08/18/22 14:26 Lymph % (Auto) 10.3 % 08/18/22 14:26 Owsley % (Auto) 6.5 % 08/18/22 14:26 Eos % (Auto) 14.3 % 08/18/22 14:26 Baso % (Auto) 0.5 % 08/18/22 14:26 Neut # (Auto) 13.36 K/uL (1.40-6.50) H 08/18/22 14:26 Lymph # (Auto) 2.03 K/uL (1.2-3.4) 08/18/22 14:26 Owsley # (Auto) 1.29 K/uL (0.11-0.59) H 08/18/22 14:26 Eos # (Auto) 2.82 K/uL (0-0.50) H 08/18/22 14:26 Baso # (Auto) 0.10 K/uL (0-0.2) 08/18/22 14: Immature Gran # (Auto) 0.17 K/uL (0.01-0.20) 08/18/22 14:26 PT 10.9 Seconds (9.0-12.0) 08/18/22 14: INR 1.0 (0.9-1.1) 08/18/22 14:26 Sodium 143 mmol/L (136-145) 08/22/22 07:03 Potassium 3.8 mmol/L (3.5-5.1) 08/22/22 07:03 Chloride 111 mmol/L (98-107) H 08/22/22 07:03 Carbon Dioxide 26 mmol/L (21-32) 08/22/22 07:03 Anion Gap 6 (3-11) 08/22/22 07:03 BUN 14 mg/dl (6-23) 08/22/22 07:03 Creatinine 1.03 mg/dl (0.6-1.4) D 08/22/22 07:03 Est Cr Clr Drug Dosing 46.1 ml/min 08/22/22 07:03 Est GFR ( Amer) 79.1 ml/min 08/22/22 07:03 Est GFR (Non-Af Amer) 68.3 ml/min 08/22/22 07:03 BUN/Creatinine Ratio 13.6 (10-20) 08/22/22 07:03 Glucose 76 mg/dl (70-99(Fasting)) 08/22/22 07:03 Lactate 1.0 mmol/L (0.4-2.0) 08/18/22 17:20 Calcium 9.0 mg/dl (8.6-10.3) 08/22/22 07:03 Phosphorus 2.5 mg/dl (2.5-4.9) 08/19/22 07:10 Magnesium 2.0 mg/dl (1.7-2.4) 08/21/22 06:06 Total Bilirubin 0.4 mg/dl (0.2-1.0) 08/18/22 14:26 AST 11 U/L (13-39) L 08/18/22 15:37 ALT 5 U/L (7-52) L 08/18/22 14:26 Alkaline Phosphatase 92 U/L (34-104) 08/18/22 14:26 Troponin I High Sens 4.7 pg/ml (0-20) 08/18/22 14:26 Total Protein 5.9 gm/dl (6.0-8.3) L 08/18/22 14:26 Albumin 3.2 gm/dl (3.4-5.0) L 08/18/22 14:26 Globulin 2.7 gm/dl (2.5-4.0) 08/18/22 14:26 Albumin/Globulin Ratio 1.2 (0.9-2) 08/18/22 14:26 Procalcitonin 0.06 ng/ml (0-0.5) 08/18/22 14:26 TSH 3.406 uIu/ml (0.300-4.500) 08/18/22 14:26 Urine Color Yellow 08/18/22 16:06 Urine Appearance Cloudy (Clear) A 08/18/22 16:06 Urine pH 5.5 (4.5-7.5) 08/18/22 16:06 Ur Specific Ridge >= 1.030 (1.000-1.030) 08/18/22 16:06 Urine Protein 2+ (Negative) H 08/18/22 16:06 Urine Glucose (UA) Negative (Negative) 08/18/22 16:06 Urine Ketones Negative (Negative) 08/18/22 16:06 Urine Blood 3+ (Negative) H 08/18/22 16:06 Urine Nitrite Positive (Negative) A 08/18/22 16:06 Urine Bilirubin Negative (Negative) 08/18/22 16:06 Urine Urobilinogen Negative (Negative) 08/18/22 16:06 Ur Leukocyte Esterase 1+ (Negative) H 08/18/22 16:06 Urine RBC >30 /hpf (0-4) H 08/18/22 16:06 Urine WBC >30 /hpf (0-5) H 08/18/22 16:06 Ur Epithelial Cells 0-5 /lpf (0-5) 08/18/22 16:06 Amorphous Sediment Present (None Prsent) A 08/18/22 16:06 Urine Bacteria 4+ (Negative) H 08/18/22 16:06 Urine Opiates Screen Neg (Neg) 08/19/22 Unknown Ur Methadone, Qual Neg (Neg) 08/19/22 Unknown Urine Barbiturates Neg (Neg) 08/19/22 Unknown Ur Phencyclidine (PCP) Neg (Neg) 08/19/22 Unknown U Amphetamin/Meth Scrn Neg (Neg) 08/19/22 Unknown MDMA (Ecstasy) Screen Neg (Neg) 08/19/22 Unknown U Benzodiazepines Scrn Neg (Neg) 08/19/22 Unknown Ur Cocaine Metabolite Neg (Neg) 08/19/22 Unknown U Marijuana (THC) Screen Neg (Neg) 08/19/22 Unknown Ethyl Alcohol mg/dL 19.4 mg/dl (<10.0) H 08/18/22 15:36 SARS-CoV-2, RNA, NAAT NEGATIVE (NEGATIVE) 08/18/22 14:[address] 08/18/22 14:26 CT cervical spine wo con CLINICAL HISTORY: fall TECHNIQUE: Multidetector row helical CT of the cervical spine was performed without administration of intravenous contrast. Coronal and sagittal reformations were obtained. Automated dose lowering techniques and/or adjustment according to patient size were utilized for this exam. Comparison: None available at the time of this dictation. FINDINGS: No acute fractures or subluxations are identified. Degenerative changes are seen in the visualized spine. The alignment is normal. Enlarged nodular thyroid is seen. IMPRESSION: Thyromegaly is seen with partial visualization of a few cysts. If not previously evaluated, nonemergent thyroid ultrasound can be performed. ACT 112: Negative or not required by law. Electronically signed by: Larry Mercado M.D. 08/18/2022 3:24 PM Chest X-Ray 08/18/22 14:26 XR chest 1V portable CLINICAL HISTORY: fall TECHNIQUE: Single frontal radiograph of the chest was obtained. Comparison: Comparison is made to chest radiograph 05/26/2021 FINDINGS: No lines and tubes are seen. Calcified aortic knob is seen. Right lower lung airspace opacities are seen. No evidence of pleural effusion or pneumothorax. IMPRESSION: Right lower lung airspace opacity likely represents atelectasis, aspiration, and/or pneumonia. ACT 112: Negative or not required by law. Electronically signed by: Larry Mercado M.D. 08/18/2022 2:[address] 08/18/22 14:26 CT head/brain wo con CLINICAL HISTORY: fall, Left head contusion, confusion, etoh Technique: Contiguous axial CT images of the head were acquired from the base of the skull to the vertex without intravenous contrast administration. Images were viewed in brain, subdural and bone windows. Automated dose lowering techniques and/or adjustment according to patient size were utilized for this exam. Comparison: Comparison is made to CT head 05/06/2021 Findings: Areas of decreased attenuation are present in the periventricular and subc ortical white matter bilaterally consistent with small vessel ischemic disease. Generalized cerebral atrophy with commensurate enlargement of the ventricles, sulci, and cisterns is also present. There is no acute intracranial hemorrhage or evidence of acute territorial infarction. No shift of the midline structures, mass effect, or extra-axial abnormalities are shown. Atherosclerotic calcifications are present in the intracranial segments of the internal carotid arteries. Calcification of the falx is seen. Imaged portions of the paranasal sinuses and mastoid air cells are clear. The orbits appear normal. There are no acute fractures of the calvaria or scalp swelling. Impression: No acute intracranial hemorrhage, no evidence of acute territorial infarction or other acute intracranial disease process. ACT 112: Negative or not required by law. Electronically signed by: Larry Mercado M.D. 08/18/2022 3:17 PM Renal Ultrasound 08/21/22 07:37 RENAL ULTRASOUND HISTORY: Acute kidney injury CHANDU COMPARISON: None. FINDINGS: Right kidney: 9.6 x 5.9 x 5.6 cm. Mild hydronephrosis. 2.0 x 1.9 x 1.9 cm cyst of the inferior pole. Corticomedullary differentiation and cortical thickness. Left kidney: 10.6 x 6.2 x 5.0 cm. Mild hydronephrosis. 6 mm echogenic focus in the inferior pole left kidney without posterior acoustic shadowing. 1.6 x 1.7 x 1.9 cm exophytic hypoechoic lesion of the lateral interpolar left kidney suggestive of a cyst. Normal corticomedullary differentiation and cortical thickness. Bladder: Kc catheter within the urinary bladder. Heterogeneous area of variable echogenicity noted within the region of the urinary bladder measuring 7.9 x 6.1 x 7.5 cm demonstrating areas of color flow. IMPRESSION: 1. 7.9 cm pelvic mass appears to be within the urinary bladder and is suggestive of neoplasm. Correlation with cystoscopy recommended. 2. Mild bilateral hydronephrosis. 3. Probable nonobstructing calculus of the left kidney. ACT 112: Negative or not required by law. Electronically signed by: Tam Tavares M.D. 08/21/2022 10:29 AM Ordered Studies 08/18/22 14:26 CT cervical spine wo con Stat CT head/brain wo con Stat 08/21/22 07:37 US Renal Bladder [US renal/blad retro comp] Routine Hospital Course (1) Acute metabolic encephalopathy: --CT head:No acute intracranial hemorrhage, no evidence of acute territorial infarction or other acute intracranial disease process. Mental status back to baseline Monitor (2) Acute UTI: Possible Sepsis Likely Source UTI Blood culture: No growth to date Urine culture E.Coli Continue Zosyn>> changed to cefepime Received IV fluids Plan to discharge on oral antibiotics to complete the course Bladder mass ? Neoplasm Obstructive uropathy secondary to above Acute urinary retention CHANDU secondary to above -Renal USD:7.9 cm pelvic mass appears to be within the urinary bladder and is suggestive of neoplasm. Correlation with cystoscopy recommended. Mild bilateral hydronephrosis. Probable nonobstructing calculus of the left kidney. 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 If not previously evaluated, nonemergent thyroid ultrasound can be performed. Normal TSH Advised to follow up as outpatient (5) Alcohol intoxication: Management as above (6) Fall: Mechanical fall Ambulatory dysfunction Imaging studies showed no acute fractures Fall precautions PT OT:Recommends Return Home . (7) Abrasion of scalp: Continue wound care DVT Px: Heparin SQ Code Status Full Code Total Time Total Time Spent Total Time Spent (In Minutes): 55 minutes Discharge Plan Discharge Items Patient Disposition: Home - Self-Care Reason For Visit: ACUTE METABOLIC ENCEPHALOPATHY Discharge Diagnosis: Urinary tract infection Acute metabolic encephalopathy Bladder mass Obstructive uropathy Acute kidney injury Possible aspiration pneumonia Thyromegaly/thyroid cyst Alcohol intoxication Activity: Per Instructions section Exercise/Sports: Gradually increase as tolerated Non-emergency contact: Primary Care Provider and Urologist Call non-emergency contact if: you have any medication questions, your symptoms worsen, your pain is concerning for you and you have a fever Follow-up/Referrals: Bryant Celaya MD [Primary Care Provider] - (Date & Time 08/28/2022 11:00 AM Provider Bryant Celaya MD [facility] ) Andrea Bess MD [Physician] - (The Urology office will call you with a follow up appointment.) Diet: Heart Healthy Addtl Attending Provider Instructions: Follow-up with your primary care physician on 08/28/2022 11:00 AM Follow-up with your urologist Dr. Andrea Bess for outpatient cystoscopy and voiding trial. Urology office will call you with appointment. --- Quit drinking alcohol as advised. --Discussed with your primary care physician for further evaluation of thyroid cysts as advised Medication Changes: 1)-- Complete the antibiotic course cefdinir (Omnicef) as prescribed. 2)-- Start taking Flomax 0.4 mg daily -- Continue using Kc catheter until follow-up with your urologist as outpatient. --Your final blood cultures are pending at the time of discharge. Follow-up with your physician for results. Seek immediate medical attention if your symptoms reoccur or worsen Please take all medications as instructed on discharge list below. Please call if you have any questions or problems. You can reach a [facility] hospitalist on duty at [facility] 24 hours a day by calling [phone] [facility] Sr[employer] Manager [employer] Provider Instructions: The urology office will contact you to arrange a follow-up visit for catheter removal and office cystoscopy. Please call our office at [phone] with any questions, concerns or need to reschedule appointments for any reason. We are happy to assist you Kc Catheter or Suprapubic Catheter care: Keep the catheter well secured with either a leg back or leg strap with large bag. Empty your bag when it's about half full. Use mild soap (such as Dove or Dial) and water to wash the catheter and the head of your penis daily, or more frequently if needed. You may shower as normal. Please avoid tub baths or soaking until catheter removed. Call [facility] at [phone] right away if you have any of the following: Heavy bleeding, clots, or bright red blood from the catheter Catheter that falls out or stops draining Foul-smelling discharge from your catheter Pending Studies at Discharge: Yes Studies:: Blood Cultures Stand-Alone Forms: My [facility], Smoking Cessation Medications and DC Order Prescriptions: New tamsulosin 0.4 mg Capsule 0.4 mg PO QAM Qty: 30 0RF folic acid 1 mg Tablet 1 mg PO QAM Qty: 30 0RF thiamine HCl (vitamin B1) 100 mg Tablet 100 mg PO QAM Qty: 30 0RF cefdinir 300 mg capsule 300 mg PO BID Qty: 12 0RF Discharge Orders: Discharge Order (Routine); Ordered 08/22/22 Ordered By: Lars Wyman Admission Data Admit Date/Time: 08/18/22 17:02 Attending Provider: Lars Wyman Admit Provider: Caryn Atkins Primary Care Provider: Bryant Celaya Other Providers: Caryn Atkins ; Mike Ledezma ; Andrews Brooks ; Stephen Victor ; Monica Montiel ; Andres Long ; Ivy Strickland ; Gladys Lambert ; Teo Clifton ; Chau Orozco ; Karen Tam ; Negrito Grimes ; Andrea Bess
[2022-08-22 16:40] VITALS: BP 166/80; PULSE 60; TEMP 97.9; O2SAT 97
== END 2022-08-22 18:28 | disposition home or self-care (01) | DRG 871 ==
LOC: ED 14:17 → SUATTDRO 17:02 → 2W 17:02 → 2N 08-22 09:59

== ENCOUNTER 2022-08-25 14:52 | Inpatient (IN) ==
[2022-08-25 15:50] LABS: Basophils # (auto) 0.08 K/uL (0-0.2); Basophils % (auto) 0.4 %; Eosinophils # (auto) 1.94 K/uL (0-0.50); Eosinophils % (auto) 9.5 %; Hematocrit (blood only) 34.3 % (42.0-52.0); Hemoglobin 10.9 g/dl (14.0-18.0); Immature Granulocytes # (auto) 0.15 K/uL (0.01-0.20); Immature Granulocytes % (auto) 0.7 %; Lymphocytes # (auto) 1.39 K/uL (1.2-3.4); Lymphocytes % (auto) 6.8 %; Mean Corpuscular Hemoglobin 25.3 pg (25.0-34.0); Mean Corpuscular Hgb Conc 31.8 g/dL (32.0-36.0); Mean Corpuscular Volume 79.8 fL (80.0-100.0); Mean Platelet Volume 10.5 fL (9.4-12.4); Monocytes # (auto) 1.25 K/uL (0.11-0.59); Monocytes % (auto) 6.1 %; Neutrophils # (auto) 15.67 K/uL (1.40-6.50); Neutrophils % (auto) 76.5 %; Platelet Count 291 K/uL (130-400); RDW Coefficient of Variation 15.7 % (11.5-14.5); White Blood Count 20.48 K/ul (4.8-10.8)
[2022-08-25 15:53] LABS: Alanine Aminotransferase 12 U/L (7-52); Albumin Globulin Ratio 1.1 (0.9-2); Albumin Level 3.1 gm/dl (3.4-5.0); Alkaline Phosphatase 103 U/L (34-104); Anion Gap 8 (3-11); Aspartate Aminotransferase 30 U/L (13-39); Bilirubin,Total 0.6 mg/dl (0.2-1.0); Blood Urea Nitrogen 27 mg/dl (6-23); Calcium 9.4 mg/dl (8.6-10.3); Carbon Dioxide 25 mmol/L (21-32); Chloride 107 mmol/L (98-107); Creatine Kinase 680 U/L (30-223); Est GFR (African American) 74.7 ml/min; Est GFR (Non-African American) 64.5 ml/min; Globulin 2.9 gm/dl (2.5-4.0); Glucose 97 mg/dl (70-99(Fasting)); Magnesium 1.8 mg/dl (1.7-2.4); Potassium 3.1 mmol/L (3.5-5.1); Sodium 140 mmol/L (136-145)
[2022-08-25 15:56] LABS: Appearance Urine Turbid (Clear); Bacteria Urine Automated Negative (Negative); Bilirubin Urine Negative (Negative); Blood Urine 3+ (Negative); Color Urine Dark Yellow; Glucose Urine UA Negative (Negative); Ketones Urine Trace (Negative); Leukocyte Esterase Urine 3+ (Negative); Nitrite Urine Negative (Negative); Protein Urine 1+ (Negative); Specific Gravity Urine 1.015 (1.000-1.030); Urobilinogen Urine Negative (Negative); WBC Urine Automated >30 /hpf (0-5)
[2022-08-25 16:11] LABS: Cast Urine Automated 0 /lpf (0-5)
[2022-08-25] MEDS ORDERED: SODIUM CHLORIDE 0.9% 1000ML 1,000 ML IV ONE (16:15)
[2022-08-25] MEDS ORDERED: PIPERACILLIN/TAZOBACTAM 4.5 GM/120 ML BAG IV ONE (16:15)
[2022-08-25] MEDS ORDERED: POTASSIUM CHLORIDE CRTAB 20 MEQ TABCR PO STA (16:29)
--- NOTE | 2022-08-25 16:49 | Emergency Department Note ---
Impression & Plan Acute UTI, Falls, Elevated CK, Ambulatory dysfunction ED Provider Note Provider: Pelon Oneil MD DATE OF SERVICE: 08/25/2022 CHIEF COMPLAINT: Falls HISTORY OF PRESENT ILLNESS: Patient is a 82-year-old gentleman past medical history of clubfoot, sacral ulcer, UTI and bladder mass presenting here today after multiple falls. Was admitted last week for UTI after fall. Discharged on . Discharged with a Kc catheter due to bladder mass retention but remove this himself at home on Friday. Patient denies any abdominal pain or bleeding in the urine. States that he got tired of dealing with it and did not feel he needed it. Denies any new alcohol use. States he fell once yesterday but 3 times today onto his buttock region. Reports a little bit of sacral pain. Denies fever or chills. States he feels fairly well but his left knee keeps giving out and he keeps falling. Has a history of left knee surgery in the past. Denies significant pain here. Does have some callus on his right foot as well. Some later arrives and states he does not feel his mother is safe at h ome. States has been taking the medication from discharge including his antibiotic. Denies pain in his arms or legs or striking his head during any of these falls. Denies urinary symptoms. PAST MEDICAL HISTORY: As noted above MEDICATIONS: Reviewed home medications SOCIAL HISTORY: Resides by himself PHYSICAL EXAM: GENERAL: alert and oriented in no acute distress on stretcher Head: normocephalic and atraumatic EYES: No injection, discharge or icterus. NECK: Trachea midline. Supple. ENT: Mucous membranes pink and moist. LUNGS: Airway patent. No retractions. Breath sounds clear with good air entry bilaterally. HEART: Regular rate and rhythm. No chest wall tenderness ABDOMEN: Soft and non-tender, without guarding or rebound. No hepatosplenomegaly or masses BACK: No midline tenderness, no SI joint tenderness. No bilateral flank tenderness. And with nurse assistance, history of a small sacral scar but no significant decubitus ulceration or wound noted at this time. No bruising here. SKIN: Acyanotic, warm, dry, without rashes EXTREMITIES: Without tenderness with chronic clubfoot and postsurgical changes to the right foot without significant swelling of the lower extremity. NEUROLOGICAL: No focal deficits. No aphasia. No facial droop or slurred speech. Normal strength and tone in the extremities. Sensation to gross touch normal. EK beats beats per minute normal sinus rhythm. No PVC or PAC. No acute ST segment elevation or depression with a QTc of 478. Some baseline artifact is noted. CONTINUOUS CARDIAC MONITORING: was ordered and showed a heart rate of 80s-90s bpm in normal sinus rhythm Patient's laboratory studies and imaging reviewed. Differential includes Infection, dehydration, metabolic abnormality, hypo/hyperglycemia, electrolyte disturbance, anemia, hypoxia, cardiac sources, neurologic, as well as other pathologies. IMPRESSION/MEDICAL DECISION MAKING: Patient with multiple falls states his legs giving out on him and has history of clubfoot as well as left knee replacement. No significant swelling or new tenderness here. Reports a little bit of sacral discomfort but no evidence of any significant injury on gross evaluation or significant sacral wound. Pelvic x-ray obtained without significant abnormality noted by radiology and doubt fracture. Benign abdomen I doubt acute intra-abdominal injury or bleeding. Bladder scan ordered to evaluate for retention as he self removed his Kc and had recent history of retention. Urinalysis does appear infected. White blood cell count also elevated today but afebrile. Mild hypokalemia and given oral potassium supplementation. Slight CK elevation likely from his recurrent falls. Given some IV hydration. Given a dose of Zosyn reviewing recent microbiology for expanded coverage from the cefdinir he was sent home on given the still positive UA. Bladder scan does appear to show a fair amount still in the bladder. Discussed with patient Kc catheter placement. Patient was agreeable with temporary placement of Kc at this time to ensure complete drainage of his bladder especially in light of what appears to be a UTI. Discussed with him and his son they are agreeable to for him to stay for further care and likely placement for rehab. Hospitalist contacted. DIAGNOSIS: Falls, acute UTI, elevated CK, sacral pain DISPOSITION: Hospitalist will evaluate Patient was agreeable with this plan. Past Med/Surg History Medical History Alcohol use [place] (hard of hearing) Osteoarthritis Right club foot congenital Sacral decubitus ulcer, stage III Surgical History History of surgery Right clubfoot correction - multiple procedures as a child Status post left knee replacement Family History Other No family history of adverse response to anesthesia Denies family history of Coronary heart disease Social History Smoking Status: Former smoker Second Hand Exposure: Yes; Do You Dip or Chew Tobacco: Yes; Hx Alcohol Use: Yes Alcohol type: beer Hx Substance Use: No Preferred Language: Albanian Communication Ability: Effective 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 Beliefs That Will Affect Care: None marital status: Current Living Situation: Alone Current Living Situation Comment: Lives alone in an apartment How many Children do You have: 1 Feels Safe at Home: Yes Assistive Devices: Cane and Walker Allergies Allergies Allergy/AdvReac Type Severity Reaction Status Date / Time No Known Allergies Allergy Verified 08/25/22 16:02 Home Meds Previous Rx's Medication Instructions Recorded cefdinir 300 mg capsule 300 mg PO BID #12 caps 08/22/22 folic acid 1 mg tablet 1 mg PO QAM #30 tabs 08/22/22 tamsulosin 0.4 mg capsule 0.4 mg PO QAM #30 caps 08/22/22 thiamine HCl (vitamin B1) 100 mg 100 mg PO QAM #30 tabs 08/22/22 tablet Results & Data (ED) Vital Signs Vital Signs - 24 hr 08/25/22 14:59 08/25/22 15:03 08/25/22 15:30 Temperature 36.7 C Temperature Source Oral Pulse Rate 93 H 88 Pulse Rate from SpO2 Sensor Respiratory Rate 15 Blood Pressure 129/89 Blood Pressure Mean 102 Pulse Oximetry 97 96 Oxygen Delivery Method Room Air Room Air Sepsis Recent Fever Within 48 Hours No Sepsis New/Unexplained Change in Mental Status N/A Sepsis Action Taken by Nursing No Action Required 08/25/22 14:58 08/25/22 15:00 08/25/22 15:00 Temperature Temperature Source Pulse Rate 99 H 92 H Pulse Rate from SpO2 Sensor 90 85 Respiratory Rate 15 15 Blood Pressure 125/64 Blood Pressure Mean 82 Pulse Oximetry 94 97 Oxygen Delivery Method Sepsis Recent Fever Within 48 Hours Sepsis New/Unexplained Change in Mental Status Sepsis Action Taken by Nursing 08/25/22 15:10 08/25/22 15:20 08/25/22 15:30 Temperature Temperature Source Pulse Rate 96 H 92 H 86 Pulse Rate from SpO2 Sensor 79 83 77 Respiratory Rate 21 15 15 Blood Pressure Blood Pressure Mean Pulse Oximetry 98 96 97 Oxygen Delivery Method Sepsis Recent Fever Within 48 Hours Sepsis New/Unexplained Change in Mental Status Sepsis Action Taken by Nursing 08/25/22 15:40 08/25/22 15:45 08/25/22 16:00 Temperature Temperature Source Pulse Rate 86 90 90 Pulse Rate from SpO2 Sensor 81 81 86 Respiratory Rate 15 17 18 Blood Pressure Blood Pressure Mean Pulse Oximetry 98 96 99 Oxygen Delivery Method Sepsis Recent Fever Within 48 Hours Sepsis New/Unexplained Change in Mental Status Sepsis Action Taken by Nursing 08/25/22 16:15 08/25/22 16:30 08/25/22 16:45 Temperature Temperature Source Pulse Rate 86 82 111 H Pulse Rate from SpO2 Sensor 76 81 75 Respiratory Rate 19 16 21 Blood Pressure Blood Pressure Mean Pulse Oximetry 96 96 93 Oxygen Delivery Method Sepsis Recent Fever Within 48 Hours Sepsis New/Unexplained Change in Mental Status Sepsis Action Taken by Nursing 08/25/22 17:00 08/25/22 17:15 08/25/22 17:30 Temperature Temperature Source Pulse Rate 90 176 H 138 H Pulse Rate from SpO2 Sensor 85 87 Respiratory Rate 15 15 15 Blood Pressure Blood Pressure Mean Pulse Oximetry 98 98 Oxygen Delivery Method Sepsis Recent Fever Within 48 Hours Sepsis New/Unexplained Change in Mental Status Sepsis Action Taken by Nursing 08/25/22 17:45 08/25/22 18:00 08/25/22 18:00 Temperature Temperature Source Pulse Rate 145 H 122 H Pulse Rate from SpO2 Sensor 153 H 102 H Respiratory Rate 23 23 Blood Pressure 99/61 L Blood Pressure Mean 77 Pulse Oximetry 98 90 Oxygen Delivery Method Sepsis Recent Fever Within 48 Hours Sepsis New/Unexplained Change in Mental Status Sepsis Action Taken by Nursing 08/25/22 18:15 08/25/22 18:30 08/25/22 18:32 Temperature Temperature Source Pulse Rate 96 H 112 H Pulse Rate from SpO2 Sensor 95 H 96 H Respiratory Rate 15 16 Blood Pressure Blood Pressure Mean 108 Pulse Oximetry 100 99 Oxygen Delivery Method Sepsis Recent Fever Within 48 Hours Sepsis New/Unexplained Change in Mental Status Sepsis Action Taken by Nursing 08/25/22 18:32 Temperature Temperature Source Pulse Rate 118 H Pulse Rate from SpO2 Sensor Respiratory Rate 23 Blood Pressure Blood Pressure Mean Pulse Oximetry 91 Oxygen Delivery Method Sepsis Recent Fever Within 48 Hours Sepsis New/Unexplained Change in Mental Status Sepsis Action Taken by Nursing Laboratory Data 08/25/22 15:03 08/25/22 15:03 Lab Results 08/25/22 08/25/22 08/25/22 Range/Units 15:03 15:03 15:03 WBC 20.48 H (4.8-10.8) K/ul RBC 4.30 L (4.70-6.10) M/uL Hgb 10.9 L (14.0-18.0) g/dl Hct 34.3 L (42.0-52.0) % MCV 79.8 L (80.0-100.0) fL MCH 25.3 (25.0-34.0) pg MCHC 31.8 L (32.0-36.0) g/dL RDW Std Deviation 45.0 (36.4-46.3) fL RDW Coeff of Flako 15.7 H (11.5-14.5) % Plt Count 291 (130-400) K/uL MPV 10.5 (9.4-12.4) fL Immature Gran % (Auto) 0.7 % Neut % (Auto) 76.5 % Lymph % (Auto) 6.8 % Greenlee % (Auto) 6.1 % Eos % (Auto) 9.5 % Baso % (Auto) 0.4 % Neut # (Auto) 15.67 H (1.40-6.50) K/uL Lymph # (Auto) 1.39 (1.2-3.4) K/uL Greenlee # (Auto) 1.25 H (0.11-0.59) K/uL Eos # (Auto) 1.94 H (0-0.50) K/uL Baso # (Auto) 0.08 (0-0.2) K/uL Immature Gran # (Auto) 0.15 (0.01-0.20) K/uL Sodium 140 (136-145) mmol/L Potassium 3.1 L (3.5-5.1) mmol/L Chloride 107 (98-107) mmol/L Carbon Dioxide 25 (21-32) mmol/L Anion Gap 8 (3-11) BUN 27 H (6-23) mg/dl Creatinine 1.08 (0.6-1.4) mg/dl Est Cr Clr Drug Dosing Not Reportable Est GFR ( Amer) 74.7 ml/min Est GFR (Non-Af Amer) 64.5 ml/min BUN/Creatinine Ratio 25.0 H (10-20) Glucose 97 (70-99(Fasting)) mg/dl Calcium 9.4 (8.6-10.3) mg/dl Magnesium 1.8 (1.7-2.4) mg/dl Total Bilirubin 0.6 (0.2-1.0) mg/dl AST 30 (13-39) U/L ALT 12 (7-52) U/L Alkaline Phosphatase 103 (34-104) U/L Total Creatine Kinase 680 H (30-223) U/L Total Protein 6.0 (6.0-8.3) gm/dl Albumin 3.1 L (3.4-5.0) gm/dl Globulin 2.9 (2.5-4.0) gm/dl Albumin/Globulin Ratio 1.1 (0.9-2) TSH 3.633 (0.300-4.500) uIu/ml Urine Color Urine Appearance (Clear) Urine pH (4.5-7.5) Ur Specific [place] (1.000-1.030) Urine Protein (Negative) Urine Glucose (UA) (Negative) Urine Ketones (Negative) Urine Blood (Negative) Urine Nitrite (Negative) Urine Bilirubin (Negative) Urine Urobilinogen (Negative) Ur Leukocyte Esterase (Negative) Urine WBC (Auto) (0-5) /hpf Urine RBC (Auto) (0-4) /hpf U Hyaline Cast (Auto) (0-5) /lpf U Epithel Cells (Auto) (0-5) /lpf Urine Bacteria (Auto) (Negative) Urine Yeast SARS-CoV-2, RNA, NAAT (NEGATIVE) 08/25/22 08/25/22 Range/Units 15:35 15:35 WBC (4.8-10.8) K/ul RBC (4.70-6.10) M/uL Hgb (14.0-18.0) g/dl Hct (42.0-52.0) % MCV (80.0-100.0) fL MCH (25.0-34.0) pg MCHC (32.0-36.0) g/dL RDW Std Deviation (36.4-46.3) fL RDW Coeff of Flako (11.5-14.5) % Plt Count (130-400) K/uL MPV (9.4-12.4) fL Immature Gran % (Auto) % Neut % (Auto) % Lymph % (Auto) % Greenlee % (Auto) % Eos % (Auto) % Baso % (Auto) % Neut # (Auto) (1.40-6.50) K/uL Lymph # (Auto) (1.2-3.4) K/uL Greenlee # (Auto) (0.11-0.59) K/uL Eos # (Auto) (0-0.50) K/uL Baso # (Auto) (0-0.2) K/uL Immature Gran # (Auto) (0.01-0.20) K/uL Sodium (136-145) mmol/L Potassium (3.5-5.1) mmol/L Chloride (98-107) mmol/L Carbon Dioxide (21-32) mmol/L Anion Gap (3-11) BUN (6-23) mg/dl Creatinine (0.6-1.4) mg/dl Est Cr Clr Drug Dosing Est GFR ( Amer) ml/min Est GFR (Non-Af Amer) ml/min BUN/Creatinine Ratio (10-20) Glucose (70-99(Fasting)) mg/dl Calcium (8.6-10.3) mg/dl Magnesium (1.7-2.4) mg/dl Total Bilirubin (0.2-1.0) mg/dl AST (13-39) U/L ALT (7-52) U/L Alkaline Phosphatase (34-104) U/L Total Creatine Kinase (30-223) U/L Total Protein (6.0-8.3) gm/dl Albumin (3.4-5.0) gm/dl Globulin (2.5-4.0) gm/dl Albumin/Globulin Ratio (0.9-2) TSH (0.300-4.500) uIu/ml Urine Color Dark Yellow Urine Appearance Turbid A (Clear) Urine pH 5.0 (4.5-7.5) Ur Specific [place] 1.015 (1.000-1.030) Urine Protein 1+ H (Negative) Urine Glucose (UA) Negative (Negative) Urine Ketones Trace H (Negative) Urine Blood 3+ H (Negative) Urine Nitrite Negative (Negative) Urine Bilirubin Negative (Negative) Urine Urobilinogen Negative (Negative) Ur Leukocyte Esterase 3+ H (Negative) Urine WBC (Auto) >30 H (0-5) /hpf Urine RBC (Auto) 10-30 H (0-4) /hpf U Hyaline Cast (Auto) 0 (0-5) /lpf U Epithel Cells (Auto) 5-10 H (0-5) /lpf Urine Bacteria (Auto) Negative (Negative) Urine Yeast Not Reportable SARS-CoV-2, RNA, NAAT NEGATIVE (NEGATIVE) Administered Medications Discontinued Medications Sodium Chloride (Nss 1000ml) 1,000 mls @ 999 mls/hr IV .[id number] ONE Stop: 08/25/22 17:15 Last Infusion: 08/25/22 17:48 Dose: 0 mls/hr Documented By: Admin: 08/25/22 16:24 Dose: 999 mls/hr Documented By: JEVON Piperacillin Sod/Tazobactam Sod (Zosyn) 4.5 gm in 120 mls @ 240 mls/hr IV NOW ONE Stop: 08/25/22 16:44 Last Infusion: 08/25/22 17:00 Dose: 0 mls/hr Documented By: Admin: 08/25/22 16:24 Dose: 240 mls/hr Documented By: JEVON Potassium Chloride (Potassium Chloride Crtab 20 Meq Tabcr) 40 meq PO NOW STA Stop: 08/25/22 16:30 Last Admin: 08/25/22 16:40 Dose: 40 meq Documented By: JEVON Imaging Data Radiologist's Impression: Pelvis X-Ray 08/25/22 15:18 SINGLE VIEW PELVIS CLINICAL HISTORY: Fall. FINDINGS: 2 AP, portable, supine pelvic radiographs are compared to study dated 05/06/2021. The skeletal structures are osteopenic. There is no radiographic evidence of acute fracture involving the hips or bony pelvis. Mild arthritic ashley nge and joint space narrowing is seen in the hips. Degenerative sclerosis is noted in the sacroiliac joints and pubic symphysis. The overlying soft tissues are within normal limits. There is no evidence of bowel obstruction. Atherosclerotic calcification is noted in the femoral arteries. IMPRESSION: There is no radiographic evidence of acute fracture involving the hips or pelvis. Electronically signed by: Ezequiel Bryant M.D. 08/25/2022 4:52 PM Chest X-Ray 08/25/22 15:19 SINGLE VIEW CHEST CLINICAL HISTORY: Fall. Generalized weakness. FINDINGS: An AP, portable, upright chest radiograph is compared to study dated 08/18/2022. The examination is degraded by portable technique and patient rotation. The heart is enlarged noting atherosclerotic calcification of the thoracic aorta. The pulmonary vasculature is noncongested. Chronic interstitial thickening is similar to previous. There is bibasilar scarring/atelectasis. The lungs and pleural spaces are otherwise clear. No pneumothorax is seen. The s keletal structures are osteopenic. The bony thorax is grossly intact. IMPRESSION: Cardiomegaly with no active disease in the chest. ACT 112: Negative or not required by law. Electronically signed by: Ezequiel Bryant M.D. 08/25/2022 5:08 PM Discharge Plan Visit Data Chief Complaint: Fall ED Provider: Pelon Oneil Discharge Problem: Acute UTI, Falls, Elevated CK, Ambulatory dysfunction Patient Disposition: Being Evaluated by Hospitalist Forms Stand Alone Forms: [facility] Prescriptions Prescriptions: No Action tamsulosin 0.4 mg Capsule 0.4 mg PO QAM Qty: 30 0RF folic acid 1 mg Tablet 1 mg PO QAM Qty: 30 0RF thiamine HCl (vitamin B1) 100 mg Tablet 100 mg PO QAM Qty: 30 0RF cefdinir 300 mg capsule 300 mg PO BID Qty: 12 0RF Rx Instructions: STARTED 08/22/22 FOR 6 DAYS Referrals Referrals: Bryant Celaya MD [Primary Care Provider] -
--- NOTE | 2022-08-25 16:53 | XRay Report ---
SINGLE VIEW PELVIS CLINICAL HISTORY: Fall. FINDINGS: 2 AP, portable, supine pelvic radiographs are compared to study dated 05/06/2021. The skelet al structures are osteopenic. There is no radiographic evidence of acute fracture involving the hips or bony pelvis. Mild arthritic change and joint space narrowing is seen in the hips. Degenerative scl erosis is noted in the sacroiliac joints and pubic symphysis. The overlying soft tissues are within n ormal limits. There is no evidence of bowel obstruction. Atherosclerotic calcification is noted in th e femoral arteries. IMPRESSION: There is no radiographic evidence of acute fracture involving the hips or pelvis. Electronically signed by: Ezequiel Bryant M.D. 08/25/2022 4:52 PM
--- NOTE | 2022-08-25 17:09 | XRay Report ---
SINGLE VIEW CHEST CLINICAL HISTORY: Fall. Generalized weakness. FINDINGS: An AP, portable, upright chest radiograph is compared to study dated 08/18/2022. The examina tion is degraded by portable technique and patient rotation. The heart is enlarged noting atheroscler otic calcification of the thoracic aorta. The pulmonary vasculature is noncongested. Chronic intersti tial thickening is similar to previous. There is bibasilar scarring/atelectasis. The lungs and pleura l spaces are otherwise clear. No pneumothorax is seen. The skeletal structures are osteopenic. The cristine ny thorax is grossly intact. IMPRESSION: Cardiomegaly with no active disease in the chest. ACT 112: Negative or not required by law. Electronically signed by: Ezequiel Bryant M.D. 08/25/2022 5:08 PM
--- NOTE | 2022-08-25 19:13 | Communication Note ---
Date of Service: August 25, 2022 89-year-old man with history of clubfoot, sacral ulcer, UTI and bladder mass who was recently here for UTI/falls and was sent home on Kc catheter presented to the hospital after multiple falls. Patient removed Kc catheter by himself at home. Patient reports taking his medications at home. Patient appears to be very forgetful and does not remember simple details like how long ago he removed his Kc catheter, when he fell where he did hit today. Hence history not very much reliable. Admitting labs reviewed, WBC elevated, will get Pro-Scott. UA suggestive of UTI, will use Rocephin while in hospital. follow urine culture. Replace potassium. Labs in AM. Orthostatic vitals. PT/OT. Bladder scan and will likely need Kc catheter if with significant retention given history of bladder mass. c/w home tamsulosine. Pevis xray w/ no fracture Patient did report that he fell 3 times today and he did not hit his head but does not remember where he hit, believes that it must be his buttocks all of the time. Patient uses walker for ambulation. GENERAL: Alert and oriented x3. NAD, on 3 L nasal cannula. Poor hygiene. HEENT: No pallor, no icterus. Pupils equal, round and reactive to light. Oral mucosa moist. NECK: No JVD, no neck masses. HEART: S1 and S2 heard. Regular rate and rhythm. No murmur, no gallop. RESPIRATORY SYSTEM: Normal AP diameter. No accessory muscle use. No wheezing, no crackles. ABDOMEN: Soft, bowel sounds present, nontender, no distention. CENTRAL NERVOUS SYSTEM: No facial droop. Speech is clear. Obeys simple commands. Moves extremities. EXTREMITIES: 1+ BLE edema, BLE chronic skin changes, clubfoot, old healed surgical scars BLE. I have seen and examined the patient and have discussed the case with Monica Geller NP. I agree with the assessment and plan as stated.
--- NOTE | 2022-08-25 20:36 | History & Physical Report ---
Date of Service August 25, 2022 Assessment & Plan (1) Falls: (2) Ambulatory dysfunction: Plan: Admit to [facility] Patient presenting from home for evaluation of frequent falls. Recently admitted to [facility] 08/18-08/22 for metabolic encephalopathy due to UTI. Patient also found to have urinary retention and discharged with Kc catheter in place. Patient self removed the catheter upon returning home. In the ED today, UA is suggestive of ongoing UTI PT/OT, case management consults. Patient agreeable to rehab placement discharge. (3) Acute UTI: Plan: Urine culture from last admission grew fluoroquinolone resistant E. coli UA today suggest ongoing infection S/p Zosyn in the ED, continue with Follow urine and blood cultures (4) Elevated CK: Plan: CK 680, renal functions WNL Likely due to recurrent falls IVF, repeat CK level in a.m. (5) Bladder mass: Plan: US during last admission showed 7.9 cm pelvic mass appears to be within the urinary bladder and is suggestive of neoplasm. Correlation with cystoscopy recommended. Patient to see urology as an outpatient for follow-up (6) Urinary retention: Plan: Discharged with Kc catheter in place, unfortunately patient self remove cat heter upon returning home Found to have ongoing urinary retention in the ED, Kc reinserted Continue Flomax (7) Alcohol abuse: Plan: No current use, alcohol level negative Continue thiamine and folic acid DVT PROPHYLAXIS SQ heparin Patient seen in collaboration with Dr. White. I spent a total of 75 minutes coordinating, documenting, and providing care for this patient excluding time spent in the performance of separately billed services. This included personally reviewing all current laboratories and imaging studies, medication reconciliation, outpatient chart review, and discussion with specialists. History of Present Illness Chief Complaint: Recurrent falls Primary Care Provider: Bryant Celaya MD 82-year-old male with PMH alcohol and tobacco abuse and other problems listed below who presents to the ED for evaluation of recurrent falls. History obtained from the patient and review of recent inpatient records and outpatient PCP records. Patient recently admitted to [facility] 08/18 to 08/22 for acute metabolic encephalopathy due to UTI. Patient also had urinary retention and had Kc catheter placed which remained in place at discharge. Bladder mass was also found. Patient was started on Flomax and discharged on cefdinir for treatment of UTI. Patient states that when he returned home he self removed his Kc catheter. He states it has been difficult for him to urinate. Today, patient had 3 falls and was brought to the ED for further evaluation. Patient denies striking his head or associated loss of consciousness. No reported fever but feels chilled in the ED. Denies chest pain and shortness of breath. No lightheadedness, dizziness, diaphoresis. Denies abdominal pain, nausea, vomit ing, diarrhea. In the ED, labs show WBC 20 K, K+ 3.1, CK 680, procalcitonin 0.76. UA suggestive of ongoing UTI. CXR and pelvis XR unremarkable. Patient was given IVF, IV Zosyn, potassium replacement in the ED. Allergies Allergy/AdvReac Type Severity Reaction Status Date / Time No Known Allergies Allergy Verified 08/25/22 16:02 Home Medications Medication Instructions Recorded Confirmed Type cefdinir 300 mg capsule 300 mg PO BID #12 caps 08/22/22 08/25/22 Rx folic acid 1 mg tablet 1 mg PO QAM #30 tabs 08/22/22 08/25/22 Rx tamsulosin 0.4 mg capsule 0.4 mg PO QAM #30 caps 08/22/22 08/25/22 Rx thiamine HCl (vitamin B1) 100 mg 100 mg PO QAM #30 tabs 08/22/22 08/25/22 Rx tablet Past Med/Surg History Medical History PILOT STATION (hard of hearing) Lumbar discitis Osteoarthritis Right club foot congenital Surgical History History of surgery Right clubfoot correction - multiple procedures as a child Status post left knee replacement Family History Other No family history of adverse response to anesthesia Denies family history of Coronary heart disease Social History Smoking Status: Former smoker Second Hand Exposure: Yes; Do You Dip or Chew Tobacco: Yes; Hx Alcohol Use: Yes Alcohol type: beer Hx Substance Use: No Preferred Language: [place]ese Communication Ability: Effective [employer] Professor Required: No Beliefs That Will Affect Care: None marital status: Current Living Situation: Alone Current Living Situation Comment: Lives alone in an apartment How many Children do You have: 1 Feels Safe at Home: Yes Assistive Devices: Cane and Walker Physical Exam Constitutional: + disheveled; no acute distress Eyes: PERRL, conjunctivae normal, anicteric sclerae ENMT: external ear and nose normal, oropharynx normal Respiratory: normal respiratory effort, lungs clear to auscultation Cardiovascular: Rate/Rhythm: regular rate and regular rhythm Vessels: normal peripheral pulses Extremities: + edema (+2 edema BLE, chronic ) Gastrointestinal (Abdomen): normal bowel sounds, soft, nontender, no hepatosplenomegaly Musculoskeletal: no cyanosis or clubbing, extremities motor strength 5/5 Skin: no rashes, warm and dry Neurologic: PERRL, EOMI, accommodation nl, no face palsy, no dysarthria Psychiatric: A+Ox3, euthymic affect Results & Data Results & Data Vital Signs (Past 12 Hours) Vital Signs Temp Pulse Resp BP Pulse Ox O2 Del Method 08/25/22 20:06 109/58 L 08/25/22 20:06 101 H 17 98 08/25/22 20:04 93 H 15 96 08/25/22 20:04 115/70 08/25/22 20:00 92 H 22 94 08/25/22 20:00 106/60 08/25/22 19:48 106 H 15 08/25/22 19:30 100 H 19 93 08/25/22 19:30 106/68 08/25/22 19:15 97 H 22 97 08/25/22 19:00 102 H 15 98 08/25/22 19:00 90/51 L 08/25/22 18:45 97 H 24 96 08/25/22 19:10 101 H 08/25/22 18:32 118 H 23 91 08/25/22 18:30 112 H 16 99 08/25/22 18:15 96 H 15 100 08/25/22 18:00 122 H 23 90 08/25/22 18:00 99/61 L 08/25/22 17:45 145 H 23 98 08/25/22 17:30 138 H 15 08/25/22 17:15 176 H 15 98 08/25/22 17:00 90 15 98 08/25/22 16:45 111 H 21 93 08/25/22 16:30 82 16 96 08/25/22 16:15 86 19 96 08/25/22 16:00 90 18 99 08/25/22 15:45 90 17 96 08/25/22 15:40 86 15 98 08/25/22 15:30 86 15 97 08/25/22 15:20 92 H 15 96 08/25/22 15:10 96 H 21 98 08/25/22 15:00 92 H 15 97 08/25/22 15:00 125/64 08/25/22 14:58 99 H 15 94 08/25/22 15:30 96 Room Air 08/25/22 15:03 36.7 C 88 15 129/89 97 Room Air 08/25/22 14:59 93 H Laboratory Results Short CBC 08/25/22 Range/Units 15:03 WBC 20.48 H (4.8-10.8) K/ul Hgb 10.9 L (14.0-18.0) g/dl Hct 34.3 L (42.0-52.0) % Plt Count 291 (130-400) K/uL BMP 08/25/22 15:03 Sodium 140 Potassium 3.1 L Chloride 107 Carbon Dioxide 25 BUN 27 H Creatinine 1.08 Glucose 97 Calcium 9.4 Cardiac Enzymes 08/25/22 Range/Units 15:03 Total Creatine Kinase 680 H (30-223) U/L Liver Function 08/25/22 Range/Units 15:03 Total Bilirubin 0.6 (0.2-1.0) mg/dl AST 30 (13-39) U/L ALT 12 (7-52) U/L Alkaline Phosphatase 103 (34-104) U/L Albumin 3.1 L (3.4-5.0) gm/dl Urine 08/25/22 Range/Units 15:35 Urine Color Dark Yellow Urine Appearance Turbid A (Clear) Urine pH 5.0 (4.5-7.5) Ur Specific [place] 1.015 (1.000-1.030) Urine Protein 1+ H (Negative) Urine Glucose (UA) Negative (Negative) Diagnostic Findings Pelvis X-Ray 08/25/22 15:18 SINGLE VIEW PELVIS CLINICAL HISTORY: Fall. FINDINGS: 2 AP, portable, supine pelvic radiographs are compared to study dated 05/06/2021. The skeletal structures are osteopenic. There is no radiographic evidence of acute fracture involving the hips or bony pelvis. Mild arthritic change and joint space narrowing is seen in the hips. Degenerative sclerosis is noted in the sacroiliac joints and pubic symphysis. The overlying soft tissues are within normal limits. There is no evidence of bowel obstruction. Atherosclerotic calcification is noted in the femoral arteries. IMPRESSION: There is no radiographic evidence of acute fracture involving the hips or pelvis. Electronically signed by: Ezequiel Bryant M.D. 08/25/2022 4:52 PM Chest X-Ray 08/25/22 15:19 SINGLE VIEW CHEST CLINICAL HISTORY: Fall. Generalized weakness. FINDINGS: An AP, portable, upright chest radiograph is compared to study dated 08/18/2022. The examination is degraded by portable technique and patient rotation. The heart is enlarged noting atherosclerotic calcification of the thoracic aorta. The pulmonary vasculature is noncongested. Chronic interstitial thickening is similar to previous. There is bibasilar scarring/atelectasis. The lungs and pleural spaces are otherwise clear. No pneumothorax is seen. The skeletal structures are osteopenic. The bony thorax is grossly intact. IMPRESSION: Cardiomegaly with no active disease in the chest. ACT 112: Negative or not required by law. Electronically signed by: Ezequiel Bryant M.D. 08/25/2022 5:08 PM Code Status & VTE Plan VTE Prophylaxis Plan VTE Prophylaxis will be ordered: Yes
[2022-08-25] MEDS ORDERED: ACETAMINOPHEN 325 MG TAB PO PRN (20:42)
[2022-08-25] MEDS ORDERED: Patient's HEIGHT Needed STA (20:49)
[2022-08-25] MEDS: PIPERACILLIN/TAZOBACTAM 4.5 GM in DEXTROSE 5% 100 ML IV SCH (22:03)
[2022-08-25] MEDS: SODIUM CHLORIDE 0.9% 1000ML 1,000 ML IV SCH (22:03)
[2022-08-25] MEDS: HEPARIN SOD 5,000 UNIT/0.5 ML VIAL SQ SCH (22:09)
[2022-08-26] MEDS: PIPERACILLIN/TAZOBACTAM 4.5 GM in DEXTROSE 5% 100 ML IV SCH ×2 (05:30→12:04)
[2022-08-26] MEDS: HEPARIN SOD 5,000 UNIT/0.5 ML VIAL SQ SCH ×3 (05:32→21:55)
[2022-08-26 07:45] LABS: Hematocrit (blood only) 29.5 % (42.0-52.0); Hemoglobin 9.3 g/dl (14.0-18.0); Mean Corpuscular Hemoglobin 25.1 pg (25.0-34.0); Mean Corpuscular Hgb Conc 31.5 g/dL (32.0-36.0); Mean Corpuscular Volume 79.7 fL (80.0-100.0); Mean Platelet Volume 9.3 fL (9.4-12.4); Platelet Count 276 K/uL (130-400); RDW Coefficient of Variation 15.6 % (11.5-14.5); RDW Standard Deviation 45.2 fL (36.4-46.3); White Blood Count 12.47 K/ul (4.8-10.8)
[2022-08-26 08:02] LABS: BUN Creatinine Ratio 19.1 (10-20); Calcium 8.5 mg/dl (8.6-10.3); Creatinine Clr Calc Pharmacy 42.9 ml/min; Est GFR (African American) 73.1 ml/min; Est GFR (Non-African American) 63.1 ml/min; Potassium 3.4 mmol/L (3.5-5.1)
[2022-08-26] MEDS: THIAMINE HCL 100 MG TAB PO SCH (08:34)
[2022-08-26] MEDS: TAMSULOSIN HCL 0.4 MG CAP PO SCH (08:35)
[2022-08-26] MEDS: FOLIC ACID 1 MG TAB PO SCH (08:35)
[2022-08-26] MEDS: SODIUM CHLORIDE 0.9% 1000ML 1,000 ML IV SCH (08:35)
[2022-08-26] MEDS ORDERED: POTASSIUM CHLORIDE CRTAB 20 MEQ TABCR PO ONE (09:19)
--- NOTE | 2022-08-26 13:06 | Electrocardiogram Report ---
Test Reason : Blood Pressure : / mmHG Vent. Rate : 085 BPM Atrial Rate : 085 BPM P-R Int : 146 ms QRS Dur : 064 ms QT Int : 402 ms P-R-T Axes : 050 -02 006 degrees QTc Int : 478 ms Poor data quality, interpretation may be adversely affected Normal sinus rhythm Nonspecific ST and T wave abnormality Abnormal ECG When compared with ECG of 18-AUG-2022 14:35, ST more elevated in Lateral leads T wave inversion now evident in Inferior leads QT has lengthened Confirmed by Garcia Brice ([id number]) on 08/26/2022 1:05:58 PM Referred By: REFERRED SELF Confirmed By:Garcia Brice
[2022-08-26] MEDS: ADVANCED PROBIOTIC 1250 MG CAPSULE PO SCH (15:20)
[2022-08-26 15:31] LABS: Cdiff Toxin B Gene (2yr or >) Positive Cdiff Gene (Neg)
[2022-08-26 15:51] LABS: Adenovirus F 40/41 PCR Not Detected (NotDetected); Astrovirus PCR Not Detected (NotDetected); Campylobacter PCR Not Detected (NotDetected); Cryptosporidium PCR Not Detected (NotDetected); Cyclospora cayetanensis PCR Not Detected (NotDetected); Entamoeba histolytica PCR Not Detected (NotDetected); Enteroaggregative E.coli(EAEC) Not Detected (NotDetected); Enteropathogenic E.coli (EPEC) Not Detected (NotDetected); Enterotoxigenic E.coli (ETEC) Not Detected (NotDetected); Giardia lamblia PCR Not Detected (NotDetected); Norovirus GI/GII PCR Not Detected (NotDetected); Plesiomonas shigelloides PCR Not Detected (NotDetected); Rotavirus A PCR Not Detected (NotDetected); Salmonella PCR Not Detected (NotDetected); Sapovirus PCR Not Detected (NotDetected); Shiga-like Toxin E.coli (STEC) Not Detected (NotDetected); Shigella/Enteroinvasive E.coli Not Detected (NotDetected); Vibrio cholerae PCR Not Detected (NotDetected); Vibrio species PCR Not Detected (NotDetected); Yersinia enterocolitica PCR Not Detected (NotDetected)
--- NOTE | 2022-08-26 16:07 | Hospitalist Progress Note ---
Date of Service August 26, 2022 Assessment & Plan (1) Falls: (2) Ambulatory dysfunction: Plan: Patient presenting from home for evaluation of frequent falls. Recently admitted to [facility] 08/18-08/22 for metabolic encephalopathy due to UTI. Patient also found to have urinary retention and discharged with Kc catheter in place. Patient self removed the catheter upon returning home. Ambulatory dysfunction H/O multiple falls H/O clubfoot Fall precautions PT OT Left knee pain secondary to fall Left knee x-ray pending (3) Acute UTI: Plan: Suspected acute UTI Asymptomatic Blood cultures pending Urine culture preliminary no growth Empirically started on Zosyn--hold antibiotics for now Follow-up cultures Diarrhea Likely secondary to antibiotic Stool studies pending Monitor volume status (4) Elevated CK: Plan: CK 680, renal functions WNL Likely due to recurrent falls IVF, repeat CK level in a.m. (5) Bladder mass: Plan: US during last admission showed 7.9 cm pelvic mass appears to be within the urinary bladder and is suggestive of neoplasm. Correlation with cystoscopy recommended. Patient to see urology as an outpatient for follow-up (6) Urinary retention: Plan: Discharged with Kc catheter in place, unfortunately patient self remove catheter upon returning home Found to have ongoing urinary retention in the ED, Kc reinserted Continue Flomax (7) Alcohol abuse: Plan: No current use, alcohol level negative Continue thiamine and folic acid DVT Px SQ heparin CODE STATUS Full code Disposition Will likely need SNF placement Admission and Anticipated Discharge Date Admission Date: August 25, 2022 Subjective Patient is seen and examined at bedside States having left knee pain which he attributes to fall Had multiple loose bowel movements today Denies any chest pain, dyspnea, dizziness, nausea, vomiting, abdominal pain No other complaints Review of Systems Review of Systems: All systems reviewed & are unremarkable except as noted in Subjective Physical Exam Physical Exam: Physical Exam: Vitals signs as noted above General Appearance:Moderately built and nourished, no apparent distress, Chronic ill appearing Head: normocephalic, Atraumatic Eyes: normal inspection, EOMI Neck: supple, Trachea midline Respiratory/Chest: Normal breath sounds, CTA, No accessory muscle use Cardiovascular: S1, S2, No murmur Abdomen/GI:Soft, Non tender, Bowel sounds present Extremities/Musculoskeletal:normal inspection, Trace edema, R club foot, +Well healed surgical scars on B/L LE Neurologic/Psych:AAOX3, grossly no focal neurological deficits Skin: normal color, warm Results & Data Results & Data Vital Signs (Past 12 Hours) Vital Signs Temp Pulse Resp BP Pulse Ox O2 Del Method 08/26/22 15:12 36.9 C 69 16 120/62 97 Room Air 08/26/22 07:07 36.9 C 76 14 115/58 L 95 Room Air Laboratory Results Short CBC 08/26/22 Range/Units 06:51 WBC 12.47 H (4.8-10.8) K/ul Hgb 9.3 L (14.0-18.0) g/dl Hct 29.5 L (42.0-52.0) % Plt Count 276 (130-400) K/uL BMP 08/26/22 06:51 Sodium 143 Potassium 3.4 L Chloride 113 H Carbon Dioxide 23 BUN 21 Creatinine 1.10 Glucose 78 Calcium 8.5 L Cardiac Enzymes 08/26/22 Range/Units 06:51 Total Creatine Kinase 301 H (30-223) U/L Urine 08/25/22 Range/Units 15:35 Urine Color Dark Yellow Urine Appearance Turbid A (Clear) Urine pH 5.0 (4.5-7.5) Ur Specific [place] 1.015 (1.000-1.030) Urine Protein 1+ H (Negative) Urine Glucose (UA) Negative (Negative)
[2022-08-26 16:22] LABS: Cdiff Antigen Positive
[2022-08-26 16:24] LABS: Cdiff Toxin A+B Positive Cdiff Toxin (Negative)
[2022-08-26] MEDS: VANCOMYCIN HCL 125 MG/2.5ML SOLN PO SCH ×2 (17:17→23:51)
[2022-08-26] MEDS: RASPBERRY SYRUP 5 ML UDP PO SCH ×2 (17:17→23:50)
[2022-08-27] MEDS: VANCOMYCIN HCL 125 MG/2.5ML SOLN PO SCH ×3 (05:52→17:36)
[2022-08-27] MEDS: RASPBERRY SYRUP 5 ML UDP PO SCH ×3 (05:52→18:41)
[2022-08-27] MEDS: HEPARIN SOD 5,000 UNIT/0.5 ML VIAL SQ SCH ×3 (05:53→22:11)
[2022-08-27 07:21] LABS: Hematocrit (blood only) 32.1 % (42.0-52.0); Hemoglobin 10.2 g/dl (14.0-18.0); Mean Corpuscular Hemoglobin 25.6 pg (25.0-34.0); Mean Corpuscular Hgb Conc 31.8 g/dL (32.0-36.0); Mean Corpuscular Volume 80.5 fL (80.0-100.0); Mean Platelet Volume 9.3 fL (9.4-12.4); Platelet Count 283 K/uL (130-400); RDW Coefficient of Variation 15.9 % (11.5-14.5); RDW Standard Deviation 46.8 fL (36.4-46.3); Red Blood Count 3.99 M/uL (4.70-6.10); White Blood Count 19.31 K/ul (4.8-10.8)
[2022-08-27 07:41] LABS: BUN Creatinine Ratio 18.2 (10-20); Calcium 8.6 mg/dl (8.6-10.3); Creatinine Clr Calc Pharmacy 61.3 ml/min; Est GFR (African American) 99.3 ml/min; Est GFR (Non-African American) 85.7 ml/min; Magnesium 1.8 mg/dl (1.7-2.4); Potassium 3.2 mmol/L (3.5-5.1)
[2022-08-27] MEDS: ADVANCED PROBIOTIC 1250 MG CAPSULE PO SCH (07:44)
[2022-08-27] MEDS: THIAMINE HCL 100 MG TAB PO SCH (07:44)
[2022-08-27] MEDS: TAMSULOSIN HCL 0.4 MG CAP PO SCH (07:44)
[2022-08-27] MEDS: FOLIC ACID 1 MG TAB PO SCH (07:44)
--- NOTE | 2022-08-27 08:23 | XRay Report ---
LEFT KNEE 3 VIEWS CLINICAL HISTORY: Fall with left knee pain. FINDINGS: Portable AP, crosstable lateral, and sunrise views of the left knee are compared to study d ated 05/06/2021. The skeletal structures are osteopenic. No acute fracture is seen. A hinged left knee arthroplasty is in near anatomic alignment. No periprosthetic lucency is identified. There has been undersurface remodeling of the patella. There is a small joint effusion. Mild prepatellar soft tissue swelling is observed. There is advanced atherosclerotic calcification of the popliteal artery. IMPRESSION: 1. No acute fracture is seen. 2. A left knee arthroplasty is in near anatomic alignment. Electronically signed by: Ezequiel Bryant M.D. 08/27/2022 8:22 AM
[2022-08-27] MEDS: POTASSIUM CHLORIDE CRTAB 20 MEQ TABCR PO SCH ×2 (10:21→22:10)
[2022-08-27] MEDS ORDERED: SODIUM CHLORIDE 0.9% 1000ML 1,000 ML IV SCH (13:00)
--- NOTE | 2022-08-27 17:33 | Hospitalist Progress Note ---
Date of Service August 27, 2022 Assessment & Plan (1) Falls: (2) Ambulatory dysfunction: Plan: Patient presenting from home for evaluation of frequent falls. Recently admitted to [facility] 08/18-08/22 for metabolic encephalopathy due to UTI. Patient also found to have urinary retention and discharged with Kc catheter in place. Patient self removed the catheter upon returning home. Ambulatory dysfunction H/O multiple falls H/O clubfoot Fall precautions PT OT Left knee pain secondary to fall Left knee x-ray: No acute fractures Plan to discharge to rehab facility as able (3) Acute UTI: Plan: UTI ruled out Asymptomatic Blood cultures no growth to date Urine culture : Asha, 20 K Asymptomatic No treatment required C. difficile colitis Stool studies positive for C. difficile Gentle IV fluids as needed Continue p.o. vancomycin Monitor volume status (4) Elevated CK: Plan: CK 680, renal functions WNL Likely due to recurrent falls Received IV fluids (5) Bladder mass: Plan: US during last admission showed 7.9 cm pelvic mass appears to be within the urinary bladder and is suggestive of neoplasm. Correlation with cystoscopy recommended. Patient to see urology as an outpatient for follow-up (6) Urinary retention: Plan: Discharged with Kc catheter in place, unfortunately patient self remove catheter upon returning home Found to have ongoing urinary retention in the ED, Kc reinserted Continue Flomax (7) Alcohol abuse: Plan: No current use, alcohol level negative Continue thiamine and folic acid DVT Px SQ heparin CODE STATUS Full code Disposition SNF as able Admission and Anticipated Discharge Date Admission Date: August 26, 2022 Subjective Patient is seen and examined at bedside States having less diarrhea today Denies any chest pain, dyspnea, dizziness, nausea, vomiting, abdominal pain No other complaints Review of Systems Review of Systems: All systems reviewed & are unremarkable except as noted in Subjective Physical Exam Physical Exam: Physical Exam: Vitals signs as noted above General Appearance:Moderately built and nourished, no apparent distress, Chronic ill appearing Head: normocephalic, Atraumatic Eyes: normal inspection, EOMI Neck: supple, Trachea midline Respiratory/Chest: Normal breath sounds, CTA, No accessory muscle use Cardiovascular: S1, S2, No murmur Abdomen/GI:Soft, Non tender, Bowel sounds present Extremities/Musculoskeletal:normal inspection, Trace edema, R club foot, +Well healed surgical scars on B/L LE Neurologic/Psych:AAOX3, grossly no focal neurological deficits Skin: normal color, warm Results & Data Results & Data Vital Signs (Past 12 Hours) Vital Signs Temp Pulse Resp BP Pulse Ox O2 Del Method 08/27/22 15:25 37.2 C 92 H 18 124/60 95 Room Air 08/27/22 08:33 37.1 C 79 17 132/64 96 Room Air Laboratory Results Short CBC 08/27/22 Range/Units 07:00 WBC 19.31 H (4.8-10.8) K/ul Hgb 10.2 L (14.0-18.0) g/dl Hct 32.1 L (42.0-52.0) % Plt Count 283 (130-400) K/uL BMP 08/27/22 07:00 Sodium 142 Potassium 3.2 L Chloride 113 H Carbon Dioxide 22 BUN 14 Creatinine 0.77 D Glucose 79 Calcium 8.6
[2022-08-28] MEDS: RASPBERRY SYRUP 5 ML UDP PO SCH ×5 (00:32→22:27)
[2022-08-28] MEDS: VANCOMYCIN HCL 125 MG/2.5ML SOLN PO SCH ×5 (00:32→22:27)
[2022-08-28] MEDS: HEPARIN SOD 5,000 UNIT/0.5 ML VIAL SQ SCH ×3 (05:35→22:26)
[2022-08-28] MEDS: THIAMINE HCL 100 MG TAB PO SCH (07:38)
[2022-08-28] MEDS: TAMSULOSIN HCL 0.4 MG CAP PO SCH (07:38)
[2022-08-28] MEDS: ADVANCED PROBIOTIC 1250 MG CAPSULE PO SCH (07:38)
[2022-08-28] MEDS: POTASSIUM CHLORIDE CRTAB 20 MEQ TABCR PO SCH ×2 (07:38→19:59)
[2022-08-28] MEDS: FOLIC ACID 1 MG TAB PO SCH (07:38)
[2022-08-28 08:14] LABS: Hematocrit (blood only) 33.7 % (42.0-52.0); Hemoglobin 10.7 g/dl (14.0-18.0); Mean Corpuscular Hemoglobin 25.4 pg (25.0-34.0); Mean Corpuscular Hgb Conc 31.8 g/dL (32.0-36.0); Platelet Count 281 K/uL (130-400); Red Blood Count 4.21 M/uL (4.70-6.10); White Blood Count 15.82 K/ul (4.8-10.8)
[2022-08-28 08:24] LABS: BUN Creatinine Ratio 11.8 (10-20); Calcium 8.7 mg/dl (8.6-10.3); Creatinine Clr Calc Pharmacy 55.6 ml/min; Est GFR (African American) 95.4 ml/min; Est GFR (Non-African American) 82.3 ml/min; Magnesium 1.6 mg/dl (1.7-2.4)
[2022-08-28] MEDS ORDERED: MAGNESIUM SULFATE / D5W 1 GM/100 ML BAG IV ONE (09:14)
--- NOTE | 2022-08-28 16:10 | Hospitalist Progress Note ---
Date of Service August 28, 2022 Assessment & Plan (1) Falls: (2) Ambulatory dysfunction: Plan: Patient presenting from home for evaluation of frequent falls. Recently admitted to [facility] 08/18-08/22 for metabolic encephalopathy due to UTI. Patient also found to have urinary retention and discharged with Kc catheter in place. Patient self removed the catheter upon returning home. Ambulatory dysfunction H/O multiple falls H/O clubfoot Fall precautions PT OT Left knee pain secondary to fall Left knee x-ray: No acute fractures Waiting for rehab placement (3) Acute UTI: Plan: UTI ruled out Asymptomatic Blood cultures no growth to date Urine culture : Asha, 20 K Asymptomatic No treatment required C. difficile colitis Stool studies positive for C. difficile Gentle IV fluids as needed Continue p.o. vancomycin Monitor volume status Continue current management (4) Elevated CK: Plan: CK 680, renal functions WNL Likely due to recurrent falls Received IV fluids CK improved to 301 (5) Bladder mass: Plan: US during last admission showed 7.9 cm pelvic mass appears to be within the urinary bladder and is suggestive of neoplasm. Correlation with cystoscopy recommended. Patient to see urology as an outpatient for follow-up (6) Urinary retention: Plan: Discharged with Kc catheter in place, unfortunately patient self remove catheter upon returning home Found to have ongoing urinary retention in the ED, Kc reinserted Continue Flomax (7) Alcohol abuse: Plan: No current use, alcohol level negative Continue thiamine and folic acid DVT Px SQ heparin CODE STATUS Full code Disposition Rehab when accepted Admission and Anticipated Discharge Date Admission Date: August 26, 2022 Subjective Patient is seen and examined at bedside No diarrhea today per patient Waiting for rehab placement Denies any chest pain, dyspnea, dizziness, nausea, vomiting, abdominal pain Review of Systems Review of Systems: All systems reviewed & are unremarkable except as noted in Subjective Physical Exam Physical Exam: Physical Exam: Vitals signs as noted above General Appearance:Moderately built and nourished, no apparent distress, Chronic ill appearing Head: normocephalic, Atraumatic Eyes: normal inspection, EOMI Neck: supple, Trachea midline Respiratory/Chest: Normal breath sounds, CTA, No accessory muscle use Cardiovascular: S1, S2, No murmur Abdomen/GI:Soft, Non tender, Bowel sounds present Extremities/Musculoskeletal:normal inspection, Trace edema, R club foot, +Well healed surgical scars on B/L LE Neurologic/Psych:AAOX3, grossly no focal neurological deficits Skin: normal color, warm Results & Data Results & Data Vital Signs (Past 12 Hours) Vital Signs Temp Pulse Resp BP Pulse Ox O2 Del Method 08/28/22 15:06 37.3 C 76 18 111/63 96 Room Air 08/28/22 07:32 37.3 C 86 18 121/54 L 95 Room Air Laboratory Results Short CBC 08/28/22 Range/Units 07:50 WBC 15.82 H (4.8-10.8) K/ul Hgb 10.7 L (14.0-18.0) g/dl Hct 33.7 L (42.0-52.0) % Plt Count 281 (130-400) K/uL BMP 08/28/22 07:50 Sodium 140 Potassium 4.0 D Chloride 112 H Carbon Dioxide 23 BUN 10 Creatinine 0.85 Glucose 86 Calcium 8.7
[2022-08-29] MEDS: VANCOMYCIN HCL 125 MG/2.5ML SOLN PO SCH ×3 (05:00→17:38)
[2022-08-29] MEDS: RASPBERRY SYRUP 5 ML UDP PO SCH ×3 (05:00→17:38)
[2022-08-29] MEDS: HEPARIN SOD 5,000 UNIT/0.5 ML VIAL SQ SCH ×3 (05:00→21:35)
[2022-08-29 06:56] LABS: Hematocrit (blood only) 31.8 % (42.0-52.0); Hemoglobin 10.2 g/dl (14.0-18.0); Mean Corpuscular Hemoglobin 25.2 pg (25.0-34.0); Mean Corpuscular Hgb Conc 32.1 g/dL (32.0-36.0); Mean Corpuscular Volume 78.7 fL (80.0-100.0); Mean Platelet Volume 9.1 fL (9.4-12.4); Platelet Count 257 K/uL (130-400); RDW Coefficient of Variation 15.8 % (11.5-14.5); RDW Standard Deviation 45.3 fL (36.4-46.3); Red Blood Count 4.04 M/uL (4.70-6.10)
[2022-08-29 07:10] LABS: BUN Creatinine Ratio 11.1 (10-20); Calcium 8.9 mg/dl (8.6-10.3); Creatinine Clr Calc Pharmacy 37.5 ml/min; Est GFR (Non-African American) 53.5 ml/min; Magnesium 1.7 mg/dl (1.7-2.4); Potassium 4.6 mmol/L (3.5-5.1)
[2022-08-29] MEDS: POTASSIUM CHLORIDE CRTAB 20 MEQ TABCR PO SCH (08:33)
[2022-08-29] MEDS: FOLIC ACID 1 MG TAB PO SCH (08:34)
[2022-08-29] MEDS: TAMSULOSIN HCL 0.4 MG CAP PO SCH (08:34)
[2022-08-29] MEDS: ADVANCED PROBIOTIC 1250 MG CAPSULE PO SCH (08:34)
[2022-08-29] MEDS: THIAMINE HCL 100 MG TAB PO SCH (08:35)
[2022-08-29] MEDS ORDERED: SODIUM CHLORIDE 0.9% 1000ML 1,000 ML IV ONE (09:25)
--- NOTE | 2022-08-29 12:55 | Hospitalist Progress Note ---
Date of Service August 29, 2022 Assessment & Plan (1) Falls: (2) Ambulatory dysfunction: Plan: Patient presenting from home for evaluation of frequent falls. Recently admitted to [facility] 08/18-08/22 for metabolic encephalopathy due to UTI. Patient also found to have urinary retention and discharged with Kc catheter in place. Patient self removed the catheter upon returning home. Ambulatory dysfunction H/O multiple falls H/O clubfoot Fall precautions continue PT OT Left knee pain secondary to fall Left knee x-ray: No acute fractures Patient improved with ambulation while hospitalized, reevaluated with PT recommends can return home Patient not interested in rehab placement Advised to get home health involved. (3) Acute UTI: Plan: UTI ruled out Asymptomatic Blood cultures no growth to date Urine culture : Asha, 20 K Asymptomatic No treatment required C. difficile colitis Stool studies positive for C. difficile Gentle IV fluids as needed Continue p.o. vancomycin Monitor volume status Continue current management (4) Elevated CK: Plan: CK 680, renal functions WNL Likely due to recurrent falls Received IV fluids CK improved to 301 (5) Bladder mass: Plan: US during last admission showed 7.9 cm pelvic mass appears to be within the uri nary bladder and is suggestive of neoplasm. Correlation with cystoscopy recommended. Patient to see urology as an outpatient for follow-up (6) Urinary retention: Plan: Discharged with Kc catheter in place, unfortunately patient self remove catheter upon returning home Found to have ongoing urinary retention in the ED, Kc reinserted Continue Flomax (7) Alcohol abuse: Plan: No current use, alcohol level negative Continue thiamine and folic acid DVT Px SQ heparin CODE STATUS Full code Disposition Home with Admission and Anticipated Discharge Date Admission Date: August 26, 2022 Subjective Patient is seen and examined at bedside No new complaints Eager to get discharged Evaluated by PT this morning, stable for discharge per PT Denies having any diarrhea today Denies any chest pain, dyspnea, dizziness, nausea, vomiting, abdominal pain Plan to discharge home today Review of Systems Review of Systems: All systems reviewed & are unremarkable except as noted in Subjective Physical Exam Physical Exam: Physical Exam: Vitals signs as noted above General Appearance:Moderately built and nourished, no apparent distress, Chronic ill appearing Head: normocephalic, Atraumatic Eyes: normal inspection, EOMI Neck: supple, Trachea midline Respiratory/Chest: Normal breath sounds, CTA, No accessory muscle use Cardiovascular: S1, S2, No murmur Abdomen/GI:Soft, Non tender, Bowel sounds present Extremities/Musculoskeletal:normal inspection, Trace edema, R club foot, +Well healed surgical scars on B/L LE Neurologic/Psych:AAOX3, grossly no focal neurological deficits Skin: normal color, warm Results & Data Results & Data Vital Signs (Past 12 Hours) Vital Signs Temp Pulse Resp BP Pulse Ox O2 Del Method 08/29/22 07:06 36.8 C 68 16 119/60 94 Room Air Laboratory Results Short CBC 08/29/22 Range/Units 06:34 WBC 13.50 H (4.8-10.8) K/ul Hgb 10.2 L (14.0-18.0) g/dl Hct 31.8 L (42.0-52.0) % Plt Count 257 (130-400) K/uL BMP 08/29/22 06:34 Sodium 138 Potassium 4.6 Chloride 110 H Carbon Dioxide 22 BUN 14 Creatinine 1.26 D Glucose 87 Calcium 8.9
--- NOTE | 2022-08-29 14:30 | Communication Note ---
Date of Service: August 29, 2022 Patient accepted to go to rehab given history of multiple falls. Family prefers patient to go to rehab as well. Plan to discharge to rehab facility when a ccepted. Case management helping with discharge planning.
[2022-08-30] MEDS: RASPBERRY SYRUP 5 ML UDP PO SCH ×4 (00:41→18:28)
[2022-08-30] MEDS: VANCOMYCIN HCL 125 MG/2.5ML SOLN PO SCH ×4 (00:43→18:28)
[2022-08-30] MEDS: HEPARIN SOD 5,000 UNIT/0.5 ML VIAL SQ SCH ×3 (05:25→21:23)
[2022-08-30 07:28] LABS: Hematocrit (blood only) 30.3 % (42.0-52.0); Hemoglobin 9.8 g/dl (14.0-18.0); Mean Corpuscular Hemoglobin 24.9 pg (25.0-34.0); Mean Corpuscular Hgb Conc 32.3 g/dL (32.0-36.0); Mean Corpuscular Volume 76.9 fL (80.0-100.0); Mean Platelet Volume 9.2 fL (9.4-12.4); Platelet Count 259 K/uL (130-400); RDW Coefficient of Variation 15.9 % (11.5-14.5); RDW Standard Deviation 44.1 fL (36.4-46.3); Red Blood Count 3.94 M/uL (4.70-6.10); White Blood Count 15.96 K/ul (4.8-10.8)
[2022-08-30 08:23] LABS: BUN Creatinine Ratio 14.5 (10-20); Calcium 8.6 mg/dl (8.6-10.3); Creatinine Clr Calc Pharmacy 56.9 ml/min; Est GFR (African American) 96.3 ml/min; Est GFR (Non-African American) 83.1 ml/min; Magnesium 1.7 mg/dl (1.7-2.4); Potassium 4.1 mmol/L (3.5-5.1)
--- NOTE | 2022-08-30 09:25 | Hospitalist Progress Note ---
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 Avoid sedating medications, cont with vitamin/mineral replacement. TOV today to see if sandoval can be removed so not an obstacle for movement. Cont treating diarrhea. Plans for rehab. (2) Ambulatory dysfunction: Plan: plan is for rehab (3) C. difficile diarrhea: Plan: Continues on vancomycin QID and already had 3 BMs, starting to form up per patient. Pt was seen coming out of bathroom without washing hands. He was educated on the importance of washing thoroughly with soap and water after toileting and prior to eating or food prep. Verbalized understanding with intent to comply. (4) Acute UTI: Plan: recent UTI from 08/18 2/2 E coli that was treated. Not currently on abx (x Vanc for c diff). Removing sandoval now as UTI treated and on Flomax. (5) Bladder mass: Plan: Urology for outpatient cystoscopy as the current plan. (6) Urinary retention: Plan: TOV today, remove sandoval (7) Hypomagnesemia: Plan: multifactorial with etiologies including but not limited to ongoing alcohol use, diarrhea from c diff infection and poor nutrition. Replacement started. (8) Alcohol abuse: Plan: per son on last admission, patient drinks mostly on the weekend and at most reported to be 2-3 beers. No signs or symptoms of withdrawal today. Would avoid alcohol given history of falls. Heparin Full Code Dispo- to rehab, medically stable for discharge when bed is available. Caryn Atkins DO [facility] Hospitalist Admission and Anticipated Discharge Date Admission Date: August 26, 2022 Subjective 82 yo M admitted for frequent falls reporting no pain or dysuria today states he is eating and feels well waiting on OK to get to rehab via son Says going to [facility] disoriented to date Sandoval still in place, patient doesn't know why and appears to not understand it was even there. Physical Exam Physical Exam: CONSTITUTIONAL: WNWD, vitals as above, generally well-appearing, NAD EYES: normal conjunctivae, no scleral icterus ENT: external ear and nose normal, MMM NECK: trachea midline RESPIRATORY: clear to auscultation bilaterally, no crackles, rales or wheezes, normal respiratory effort CARDIOVASCULAR: regular rate and rhythm, S1 and 2 heard without murmurs, gallops or rubs, no JVD, no peripheral edema CHEST: inspection of chest was normal GASTROINTESTINAL: soft, nontender, ND, MUSCULOSKELETAL: able to sit up independently in bed, no gross focal deficits throughout, head is normocephalic and atraumatic, congenital abnormalities to right foot, 5/5 dorsi/plantarflexion and 5/5 flexion/extension of knees bilaterally. SKIN: warm and dry NEUROLOGIC: CN 2-12 grossly intact, no sensory deficit, normal cognition, normal speech, no tremor PSYCHIATRIC: alert cooperative and oriented to person and place (says Apr 02, 2023) Results & Data Results & Data Vital Signs (Past 12 Hours) Vital Signs Temp Pulse Resp BP Pulse Ox O2 Del Method 08/30/22 07:27 37.2 C 82 16 110/67 94 Room Air 08/29/22 22:34 37.2 C 76 16 121/69 96 Room Air Laboratory Results Short CBC 08/30/22 Range/Units 07:04 WBC 15.96 H (4.8-10.8) K/ul Hgb 9.8 L (14.0-18.0) g/dl Hct 30.3 L (42.0-52.0) % Plt Count 259 (130-400) K/uL BMP 08/30/22 07:04 Sodium 139 Potassium 4.1 Chloride 110 H Carbon Dioxide 23 BUN 12 Creatinine 0.83 D Glucose 88 Calcium 8.6 Medications Administered Current Inpatient Medications Acetaminophen (Acetaminophen 325 Mg Tab) 650 mg PO Q4H PRN PRN Reason: pain/fever Stop: 09/24/22 20:41 Folic Acid (Folic Acid 1 Mg Tab) 1 mg PO QAM [facility] Stop: 09/25/22 08:59 Last Admin: 08/29/22 08:34 Dose: 1 mg Heparin Sodium (Porcine) (Heparin Sod 5,000 Unit/0.5 Ml Vial) 5,000 units SQ Q8 [facility] Stop: 09/24/22 21:59 Last Admin: 08/30/22 05:25 Dose: 5,000 units Lactobacillus Acidophilus (Advanced Probiotic 1250 Mg Capsule) 2 cap PO DAILY [facility] Stop: 09/25/22 14:14 Last Admin: 08/29/22 08:34 Dose: 2 cap Magnesium Oxide (Magnesium Oxide 400 Mg Tab) 400 mg PO BID [facility] Stop: 09/29/22 08:59 Raspberry (Raspberry Syrup 5 Ml Udp) 5 ml PO Q6 [facility] Stop: 09/05/22 17:59 Last Admin: 08/30/22 05:24 Dose: 5 ml Tamsulosin HCl (Tamsulosin Hcl 0.4 Mg Cap) 0.4 mg PO QAM [facility] Stop: 09/25/22 08:59 Last Admin: 08/29/22 08:34 Dose: 0.4 mg Thiamine HCl (Thiamine Hcl 100 Mg Tab) 100 mg PO QAM [facility] Stop: 09/25/22 08:59 Last Admin: 08/29/22 08:35 Dose: 100 mg Vancomycin HCl (Vancomycin Hcl 125 Mg/2.5ml Soln) 125 mg PO Q6 [facility] Stop: 09/05/22 17:59 Last Admin: 08/30/22 05:24 Dose: 125 mg
[2022-08-30] MEDS: FOLIC ACID 1 MG TAB PO SCH (10:14)
[2022-08-30] MEDS: ADVANCED PROBIOTIC 1250 MG CAPSULE PO SCH (10:14)
[2022-08-30] MEDS: MAGNESIUM OXIDE 400 MG TAB PO SCH ×2 (10:14→20:01)
[2022-08-30] MEDS: TAMSULOSIN HCL 0.4 MG CAP PO SCH (10:15)
[2022-08-30] MEDS: THIAMINE HCL 100 MG TAB PO SCH (10:15)
[2022-08-31] MEDS: RASPBERRY SYRUP 5 ML UDP PO SCH ×5 (00:27→23:20)
[2022-08-31] MEDS: VANCOMYCIN HCL 125 MG/2.5ML SOLN PO SCH ×4 (00:27→23:20)
[2022-08-31] MEDS: HEPARIN SOD 5,000 UNIT/0.5 ML VIAL SQ SCH ×3 (05:47→20:16)
[2022-08-31] MEDS: THIAMINE HCL 100 MG TAB PO SCH (09:06)
[2022-08-31] MEDS: TAMSULOSIN HCL 0.4 MG CAP PO SCH (09:06)
[2022-08-31] MEDS: MAGNESIUM OXIDE 400 MG TAB PO SCH ×2 (09:06→20:16)
[2022-08-31] MEDS: ADVANCED PROBIOTIC 1250 MG CAPSULE PO SCH (09:06)
[2022-08-31] MEDS: FOLIC ACID 1 MG TAB PO SCH (09:07)
--- NOTE | 2022-08-31 09:50 | Hospitalist Progress Note ---
Date of Service August 31, 2022 Assessment & Plan (1) Sepsis associated hypotension: Plan: Possibly developing sepsis. Sepsis protocol initiated for the floor. Initial goal of care is fluid resuscitation with LR boluses. Communicated to RN to hold sending patient to CT until SBP>100. He continues on the vanc PO but adding empiric Vanc IV and Cepefime IV. Patient has multiple recent hospital stays and risk factors for both MRSA and Pseudomonas. He denies any abdominal discomfort, and abdominal exam is unchanged from yesterday. CT abd/pelv ordered after initial fluid resuscitation. CXR, EKG, blood cultures and urine cultures ordered. Lactate returned 2.6, procalcitonin pending. I updated son by phone about the change in status with his dad today. (2) C. difficile diarrhea: Plan: Continues on vancomycin QID and with new signs of possible developing fulminant disease (elevated WBC, hypotension) will increase dose to 500mg QID and add Flagyl IV now. CT abd/pel. NPO until ileus/megacolon is ruled out. If evidence of this, will consult general surgery. 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 Avoid sedating medications, cont with vitamin/mineral replacement. Appears to have passed TOV overnight and is spontaneously voiding. Cont treating diarrhea. Plans for rehab. (4) Ambulatory dysfunction: Plan: plan is for rehab, however, patient states today that his son is coming to pick him up and he is sick. (5) Acute UTI: Plan: ruled out. recent UTI from 08/18 2/2 E coli that was treated. Not currently on abx (x Vanc for c diff). Passed TOV, cont Flomax. (6) Bladder mass: Plan: Urology for outpatient cystoscopy as the current plan. (7) Urinary retention: Plan: appears to have resolved. Cont Flomax (8) Hypomagnesemia: Plan: multifactorial with etiologies including but not limited to ongoing alcohol use, diarrhea from c diff infection and poor nutrition. Oral replacement started. Mg 1.5 today, cont to monitor. (9) Alcohol abuse: Plan: per son on last admission, patient drinks mostly on the weekend and at most reported to be 2-3 beers. No signs or symptoms of withdrawal today. Would avoid alcohol given history of falls. Heparin Full Code Dispo- to PCU. Spoke with bunch breaker in PCU and on 3rd floor. Communicated with primary RN for the patient. Communicated with patient's son about the change in status. Will cont to re-evaluate the patient until he is resuscitated. Will plan to repeat lactate in 2 hours. I spent a total of60 minutes coordinating, documenting, and providing critical care for this patient. Caryn Atkins DO [facility] Hospitalist Plan Reassessed at 1500 and BP is now 96 systolic with HR improved to <100bpm. Appears resuscitated at this time after 1.5L IVF. Vanc IV hanging now which provides another 500cc bolus of IVF for additional support. Cefepime just pushed. CT abd/pel pending. CXR reveals mild pulmonary edema, so holding any additional IVF at this time. Cont NPO until results from CT a/p return. CBC reveals an increase in WBC to 17K (trending up over last couple of days (13.5>16>17.4), H/H stbale. Left shift noted on differential. Chem panel reveals NA 137, K 4.5, normal bicarb and BUN 21 with creat 1.3. Lactate was initially 2.6 with repeat 1.1. Procalcitonin slightly elevated at 0.89. Blood cultures are pending and urine sample not yet collected. Will perform sample via straight cath given h/o urinary retention. Son updated at bedside. DO Wilbert Admission and Anticipated Discharge Date Admission Date: August 26, 2022 Subjective 82 yo M admitted for frequent falls Contacted by RN that there was a change in vitals: 106/49, HR 102, T 39.5 O2 sat 94% And that patient had shaking chills Patient was given Tylenol for the fever On exam at bedside, he is nontoxic appearing. Hasn't touched his lunch Reports no appetite Very annoyed with my questions and not forthcoming with information Denies paini in abdomen Feels diarrhea is improving Denies trouble breathing Doesn't know if he had a fever or not Asked if the Tylenol he just received made him feel better, and he was unable to answer the question. Review of Systems Review of Systems: All systems were reviewed and negative except as indicated on subjective above. Physical Exam Physical Exam: By my check BP 72/39 HR 96 CONSTITUTIONAL: WNWD, vitals as above, generally well-appearing, NAD EYES: normal conjunctivae, no scleral icterus ENT: external ear and nose normal, MMM NECK: trachea midline RESPIRATORY: clear to auscultation bilaterally, no crackles, rales or wheezes, normal respiratory effort CARDIOVASCULAR: regular rate and rhythm, S1 and 2 heard without murmurs, gallops or rubs, no JVD, no peripheral edema CHEST: inspection of chest was normal GASTROINTESTINAL: soft, nontender, ND, MUSCULOSKELETAL: able to sit up independently in bed, no gross focal deficits throughout, head is normocephalic and atraumatic, congenital abnormalities to right foot, 5/5 dorsi/plantarflexion and 5/5 flexion/extension of knees bilaterally. SKIN: warm and dry NEUROLOGIC: CN 2-12 grossly intact, no sensory deficit, normal cognition, normal speech, no tremor PSYCHIATRIC: alert cooperative and oriented to person and place (says Apr 02, 2023) Results & Data Results & Data Vital Signs (Past 12 Hours) Vital Signs Temp Pulse Resp BP Pulse Ox O2 Del Method 08/31/22 13:27 37.4 C 113 H 16 93/48 L 94 Room Air 08/31/22 09:55 36.6 C 88 18 128/84 93 Room Air 08/31/22 12:12 39.5 C H 102 H 18 106/49 L 94 Room Air 08/31/22 07:45 Room Air 08/30/22 21:37 37.0 C 90 16 115/67 97 Room Air 08/30/22 15:34 36.9 C 81 16 126/67 95 Room Air Intake and Output 08/30/22 08/31/22 08/31/22 22:59 06:59 14:59 Intake Total 506.4 / 506.4 Output Total 200 / 901 200 / 901 250 / 250 Balance -200 / -901 -200 / -901 256.4 / 256.4 Intake: IV 266.4 / 266.4 Lactated Ringer's 500 ml @ 999 266.4 / 266.4 mls/hr IV .Q31M ONE Rx#: [id number] Oral 240 / 240 Output: Urine 200 / 400 200 / 400 250 / 250 # Bowel Movements 0 / 0 Other: # Unmeasured Voids 1 1 # Urine Diapers 1 Laboratory Results Short CBC 08/31/22 Range/Units 13:08 WBC 17.43 H (4.8-10.8) K/ul Hgb 10.6 L (14.0-18.0) g/dl Hct 32.7 L (42.0-52.0) % Plt Count 287 (130-400) K/uL Medications Administered Current Inpatient Medications Acetaminophen (Acetaminophen 325 Mg Tab) 650 mg PO Q4H PRN PRN Reason: pain/fever Stop: 09/24/22 20:41 Folic Acid (Folic Acid 1 Mg Tab) 1 mg PO QAM [facility] Stop: 09/25/22 08:59 Last Admin: 08/31/22 09:07 Dose: 1 mg Heparin Sodium (Porcine) (Heparin Sod 5,000 Unit/0.5 Ml Vial) 5,000 units SQ Q8 [facility] Stop: 09/24/22 21:59 Last Admin: 08/31/22 05:47 Dose: 5,000 units Lactobacillus Acidophilus (Advanced Probiotic 1250 Mg Capsule) 2 cap PO DAILY [facility] Stop: 09/25/22 14:14 Last Admin: 08/31/22 09:06 Dose: 2 cap Magnesium Oxide (Magnesium Oxide 400 Mg Tab) 400 mg PO BID [facility] Stop: 09/29/22 08:59 Last Admin: 08/31/22 09:06 Dose: 400 mg Raspberry (Raspberry Syrup 5 Ml Udp) 5 ml PO Q6 [facility] Stop: 09/05/22 17:59 Last Admin: 08/31/22 05:47 Dose: 5 ml Tamsulosin HCl (Tamsulosin Hcl 0.4 Mg Cap) 0.4 mg PO QAM [facility] Stop: 09/25/22 08:59 Last Admin: 08/31/22 09:06 Dose: 0.4 mg Thiamine HCl (Thiamine Hcl 100 Mg Tab) 100 mg PO QAM [facility] Stop: 09/25/22 08:59 Last Admin: 08/31/22 09:06 Dose: 100 mg Vancomycin HCl (Vancomycin Hcl 125 Mg/2.5ml Soln) 125 mg PO Q6 [facility] Stop: 09/05/22 17:59 Last Admin: 08/31/22 05:47 Dose: 125 mg
[2022-08-31] MEDS ORDERED: VANCOMYCIN HCL 1,250 MG in SODIUM CHLORIDE 0.9% 500 ML IV ONE (12:55)
[2022-08-31] MEDS ORDERED: VANCOMYCIN CONSULT ACTIVE PRN (12:55)
[2022-08-31] MEDS ORDERED: LACTATED RINGER'S 500 ML IV ONE (12:59)
[2022-08-31] MEDS ORDERED: LACTATED RINGER'S 1,000 ML IV SCH (13:00)
[2022-08-31] MEDS ORDERED: VANCOMYCIN HCL 1,500 MG in SODIUM CHLORIDE 0.9% 500 ML IV ONE (13:15)
--- NOTE | 2022-08-31 13:34 | Pharmacy Report ---
Pharmacy PK ABX Note - Date of Service August 31, 2022 - Assessment and Plan Assessment * 82 year old M receiving vanco po for C. diff since 08/26. Cefepime and vancomycin added 08/31 empirically. New onset fever noted. Transferred from 3N to 2S today. * Pertinent microbiologic data includes: * 08/25 Blood cultures - No growth * 08/26 Stool - C. diff gene and toxin positive * 08/31 Blood cultures - pending * SCr with notable rise since yesterday Plan Vancomycin * Loading dose: 1500 mg IV x1 * Target AUC/NENA of 400-600 mg/L.hr * Dosing via level for now 2nd unstable SCr. * Indication was empiric x48 hours initially Pharmacy will continue to follow and will adjust dose/frequency as necessary. Thank you. Pharmacy has transitioned to AUC monitoring for vancomycin. AUC/NENA is the preferred PK/PD target and is associated with decreased risk of nephrotoxicity compared to traditional trough targets.
[2022-08-31] MEDS ORDERED: LACTATED RINGER'S 1,000 ML IV ONE (13:36)
[2022-08-31 13:40] LABS: Basophils # (auto) 0.07 K/uL (0-0.2); Basophils % (auto) 0.4 %; Eosinophils # (auto) 1.65 K/uL (0-0.50); Eosinophils % (auto) 9.5 %; Hematocrit (blood only) 32.7 % (42.0-52.0); Hemoglobin 10.6 g/dl (14.0-18.0); Immature Granulocytes # (auto) 0.12 K/uL (0.01-0.20); Immature Granulocytes % (auto) 0.7 %; Mean Corpuscular Hemoglobin 25.4 pg (25.0-34.0); Mean Corpuscular Hgb Conc 32.4 g/dL (32.0-36.0); Mean Corpuscular Volume 78.2 fL (80.0-100.0); Mean Platelet Volume 9.2 fL (9.4-12.4); Monocytes # (auto) 0.74 K/uL (0.11-0.59); Monocytes % (auto) 4.2 %; Neutrophils # (auto) 14.15 K/uL (1.40-6.50); Neutrophils % (auto) 81.2 %; Platelet Count 287 K/uL (130-400); RDW Standard Deviation 45.2 fL (36.4-46.3); Red Blood Count 4.18 M/uL (4.70-6.10); White Blood Count 17.43 K/ul (4.8-10.8)
[2022-08-31 13:45] LABS: BUN Creatinine Ratio 16.2 (10-20); Calcium 8.7 mg/dl (8.6-10.3); Creatinine Clr Calc Pharmacy 36.3 ml/min; Est GFR (African American) 59.7 ml/min; Est GFR (Non-African American) 51.5 ml/min; Potassium 4.5 mmol/L (3.5-5.1)
--- NOTE | 2022-08-31 14:08 | XRay Report ---
XR chest 1V portable CLINICAL HISTORY: Sepsis TECHNIQUE: Single frontal radiograph of the chest was obtained. Comparison: Comparison is made to chest radiograph 08/26/2019 FINDINGS: No lines and tubes are seen. Cardiomegaly is noted. Prominence and cephalization of the vasculature i s seen. No evidence of pleural effusion or pneumothorax. IMPRESSION: Mild pulmonary edema. ACT 112: Negative or not required by law. Electronically signed by: Larry Mercado M.D. 08/31/2022 2:06 PM
[2022-08-31] MEDS ORDERED: metroNIDAZOLE 500 MG/100 ML BAG IV SCH (14:30)
[2022-08-31] MEDS: CEFEPIME 2,000 MG in SYRINGE 0 ML IV SCH (14:50)
[2022-08-31 16:38] LABS: Appearance Urine Turbid (Clear); Bilirubin Urine Negative (Negative); Blood Urine 3+ (Negative); Color Urine Orange; Glucose Urine UA Negative (Negative); Ketones Urine Trace (Negative); Leukocyte Esterase Urine 3+ (Negative); Nitrite Urine Positive (Negative); Protein Urine 2+ (Negative); Specific Gravity Urine 1.015 (1.000-1.030); Urobilinogen Urine Negative (Negative); WBC Urine Automated >30 /hpf (0-5); pH Urine 5.5 (4.5-7.5)
[2022-08-31 16:48] LABS: Bacteria Urine Automated 3+ (Negative); Cast Urine Automated 0 /lpf (0-5); RBC Urine Automated >30 /hpf (0-4)
[2022-08-31] MEDS ORDERED: OPTIRAY 320 100ml IV ONE (17:09)
--- NOTE | 2022-08-31 17:50 | CT Scan Report ---
CT abd pelvis IV con only CLINICAL HISTORY: c diff infx, now septic TECHNIQUE: Helical axial images of the abdomen and pelvis were obtained and displayed. Automated dose lowering techniques and/or adjustment according to patient size were utilized for this exam. This e xam was performed with intravenous contrast. CT DOSE: 692.37 mGy.cm COMPARISON: None available at the time of this dictation. FINDINGS: Lower chest: Small bilateral pleural effusions are seen. Atelectasis is noted. Liver: Unremarkable. No focal lesions are seen. Gallbladder and biliary tree: No calcified gallstones. Normal caliber wall. No intra- or extrahepatic biliary ductal dilation. Pancreas: Unremarkable, no focal lesions. Spleen: Wedge-shaped scar in the spleen is noted. Adrenals: Unremarkable. Kidneys and ureters: Renal cysts are seen. Left hydronephrosis and hydroureter are seen secondary inv olvement of the bladder mass. Bladder: Bladder wall thickening is seen and there is a 80 x 56 mm left bladder mass. Reproductive organs: Prostatomegaly is seen. Bowel: Diverticulosis is seen without evidence of diverticulitis. The appendix is normal. There is a small hiatal hernia. Lymph nodes Retroperitoneal: Unremarkable. Pelvic: Unremarkable. Mesenteric: Unremarkable. Peritoneum: Diffuse skin lesions are seen in the left abdomen which may reflect neurofibromas or inje ction granulomata. Vessels: Atherosclerotic calcifications are seen. Abdominal wall: Unremarkable. Bones: Degenerative changes in the visualized spine. IMPRESSION: 1. No acute abnormalities in this patient with history of C. difficile. In particular no significant colonic wall thickening is seen. 2. Redemonstration of a prominent left bladder mass associated left hydronephrosis. 3. Multiple skin lesions in the anterior abdomen, likely benign, correlation with physical exam is n eeded to exclude malignancy. 4. Additional findings as above. ACT 112: Positive. There are findings on this exam that require communication between the performing entity and the patient following Patient Test Result Information Act ([place] Act 112) guidelines. Electronically signed by: Larry Mercado M.D. 08/31/2022 5:48 PM
[2022-08-31] MEDS ORDERED: VANCOMYCIN HCL 500 MG/10 ML SOLN PO SCH (18:00)
--- NOTE | 2022-08-31 18:20 | Electrocardiogram Report ---
Test Reason : Blood Pressure : / mmHG Vent. Rate : 116 BPM Atrial Rate : 116 BPM P-R Int : 132 ms QRS Dur : 068 ms QT Int : 300 ms P-R-T Axes : 044 012 051 degrees QTc Int : 417 ms Sinus tachycardia Increased R/S ratio in V1, consider early transition or posterior infarct Abnormal ECG When compared with ECG of 25-AUG-2022 15:37, ST elevation now present in Anterior leads Nonspecific T wave abnormality no longer evident in Anterior leads Confirmed by Mike Heath ([id number]) on 08/31/2022 6:20:11 PM Referred By: REFERRED SELF Confirmed By:Mike Heath
--- NOTE | 2022-08-31 18:22 | Communication Note ---
Date of Service: August 31, 2022 Work-up reveals evidence of catheter associated UTI. CT abdomen pelvis reveals no worsening of C. difficile and no evidence of ileus. We will restart his diet and de-escalate vancomycin dosing back to 125 mg 4 times daily for the remainder of the course. We will discontinue Flagyl IV and continue with cefepime pending culture results and clinical improvement. I updated his son by phone at 1820. Wilbert,
[2022-09-01] MEDS ORDERED: VANCOMYCIN HCL 500 MG/10 ML SOLN PO SCH
[2022-09-01] MEDS: CEFEPIME 2,000 MG in SYRINGE 0 ML IV SCH ×2 (02:37→13:18)
[2022-09-01] MEDS: VANCOMYCIN HCL 125 MG/2.5ML SOLN PO SCH ×4 (06:03→23:16)
[2022-09-01] MEDS: RASPBERRY SYRUP 5 ML UDP PO SCH ×4 (06:03→23:16)
[2022-09-01] MEDS: HEPARIN SOD 5,000 UNIT/0.5 ML VIAL SQ SCH ×3 (06:04→19:50)
[2022-09-01 08:13] LABS: Hematocrit (blood only) 31.8 % (42.0-52.0); Hemoglobin 10.2 g/dl (14.0-18.0); Mean Corpuscular Hemoglobin 25.1 pg (25.0-34.0); Mean Corpuscular Hgb Conc 32.1 g/dL (32.0-36.0); Mean Corpuscular Volume 78.3 fL (80.0-100.0); Mean Platelet Volume 10.2 fL (9.4-12.4); Platelet Count 223 K/uL (130-400); RDW Coefficient of Variation 16.2 % (11.5-14.5); RDW Standard Deviation 46.1 fL (36.4-46.3); Red Blood Count 4.06 M/uL (4.70-6.10)
[2022-09-01 08:27] LABS: BUN Creatinine Ratio 16.9 (10-20); Calcium 8.4 mg/dl (8.6-10.3); Creatinine Clr Calc Pharmacy 38.1 ml/min; Est GFR (African American) 63.2 ml/min; Est GFR (Non-African American) 54.6 ml/min; Magnesium 1.7 mg/dl (1.7-2.4); Potassium 3.9 mmol/L (3.5-5.1)
[2022-09-01] MEDS: THIAMINE HCL 100 MG TAB PO SCH (08:58)
[2022-09-01] MEDS: FOLIC ACID 1 MG TAB PO SCH (09:50)
[2022-09-01] MEDS: TAMSULOSIN HCL 0.4 MG CAP PO SCH (09:51)
[2022-09-01] MEDS: MAGNESIUM OXIDE 400 MG TAB PO SCH ×2 (09:51→19:50)
[2022-09-01] MEDS: ADVANCED PROBIOTIC 1250 MG CAPSULE PO SCH (10:45)
[2022-09-01] MEDS ORDERED: VANCOMYCIN HCL 1,500 MG in SODIUM CHLORIDE 0.9% 500 ML IV SCH (14:00)
--- NOTE | 2022-09-01 16:19 | Hospitalist Progress Note ---
Date of Service September 01, 2022 Assessment & Plan (1) Sepsis associated hypotension: Plan: Status post sepsis protocol 08/31 and started on fluid resuscitation, IV cefepime pending culture result and transferred to PCU. Blood cultures negative till date, urine culture with pinpoint growth. Last fever yesterday afternoon. Continue empiric cefepime with p.o. Vanco for C. difficile pending final culture results. (2) Acute UTI: Plan: UA 08/31 s/o UTI. Urine clx with pin point growth. On empiric cefepime as above for now. (3) C. 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 Avoid sedating medications, cont with vitamin/mineral replacement. Appears to have passed TOV overnight and is spontaneously voiding. Cont treating diarrhea. Plans for rehab. (5) Ambulatory dysfunction: Plan: plan is for rehab, when stable (6) Bladder mass: Plan: Urology for outpatient cystoscopy as the current plan. (7) Urinary retention: Plan: appears to have resolved. Cont Flomax (8) Hypomagnesemia: Plan: resolved (9) Alcohol abuse: Plan: per son on last admission, patient drinks mostly on the weekend and at most reported to be 2-3 beers. No signs or symptoms of withdrawal DVT ppx- Heparin Dispo- continue current level of care with IV Abx pending clx results. Plan Reassessed at 1500 and BP is now 96 systolic with HR improved to <100bpm. Appears resuscitated at this time after 1.5L IVF. Vanc IV hanging now which provides another 500cc bolus of IVF for additional support. Cefepime just pushed. CT abd/pel pending. CXR reveals mild pulmonary edema, so holding any additional IVF at this time. Cont NPO until results from CT a/p return. CBC reveals an increase in WBC to 17K (trending up over last couple of days (13.5>16>17.4), H/H stbale. Left shift noted on differential. Chem panel reveals NA 137, K 4.5, normal bicarb and BUN 21 with creat 1.3. Lactate was initially 2.6 with repeat 1.1. Procalcitonin slightly elevated at 0.89. Blood cultures are pending and urine sample not yet collected. Will perform sample via straight cath given h/o urinary retention. Son updated at bedside. DO Wilbert Admission and Anticipated Discharge Date Admission Date: August 26, 2022 Subjective Patient was seen and examined at bedside. He states he feels ready to go home and was disappointed when he was told he need to stay for IV antibiotics pending culture results. Denies any active ongoing issues. Appetite is okay. Last fever was yesterday afternoon. States diarrhea is resolved and is now soft. No nausea or vomiting Review of Systems Review of Systems: All systems reviewed & are unremarkable except as noted in Subjective Physical Exam Physical Exam: General: Lying comfortably in bed, not in distress, on room air HEENT: EOMI, SUSANA, MMM, hard of hearing Chest: Clear breath sounds bilaterally, no wheezes or crackles CVS: Regular rate and rhythm, normal heart sounds, no murmur Abdomen: Soft, non tender, not distended, normal bowel sounds Neuro: Awake, alert, oriented, conversing appropriately, non focal Extremities: No cyanosis, clubbing or edema Results & Data Results & Data Vital Signs (Past 12 Hours) Vital Signs Temp Pulse Pulse Resp BP Pulse Ox Pulse Ox 09/01/22 15:33 37.1 C 78 19 115/68 98 09/01/22 15:21 77 09/01/22 12:55 96 09/01/22 11:46 36.6 C 75 18 99/63 L 96 09/01/22 09:36 77 09/01/22 08:06 09/01/22 07:28 36.8 C 78 16 107/57 L 95 O2 Del Method O2 Del Method 09/01/22 15:33 Room Air 09/01/22 15:21 09/01/22 12:55 Room Air 09/01/22 11:46 Room Air 09/01/22 09:36 09/01/22 08:06 Room Air 09/01/22 07:28 Room Air Laboratory Results Short CBC 09/01/22 Range/Units 07:31 WBC 13.70 H (4.8-10.8) K/ul Hgb 10.2 L (14.0-18.0) g/dl Hct 31.8 L (42.0-52.0) % Plt Count 223 (130-400) K/uL BMP 09/01/22 07:31 Sodium 136 Potassium 3.9 Chloride 106 Carbon Dioxide 23 BUN 21 Creatinine 1.24 Glucose 85 Calcium 8.4 L Urine 08/31/22 Range/Units 16:15 Urine Color [place] Urine Appearance Turbid A (Clear) Urine pH 5.5 (4.5-7.5) Ur Specific [place] 1.015 (1.000-1.030) Urine Protein 2+ H (Negative) Urine Glucose (UA) Negative (Negative) Medications Administered Current Inpatient Medications Acetaminophen (Acetaminophen 325 Mg Tab) 650 mg PO Q4H PRN PRN Reason: pain/fever Stop: 09/24/22 20:41 Last Admin: 08/31/22 12:05 Dose: 650 mg Folic Acid (Folic Acid 1 Mg Tab) 1 mg PO QAM [facility] Stop: 09/25/22 08:59 Last Admin: 09/01/22 09:50 Dose: 1 mg Heparin Sodium (Porcine) (Heparin Sod 5,000 Unit/0.5 Ml Vial) 5,000 units SQ Q8 [facility] Stop: 09/24/22 21:59 Last Admin: 09/01/22 13:18 Dose: 5,000 units Cefepime HCl 2,000 mg/ Syringe 20 mls @ 5 mls/min IV Q12H [facility]; Protocol Stop: 09/02/22 13:59 Last Admin: 09/01/22 13:18 Dose: 5 mls/min Lactobacillus Acidophilus (Advanced Probiotic 1250 Mg Capsule) 2 cap PO DAILY [facility] Stop: 09/25/22 14:14 Last Admin: 09/01/22 10:45 Dose: 2 cap Magnesium Oxide (Magnesium Oxide 400 Mg Tab) 400 mg PO BID [facility] Stop: 09/29/22 08:59 Last Admin: 09/01/22 09:51 Dose: 400 mg Raspberry (Raspberry Syrup 5 Ml Udp) 5 ml PO Q6 [facility] Stop: 09/05/22 17:59 Last Admin: 09/01/22 11:36 Dose: 5 ml Tamsulosin HCl (Tamsulosin Hcl 0.4 Mg Cap) 0.4 mg PO QAM [facility] Stop: 09/25/22 08:59 Last Admin: 09/01/22 09:51 Dose: 0.4 mg Thiamine HCl (Thiamine Hcl 100 Mg Tab) 100 mg PO QAM [facility] Stop: 09/25/22 08:59 Last Admin: 09/01/22 08:58 Dose: 100 mg Vancomycin HCl (Vancomycin Hcl 125 Mg/2.5ml Soln) 125 mg PO Q6 [facility] Stop: 09/11/22 00:00 Last Admin: 09/01/22 11:36 Dose: 125 mg
[2022-09-02] MEDS: CEFEPIME 2,000 MG in SYRINGE 0 ML IV SCH ×2 (02:12→14:23)
[2022-09-02] MEDS: RASPBERRY SYRUP 5 ML UDP PO SCH ×4 (06:15→22:56)
[2022-09-02] MEDS: VANCOMYCIN HCL 125 MG/2.5ML SOLN PO SCH ×4 (06:15→22:56)
[2022-09-02] MEDS: HEPARIN SOD 5,000 UNIT/0.5 ML VIAL SQ SCH ×3 (06:15→22:56)
[2022-09-02 07:27] LABS: Hematocrit (blood only) 32.1 % (42.0-52.0); Hemoglobin 10.4 g/dl (14.0-18.0); Mean Corpuscular Hemoglobin 25.2 pg (25.0-34.0); Mean Corpuscular Hgb Conc 32.4 g/dL (32.0-36.0); Mean Corpuscular Volume 77.7 fL (80.0-100.0); Mean Platelet Volume 9.4 fL (9.4-12.4); Platelet Count 262 K/uL (130-400); RDW Coefficient of Variation 15.9 % (11.5-14.5); RDW Standard Deviation 45.1 fL (36.4-46.3); Red Blood Count 4.13 M/uL (4.70-6.10); White Blood Count 16.01 K/ul (4.8-10.8)
[2022-09-02 07:52] LABS: BUN Creatinine Ratio 19.3 (10-20); Calcium 8.5 mg/dl (8.6-10.3); Creatinine Clr Calc Pharmacy 53.7 ml/min; Est GFR (Non-African American) 81.1 ml/min; Magnesium 1.9 mg/dl (1.7-2.4); Phosphorus 2.7 mg/dl (2.5-4.9); Potassium 3.6 mmol/L (3.5-5.1)
[2022-09-02] MEDS: ADVANCED PROBIOTIC 1250 MG CAPSULE PO SCH (08:13)
[2022-09-02] MEDS: THIAMINE HCL 100 MG TAB PO SCH (08:14)
[2022-09-02] MEDS: FOLIC ACID 1 MG TAB PO SCH (08:14)
[2022-09-02] MEDS: MAGNESIUM OXIDE 400 MG TAB PO SCH (08:15)
[2022-09-02] MEDS: TAMSULOSIN HCL 0.4 MG CAP PO SCH (08:15)
--- NOTE | 2022-09-02 15:46 | Hospitalist Progress Note ---
Date of Service September 02, 2022 Assessment & Plan (1) Sepsis associated hypotension: Plan: Status post sepsis protocol 08/31 and started on fluid resuscitation, started on IV cefepime pending culture result and transferred to PCU. Blood cultures negative till date, urine culture negative. No more fever but worsening leukocytosis. Continue empiric cefepime with p.o. Vanco for C. difficile for now. (2) Acute UTI: Plan: UA 08/31 s/o UTI however urine cultures negative. On empiric cefepime as above for now. (3) C. 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 Avoid sedating medications, cont with vitamin/mineral replacement. Appears to have passed TOV overnight and is spontaneously voiding. Cont treating diarrhea. Plans for rehab. (5) Ambulatory dysfunction: Plan: plan is for rehab, when stable (6) Bladder mass: Plan: Urology for outpatient cystoscopy as the current plan. (7) Urinary retention: Plan: appears to have resolved. Cont Flomax (8) Hypomagnesemia: Plan: resolved (9) Alcohol abuse: Plan: per son on last admission, patient drinks mostly on the weekend and at most reported to be 2-3 beers. No signs or symptoms of withdrawal DVT ppx- Heparin Dispo- Patient seems stable to go to the rehab. CM following. Admission and Anticipated Discharge Date Admission Date: August 26, 2022 Subjective Patient was seen and examined at bedside. He feels much better and states he is ready to go home. States his oral intake is okay. States he does not have diarrhea anymore. Denies any fever, chills, chest pain, shortness of breath, nausea or vomiting Review of Systems Review of Systems: All systems reviewed & are unremarkable except as noted in Subjective Physical Exam Physical Exam: General: Lying comfortably in bed, not in distress, on room air HEENT: EOMI, SUSANA, MMM, hard of hearing Chest: Clear breath sounds bilaterally, no wheezes or crackles CVS: Regular rate and rhythm, normal heart sounds, no murmur Abdomen: Soft, non tender, not distended, normal bowel sounds Neuro: Awake, alert, oriented, conversing appropriately, non focal Extremities: No cyanosis, clubbing or edema Results & Data Results & Data Vital Signs (Past 12 Hours) Vital Signs Temp Pulse Resp BP Pulse Ox O2 Del Method O2 Del Method 09/02/22 12:00 Other 09/02/22 12:01 36.6 C 93 H 19 102/56 L 93 Room Air 09/02/22 07:18 36.6 C 73 18 132/67 97 Room Air
[2022-09-03] MEDS: CEFEPIME 2,000 MG in SYRINGE 0 ML IV SCH (02:30)
[2022-09-03] MEDS: RASPBERRY SYRUP 5 ML UDP PO SCH ×2 (05:00→11:59)
[2022-09-03] MEDS: HEPARIN SOD 5,000 UNIT/0.5 ML VIAL SQ SCH (05:00)
[2022-09-03] MEDS: VANCOMYCIN HCL 125 MG/2.5ML SOLN PO SCH ×2 (05:00→11:59)
[2022-09-03 07:00] LABS: Hemoglobin 10.6 g/dl (14.0-18.0); Mean Corpuscular Hemoglobin 25.5 pg (25.0-34.0); Mean Corpuscular Hgb Conc 33.1 g/dL (32.0-36.0); Mean Corpuscular Volume 76.9 fL (80.0-100.0); Mean Platelet Volume 9.6 fL (9.4-12.4); Platelet Count 291 K/uL (130-400); RDW Standard Deviation 44.8 fL (36.4-46.3); Red Blood Count 4.16 M/uL (4.70-6.10); White Blood Count 15.94 K/ul (4.8-10.8)
[2022-09-03 07:22] LABS: BUN Creatinine Ratio 25.4 (10-20); Calcium 8.7 mg/dl (8.6-10.3); Creatinine Clr Calc Pharmacy 70.5 ml/min; Est GFR (African American) 105.2 ml/min; Est GFR (Non-African American) 90.8 ml/min; Potassium 3.9 mmol/L (3.5-5.1)
[2022-09-03] MEDS: FOLIC ACID 1 MG TAB PO SCH (07:54)
[2022-09-03] MEDS: ADVANCED PROBIOTIC 1250 MG CAPSULE PO SCH (07:54)
[2022-09-03] MEDS: TAMSULOSIN HCL 0.4 MG CAP PO SCH (07:54)
[2022-09-03] MEDS: THIAMINE HCL 100 MG TAB PO SCH (07:55)
--- NOTE | 2022-09-03 15:44 | Discharge Summary ---
Date of Service September 03, 2022 Admission HPI Per Admitting Provider 82-year-old male with PMH alcohol and tobacco abuse and other problems listed below who presents to the ED for evaluation of recurrent falls. History obtained from the patient and review of recent inpatient records and outpatient PCP records. Patient recently admitted to [facility] 08/18 to 08/22 for acute metabolic encephalopathy due to UTI. Patient also had urinary retention and had Kc catheter placed which remained in place at discharge. Bladder mass was also found. Patient was started on Flomax and discharged on cefdinir for treatment of UTI. Patient states that when he returned home he self removed his Kc catheter. He states it has been difficult for him to urinate. Today, patient had 3 falls and was brought to the ED for further evaluation. Patient denies striking his head or associated loss of consciousness. No reported fever but feels chilled in the ED. Denies chest pain and shortness of breath. No lightheadedness, dizziness, diaphoresis. Denies abdominal pain, nausea, vomiting, diarrhea. In the ED, labs show WBC 20 K, K+ 3.1, CK 680, procalcitonin 0.76. UA suggestive of ongoing UTI. CXR and pelvis XR unremarkable. Patient was given IVF, IV Zosyn, potassium replacement in the ED. Admission Exam Per Admitting Provider Constitutional: + disheveled; no acute distress Eyes: PERRL, conjunctivae normal, anicteric sclerae ENMT: external ear and nose normal, oropharynx normal Respiratory: normal respiratory effort, lungs clear to auscultation Cardiovascular: Rate/Rhythm: regular rate and regular rhythm Vessels: normal peripheral pulses Extremities: + edema (+2 edema BLE, chronic ) Gastrointestinal (Abdomen): normal bowel sounds, soft, nontender, no hepatosplenomegaly Musculoskeletal: no cyanosis or clubbing, extremities motor strength 5/5 Skin: no rashes, warm and dry Neurologic: PERRL, EOMI, accommodation nl, no face palsy, no dysarthria Psychiatric: A+Ox3, euthymic affect Principal Diagnosis Sepsis, C. 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 Discharge Data Allergies Allergy/AdvReac Type Severity Reaction Status Date / Time No Known Allergies Allergy Verified 08/25/22 16:02 Consultations 08/25/22 17:30 ED Decision to Admit Stat Ordered Studies 08/31/22 12:58 CT abd pelvis IV con only Urgent Laboratory Results WBC 15.94 K/ul (4.8-10.8) H 09/03/22 06:06 RBC 4.16 M/uL (4.70-6.10) L 09/03/22 06:06 Hgb 10.6 g/dl (14.0-18.0) L 09/03/22 06:06 Hct 32.0 % (42.0-52.0) L 09/03/22 06:06 MCV 76.9 fL (80.0-100.0) L 09/03/22 06:06 MCH 25.5 pg (25.0-34.0) 09/03/22 06:06 MCHC 33.1 g/dL (32.0-36.0) 09/03/22 06:06 RDW Std Deviation 44.8 fL (36.4-46.3) 09/03/22 06:06 RDW Coeff of Flako 16.0 % (11.5-14.5) H 09/03/22 06:06 Plt Count 291 K/uL (130-400) 09/03/22 06:06 MPV 9.6 fL (9.4-12.4) 09/03/22 06:06 Immature Gran % (Auto) 0.7 % 08/31/22 13:08 Neut % (Auto) 81.2 % 08/31/22 13:08 Lymph % (Auto) 4.0 % 08/31/22 13:08 [place] % (Auto) 4.2 % 08/31/22 13:08 Eos % (Auto) 9.5 % 08/31/22 13:08 Baso % (Auto) 0.4 % 08/31/22 13:08 Neut # (Auto) 14.15 K/uL (1.40-6.50) H 08/31/22 13:08 Lymph # (Auto) 0.70 K/uL (1.2-3.4) L 08/31/22 13:08 [place] # (Auto) 0.74 K/uL (0.11-0.59) H 08/31/22 13:08 Eos # (Auto) 1.65 K/uL (0-0.50) H 08/31/22 13:08 Baso # (Auto) 0.07 K/uL (0-0.2) 08/31/22 13:08 Immature Gran # (Auto) 0.12 K/uL (0.01-0.20) 08/31/22 13:08 Sodium 140 mmol/L (136-145) 09/03/22 06:06 Potassium 3.9 mmol/L (3.5-5.1) 09/03/22 06:06 Chloride 110 mmol/L (98-107) H 09/03/22 06:06 Carbon Dioxide 25 mmol/L (21-32) 09/03/22 06:06 Anion Gap 5 (3-11) 09/03/22 06:06 BUN 17 mg/dl (6-23) 09/03/22 06:06 Creatinine 0.67 mg/dl (0.6-1.4) 09/03/22 06:06 Est Cr Clr Drug Dosing 70.5 ml/min 09/03/22 06:06 Est GFR ( Amer) 105.2 ml/min 09/03/22 06:06 Est GFR (Non-Af Amer) 90.8 ml/min 09/03/22 06:06 BUN/Creatinine Ratio 25.4 (10-20) H 09/03/22 06:06 Glucose 90 mg/dl (70-99(Fasting)) 09/03/22 06:06 Lactate 1.1 mmol/L (0.4-2.0) 08/31/22 15:15 Calcium 8.7 mg/dl (8.6-10.3) 09/03/22 06:06 Phosphorus 2.7 mg/dl (2.5-4.9) 09/02/22 06:57 Magnesium 1.9 mg/dl (1.7-2.4) 09/02/22 06:57 Total Bilirubin 0.6 mg/dl (0.2-1.0) 08/25/22 15:03 AST 30 U/L (13-39) 08/25/22 15:03 ALT 12 U/L (7-52) 08/25/22 15:03 Alkaline Phosphatase 103 U/L (34-104) 08/25/22 15:03 Total Creatine Kinase 301 U/L (30-223) H 08/26/22 06:51 Total Protein 6.0 gm/dl (6.0-8.3) 08/25/22 15:03 Albumin 3.1 gm/dl (3.4-5.0) L 08/25/22 15:03 Globulin 2.9 gm/dl (2.5-4.0) 08/25/22 15:03 Albumin/Globulin Ratio 1.1 (0.9-2) 08/25/22 15:03 Procalcitonin 0.89 ng/ml (0-0.5) H 08/31/22 13:08 TSH 3.633 uIu/ml (0.300-4.500) 08/25/22 15:03 Urine Color [place] 08/31/22 16:15 Urine Appearance Turbid (Clear) A 08/31/22 16:15 Urine pH 5.5 (4.5-7.5) 08/31/22 16:15 Ur Specific [place] 1.015 (1.000-1.030) 08/31/22 16:15 Urine Protein 2+ (Negative) H 08/31/22 16:15 Urine Glucose (UA) Negative (Negative) 08/31/22 16:15 Urine Ketones Trace (Negative) H 08/31/22 16:15 Urine Blood 3+ (Negative) H 08/31/22 16:15 Urine Nitrite Positive (Negative) A 08/31/22 16:15 Urine Bilirubin Negative (Negative) 08/31/22 16:15 Urine Urobilinogen Negative (Negative) 08/31/22 16:15 Ur Leukocyte Esterase 3+ (Negative) H 08/31/22 16:15 Urine WBC (Auto) >30 /hpf (0-5) H 08/31/22 16:15 Urine RBC (Auto) >30 /hpf (0-4) H 08/31/22 16:15 U Hyaline Cast (Auto) 0 /lpf (0-5) 08/31/22 16:15 U Epithel Cells (Auto) 10-20 /lpf (0-5) H 08/31/22 16:15 Urine Bacteria (Auto) 3+ (Negative) H 08/31/22 16:15 Urine Yeast Not Reportable 08/31/22 16:15 Stl C. cayetanensis PCR Not Detected (NotDetected) 08/26/22 Unknown Stool Rotavirus A PCR Not Detected (NotDetected) 08/26/22 Unknown Stl Adenov F 40/41 PCR Not Detected (NotDetected) 08/26/22 Unknown Stool Astrovirus (PCR) Not Detected (NotDetected) 08/26/22 Unknown Stool Campylobacter PCR Not Detected (NotDetected) 08/26/22 Unknown Stl C. diff Tox B Gene Positive Cdiff Gene (Neg) H 08/26/22 Unknown Stl C.difficile Tox A&B Positive Cdiff Toxin (Negative) A* 08/26/22 Unknown Stool Cryptosporidium PCR Not Detected (NotDetected) 08/26/22 Unknown Stl E.coli Shiga Tox PCR Not Detected (NotDetected) 08/26/22 Unknown Stl Enterotoxigenic E PCR Not Detected (NotDetected) 08/26/22 Unknown Stool EPEC (PCR) Not Detected (NotDetected) 08/26/22 Unknown Stool EAEC (PCR) Not Detected (NotDetected) 08/26/22 Unknown Stl E. histolytica PCR Not Detected (NotDetected) 08/26/22 Unknown Stool Giardia Lamblia PCR Not Detected (NotDetected) 08/26/22 Unknown Stool Salmonella PCR Not Detected (NotDetected) 08/26/22 Unknown Stool Sapovirus (PCR) Not Detected (NotDetected) 08/26/22 Unknown Stl P. shigelloides PCR Not Detected (NotDetected) 08/26/22 Unknown Stl Shigella/EIEC PCR Not Detected (NotDetected) 08/26/[address].enterocolitica PCR Not Detected (NotDetected) 08/26/22 Unknown Stool Vibrio (PCR) Not Detected (NotDetected) 08/26/22 Unknown Stl Vibrio cholerae PCR Not Detected (NotDetected) 08/26/22 Unknown Stl Norovirus GI/GII PCR Not Detected (NotDetected) 08/26/22 Unknown Ethyl Alcohol mg/dL < 10.0 mg/dl (<10.0) 08/25/22 19:04 SARS-CoV-2, RNA, NAAT NEGATIVE (NEGATIVE) 08/25/22 15:35 Impressions Pelvis X-Ray 08/25/22 15:18 SINGLE VIEW PELVIS CLINICAL HISTORY: Fall. FINDINGS: 2 AP, portable, supine pelvic radiographs are compared to study dated 05/06/2021. The skeletal structures are osteopenic. There is no radiographic evidence of acute fracture involving the hips or bony pelvis. Mild arthritic change and joint space narrowing is seen in the hips. Degenerative sclerosis is noted in the sacroiliac joints and pubic symphysis. The overlying soft tissues are within normal limits. There is no evidence of bowel obstruction. Atherosclerotic calcification is noted in the femoral arteries. IMPRESSION: There is no radiographic evidence of acute fracture involving the hips or pelvis. Electronically signed by: Ezequiel Bryant M.D. 08/25/2022 4:52 PM Knee X-Ray 08/26/22 16:02 LEFT KNEE 3 VIEWS CLINICAL HISTORY: Fall with left knee pain. FINDINGS: Portable AP, crosstable lateral, and sunrise views of the left knee are compared to study dated 05/06/2021. The skeletal structures are osteopenic. No acute fracture is seen. A hinged left knee arthroplasty is in near anatomic alignment. No periprosthetic lucency is identified. There has been undersurface remodeling of the patella. There is a small joint effusion. Mild prepatellar soft tissue swelling is observed. There is advanced atherosclerotic calcification of the popliteal artery. IMPRESSION: 1. No acute fracture is seen. 2. A left knee arthroplasty is in near anatomic alignment. Electronically signed by: Ezequiel Bryant M.D. 08/27/2022 8:22 AM Chest X-Ray 08/31/22 12:55 XR chest 1V portable CLINICAL HISTORY: Sepsis TECHNIQUE: Single frontal radiograph of the chest was obtained. Comparison: Comparison is made to chest radiograph 08/26/2019 FINDINGS: No lines and tubes are seen. Cardiomegaly is noted. Prominence and cephalization of the vasculature is seen. No evidence of pleural effusion or pneumothorax. IMPRESSION: Mild pulmonary edema. ACT 112: Negative or not required by law. Electronically signed by: Larry Mercado M.D. 08/31/2022 2:06 PM Abdomen/Pelvis CT 08/31/22 12:58 CT abd pelvis IV con only CLINICAL HISTORY: c diff infx, now septic TECHNIQUE: Helical axial images of the abdomen and pelvis were obtained and displayed. Automated dose lowering techniques and/or adjustment according to patient size were utilized for this exam. This exam was performed with intravenous contrast. CT DOSE: 692.37 mGy.cm COMPARISON: None available at the time of this dictation. FINDINGS: Lower chest: Small bilateral pleural effusions are seen. Atelectasis is noted. Liver: Unremarkable. No focal lesions are seen. Gallbladder and biliary tree: No calcified gallstones. Normal caliber wall. No intra- or extrahepatic biliary ductal dilation. Pancreas: Unremarkable, no focal lesions. Spleen: Wedge-shaped scar in the spleen is noted. Adrenals: Unremarkable. Kidneys and ureters: Renal cysts are seen. Left hydronephrosis and hydroureter are seen secondary involvement of the bladder mass. Bladder: Bladder wall thickening is seen and there is a 80 x 56 mm left bladder mass. Reproductive organs: Prostatomegaly is seen. Bowel: Diverticulosis is seen without evidence of diverticulitis. The appendix is normal. There is a small hiatal hernia. Lymph nodes Retroperitoneal: Unremarkable. Pelvic: Unremarkable. Mesenteric: Unremarkable. Peritoneum: Diffuse skin lesions are seen in the left abdomen which may reflect neurofibromas or injection granulomata. Vessels: Atherosclerotic calcifications are seen. Abdominal wall: Unremarkable. Bones: Degenerative changes in the visualized spine. IMPRESSION: 1. No acute abnormalities in this patient with history of C. difficile. In particular no significant colonic wall thickening is seen. 2. Redemonstration of a prominent left bladder mass associated left hydronephrosis. 3. Multiple skin lesions in the anterior abdomen, likely benign, correlation with physical exam is needed to exclude malignancy. 4. Additional findings as above. ACT 112: Positive. There are findings on this exam that require communication between the performing entity and the patient following Patient Test Result Information Act ([place] Act 112) guidelines. Electronically signed by: Larry Mercado M.D. 08/31/2022 5:48 PM Hospital Course (1) Sepsis associated hypotension: (2) Acute UTI: (3) C. difficile diarrhea: (4) Falls: (5) Ambulatory dysfunction: (6) Bladder mass: (7) Urinary retention: (8) Hypomagnesemia: (9) Alcohol abuse: Plan 82-year-old male with medical history as above presented to the ED for evaluation of recurrent falls. In the ED, labs show WBC 20 K, K+ 3.1, CK 680, procalcitonin 0.76. Patient was found to have C. difficile started on oral vancomycin. Hospital course was complicated by fever and hypotension on 08/31 requiring sepsis protocol, transfer to PCU, fluid resuscitation, empiric antibiotics and sepsis work-up. However sepsis work-up was negative with negative blood and urine culture results, negative acute findings on CT abdomen pelvis and chest x-ray. Patient was started on empiric cefepime and has been af ebrile since 08/31. His leukocytosis has remained stable. His diarrhea has resolved. He will be discharged on empiric Vantin for 3 more days and oral vancomycin for 10 more days with probiotic. He was declined for residential facility. He is being discharged home with home health care. He is comfortable and stable for discharge home. I spoke to his son over the phone and provided discharge instructions. PC follow-up visit has been scheduled for next week. Also recommended with urology for further work-up of his bladder mass which was found during recent hospital stay. He removed the Kc during this admission and has been voiding without issues. Home Health Attestation I certify that this patient is under my care and that I, or a physicians web production assistant working with me, had a face to-face encounter that meets the home health [id number] encounter requirements with this patient. The encounter with the patient was in whole, or in part, for the following medical condition, which is the primary reason for home health care (list medical condition): C-diff, UTI I certify that, based on my findings, the following services are medically necessary home health services: My clinical findings support the need for the above services because: Home Safety Assessment OT Assess ADL Status and Restore Function w ADLs PT Assessment for Endurance / Balance / Strength PT Eval for Safety and Mobility PT Eval for Safety, Gait Training, Assistive Devices PT Gait and Balance Training, Strengthening and Safety Further, I certify that my clinical findings support that this patient is homebound (i.e. absences from home require considerable and taxing effort and are for medical reasons or islam services or infrequently or of short duration when for other reasons) because: Transportation Assistance/Unable to Leave Home Unassisted Certification for Home Health Services: Based on the above findings, I certify that this patient is confined to the home and needs intermittent residential care, physical therapy and/or speech therapy or continues to need occupational therapy. The patient is under my care, and I have initiated the establishment of the plan of care. This patient will be followed by a physician who will periodically review the plan of care. Total Time Total Time Spent Total Time Spent (In Minutes): 50 Discharge Plan Discharge Items Patient Disposition: Home - Home Health Services Reason For Visit: UTI, FREQUENT FALLS Discharge Diagnosis: Clostridium difficile colitis Urinary retention Ambulatory dysfunction Bladder mass Activity: Per Instructions section Exercise/Sports: Wait until after follow-up appointment Non-emergency contact: Primary Care Provider and Urologist Call non-emergency contact if: you have any medication questions, your symptoms worsen, your pain is concerning for you and you have a fever Follow-up/Referrals: Bryant Celaya MD [Primary Care Provider] - 09/12/22 10:20 am Andrea Bess MD [Physician] - Diet: Regular Addtl Attending Provider Instructions: Continue vantin twice daily for 3 more days Continue oral vancomycin for C diff for 10 more days. If diarrhea recurs or persists, you will need a longer course of vancomycin for which we recommend calling your family doctor. Continue probiotic Follow up with the family doctor with repeat blood work in a week. You have your appointment scheduled for September 12, 10:20 am. Follow up with urology for your bladder mass and hydronephrosis. Pending Studies at Discharge: Yes Stand-Alone Forms: My [facility] [employer], Smoking Cessation Medications and DC Order Prescriptions: New Advanced Probiotic 625 mg (10 billion cell) Capsule 2 cap PO DAILY Qty: 10 0RF cefpodoxime 200 mg tablet 200 mg PO BID 3 Days Qty: 6 0RF Rx Instructions: must administer with a meal/food vancomycin 125 mg capsule 125 mg PO Q6H 10 Days Qty: 40 0RF Continued tamsulosin 0.4 mg Capsule 0.4 mg PO QAM Qty: 30 0RF folic acid 1 mg Tablet 1 mg PO QAM Qty: 30 0RF thiamine HCl (vitamin B1) 100 mg Tablet 100 mg PO QAM Qty: 30 0RF Discontinued cefdinir 300 mg capsule 300 mg PO BID Qty: 12 0RF Rx Instructions: STARTED 08/22/22 FOR 6 DAYS Discharge Orders: Discharge Order (Routine); Ordered 09/03/22 Ordered By: Tan Dumont Admission Data Admit Date/Time: 08/26/22 16:40 Attending Provider: Tan Dumont Admit Provider: Kalpesh White Primary Care Provider: Bryant Celaya Other Providers: Trudy Hsu ; [facility],Home Health ; Kalpesh White ; [facility] ; [facility],Referral Center Other Interventions: Discharge Summary Assessment (RN) Last Done: 09/03/22 13:59
== END 2022-09-03 14:24 | disposition home health service (06) | DRG 690 ==
LOC: ED 14:52 → 3N 14:52 → SUATTDRO 17:33 → 3N 20:22 → SUATTDRO 08-26 16:40 → 2S 08-31 14:05

== ENCOUNTER 2022-10-17 13:44 | Inpatient (IN) ==
[2022-10-17] MEDS ORDERED: SODIUM CHLORIDE 0.9% 1,000 ML IV ONE (14:47)
[2022-10-17 14:53] LABS: Hematocrit (blood only) 35.6 % (42.0-52.0); Hemoglobin 11.1 g/dl (14.0-18.0); Mean Corpuscular Hemoglobin 24.2 pg (25.0-34.0); Mean Corpuscular Hgb Conc 31.2 g/dL (32.0-36.0); Mean Corpuscular Volume 77.7 fL (80.0-100.0); Mean Platelet Volume 9.9 fL (9.4-12.4); Platelet Count 338 K/uL (130-400); RDW Coefficient of Variation 17.7 % (11.5-14.5); Red Blood Count 4.58 M/uL (4.70-6.10)
[2022-10-17 15:08] LABS: Albumin Globulin Ratio 0.9 (0.9-2); Albumin Level 3.1 gm/dl (3.4-5.0); BUN Creatinine Ratio 29.8 (10-20); Calcium 9.9 mg/dl (8.6-10.3); Creatinine Clr Calc Pharmacy 48.3 ml/min; Est GFR (African American) 88.4 ml/min; Est GFR (Non-African American) 76.3 ml/min; Globulin 3.3 gm/dl (2.5-4.0); Potassium 3.9 mmol/L (3.5-5.1); Total Protein 6.4 gm/dl (6.0-8.3)
[2022-10-17 15:14] LABS: Basophils # (auto) 0.07 K/uL (0-0.2); Basophils % (auto) 0.2 %; Eosinophils # (auto) 0.38 K/uL (0-0.50); Eosinophils % (auto) 1.3 %; Immature Granulocytes # (auto) 0.29 K/uL (0.01-0.20); Lymphocytes # (auto) 1.21 K/uL (1.2-3.4); Lymphocytes % (auto) 4.3 %; Monocytes # (auto) 1.86 K/uL (0.11-0.59); Monocytes % (auto) 6.6 %; Neutrophils # (auto) 24.49 K/uL (1.40-6.50); Neutrophils % (auto) 86.6 %
--- NOTE | 2022-10-17 15:26 | Emergency Department Note ---
Impression & Plan Weakness, Leukocytosis ED Provider Note NAME: SABINE GALDAMEZ AGE: 82 SEX: M : 1940 ARRIVES VIA: Ambulance INFORMANT: Patient ED PROVIDER(S): Quentin Causey DO CHIEF COMPLAINT: weakness HPI: Patient is a 82-year-old male who presents to the ER for weakness. He was just admitted to [facility] and transferred to [facility] and discharged today to home by himself. Family was unable to take care of him at home. He is much weaker than when he left home. He was trying to get to the toilet and was lowered to the ground by the son who called him. He did not fall. denies any headache or neck pain. No chest pain or shortness of breath. No new belly pain. No other exacerbating or remitting factors. Son gives the majority of the history and notes that his father is unable to care for himself at home and has only been home for several minutes when this occurred. PAST MEDICAL HISTORY:See Below PAST SURGICAL HISTORY:See Below FAMILY HISTORY:See Below SOCIAL HISTORY:See Below HOME MEDICATIONS:See Below ALLERGIES:See Below VITALS:See Below PHYSICAL EXAMINATION: GENERAL: Sitting up in bed, alert, disheveled, chronically ill-appearing EYE EXAM: normal conjunctiva. OROPHARYNX:mucous membranes are dry NECK: supple, no nuchal rigidity, no adenopathy, non-tender LUNGS: Clear to auscultation. Normal chest wall mechanics HEART: no murmurs, S1 normal and S2 normal ABDOMEN: abdomen soft, non-tender, normo-active bowel sounds, no masses, no rebound or guarding. UPPER EXTREMITIES: upper extremities are grossly normal. LOWER EXTREMITIES: No pitting edema. NEURO EXAM: Normal sensorium, cranial nerves II-XII grossly intact, normal speech, no gross weakness of arms, no gross weakness of legs. MEDICAL DECISION MAKING: Patient is a 82-year-old male who presents ER for above-stated complaint. IV was established blood work was obtained. Labs show leukocytosis of 28k along with a mild anemia. BMP along with LFTs bilirubin was unremarkable. External records were reviewed. Discussed with son who notes that the patient was transferred from here to [place] and [place] to to a rehab facility where he was just discharged today. He cannot take care of him at home. He does not believe he received appropriate care at [facility] and consequently is recommending and requesting a different placement had another facility. He notes that he did lower his father to the ground. He did not fall. Chest x-ray was unremarkable. CT abdomen pelvis showed no acute pathology. Case was discussed with the hospitalist for further evaluation management treatment. Triage Nursing notes reviewed. Limited review of prior medical records performed Vital Signs: reviewed and remarkable for tachy Differential diagnosis: Infection, dehydration, metabolic abnormality, hypo/hyperglycemia, electrolyte disturbance, anemia, hypoxia, cardiac sources, intracerebral event, toxicologic, neurologic, as well as other pathologies. ER treatment provided: See below Diagnostics interpreted by me include EKG and cardiac monitoring as listed below: -Cardiac Monitoring: An order was placed for continuous cardiac monitoring. The monitor shows a rate of 90 with sinus rhythm. -ECG: none -Laboratory studies:Interpreted by me as stated above in MDM and shown below. Imaging studies: Xrays: As interpreted by me: Portable AP upright 1 view of the chest shows no f ocal infiltrate CTs show: CT abdomen pelvis was unremarkable Consultation(s): As described in MDM Procedures:none Critical Care: None Past Med/Surg History Medical History (Updated 10/17/22 @ 17:47 by Quentin Causey DO) [place] (hard of hearing) Lumbar discitis Osteoarthritis Right club foot congenital Surgical History (Updated 10/17/22 @ 17:01 by Shanice Swenson PA-C) History of surgery Right clubfoot correction - multiple procedures as a child Nephrostomy status Status post left knee replacement Family History Other No family history of adverse response to anesthesia Denies family history of Coronary heart disease Social History Smoking Status: Never smoker Tobacco Type: Smokeless Tobacco (Dip or Chew) Second Hand Exposure: No; Do You Dip or Chew Tobacco: Yes; Hx Alcohol Use: Yes Alcohol type: beer Hx Substance Use: Yes Last Used Substance Other:: 3-4 weeks ago Preferred Language: Wallisian Communication Ability: Effective 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 Required: No Beliefs That Will Affect Care: None marital status: Current Living Situation: Alone Current Living Situation Comment: Lives alone in an apartment How many Children do You have: 1 Feels Safe at Home: Yes Assistive Devices: Cane and Walker Allergies Allergies Allergy/AdvReac Type Severity Reaction Status Date / Time No Known Allergies Allergy Verified 10/17/22 14:26 Home Meds Home Medications Medication Instructions Recorded Confirmed thiamine HCl (vitamin B1) 100 mg 100 mg PO DAILY 10/17/22 10/17/22 tablet Previous Rx's Medication Instructions Recorded folic acid 1 mg tablet 1 mg PO QAM #30 tabs 08/22/22 tamsulosin 0.4 mg capsule 0.4 mg PO QAM #30 caps 08/22/22 L.acidop,casei,lactis,rham-B.lact,kimmy 2 cap PO DAILY #10 caps 09/03/22 625 mg (10 billion cell) capsule (Advanced Probiotic) Results & Data (ED) Vital Signs Vital Signs - 24 hr 10/17/22 13:56 10/17/22 14:46 10/17/22 14:46 Temperature 37.4 C Temperature Source Oral Pulse Rate 110 H Pulse Rate [Apical] 109 H Pulse Rhythm [Apical] Regular Pulse Strength [Apical] Normal Respiratory Rate 20 18 Respiratory Effort / Characteristics Non-Labored Spontaneous Non-Labored Respiratory Depth Normal Normal Respiratory Pattern Regular Regular Blood Pressure 100/67 Blood Pressure [Left Arm] 114/79 Blood Pressure Mean 78 Blood Pressure Mean [Left Arm] 90 Blood Pressure Position Lying Blood Pressure Position [Left Arm] Pulse Oximetry 96 95 95 Oxygen Delivery Method Room Air Room Air Sepsis Recent Fever Within 48 Hours No Sepsis New/Unexplained Change in Mental Status No Sepsis Action Taken by Nursing No Action Required 10/17/22 14:48 10/17/22 17:09 Temperature Temperature Source Pulse Rate 110 H Pulse Rate [Apical] 97 H Pulse Rhythm [Apical] Pulse Strength [Apical] Respiratory Rate 21 Respiratory Effort / Characteristics Respiratory Depth Respiratory Pattern Blood Pressure Blood Pressure [Left Arm] 127/75 Blood Pressure Mean Blood Pressure Mean [Left Arm] 92 Blood Pressure Position Blood Pressure Position [Left Arm] Semi-fowlers Pulse Oximetry Oxygen Delivery Method Sepsis Recent Fever Within 48 Hours Sepsis New/Unexplained Change in Mental Status Sepsis Action Taken by Nursing Laboratory Data 10/17/22 14:05 10/17/22 14:05 Lab Results 10/17/22 10/17/22 10/17/22 Range/Units 14:05 14:05 14:05 WBC 28.30 H (4.8-10.8) K/ul RBC 4.58 L (4.70-6.10) M/uL Hgb 11.1 L (14.0-18.0) g/dl Hct 35.6 L (42.0-52.0) % MCV 77.7 L (80.0-100.0) fL MCH 24.2 L (25.0-34.0) pg MCHC 31.2 L (32.0-36.0) g/dL RDW Std Deviation 49.0 H (36.4-46.3) fL RDW Coeff of Flako 17.7 H (11.5-14.5) % Plt Count 338 (130-400) K/uL MPV 9.9 (9.4-12.4) fL Immature Gran % (Auto) 1.0 % Neut % (Auto) 86.6 % Lymph % (Auto) 4.3 % Atlantic % (Auto) 6.6 % Eos % (Auto) 1.3 % Baso % (Auto) 0.2 % Neut # (Auto) 24.49 H (1.40-6.50) K/uL Lymph # (Auto) 1.21 (1.2-3.4) K/uL Atlantic # (Auto) 1.86 H (0.11-0.59) K/uL Eos # (Auto) 0.38 (0-0.50) K/uL Baso # (Auto) 0.07 (0-0.2) K/uL Immature Gran # (Auto) 0.29 H (0.01-0.20) K/uL ESR 72 H (0-20) mm/hr Sodium 136 (136-145) mmol/L Potassium 3.9 (3.5-5.1) mmol/L Chloride 100 (98-107) mmol/L Carbon Dioxide 25 (21-32) mmol/L Anion Gap 11 (3-11) BUN 28 H (6-23) mg/dl Creatinine 0.94 (0.6-1.4) mg/dl Est Cr Clr Drug Dosing 48.3 ml/min Est GFR ( Amer) 88.4 ml/min Est GFR (Non-Af Amer) 76.3 ml/min BUN/Creatinine Ratio 29.8 H (10-20) Glucose 96 (70-99(Fasting)) mg/dl Calcium 9.9 (8.6-10.3) mg/dl Total Bilirubin 1.0 (0.2-1.0) mg/dl AST 18 (13-39) U/L ALT 11 (7-52) U/L Alkaline Phosphatase 153 H (34-104) U/L Total Protein 6.4 (6.0-8.3) gm/dl Albumin 3.1 L (3.4-5.0) gm/dl Globulin 3.3 (2.5-4.0) gm/dl Albumin/Globulin Ratio 0.9 (0.9-2) Lipase 4 L (11-82) U/L Administered Medications Discontinued Medications Sodium Chloride (Nss 1000ml) 1,000 mls @ 999 mls/hr IV .Q1H1M ONE Stop: 10/17/22 15:47 Last Infusion: 10/17/22 16:47 Dose: 0 mls/hr Documented By: Admin: 10/17/22 14:51 Dose: 999 mls/hr Documented By: LUIS Ceftriaxone Sodium (Rocephin) 2,000 mg in 70 mls @ 140 mls/hr IV NOW STA Stop: 10/17/22 15:59 Last Infusion: 10/17/22 16:47 Dose: 0 mls/hr Documented By: Admin: 10/17/22 16:17 Dose: 140 mls/hr Documented By: AB Ioversol (Optiray 320 100ml) 92 ml IV ONCE ONE Stop: 10/17/22 15:38 Last Admin: 10/17/22 15:37 Dose: 92 ml Documented By: [facility] Imaging Data Radiologist's Impression: Abdomen/Pelvis CT 10/17/22 14:47 CT abd pelvis IV con only CLINICAL HISTORY: fall TECHNIQUE: Helical axial images of the abdomen and pelvis were obtained and displayed. Automated dose lowering techniques and/or adjustment according to patient size were utilized for this exam. This exam was performed with intravenous contrast. CT DOSE: 762.42 mGy.cm COMPARISON: Comparison is made to CT abdomen pelvis 09/29/2022 FINDINGS: Lower chest: No acute abnormality. Liver: Unremarkable. No focal lesions are seen. Gallbladder and biliary tree: No calcified gallstones. Normal caliber wall. No intra- or extrahepatic biliary ductal dilation. Pancreas: Unremarkable, no focal lesions. Spleen: Wedge-shaped hypodensity in the spleen is unchanged from prior exam. Adrenals: A left adrenal nodule measuring 20 x 12 mm is enlarged from prior exam where it measured 19 x 10 mm. Kidneys and ureters: Left nephrostomy tube is seen. Right renal cyst is seen. A nonobstructive stone is seen in a slightly distended right ureter. Bladder: Heterogeneous bladder mass is seen, similar in size to prior exam. Reproductive organs: Prostatomegaly is seen. Bowel: Diverticulosis is seen without evidence of diverticulitis. Lymph nodes Retroperitoneal: There is a 12 mm retroperitoneal lymph node which is new from prior exam. Pelvic: Unremarkable. Mesenteric: Unremarkable. Peritoneum: Normal. Vessels: Atherosclerotic calcifications are seen. Abdominal wall: Unremarkable. Bones: Degenerative changes in the visualized spine. IMPRESSION: 1. No evidence of acute abnormality and in particular no evidence of fracture is seen. 2. 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 Interval placement of a left nephrostomy tube. Compared to the prior, there is now mild right hydroureteronephrosis. 3. Redemonstration of previously noted lymph nodes. Interval enlargement of left adrenal mass concerning for metastatic disease. ACT 112: Negative or not required by law. Electronically signed by: Larry Mercado M.D. 10/17/2022 4:40 PM Discharge Plan Visit Data Chief Complaint: Fall Stated Complaint: FALL, R LEG PAIN ED Provider: Quentin Causey Discharge Problem: Weakness, Leukocytosis Forms Stand Alone Forms: [facility] Prescriptions Prescriptions: No Action thiamine HCl (vitamin B1) 100 mg tablet 100 mg PO DAILY tamsulosin 0.4 mg Capsule 0.4 mg PO QAM Qty: 30 0RF folic acid 1 mg Tablet 1 mg PO QAM Qty: 30 0RF Advanced Probiotic 625 mg (10 billion cell) Capsule 2 cap PO DAILY Qty: 10 0RF Referrals Referrals: Bryant Celaya MD [Primary Care Provider] -
[2022-10-17] MEDS ORDERED: cefTRIAXone SODIUM 2,000 MG/70 ML BAG IV STA (15:30)
[2022-10-17] MEDS ORDERED: OPTIRAY 320 100ml IV ONE (15:37)
--- NOTE | 2022-10-17 15:40 | History & Physical Report ---
Date of Service October 17, 2022 Assessment & Plan (1) Ambulatory dysfunction: (2) Bladder mass: (3) SIRS (systemic inflammatory response syndrome): (4) Dehydration: (5) Nephrostomy status: (6) Clubbed foot: Plan This is an 82-year-old male who has significant past medical history of alcohol abuse, tobacco abuse, history of lumbar osteomyelitis, hypertension and bladder mass, congenital right clubfoot who presents to ED secondary to inability to ambulate. Pt meets SIRS criteria in setting of leukocytosis, tachycardia. Pt with persistent leukocytosis since august when he was positive for cdiff, september + urosepsis. History of lumbar discitis in May 2021. Now status post nephrostomy tube in setting of large bladder mass. Obtain blood cultures, chest x-ray and urinalysis Patient did empirically receive 1 L of IV fluid in ED as well as 2 g IV Rocephin prior to obtaining culture. SIRS Leukocytosis Dehydration Rule out infectious etiology with blood culture, urine culture and chest x-ray Empirically treat with Vanco and cefepime given recent hospitalizations until infectious source ruled out Persistent leukocytosis may be in setting of underlying bladder malignancy Continue with IV fluid x 2 bag for hydration as patient appears dehydrated which may be playing a role in the tachycardia Ambulatory dysfunction Congenital right clubfoot Patient discharged today from [facility] Prior to recent hospitalization patient was mostly wheelchair-bound and lives alone When he returned home today with son patient had a near fall and therefore was brought back to ED It is felt patient is unsafe to live alone given nonambulatory status He will need placement, PT/OT Left clavicular fracture POA, occurred prior to 09/29 transfer to [facility] [place] Nonweightbearing to left upper extremity, sling for comfort, remove 3 times daily for elbow range of motion He will need orthopedic follow-up upon discharge He was seen by orthopedics done at [facility] Bladder mass with evidence of metastasis S/P Nephrostomy tube placement at [facility] [place] Discussed with patient and discussed with son separately At this time no further diagnostic or therapeutic intervention has been pursued Given age family currently considering not pursuing further treatment with a goal focused on comfort and quality of life Will consult palliative Protein calorie malnutrition, unknown severity Patient appears malnourished with hypoalbuminemia Consult dietitian Anemia, chronic and stable Obtain anemia panel, thiamine level Likely in setting of underlying malignancy and chronic disease Hx of alcohol abuse on thiamine/folic acid check thiamine level Tobacco abuse, chewing declines nicotine patch DVT ppx: SQ Lovenox Dispo: med tele, pt to need placement FULL CODE: discussed with son PCP: Yomi Pt was seen and examined in collaboration with Dr. Thompson, please see addendum A total of 90 was spent coordinating, documenting, and providing care for this patient excluding time spent in the performance of separately billed services. This included personally viewing all current laboratories and imaging studies, medication reconciliation, outpatient chart review, and discussion with specialists. History of Present Illness Chief Complaint: Fall prior to arrival. Primary Care Provider: Bryant Celaya MD This is an 82-year-old male who has significant past medical history of alcohol abuse, tobacco abuse, history of lumbar osteomyelitis, hypertension and bladder mass, congenital right clubfoot who presents to ED secondary to inability to ambulate. Of significance patient was seen in ED on 09/29/2022 after sustaining a fall and having difficulty ambulating. He does have history of clubfoot. He underwent CT scan of abdomen pelvis which showed increase in size of known bladder mass to 9.3 x 7.3 cm originating from the left aspect of the bladder and extending into the adjacent soft tissues. He also had a mild to moderate left hydroureteronephrosis which was similar to prior CT. Patient was seen and evaluated by urology and ED and felt patient likely required transfer to tertiary facility that was able to place a nephrostomy tube due to large left- sided bladder mass. He underwent nephrostomy tube placement. Urine culture obtained grew mixed jorge alberto the patient was treated empirically with antibiotics due to likely urinary tract infection. No further investigation of bladder mass was initiated due to patient unsure how aggressive he would want to pursue this mass. He did have a left clavicular fracture secondary to his fall prior to hospitalization. It was recommended patient utilize sling for comfort and tolerate PT/OT as able. Lastly he was found to be vitamin D deficient and this was supplemented. He was stabilized and then discharged to acute rehab at [facility] where he was until today when he was discharged. Patient's son transported him home. He had difficult time getting him from car to wheelchair and wheelchair in the house. Patient's son went outside for a very short time and when he returned inside patient was trying to get up and almost fell. He called the patient and sat him on the ground prior to falling. He did not injure himself. Patient's son is highly upset as he feels he is still very weak even after being at [facility]. Patient lives alone and son does not feel like he can stay there and therefore he was brought to ED. When asking patient why he came to ED he states, "I fell." He denies any fever, chills, sweats, lightheadedness, dizziness, chest pain, shortness breath, nausea, vomiting, diarrhea, change in bowel or urinary habits. ROS slightly unreliable in setting of mental status. History was obtained from son. I also discussed case with provider at [facility] Juan Rinaldi who states that patient's rehab course was otherwise unremarkable except he was noncompliant with staff and therapy. Allergies Allergy/AdvReac Type Severity Reaction Status Date / Time No Known Allergies Allergy Verified 10/17/22 14:26 Home Medications Medication Instructions Recorded Confirmed Type folic acid 1 mg tablet 1 mg PO QAM #30 tabs 08/22/22 10/17/22 Rx tamsulosin 0.4 mg capsule 0.4 mg PO QAM #30 caps 08/22/22 10/17/22 Rx L.acidop,casei,lactis,rham-B.lact,kimmy 2 cap PO DAILY #10 caps 09/03/22 10/17/22 Rx 625 mg (10 billion cell) capsule (Advanced Probiotic) thiamine HCl (vitamin B1) 100 mg 100 mg PO DAILY 10/17/22 10/17/22 History tablet Past Med/Surg History Medical History (Updated 10/17/22 @ 17:47 by Quentin Causey DO) M[employer] (hard of hearing) Lumbar discitis Osteoarthritis Right club foot congenital Surgical History (Updated 10/17/22 @ 17:01 by Shanice Swenson PA-C) History of surgery Right clubfoot correction - multiple procedures as a child Nephrostomy status Status post left knee replacement Family History Other No family history of adverse response to anesthesia Denies family history of Coronary heart disease Social History Smoking Status: Never smoker Tobacco Type: Smokeless Tobacco (Dip or Chew) Second Hand Exposure: No; Do You Dip or Chew Tobacco: Yes; Tobacco Cessation Education Requested by Patient: No Hx Alcohol Use: Yes Alcohol type: beer Hx Substance Use: Yes Last Used Substance: Unknown Last Used Substance Other:: 3-4 weeks ago Preferred Language: Afghan Communication Ability: Effective 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 Review of Systems Review of Systems: All systems reviewed & are unremarkable except as noted in HPI & below Physical Exam Physical Exam: Constitutional: malnourished appearing M, lying in bed, minimal eye contact, hard of hearing, vitals as above, NAD, sitting up in bed, not pleasant Head: Normocephalic, Atraumatic Eyes: PERRL, conjunctivae normal, anicteric sclerae ENMT: external ear and nose normal, oropharynx dry membranes with dried tobacco on lips Neck: trachea midline, no thyromegaly normal visual inspection Respiratory: normal respiratory effort, lungs clear to auscultation, no wheeze, rales, rhonchi. Normal insp/exp effort, no accessory muscle use Cardiovascular: tachycardic rate, regular rhythm no murmur, no edema Vessels: no JVD or carotid bruit Chest: normal inspection of chest Abdomen: normal bowel sounds, soft, nontender, no hepatosplenomegaly, left nephrostomy tube in place draining yellow urine Musculoskeletal: no cyanosis or clubbing, R foot club foot, scars to b/l ankles and knee Skin: no rashes, warm and dry normal turgor Neurologic: PERRL, EOMI, accommodation nl, no face palsy, no dysarthria CN's II-XI intact bilaterally and moves all extremities Psychiatric: A+Ox2 basics only, euthymic affect Lymphatic: no cervical or axillary lymphadenopathy : deferred Results & Data Results & Data Vital Signs (Past 12 Hours) Vital Signs Temp Pulse Pulse Resp BP BP Pulse Ox 10/17/22 14:48 110 H 10/17/22 14:46 95 10/17/22 14:46 109 H 18 114/79 95 10/17/22 13:56 37.4 C 110 H 20 100/67 96 O2 Del Method 10/17/22 14:48 10/17/22 14:46 10/17/22 14:46 Room Air 10/17/22 13:56 Room Air Diagnostic Findings Abdomen/Pelvis CT 10/17/22 14:47 CT abd pelvis IV con only CLINICAL HISTORY: fall TECHNIQUE: Helical axial images of the abdomen and pelvis were obtained and displayed. Automated dose lowering techniques and/or adjustment according to patient size were utilized for this exam. This exam was performed with intravenous contrast. CT DOSE: 762.42 mGy.cm COMPARISON: Comparison is made to CT abdomen pelvis 09/29/2022 FINDINGS: Lower chest: No acute abnormality. Liver: Unremarkable. No focal lesions are seen. Gallbladder and biliary tree: No calcified gallstones. Normal caliber wall. No intra- or extrahepatic biliary ductal dilation. Pancreas: Unremarkable, no focal lesions. Spleen: Wedge-shaped hypodensity in the spleen is unchanged from prior exam. Adrenals: A left adrenal nodule measuring 20 x 12 mm is enlarged from prior exam where it measured 19 x 10 mm. Kidneys and ureters: Left nephrostomy tube is seen. Right renal cyst is seen. A nonobstructive stone is seen in a slightly distended right ureter. Bladder: Heterogeneous bladder mass is seen, similar in size to prior exam. Reproductive organs: Prostatomegaly is seen. Bowel: Diverticulosis is seen without evidence of diverticulitis. Lymph nodes Retroperitoneal: There is a 12 mm retroperitoneal lymph node which is new from prior exam. Pelvic: Unremarkable. Mesenteric: Unremarkable. Peritoneum: Normal. Vessels: Atherosclerotic calcifications are seen. Abdominal wall: Unremarkable. Bones: Degenerative changes in the visualized spine. IMPRESSION: 1. No evidence of acute abnormality and in particular no evidence of fracture is seen. 2. 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 Interval placement of a left nephrostomy tube. Compared to the prior, there is now mild right hydroureteronephrosis. 3. Redemonstration of previously noted lymph nodes. Interval enlargement of left adrenal mass concerning for metastatic disease. ACT 112: Negative or not required by law. Electronically signed by: Larry Mercado M.D. 10/17/2022 4:40 PM Medications Administered Medication List Sodium Chloride (Nss 1000ml) 1,000 mls @ 999 mls/hr IV .Q1H1M ONE Stop: 10/17/22 15:47 Last Admin: 10/17/22 14:51 Dose: 999 mls/hr Documented By: LUIS Discontinued Medications Ioversol (Optiray 320 100ml) 92 ml IV ONCE ONE Stop: 10/17/22 15:38 Last Admin: 10/17/22 15:37 Dose: 92 ml Documented By: NIGEL ECG Rate (beats per minute): 115 Rhythm: normal sinus Findings: + PAC COVID-19 Results Results COVID-19 Adm Lab Results: RBC 4.58 M/uL (4.70-6.10) L 10/17/22 WBC 28.30 K/ul (4.8-10.8) H 10/17/22 Hgb 11.1 g/dl (14.0-18.0) L 10/17/22 Hct 35.6 % (42.0-52.0) L 10/17/22 Plt Count 338 K/uL (130-400) 10/17/22 Neutrophils (%) (Auto) 86.6 % 10/17/22 Lymphocytes (%) (Auto) 4.3 % 10/17/22 Monocytes # (Auto) 1.86 K/uL (0.11-0.59) H 10/17/22 Eosinophils # (Auto) 0.38 K/uL (0-0.50) 10/17/22 Immature Granulocyte % (Auto) 1.0 % 10/17/22 Neutrophils # (Auto) 24.49 K/uL (1.40-6.50) H 10/17/22 Lymphocytes # (Auto) 1.21 K/uL (1.2-3.4) 10/17/22 Monocytes # (Auto) 1.86 K/uL (0.11-0.59) H 10/17/22 Eosinophils # (Auto) 0.38 K/uL (0-0.50) 10/17/22 Basophils # (Auto) 0.07 K/uL (0-0.2) 10/17/22 Immature Granulocyte # (Auto) 0.29 K/uL (0.01-0.20) H 10/17 Na 136 mmol/L (136-145) 10/17/22 K 3.9 mmol/L (3.5-5.1) 10/17/22 Cl 100 mmol/L (98-107) 10/17/22 CO2 25 mmol/L (21-32) 10/17/22 Anion Gap 11 (3-11) 10/17/22 BUN 28 mg/dl (6-23) H 10/17/22 Creatinine 0.94 mg/dl (0.6-1.4) 10/17/22 BUN/Creatinine Ratio 29.8 (10-20) H 10/17/22 Glucose Level 96 mg/dl (70-99(Fasting)) 10/17/22 Ca 9.9 mg/dl (8.6-10.3) 10/17/22 Total Bilirubin 1.0 mg/dl (0.2-1.0) 10/17/22 AST/SGOT 18 U/L (13-39) 10/17/22 ALT/SGPT 11 U/L (7-52) 10/17/22 Alkaline Phosphatase 153 U/L (34-104) H 10/17/22 Total Protein 6.4 gm/dl (6.0-8.3) 10/17/22 Albumin 3.1 gm/dl (3.4-5.0) L 10/17/22 Globulin 3.3 gm/dl (2.5-4.0) 10/17/22 Albumin/Globulin Ratio 0.9 (0.9-2) 10/17/22 CRP 32.85 mg/dl (0-0.5) H 10/17/22 Chest X-Ray 10/17/22 Code Status & VTE Plan Code Status FULL CODE Discussed with son, who is not legal POA, pt does not have a POA Supervising Physician Co-Signing Physician Notes Pt seen and examined by myself, Hali Thompson MD on the day of service. Care was coordinated with Shanice Swenson PA-C. Please refer to her note for additional information. 82yoM with Hx of bladder cancer s/p nephrostomy tube presenting after hospitalization at [facility] [place] [place] and subsequent rehab stay with weakness. Pt and son requesting further placement, declining further treatment of cancer. Palliative care referral, PT/OT, case management. otherwise as above.
--- NOTE | 2022-10-17 16:41 | CT Scan Report ---
CT abd pelvis IV con only CLINICAL HISTORY: fall TECHNIQUE: Helical axial images of the abdomen and pelvis were obtained and displayed. Automated dose lowering techniques and/or adjustment according to patient size were utilized for this exam. This e xam was performed with intravenous contrast. CT DOSE: 762.42 mGy.cm COMPARISON: Comparison is made to CT abdomen pelvis 09/29/2022 FINDINGS: Lower chest: No acute abnormality. Liver: Unremarkable. No focal lesions are seen. Gallbladder and biliary tree: No calcified gallstones. Normal caliber wall. No intra- or extrahepatic biliary ductal dilation. Pancreas: Unremarkable, no focal lesions. Spleen: Wedge-shaped hypodensity in the spleen is unchanged from prior exam. Adrenals: A left adrenal nodule measuring 20 x 12 mm is enlarged from prior exam where it measured 19 x 10 mm. Kidneys and ureters: Left nephrostomy tube is seen. Right renal cyst is seen. A nonobstructive stone is seen in a slightly distended right ureter. Bladder: Heterogeneous bladder mass is seen, similar in size to prior exam. Reproductive organs: Prostatomegaly is seen. Bowel: Diverticulosis is seen without evidence of diverticulitis. Lymph nodes Retroperitoneal: There is a 12 mm retroperitoneal lymph node which is new from prior exam. Pelvic: Unremarkable. Mesenteric: Unremarkable. Peritoneum: Normal. Vessels: Atherosclerotic calcifications are seen. Abdominal wall: Unremarkable. Bones: Degenerative changes in the visualized spine. IMPRESSION: 1. No evidence of acute abnormality and in particular no evidence of fracture is seen. 2. 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 Interval placement of a left nephrostomy tube. Compared to the prior, there is now mild right hydroureteronephrosis. 3. Redemonstration of previously noted lymph nodes. Interval enlargement of left adrenal mass concer veda for metastatic disease. ACT 112: Negative or not required by law. Electronically signed by: Larry Mercado M.D. 10/17/2022 4:40 PM
[2022-10-17] MEDS ORDERED: VANCOMYCIN CONSULT ACTIVE PRN (16:53)
[2022-10-17] MEDS ORDERED: VANCOMYCIN HCL 1,250 MG in SODIUM CHLORIDE 0.9% 250 ML IV ONE (17:30)
[2022-10-17 17:44] LABS: C Reactive Protein 32.85 mg/dl (0-0.5)
--- NOTE | 2022-10-17 17:48 | XRay Report ---
XR chest 1V portable HISTORY: sepsis r/o COMPARISON: Chest 09/29/2022. FINDINGS: No pneumothorax. No pleural effusions. The lungs are clear. The heart is normal in size. Mi ld calcified plaque within the aortic knob again noted. Partially visualized distal left clavicle fra cture, unchanged. IMPRESSION: 1. Partially visualized distal left clavicle fracture again noted. 2. Otherwise, no acute process within the chest. ACT 112: Negative or not required by law. Electronically signed by: Donovan Nugyen M.D. 10/17/2022 5:47 PM
[2022-10-17] MEDS ORDERED: MAGNESIUM HYDROXIDE SUSP 30 ML UDC PO PRN (18:48)
[2022-10-17] MEDS ORDERED: ACETAMINOPHEN 325 MG TAB PO PRN (18:48)
[2022-10-17] MEDS ORDERED: ONDANSETRON INJ 2 MG/ML 2 ML VIAL IV PRN (18:48)
[2022-10-17] MEDS ORDERED: POLYETHYLENE (MIRALAX) 17 GM PACK PO PRN (18:48)
[2022-10-17] MEDS ORDERED: ALUMINUM/MAGNESIUM SUSP 30 ML UDC PO PRN (18:48)
[2022-10-17 19:19] LABS: Appearance Urine Cloudy (Clear); Bacteria Urine Automated 2+ (Negative); Bilirubin Urine Negative (Negative); Blood Urine 3+ (Negative); Color Urine Yellow; Epithelial Cell Urine Auto 0-5 /lpf (0-5); Glucose Urine UA Negative (Negative); Ketones Urine Trace (Negative); Leukocyte Esterase Urine 2+ (Negative); Nitrite Urine Positive (Negative); Protein Urine 1+ (Negative); RBC Urine Automated >30 /hpf (0-4); Specific Gravity Urine > 1.045 (1.000-1.030); Urobilinogen Urine Negative (Negative); WBC Urine Automated >30 /hpf (0-5)
--- NOTE | 2022-10-17 19:34 | Pharmacy Report ---
Pharmacy PK ABX Note - Date of Service October 17, 2022 - Assessment and Plan Assessment 82 year old M receiving vancomycin for empiric treatment. Pertinent microbiologic data includes: blood culture, urine culture, MRSA nares pending. Day # 1 of antimicrobial therapy. Plan Vancomycin * Loading dose: 1250 mg IV x 1 * Maintenance dose: 1250 mg IV every 24 hours * Regimen is predicted to achieve target AUC/NENA of 400-600 mg/L.hr * Random level to be ordered if continuing beyond 48 hours Pharmacy will continue to follow and will adjust dose/frequency as necessary. Thank you. Pharmacy has transitioned to AUC monitoring for vancomycin. AUC/NENA is the preferred PK/PD target and is associated with decreased risk of nephrotoxicity compared to traditional trough targets.
[2022-10-17] MEDS: SODIUM CHLORIDE 0.9% 1,000 ML IV SCH (19:50)
[2022-10-17] MEDS ORDERED: ENOXAPARIN INJ 40 MG/0.4 ML SYR SQ SCH (21:00)
[2022-10-17] MEDS: CEFEPIME 2,000 MG in SYRINGE 0 ML IV SCH (21:43)
[2022-10-18] MEDS: VANCOMYCIN HCL 1,250 MG in SODIUM CHLORIDE 0.9% 250 ML IV SCH (05:54)
[2022-10-18 07:05] LABS: Hemoglobin 9.4 g/dl (14.0-18.0); Mean Corpuscular Hemoglobin 24.3 pg (25.0-34.0); Mean Corpuscular Hgb Conc 31.3 g/dL (32.0-36.0); Mean Corpuscular Volume 77.5 fL (80.0-100.0); Mean Platelet Volume 9.7 fL (9.4-12.4); Platelet Count 277 K/uL (130-400); RDW Coefficient of Variation 17.3 % (11.5-14.5); RDW Standard Deviation 48.8 fL (36.4-46.3); Red Blood Count 3.87 M/uL (4.70-6.10); White Blood Count 25.37 K/ul (4.8-10.8)
[2022-10-18 07:25] LABS: Acanthocytes 1+; Basophils # (auto) 0.08 K/uL (0-0.2); Basophils % (auto) 0.3 %; Eosinophils # (auto) 0.52 K/uL (0-0.50); Immature Granulocytes # (auto) 0.28 K/uL (0.01-0.20); Immature Granulocytes % (auto) 1.1 %; Lymphocytes # (auto) 1.45 K/uL (1.2-3.4); Lymphocytes % (auto) 5.7 %; Monocytes # (auto) 1.63 K/uL (0.11-0.59); Monocytes % (auto) 6.4 %; Neutrophils # (auto) 21.41 K/uL (1.40-6.50); Neutrophils % (auto) 84.5 %; Ovalocytes 1+; Polychromasia 1+
[2022-10-18 07:30] LABS: Alanine Aminotransferase 10 U/L (7-52); Albumin Globulin Ratio 0.9 (0.9-2); Albumin Level 2.6 gm/dl (3.4-5.0); Alkaline Phosphatase 148 U/L (34-104); Anion Gap 12 (3-11); Aspartate Aminotransferase 18 U/L (13-39); BUN Creatinine Ratio 25.2 (10-20); Bilirubin,Total 0.4 mg/dl (0.2-1.0); Blood Urea Nitrogen 29 mg/dl (6-23); Calcium 8.8 mg/dl (8.6-10.3); Carbon Dioxide 19 mmol/L (21-32); Chloride 102 mmol/L (98-107); Creatinine Clr Calc Pharmacy 34.9 ml/min; Est GFR (African American) 69.3 ml/min; Est GFR (Non-African American) 59.8 ml/min; Globulin 2.8 gm/dl (2.5-4.0); Glucose 65 mg/dl (70-99(Fasting)); Iron < 10 mcg/dl (35-175); Magnesium 1.7 mg/dl (1.7-2.4); Potassium 3.9 mmol/L (3.5-5.1); Sodium 133 mmol/L (136-145); Total Protein 5.4 gm/dl (6.0-8.3); Transferrin 140 mg/dl (200-360)
[2022-10-18 07:41] LABS: Folate (Folic Acid),Ser orPlas 11.38 ng/ml (>5.38)
[2022-10-18 07:49] LABS: Ferritin 212.5 ng/ml (8-388)
[2022-10-18] MEDS: FOLIC ACID 1 MG TAB PO SCH (08:13)
[2022-10-18] MEDS: ADVANCED PROBIOTIC 1250 MG CAPSULE PO SCH (08:14)
[2022-10-18] MEDS: THIAMINE HCL 100 MG TAB PO SCH (08:14)
[2022-10-18] MEDS: TAMSULOSIN HCL 0.4 MG CAP PO SCH (08:14)
--- NOTE | 2022-10-18 08:29 | Electrocardiogram Report ---
Test Reason : Blood Pressure : / mmHG Vent. Rate : 115 BPM Atrial Rate : 115 BPM P-R Int : 130 ms QRS Dur : 072 ms QT Int : 308 ms P-R-T Axes : 049 029 069 degrees QTc Int : 426 ms Sinus tachycardia with Premature atrial complexes Otherwise normal ECG When compared with ECG of 29-SEP-2022 10:32, Premature atrial complexes are now Present Confirmed by Stephen Miranda ([id number]) on 10/18/2022 8:29:31 AM Referred By: REFERRED SELF Confirmed By:Benjamin Miranda
--- NOTE | 2022-10-18 09:13 | Palliative Care Consultation ---
Date of Consultation October 18, 2022 Assessment & Plan (1) Weakness generalized: pt has had several rounds of rehab trials, most recently at [facility] until yesterday, dc home then promptly came to ER as pt did not have help at home. [facility] indicates he did not participate in rehab, he was reported as "nonc ompliant with staff and therapy." he has a progressive bladder mass for and has been consistently saying he does not wish to pursue treatment. Progressive weakness, declining, no desire for further work up and little to no effort with rehab admissions = continued decline. This is not weakness which will improve or reverse. He is emerging to a new lower baseline, and will continue declining and needs placement because the level of care he needs cannot be delivered at home without ATC family caregivers +/- private pay caregivers which are unfortunately not available in this region post covid. (2) Falls frequently: (3) Palliative care by specialist: Met wi pt son, Enrique Mchugh, telephonically. Provided overview of Palliative Medicine, a subspecialty that provides specialized medical care for people living with a serious illness by offering a focus on quality of life. Palliative Medicine is often conflated with hospice: I advised patient/family that Palliative and hospice can be partners but we are not the same. It is important to understand the difference so that we may be informed, and not afraid. Palliative Medicine works to improve QOL through reduction of symptom burden/more control over their illness, for both the patient and family. Palliative medicine clinicians are board certified, specially-trained and another member of the patient's medical care team. We often provide an extra layer of support because our care is based on the needs of the patient, not the prognosis; as such, it's appropriate at any age/advancing stage of a serious illness and can be provided along with curative treatment. Palliative Medicine clinicians are also trained in advanced communication methodologies, to facilitate complex discussions about advanced illness planning, which are needed to help assure that the treatment choices match the patient's goals, aka delivering Goal Concordant care. Finally, we discussed that hospice is a visiting nurse service that focuses on care delivered at the very end of life for patients with terminal illness, with life expectancy less than 6 month. (4) Advanced care planning/counseling discussion: ACP discussion with son/SDM, Enrique Mchugh x 45min telephonically. Enrique is working today and does not have the ability to come to hospital until this evening/after business hours. We discussed that patient is not decisional at this junction. He has intermittent confusion complicated by irritability and mood swings. Enrique shared with me a very complicated and distressing history of trying to get his father adequate help and support. He states that at this point he has a giant folder filled for applications and materials that he was requested to provide her some that to get additional help that has somehow never come to fruition. He realizes that his father is not recovering as well as he had hoped with rehab but he also feels that [facility] did not care for his father properly. He asked me what options exist at this point especially knowing that patient does not want further evaluation or workup for his bladder mass. Son is very aware that this is likely a malignancy and we discussed how the changes that patient has been experiencing through the past year also point to the likelihood that he has been worsening as a result of this issue as well. His additional medical issues not withstanding, the underlying malignancy is causing performance status decline as well. Son also states patient has been having more consistent issues with memory and recall. 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 When questioned about his orientation he insisted it was May and has been somewhat belligerent with nursing/staff. Son states that he is not surprised to hear this, and shares a recent example of how when they came home from [facility], he was assisting patient with removing his seatbelt and for reasons unclear, patient then proceeded to try and undo his own belt at the waistband of his pants because he did not understand. We discussed the options at this junction and agreed that it is time to focus on quality of life and symptom management. We acknowledge that there is a progressive underlying likely malignancy and that the other issues which have been chronic and longstanding are also progressively worsening, none of which are curable, reversible or substantially fixable. Son verbalizes agreement and expresses a wish to transition the focus of care to be more about comfort and quality of life. We discussed the option of home with hospice versus snf home placement for trial of rehab followed by conversion to long-term care. Patient does not have adequate caregiver support to return home with hospice. There is no additional family who can supplement the son in caring for patient. Therefore, Enrique would like rehab trial to see if it can regain some strength at snf with conversion to longwall machine operator helper care placement/comfort care with addition of hospice. Pt cannot live at home and has no support. Enrique has to work and there is no one else to help. I advised him that once at SNF, they can apply for Medicaid to cover pt as a skilled nursing care patient. Son says he has no assets and does not own any property etc., "his Hello finances are very low." I advised him that from what he has shared with me, it sounds like patient would qualify for Medicaid but [facility] has to do the application once pt gets there bc care [facility] here does not handle medicaid applications. Son says he does not have a usp preference. We also discussed CODE STATUS and I reviewed the following CPR survival: Only about 10% of patients who have sha-ny-sggadlyy sudden cardiac arrest survive to hospital discharge, with many survivors having neurologic impairment. This rate is even lower among patients with serious coexisting conditions, ie chance of survival to hospital discharge for in-hospital CPR in older people is low to moderate (15%) and decreases with age, comorbidities, performance status and frailty: for pts > 70 yo, more than half of the patients who initially survived resuscitation in the hospital before hospital discharge. The pooled survival to discharge after in-hospital CPR was 18% for patients between 70 and 79 years old, 15% for patients between 80 and 89 years old and 11% for patients of 90 years and older. (Ruben CARLSONY, Slim LJ, Ralph F, et al. Trends in short- and long-term survival among avo-xd-skrehcte cardiac arrest patients alive at hospital arrival. Circulation 2014;130:0623-3418. AND Floyd C, Gabriel T, Sofy R, et al. Performance of clinical risk scores to predict mortality and neurological outcome in cardiac arrest patients. Resuscitation 2019;136:21-29.) Son is in agreement that patient would not desire aggressive care or artificial resuscitation and life support at this stage. Since he has already made the major decision not to pursue further workup of her malignancy, son would like to focus to be on comfort and quality of life as well as trying to improve his father strength to what ever capacity possible so that he may be more comfortable in this final chapter. We agreed on a CODE STATUS of DNR/DNI and I have changed the order. I also reviewed with him the option of completing a POLST form: we specifically discussed that POLST is an approach to end-of-life planning that emphasizes patients wishes about the care they receive. The POLST Paradigm, which stands for Physician Orders for Life Sustaining Treatment, is an approach to end-of-life planning emphasizing: (i) advance care planning conversations between patients, health director day care center and loved ones; (ii) shared decision-making between a patient and his/her health career development coordinator/teacher about the care the patient would like to receive at the end of his/her life and (iii) ensuring patient wishes are honored. We discussed that the POLST form is a medical order indicating a patients wish es regarding treatments that are commonly used in a medical crisis. It is a medical order, therefore emergency personnel such as paramedics, planning coordinator, and emergency physicians must follow these orders. Without a POLST form, paramedics and planning coordinator are required to provide every possible medical treatment to sustain life. Patient/family advised that the [place] POLST form is a very bright PINK colored form designed for immediate, easy location and which gives them a way to tell doctors, nurses, and other health director day care center what types of treatment they do and do not want. A POLST form will be reviewed and likely completed on Friday at 10 AM when son comes in for [id number] meeting. At that time once the form is completed, a copy of the POLST form will be provided for uploading to [employer] and the original was provided to Enrique, pt son/SDM. We confirmed he will be coming in Friday at 10am to meet with me and we will complete a POLST. I have updated nursing and the primary team. (5) Bladder mass: Patient desires no further workup. This is likely malignancy. (6) Sepsis associated hypotension: Resolving with current treatment. Parent and I had further discussion about the intensity of treatment to pursue at this junction. We agreed to continue IV antibiotics, fluid resuscitation, and current cardiac monitoring at least through the weekend to see how patient does and if he remains stable/continues to improve, Enrique is in agreement to discontinue cardiac monitoring early next week. (7) Dehydration: Plan * As outlined above and advance care planning meeting. * Patient is a no code, CPR status has been changed to DNR/DNI. * Family meeting with patient's son is planned for Friday at 10 AM, we will likely complete a POLST form at that time. * I have updated nursing and the primary team. Care management will need to submit applications for snf placement for a trial of rehab with conversion to long-term care and a Medicaid application will need to be submitted by the [facility]p. Patient's son can provide the financial paperwork needed as part of the Medicaid application process. * [id number] * Please note: the above document was generated using voice recognition software. It may contain unintentional grammatical, syntax or spelling errors. Any formal questions or concerns about the content, text or information contained within the body of this dictation should be directly addressed to the provider for clarification. Thank you for allowing us to participate in the ongoing care of this patient. Please don't hesitate to call or page with any additional concerns. Dr. Melani Marina [facility] Director, Palliative Care History of Present Illness Attending Physician: Jayjay Maza MD History of Present Illness Per admission note: "This is an 82-year-old male who has significant past medical history of alcohol abuse, tobacco abuse, history of lumbar osteomyelitis, hypertension and bladder mass, congenital right clubfoot who presents to ED secondary to inability to ambulate. Of significance patient was seen in ED on 09/29/2022 after sustaining a fall and having difficulty ambulating. He does have history of clubfoot. He underwent CT scan of abdomen pelvis which showed increase in size of known bladder mass to 9.3 x 7.3 cm originating from the left aspect of the bladder and extending into the adjacent soft tissues. He also had a mild to moderate left hydroureteronephrosis which was similar to prior CT. Patient was seen and evaluated by urology and ED and felt patient likely required transfer to tertiary facility that was able to place a nephrostomy tube due to large left-sided bladder mass. He underwent nephrostomy tube placement. Urine culture obtained grew mixed jorge alberto the patient was treated empirically with antibiotics due to likely urinary tract infection. No further investigation of bladder mass was initiated due to patient unsure how aggressive he would want to pursue this mass. He did have a left clavicular fracture secondary to his fall prior to hospitalization. It was recommended patient utilize sling for comfort and tolerate PT/OT as able. Lastly he was found to be vitamin D deficient and this was supplemented. He was stabilized and then discharged to acute rehab at [facility] where he was until today when he was discharged. Patient's son transported him home. He had difficult time getting him from car to wheelchair and wheelchair in the house. Patient's son went outside for a very short time and when he returned inside patient was trying to get up and almost fell. He called the patient and sat him on the g round prior to falling. He did not injure himself. Patient's son is highly upset as he feels he is still very weak even after being at [facility]. Patient lives alone and son does not feel like he can stay there and therefore he was brought to ED. When asking patient why he came to ED he states, "I fell." He denies any fever, chills, sweats, lightheadedness, dizziness, chest pain, shortness breath, nausea, vomiting, diarrhea, change in bowel or urinary habits. ROS slightly unreliable in setting of mental status. History was obtained from son. I also discussed case with provider at [facility] Juan Rinaldi who states that patient's rehab course was otherwise unremarkable except he was noncompliant with staff and therapy." Patient has been brought to ED for placement assistance, family report they cannot care for him. Allergies Allergy/AdvReac Type Severity Reaction Status Date / Time No Known Allergies Allergy Verified 10/17/22 14:26 Home Medications Medication Instructions Recorded Confirmed Type folic acid 1 mg tablet 1 mg PO QAM #30 tabs 08/22/22 10/17/22 Rx tamsulosin 0.4 mg capsule 0.4 mg PO QAM #30 caps 08/22/22 10/17/22 Rx L.acidop,casei,lactis,rham-B.lact,kimmy 2 cap PO DAILY #10 caps 09/03/22 10/17/22 Rx 625 mg (10 billion cell) capsule (Advanced Probiotic) thiamine HCl (vitamin B1) 100 mg 100 mg PO DAILY 10/17/22 10/17/22 History tablet Patient History Medical History (Updated 10/18/22 @ 09:24 by Melani Marina DNP) 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[place]UPAI (hard of hearing) Lumbar discitis Osteoarthritis Right club foot congenital Surgical History (Updated 10/17/22 @ 17:01 by Shanice Swenson PA-C) History of surgery Right clubfoot correction - multiple procedures as a child Nephrostomy status Status post left knee replacement Family History Other No family history of adverse response to anesthesia Denies family history of Coronary heart disease Social History Smoking Status: Never smoker Tobacco Type: Smokeless Tobacco (Dip or Chew) Second Hand Exposure: No; Do You Dip or Chew Tobacco: Yes; Tobacco Cessation Education Requested by Patient: No Hx Alcohol Use: Yes Alcohol type: beer Hx Substance Use: Yes Last Used Substance: Unknown Last Used Substance Other:: 3-4 weeks ago Preferred Language: Welsh Communication Ability: Effective Fire Regulator Required: No Beliefs That Will Affect Care: None marital status: Current Living Situation: Alone Current Living Situation Comment: Lives alone in an apartment How many Children do You have: 1 Other Information That Helps Us Care for You: No Feels Safe at Home: Yes Safety Concerns: Feels Safe At This Time Assistive Devices: Glasses and Walker Assistive Devices Comment: Glasses are for reading. Review of Systems Review of Systems: All systems reviewed & are unremarkable except as noted in Subjective Physical Exam Physical Exam: Confused, agitated and at times irritable. Does not allow much examination. Does not answer questions. Will open eyes when name is called but does not provide significant answers or HPI when questioned. Speech is sometimes pressured and loud. Respiratory effort at rest appears comfortable. There is no gross JVD. Results & Data Vital Signs (Past 12 Hours) Vital Signs Temp Pulse Pulse Resp BP Pulse Ox Pulse Ox 10/18/22 07:55 36.5 C 105 H 20 126/78 97 10/18/22 03:04 37.2 C 96 H 14 126/70 96 10/17/22 21:43 10/17/22 21:43 93 10/18/22 01:03 101 H 10/17/22 23:20 37 C 102 H 20 126/75 93 O2 Del Method O2 Del Method 10/18/22 07:55 Room Air 10/18/22 03:04 Room Air 10/17/22 21:43 Room Air 10/17/22 21:43 Room Air 10/18/22 01:03 10/17/22 23:20 Room Air Laboratory Results data reviewed, see HPI Diagnostic Findings data reviewed, see HPI PG Care Time/CCT Total # of Minutes Spent Total Time Spent: 85 Total Time Spent with Patient: Total time spent is greater than 50% in coordination of care (as documented) at patient's floor/unit and/or counseling patient: 15 min chart review incl OSH data 10 min with pt 45min ACP with son/SDM 15min with coord of care/discussion with team Advanced Care Planning 06672 Advanced Care Planning 30 Min 90201 Advanced Care Planning Additional 30 [place] [address] IN/OBS CONSULT LVL 5,80M Patient Type New History Comprehensive Exam Expanded Problem Focused Medical Decision Making High Complexity Diagnoses Weakness generalized R53.1 Falls frequently R29.6 Palliative care by specialist Z51.5 Advanced care planning/counseling discussion Z71.89 Bladder mass N32.89 Sepsis associated hypotension A41.9; I95.9 Dehydration E86.0 Additional Codes Advanced Care Planning - 94080 Advanced Care Planning 30 Min: 60356 Advanced Care Planning 30 Min ([id number]) Advanced Care Planning - 41555 Advanced Care Planning Additional 30 Min: 66713 Advanced Care Planning Additional 30 Min ([id number])
[2022-10-18] MEDS: CEFEPIME 2,000 MG in SYRINGE 0 ML IV SCH ×2 (10:03→22:11)
--- NOTE | 2022-10-18 15:52 | Hospitalist Progress Note ---
Date of Service October 18, 2022 Assessment & Plan (1) Ambulatory dysfunction: (2) Bladder mass: (3) SIRS (systemic inflammatory response syndrome): (4) Dehydration: (5) Nephrostomy status: (6) Clubbed foot: Plan Per admitting service notes with addendum: This is an 82-year-old male who has significant past medical history of alcohol abuse, tobacco abuse, history of lumbar osteomyelitis, hypertension and bladder mass, congenital right clubfoot who presents to ED secondary to inability to ambulate. Pt meets SIRS criteria in setting of leukocytosis, tachycardia. Pt with persistent leukocytosis since august when he was positive for cdiff, september + urosepsis. History of lumbar discitis in May 2021. Now status post nephrostomy tube in setting of large bladder mass. Obtain blood cultures, chest x-ray and urinalysis Patient did empirically receive 1 L of IV fluid in ED as well as 2 g IV Rocephin prior to obtaining culture. SIRS, Leukocytosis secondary to UTI Dehydration Rule out infectious etiology with blood culture, urine culture and chest x-ray Empirically treat with Vanco and cefepime given recent hospitalizations until infectious source ruled out Persistent leukocytosis may be in setting of underlying bladder malignancy Continue with IV fluid x 2 bag for hydration as patient appears dehydrated which may be playing a role in the tachycardia 10/18 Hemodynamically stable Leukocytosis improving Urine culture: Gram-negative bacilli Blood cultures: Pending Continue IV vancomycin plus cefepime Monitor closely Ambulatory dysfunction Congenital right clubfoot Patient discharged today from [facility] Prior to recent hospitalization patient was mostly wheelchair-bound and lives alone When he returned home today with son patient had a near fall and therefore was brought back to ED It is felt patient is unsafe to live alone given nonambulatory status He will need placement, PT/OT 10/18 PT and OT evaluation Left clavicular fracture POA, occurred prior to 09/29 transfer to [facility] Nonweightbearing to left upper extremity, sling for comfort, remove 3 times daily for elbow range of motion He will need orthopedic follow-up upon discharge He was seen by orthopedics done at [facility] Bladder mass with evidence of metastasis S/P Nephrostomy tube placement at [facility] Discussed with patient and discussed with son separately At this time no further diagnostic or therapeutic intervention has been pursued Given age family currently considering not pursuing further treatment with a goal focused on comfort and quality of life Palliative care team consulted Protein calorie malnutrition, unknown severity Patient appears malnourished with hypoalbuminemia Consult dietitian Anemia, chronic and stable Obtain anemia panel, thiamine level Likely in setting of underlying malignancy and chronic disease Hx of alcohol abuse on thiamine/folic acid Tobacco abuse, chewing declines nicotine patch DVT ppx: SQ Lovenox Dispo: med tele, pt to need placement FULL CODE: discussed with son PCP: Y[facility] Admission and Anticipated Discharge Date Admission Date: October 17, 2022 Subjective Follow-up for generalized weakness, UTI, etc. Seen resting in bed, comfortable, not in distress States he feels tired, Denies abdominal pain, back pain, nausea vomiting no chest pain, dyspnea, palpitations, dizziness Appetite is poor No Other new symptoms Review of Systems Review of Systems: all noted and negative except for above Physical Exam Physical Exam: General- oriented x 2, not in distress, speaks in sentences with no effort or accessory muscle use Eyes- anicteric Neck- no JVD Lungs- clear breath sounds bilaterally, no rales/wheezes Heart- normal rate, regular rhythm; no murmurs Abdomen- normal bowel sounds, nondistended, soft, nontender Left nephrostomy tube in place-with yellow urine Extremities- no pretibial edema, no calf tenderness Neuro- alert, oriented x 3; no gross focal neurologic deficits Skin- warm & dry Results & Data Results & Data Vital Signs (Past 12 Hours) Vital Signs Temp Pulse Resp BP Pulse Ox O2 Del Method 10/18/22 15:07 36.4 C L 84 18 107/61 97 Room Air 10/18/22 11:51 36.5 C 77 18 98/46 L 98 Room Air 10/18/22 11:23 Room Air 10/18/22 07:55 36.5 C 105 H 20 126/78 97 Room Air all noted and reviewed including below
[2022-10-18] MEDS: SODIUM CHLORIDE 0.9% 1,000 ML IV SCH (19:47)
[2022-10-18] MEDS: ENOXAPARIN INJ 30 MG/0.3 ML SYR SQ SCH (22:11)
[2022-10-19] MEDS: VANCOMYCIN HCL 1,250 MG in SODIUM CHLORIDE 0.9% 250 ML IV SCH (05:53)
[2022-10-19] MEDS: TAMSULOSIN HCL 0.4 MG CAP PO SCH (08:14)
[2022-10-19] MEDS: FOLIC ACID 1 MG TAB PO SCH (08:14)
[2022-10-19] MEDS: ADVANCED PROBIOTIC 1250 MG CAPSULE PO SCH (08:14)
[2022-10-19] MEDS: THIAMINE HCL 100 MG TAB PO SCH (08:14)
[2022-10-19] MEDS: CEFEPIME 2,000 MG in SYRINGE 0 ML IV SCH ×2 (10:22→21:55)
--- NOTE | 2022-10-19 15:29 | Hospitalist Progress Note ---
Date of Service October 19, 2022 Assessment & Plan (1) Ambulatory dysfunction: (2) Bladder mass: (3) SIRS (systemic inflammatory response syndrome): (4) Dehydration: (5) Nephrostomy status: (6) Clubbed foot: Plan Per admitting service notes with addendum: This is an 82-year-old male who has significant past medical history of alcohol abuse, tobacco abuse, history of lumbar osteomyelitis, hypertension and bladder mass, congenital right clubfoot who presents to ED secondary to inability to ambulate. Pt meets SIRS criteria in setting of leukocytosis, tachycardia. Pt with persistent leukocytosis since august when he was positive for cdiff, september + urosepsis. History of lumbar discitis in May 2021. Now status post nephrostomy tube in setting of large bladder mass. Obtain blood cultures, chest x-ray and urinalysis Patient did empirically receive 1 L of IV fluid in ED as well as 2 g IV Rocephin prior to obtaining culture. SIRS, Leukocytosis secondary to UTI Dehydration Rule out infectious etiology with blood culture, urine culture and chest x-ray Empirically treat with Vanco and cefepime given recent hospitalizations until infectious source ruled out Persistent leukocytosis may be in setting of underlying bladder malignancy Continue with IV fluid x 2 bag for hydration as patient appears dehydrated which may be playing a role in the tachycardia 10/19 Hemodynamically stable Leukocytosis improving Urine culture: Gram-negative bacilli Blood cultures: Pending Continue IV cefepime Monitor closely Ambulatory dysfunction Congenital right clubfoot Patient discharged today from [facility] Prior to recent hospitalization patient was mostly wheelchair-bound and lives alone When he returned home today with son patient had a near fall and therefore was brought back to ED It is felt patient is unsafe to live alone given nonambulatory status He will need placement, PT/OT 10/19 PT and OT evaluation Left clavicular fracture POA, occurred prior to 09/29 [place] [facility] [place] to left upper extremity, sling for comfort, remove 3 times daily for elbow range of motion He will need orthopedic follow-up upon discharge He was seen by orthopedics done at [facility] Bladder mass with evidence of metastasis S/P [place] [facility] Discussed with patient and discussed with son separately At this time no further diagnostic or therapeutic intervention has been pursued Given age family currently considering not pursuing further treatment with a goal focused on comfort and quality of life Palliative care team consulted Protein calorie malnutrition, unknown severity Patient appears malnourished with hypoalbuminemia Consult dietitian Anemia, chronic and stable Iron level less than 10 Oral iron ordered Will need Venofer Obtain anemia panel, thiamine level Likely in setting of underlying malignancy and chronic disease Hx of alcohol abuse on thiamine/folic acid Tobacco abuse, chewing declines nicotine patch DVT ppx: SQ Lovenox Dispo: med tele, pt to need placement FULL CODE: discussed with son PCP: Yomi Admission and Anticipated Discharge Date Admission Date: October 17, 2022 Subjective Follow-up for weakness, UTI in the setting of nephrostomy tube, left, etc. Resting in bed, comfortable, not in distress Patient somewhat irritable States he feels fine overall Denies abdominal/flank/back pain, next round urination No fevers or chills no chest pain, dyspnea, palpitations, dizziness No other new symptoms Review of Systems Review of Systems: all noted and negative except for above Physical Exam Physical Exam: General- oriented x 2, not in distress, speaks in sentences with no effort or accessory muscle use Eyes- anicteric Neck- no JVD Lungs- clear breath sounds bilaterally, no crackles Heart- normal rate, regular rhythm; no murmurs Abdomen- normal bowel sounds, nondistended, soft, nontender Left nephrostomy tube in place-draining yellow urine Extremities- no pretibial edema, no calf tenderness Neuro- alert, oriented x 3; no gross focal neurologic deficits Skin- warm & dry Results & Data Results & Data Vital Signs (Past 12 Hours) Vital Signs Temp Pulse Pulse Resp BP Pulse Ox O2 Del Method 10/19/22 11:44 36.5 C 79 16 100/57 L 96 Room Air 10/19/22 08:15 Room Air 10/19/22 08:31 36.4 C L 80 16 118/64 97 Room Air 10/19/22 07:17 81 all noted and reviewed including below
[2022-10-19] MEDS ORDERED: IRON SUCROSE 300 MG in SODIUM CHLORIDE 0.9% 250 ML IV ONE (16:00)
[2022-10-19 17:03] LABS: BUN Creatinine Ratio 37.8 (10-20); Creatinine Clr Calc Pharmacy 56.3 ml/min; Est GFR (Non-African American) 87.1 ml/min; Potassium 3.4 mmol/L (3.5-5.1)
[2022-10-19] MEDS: FERROUS SULFATE 325 MG TAB PO SCH (17:30)
[2022-10-19] MEDS: ENOXAPARIN INJ 30 MG/0.3 ML SYR SQ SCH (21:55)
[2022-10-20] MEDS: FERROUS SULFATE 325 MG TAB PO SCH ×3 (08:28→17:00)
[2022-10-20] MEDS: POTASSIUM CHLORIDE CRTAB 20 MEQ TABCR PO STA ×2 (08:28→08:40)
[2022-10-20] MEDS: TAMSULOSIN HCL 0.4 MG CAP PO SCH ×2 (08:29→08:42)
[2022-10-20] MEDS: THIAMINE HCL 100 MG TAB PO SCH ×2 (08:29→08:42)
[2022-10-20] MEDS: FOLIC ACID 1 MG TAB PO SCH ×2 (08:29→08:41)
[2022-10-20] MEDS: ADVANCED PROBIOTIC 1250 MG CAPSULE PO SCH ×2 (08:29→08:42)
[2022-10-20 08:36] LABS: Basophils # (auto) 0.07 K/uL (0-0.2); Basophils % (auto) 0.3 %; Eosinophils # (auto) 2.27 K/uL (0-0.50); Hematocrit (blood only) 30.6 % (42.0-52.0); Hemoglobin 9.8 g/dl (14.0-18.0); Immature Granulocytes # (auto) 0.18 K/uL (0.01-0.20); Immature Granulocytes % (auto) 0.8 %; Lymphocytes # (auto) 1.43 K/uL (1.2-3.4); Lymphocytes % (auto) 6.3 %; Mean Corpuscular Volume 78.1 fL (80.0-100.0); Mean Platelet Volume 9.3 fL (9.4-12.4); Monocytes # (auto) 1.23 K/uL (0.11-0.59); Monocytes % (auto) 5.4 %; Neutrophils # (auto) 17.43 K/uL (1.40-6.50); Neutrophils % (auto) 77.2 %; Platelet Count 310 K/uL (130-400); RDW Coefficient of Variation 17.5 % (11.5-14.5); RDW Standard Deviation 49.2 fL (36.4-46.3); Red Blood Count 3.92 M/uL (4.70-6.10); White Blood Count 22.61 K/ul (4.8-10.8)
[2022-10-20] MEDS: ERTAPENEM SODIUM 1,000 MG in SYRINGE 0 ML IV SCH (09:07)
[2022-10-20 09:14] LABS: Creatinine Clr Calc Pharmacy 74.7 ml/min; Est GFR (African American) 110.8 ml/min; Est GFR (Non-African American) 95.6 ml/min
--- NOTE | 2022-10-20 11:47 | Hospitalist Progress Note ---
Date of Service October 20, 2022 Assessment & Plan (1) Complicated UTI (urinary tract infection): (2) SIRS (systemic inflammatory response syndrome): (3) Nephrostomy status: (4) Bladder mass: (5) Ambulatory dysfunction: Plan: Plan Per admitting service notes with addendum: This is an 82-year-old male who has significant past medical history of alcohol abuse, tobacco abuse, history of lumbar osteomyelitis, hypertension and bladder mass, congenital right clubfoot who presents to ED secondary to inability to ambulate. Pt meets SIRS criteria in setting of leukocytosis, tachycardia. Pt with persistent leukocytosis since august when he was positive for cdiff, september + urosepsis. History of lumbar discitis in May 2021. Now status post nephrostomy tube in setting of large bladder mass. Obtain blood cultures, chest x-ray and urinalysis Patient did empirically receive 1 L of IV fluid in ED as well as 2 g IV Rocephin prior to obtaining culture. Sepsis secondary to Klebsiella E. coli UTI 10/20 Hemodynamically stable Leukocytosis improving Urine culture: Klebsiella E. coli Blood cultures: Negative Transition from IV cefepime to ertapenem day #1 Ambulatory dysfunction Congenital right clubfoot Patient discharged today from [facility] Prior to recent hospitalization patient was mostly wheelchair-bound and lives alone When he returned home today with son patient had a near fall and therefore was brought back to ED It is felt patient is unsafe to live alone given nonambulatory status He will need placement, PT/OT 10/20 PT and OT evaluation Left clavicular fracture POA, occurred prior to 09/29 transfer [place] [facility] [place] Nonweightbearing to left upper extremity, sling for comfort, remove 3 times daily for elbow range of motion He will need orthopedic follow-up upon discharge He was seen by orthopedics done at [facility] Bladder mass with evidence of metastasis S/P Nephrostomy tube placement at [facility] [place] Discussed with patient and discussed with son separately At this time no further diagnostic or therapeutic intervention has been pursued Given age family currently considering not pursuing further treatment with a goal focused on comfort and quality of life Palliative care team consulted Protein calorie malnutrition, unknown severity Patient appears malnourished with hypoalbuminemia Consult dietitian Anemia, chronic and stable Iron deficiency Iron level less than 10 Oral iron ordered Given IV Venofer 300 mg x 1 Hx of alcohol abuse on thiamine/folic acid Tobacco abuse, chewing declines nicotine patch DVT ppx:SQ Lovenox Dispo: Transition to acute rehab or senior living facility when medically stable, will need IV ertapenem to complete 10-day course FULL CODE: discussed with son PCP: Yomi Admission and Anticipated Discharge Date Admission Date: October 17, 2022 Subjective Follow-up for UTI, etc. Seen resting in bed, comfortable, not in distress States he feels fine overall No back pain, flank pain, abdominal pain No urinary symptoms No fevers or chills No any other symptom Review of Systems Review of Systems: all noted and negative except for above Physical Exam Physical Exam: General- oriented x 3, not in distress, speaks in sentences with no effort or accessory muscle use Eyes- anicteric Neck- no JVD Lungs- clear breath sounds bilaterally, no rales/wheezes Heart- normal rate, regular rhythm; no murmurs Abdomen- normal bowel sounds, nondistended, soft, nontender Left nephrostomy tube in place, draining yellow urine Extremities- no pretibial edema, no calf tenderness Neuro- alert, oriented x 3; no gross focal neurologic deficits Skin- warm & dry Results & Data Results & Data Vital Signs (Past 12 Hours) Vital Signs Temp Pulse Pulse Resp BP Pulse Ox Pulse Ox 10/20/22 07:50 36.4 C L 79 16 111/64 96 10/20/22 07:29 76 10/20/22 03:00 36.4 C L 102 H 18 130/74 96 10/20/22 00:53 98 10/20/22 00:44 O2 Del Method O2 Del Method 10/20/22 07:50 Room Air 10/20/22 07:29 10/20/22 03:00 Room Air 10/20/22 00:53 Room Air 10/20/22 00:44 Room Air all noted and reviewed including below
[2022-10-20 14:35] LABS: Hematocrit (blood only) 30.2 % (42.0-52.0); Hemoglobin 9.3 g/dl (14.0-18.0)
[2022-10-20] MEDS: PANTOprazole 40 MG in SYRINGE 0 ML IV SCH ×2 (15:01→21:17)
[2022-10-20] MEDS ORDERED: ENOXAPARIN INJ 40 MG/0.4 ML SYR SQ SCH (21:00)
[2022-10-21 07:17] LABS: Basophils # (auto) 0.09 K/uL (0-0.2); Basophils % (auto) 0.4 %; Eosinophils # (auto) 2.68 K/uL (0-0.50); Eosinophils % (auto) 11.8 %; Hemoglobin 9.7 g/dl (14.0-18.0); Immature Granulocytes # (auto) 0.19 K/uL (0.01-0.20); Immature Granulocytes % (auto) 0.8 %; Lymphocytes # (auto) 1.83 K/uL (1.2-3.4); Lymphocytes % (auto) 8.1 %; Mean Corpuscular Hemoglobin 24.6 pg (25.0-34.0); Mean Corpuscular Hgb Conc 31.3 g/dL (32.0-36.0); Mean Corpuscular Volume 78.5 fL (80.0-100.0); Mean Platelet Volume 9.2 fL (9.4-12.4); Monocytes # (auto) 1.15 K/uL (0.11-0.59); Monocytes % (auto) 5.1 %; Neutrophils # (auto) 16.68 K/uL (1.40-6.50); Neutrophils % (auto) 73.8 %; Platelet Count 303 K/uL (130-400); RDW Coefficient of Variation 17.6 % (11.5-14.5); RDW Standard Deviation 49.6 fL (36.4-46.3); Red Blood Count 3.95 M/uL (4.70-6.10); White Blood Count 22.62 K/ul (4.8-10.8)
[2022-10-21 07:26] LABS: BUN Creatinine Ratio 29.4 (10-20); Calcium 9.4 mg/dl (8.6-10.3); Creatinine Clr Calc Pharmacy 62.3 ml/min; Est GFR (African American) 104.5 ml/min; Est GFR (Non-African American) 90.2 ml/min; Potassium 3.4 mmol/L (3.5-5.1)
[2022-10-21] MEDS: PANTOprazole 40 MG in SYRINGE 0 ML IV SCH ×2 (09:19→21:22)
[2022-10-21] MEDS: ERTAPENEM SODIUM 1,000 MG in SYRINGE 0 ML IV SCH (09:21)
[2022-10-21] MEDS: FOLIC ACID 1 MG TAB PO SCH (09:21)
[2022-10-21] MEDS: ADVANCED PROBIOTIC 1250 MG CAPSULE PO SCH (09:21)
[2022-10-21] MEDS: FERROUS SULFATE 325 MG TAB PO SCH ×2 (09:21→17:58)
[2022-10-21] MEDS: TAMSULOSIN HCL 0.4 MG CAP PO SCH (09:21)
[2022-10-21] MEDS: THIAMINE HCL 100 MG TAB PO SCH (09:21)
--- NOTE | 2022-10-21 12:05 | Palliative Care Progress Note ---
Date of Service October 21, 2022 Assessment & Plan (1) Falls frequently: Plan: due to #2 (2) Weakness generalized: Plan: progressive bladder mass with recent CT scan of abdomen pelvis which showed i ncrease in size of known bladder mass to 9.3 x 7.3 cm originating from the left aspect of the bladder and extending into the adjacent soft tissues. He also had a mild to moderate left hydroureteronephrosis which was similar to prior CT. Patient was seen and evaluated by urology and ED and felt patient likely required transfer to tertiary facility that was able to place a nephrostomy tube due to large left-sided bladder mass. He underwent nephrostomy tube placement. (3) Altered mental status: (4) Palliative care by specialist: (5) Advanced care planning/counseling discussion: Plan: Met with Jorge and pt at bedside x 30min Plan for SNF rehab trial then move to LTC, CM assisting SNF teams will need to submit a medicaid beatrice for pt, this will cover his LTC per son, there are no assets or properties pt owns/he has no signif finances. Please see CM notes for more details. (6) Cancer related pain: Plan CM disposition planning underway SNF in [place] area preferred Patient without acute inpatient pall med needs so for now I will sign off and remain available for re engagement as needed. palliative med was asked to see pt to assist with goals of care. This has been completed as requested and reflected in our notes. Please note: pt will need to go from snf rehab ot snf LTC and the SNF team will need to start medicaid beatrice for him when he is admitted there. Son will try to make sure they do this, but CM and discharge summary should reflect this as well. recc POLST completion prior to dc for DNR/DNI, comfort care, no return to hospital, no LUIS or IVF - son is SDM and will need to sign POLST for pt. Make sure this is sent to SNF with pt. TS 54min Thank you for allowing us to participate in the ongoing care of this patient. Please don't hesitate to call or page with any additional concerns. Dr. Melani Marina DNP Director, Palliative Care Admission and Anticipated Discharge Date Admission Date: October 17, 2022 Subjective on Comfort focused care awaiting SNF rehab then moving to LTC Jorge, dusty and SDM, at bedside. no acute issues patient is in and out of alertness. mood irritable and uncooperative at times today he is seated at edge of bed, distant but alert to self. did not answer any of my questions Review of Systems Review of Systems: All systems reviewed & are unremarkable except as noted in Subjective, Unobtainable due to mental health condition and Unobtainable due to cognitive status Physical Exam Physical Exam: Confused at times, a bit irritable. Does not allow much examination or answer questions. Respiratory effort at rest without distress, diminished throughout S1S2, no gross JVD Abd scaphoid skin pale, warm, scatt ecchymoses trace edema BLE cachectic appearance disheveled. Results & Data Vital Signs (Past 12 Hours) Vital Signs Temp Pulse Pulse Resp BP Pulse Ox Pulse Ox 10/21/22 11:48 36.4 C L 72 16 103/52 L 98 10/21/22 07:30 36.3 C L 84 16 122/67 98 10/21/22 06:58 83 10/21/22 03:17 36.8 C 88 18 126/72 98 10/21/22 00:54 98 O2 Del Method O2 Del Method 10/21/22 11:48 Room Air 10/21/22 07:30 Room Air 10/21/22 06:58 10/21/22 03:17 Room Air 10/21/22 00:54 Room Air Laboratory Results data reviewed Diagnostic Findings data reveiwed PG Care Time/CCT Total # of Minutes Spent Total Time Spent: 54 Total Time Spent with Patient: Total time spent is greater than 50% in coordination of care (as documented) at patient's floor/unit and/or counseling patient: [place] [address] SUB INP/OBS CARE 3/50MIN Patient Type Established History Comprehensive Exam Detailed Medical Decision Making High Complexity Diagnoses Falls frequently R29.6 Weakness generalized R53.1 Altered mental status R41.82 Palliative care by specialist Z51.5 Advanced care planning/counseling discussion Z71.89 Cancer related pain G89.3
--- NOTE | 2022-10-21 18:37 | Hospitalist Progress Note ---
Date of Service October 21, 2022 Assessment & Plan (1) Sepsis: (2) Complicated UTI (urinary tract infection): (3) Nephrostomy status: (4) Bladder mass: (5) Ambulatory dysfunction: Plan: Plan Per admitting service notes with addendum: This is an 82-year-old male who has significant past medical history of alcohol abuse, tobacco abuse, history of lumbar osteomyelitis, hypertension and bladder mass, congenital right clubfoot who presents to ED secondary to inability to ambulate. Pt meets SIRS criteria in setting of leukocytosis, tachycardia. Pt with persistent leukocytosis since august when he was positive for cdiff, september + urosepsis. History of lumbar discitis in May 2021. Now status post nephrostomy tube in setting of large bladder mass. Obtain blood cultures, chest x-ray and urinalysis Patient did empirically receive 1 L of IV fluid in ED as well as 2 g IV Rocephin prior to obtaining culture. Sepsis secondary to Klebsiella E. coli UTI 10/21 Hemodynamically stable Leukocytosis improving Urine culture: Klebsiella E. coli Blood cultures: Negative Transitioned from IV cefepime to ertapenem day #2 out of 10 Left nephrostomy tube seems to be functioning properly Had hematuria yesterday, likely from bladder mass in the setting of UTI, resolved Ambulatory dysfunction Congenital right clubfoot Patient discharged today [facility] Prior to recent hospitalization patient was mostly wheelchair-bound and lives alone When he returned home today with son patient had a near fall and therefore was brought back to ED It is felt patient is unsafe to live alone given nonambulatory status He will need placement, PT/OT 10/21 PT and OT evaluation Left clavicular fracture POA, occurred prior to 09[place]29 [place] [facility] to left upper extremity, sling for comfort, remove 3 times daily for elbow range of motion He will need orthopedic follow-up upon discharge He was seen by orthopedics done at [facility] Bladder mass with evidence of metastasis S/P [place] [facility] [place]iscussed with patient and discussed with son separately At this time no further diagnostic or therapeutic intervention has been pursued Given age family currently considering not pursuing further treatment with a goal focused on comfort and quality of life Palliative care team consulted Protein calorie malnutrition, unknown severity Patient appears malnourished with hypoalbuminemia Consult dietitian Anemia, chronic and stable Iron deficiency Hemoglobin stable around 12 Iron level less than 10 Oral iron ordered Given IV Venofer 300 mg x 1 Hx of alcohol abuse on thiamine/folic acid Tobacco abuse, chewing declines nicotine patch DVT ppx:SQ Lovenox Dispo: Transition to acute rehab or [facility]ci facility when medically stable, will need IV ertapenem to complete 10-day course FULL CODE: discussed with son PCP: Yomi Admission and Anticipated Discharge Date Admission Date: October 17, 2022 Subjective Follow-up for arm UTI, in the setting of nephrostomy tube left, etc. Seen resting in bed, comfortable, not in distress Sitting up, having breakfast Patient's son visiting at the bedside Patient states he feels so-so, still on the weak side Denies abdominal pain, problems with urination No hematuria noted No other symptom Review of Systems Review of Systems: all noted and negative except for above Physical Exam Physical Exam: General- oriented x 3, not in distress, speaks in sentences with no effort or accessory muscle use Appears somewhat weak, frail Eyes- anicteric Neck- no JVD Lungs- clear breath sounds bilaterally, no rales/wheezes Heart- normal rate, regular rhythm; no murmurs Abdomen- normal bowel sounds, nondistended, soft, nontender Left nephrostomy tube in place: Draining yellow urine Extremities- no pretibial edema, no calf tenderness Neuro- alert, oriented x 3; no gross focal neurologic deficits Skin- warm & dry Results & Data Results & Data Vital Signs (Past 12 Hours) Vital Signs Temp Pulse Pulse Resp BP Pulse Ox O2 Del Method 10/21/22 14:11 81 10/21/22 16:17 36.5 C 101 H 16 115/65 100 Room Air 10/21/22 11:48 36.4 C L 72 16 103/52 L 98 Room Air 10/21/22 07:30 36.3 C L 84 16 122/67 98 Room Air 10/21/22 06:58 83 all noted and reviewed including below
[2022-10-22 07:18] LABS: Est GFR (African American) 105.8 ml/min; Est GFR (Non-African American) 91.3 ml/min
[2022-10-22] MEDS ORDERED: SODIUM CHLORIDE 0.9% 500 ML IV ONE (08:08)
[2022-10-22] MEDS: SODIUM CHLORIDE 0.9% 1,000 ML IV SCH ×2 (08:32→20:26)
[2022-10-22] MEDS: PANTOprazole 40 MG in SYRINGE 0 ML IV SCH (08:32)
[2022-10-22] MEDS: ERTAPENEM SODIUM 1,000 MG in SYRINGE 0 ML IV SCH (08:32)
[2022-10-22] MEDS: FOLIC ACID 1 MG TAB PO SCH (08:33)
[2022-10-22] MEDS: ADVANCED PROBIOTIC 1250 MG CAPSULE PO SCH (08:33)
[2022-10-22] MEDS: FERROUS SULFATE 325 MG TAB PO SCH ×2 (08:33→17:00)
[2022-10-22] MEDS: THIAMINE HCL 100 MG TAB PO SCH (08:33)
[2022-10-22] MEDS: TAMSULOSIN HCL 0.4 MG CAP PO SCH (08:33)
--- NOTE | 2022-10-22 17:59 | Hospitalist Progress Note ---
Date of Service October 22, 2022 Assessment & Plan (1) Sepsis: (2) Complicated UTI (urinary tract infection): (3) Nephrostomy status: (4) Bladder mass: (5) Ambulatory dysfunction: Plan: This is an 82-year-old male who has significant past medical history of alcohol abuse, tobacco abuse, history of lumbar osteomyelitis, hypertension and bladder mass, congenital right clubfoot who presents to ED secondary to inability to ambulate. Sepsis secondary to Klebsiella E. coli UTI In the setting of left nephrostomy tube, large bladder mass Leukocytosis still elevated 22,000 Urine culture: Klebsiella E. coli Blood cultures: Negative Transitioned from IV cefepime to ertapenem day #3 out of 10 Left nephrostomy tube seems to be functioning properly Had hematuria the other day, likely from bladder mass in the setting of UTI, resolved IV fluids for blood pressure on the lower side Ambulatory dysfunction Congenital right clubfoot Patient admitted to hospital the day of discharge from [facility] due to weakne ss, near fall at home Prior to recent hospitalization patient was mostly wheelchair-bound and lives alone PT and OT Will need to transition to fdc facility Left clavicular fracture POA, occurred prior to 09/29 [place] [facility]weightbearing to left upper extremity, sling for comfort, remove 3 times daily for elbow range of motion He will need orthopedic follow-up upon discharge He was seen by orthopedics done at [facility] Bladder mass with evidence of metastasis S/P [place] [facility] [place]iscussed with patient and discussed with son separately At this time no further diagnostic or therapeutic intervention has been pursued Given age family currently considering not pursuing further treatment with a goal focused on comfort and quality of life Palliative care team consulted Protein calorie malnutrition, unknown severity Patient appears malnourished with hypoalbuminemia Consulted dietitian Chronic anemia Iron deficiency Hemoglobin stable around 12 Iron level less than 10 Oral iron ordered Given IV Venofer 300 mg x 1 Hx of alcohol abuse on thiamine/folic acid Tobacco abuse, chewing declines nicotine patch DVT ppx:SQ Lovenox Dispo: Transition to fdc facility when medically stable, will need IV ertapenem to complete 10-day course FULL CODE: discussed with son PCP: Yomi Admission and Anticipated Discharge Date Admission Date: October 17, 2022 Subjective Follow-up for Klebsiella ESBL UTI, in the setting of left nephrostomy tube, etc. Resting in bed, comfortable, not in distress States he feels weak today, denies abdominal pain, problems with urination, hematuria, fevers or chills No shortness of breath, cough, headache, dizziness No any other symptom Review of Systems Review of Systems: all noted and negative except for above Physical Exam Physical Exam: General- oriented x 3, not in distress, speaks in sentences with no effort or accessory muscle use Eyes- anicteric Neck- no JVD Lungs- clear breath sounds BL Heart- normal rate, regular rhythm; no murmurs Abdomen- normal bowel sounds, nondistended, soft, nontender Left nephrostomy tube in place, draining yellow urine Extremities- no pretibial edema, no calf tenderness Neuro- alert, oriented x 3; no gross focal neurologic deficits Skin- warm & dry Results & Data Results & Data Vital Signs (Past 12 Hours) Vital Signs Temp Pulse Pulse Resp BP Pulse Ox O2 Del Method 10/22/22 17:00 73 10/22/22 16:20 36.8 C 80 17 116/60 93 Room Air 10/22/22 08:00 72 all noted and reviewed including below
[2022-10-22] MEDS: PANTOprazole 40 MG TAB PO SCH (20:26)
[2022-10-23] MEDS: ERTAPENEM SODIUM 1,000 MG in SYRINGE 0 ML IV SCH (07:36)
[2022-10-23] MEDS: TAMSULOSIN HCL 0.4 MG CAP PO SCH (07:36)
[2022-10-23] MEDS: ADVANCED PROBIOTIC 1250 MG CAPSULE PO SCH (07:36)
[2022-10-23] MEDS: FOLIC ACID 1 MG TAB PO SCH (07:37)
[2022-10-23] MEDS: THIAMINE HCL 100 MG TAB PO SCH (07:37)
[2022-10-23] MEDS: FERROUS SULFATE 325 MG TAB PO SCH ×2 (07:37→17:45)
[2022-10-23] MEDS: PANTOprazole 40 MG TAB PO SCH ×2 (08:14→20:07)
--- NOTE | 2022-10-23 19:38 | Hospitalist Progress Note ---
Date of Service October 23, 2022 Assessment & Plan (1) Sepsis: (2) Complicated UTI (urinary tract infection): (3) Nephrostomy status: (4) Bladder mass: (5) Ambulatory dysfunction: Plan: Per previous provider note w/ addendum: This is an 82-year-old male who has significant past medical history of alcohol abuse, tobacco abuse, history of lumbar osteomyelitis, hypertension and bladder mass, congenital right clubfoot who presents to ED secondary to inability to ambulate. Sepsis secondary to Klebsiella E. coli UTI In the setting of left nephrostomy tube, large bladder mass Leukocytosis still elevated 22,000 Urine culture: Klebsiella E. coli Blood cultures: Negative Transitioned from IV cefepime to ertapenem day #4 out of 10 Left nephrostomy tube seems to be functioning properly Had hematuria the other day, likely from bladder mass in the setting of UTI, resolved IV fluids for blood pressure on the lower side Ambulatory dysfunction Congenital right clubfoot Patient admitted to hospital the day of discharge from [facility] due to weakness, near fall at home Prior to recent hospitalization patient was mostly wheelchair-bound and lives alone PT and OT Will need to transition to half-way facility Left clavicular fracture POA, occurred prior to 09/29 transfer to [facility] Nonweightbearing to left upper extremity, sling for comfort, remove 3 times daily for elbow range of motion He will need orthopedic follow-up upon discharge He was seen by orthopedics done at [facility] Bladder mass with evidence of metastasis S/P Nephrostomy tube placement at [facility] Discussed with patient and discussed with son separately At this time no further diagnostic or therapeutic intervention has been pursued Given age family currently considering not pursuing further treatment with a goal focused on comfort and quality of life Palliative care team consulted Protein calorie malnutrition, unknown severity Patient appears malnourished with hypoalbuminemia Consulted dietitian Chronic anemia Iron deficiency Hemoglobin stable around 12 Iron level less than 10 Oral iron ordered Given IV Venofer 300 mg x 1 Hx of alcohol abuse on thiamine/folic acid Tobacco abuse, chewing declines nicotine patch DVT ppx:SQ Lovenox Dispo: Transition to half-way facility when medically stable, will need IV ertapenem to complete 10-day course FULL CODE: DNR/DNI, palliative medicine consulted PCP: Dr. Celaya Admission and Anticipated Discharge Date Admission Date: October 17, 2022 Subjective Follow-up for Klebsiella ESBL UTI, in the setting of left nephrostomy tube, etc. Resting in bed, comfortable, not in distress denies abdominal pain, problems with urination, hematuria, fevers or chills No shortness of breath, cough, headache, dizziness No any other symptom Review of Systems Review of Systems: All systems reviewed & are unremarkable except as noted in Subjective Physical Exam Physical Exam: General- oriented x 3, not in distress, speaks in sentences with no effort or accessory muscle use Eyes- anicteric Neck- no JVD Lungs- clear breath sounds BL Heart- normal rate, regular rhythm; no murmurs Abdomen- normal bowel sounds, nondistended, soft, nontender Left nephrostomy tube in place, draining yellow urine Extremities- no pretibial edema, no calf tenderness Neuro- alert, oriented x 3; no gross focal neurologic deficits Skin- warm & dry Results & Data Results & Data Vital Signs (Past 12 Hours) Vital Signs Temp Pulse Resp BP Pulse Ox O2 Del Method 10/23/22 16:18 36.4 C L 75 20 125/75 99 Room Air 10/23/22 15:51 Room Air 10/23/22 11:17 36.3 C L 76 20 97/60 L 100 Room Air 10/23/22 08:21 36.3 C L 80 20 119/73 99 Room Air Medications Administered Current Inpatient Medications Acetaminophen (Acetaminophen 325 Mg Tab) 650 mg PO Q4H PRN PRN Reason: Pain or Fever Stop: 11/16/22 18:47 Al Hydrox/Mg Hydrox/Simethicone (Aluminum/Magnesium Susp 30 Ml Udc) 15 ml PO Q4H PRN PRN Reason: Dyspepsia Stop: 11/16/22 18:47 Ferrous Sulfate (Ferrous Sulfate 325 Mg Tab) 325 mg PO BIDM [facility] Stop: 11/18/22 16:59 Last Admin: 10/23/22 17:45 Dose: 325 mg Folic Acid (Folic Acid 1 Mg Tab) 1 mg PO QAM [facility] Stop: 11/17/22 08:59 Last Admin: 10/23/22 07:37 Dose: 1 mg Ertapenem 1,000 mg/ Syringe 10 mls @ 2 mls/min IV Q24H [facility] Stop: 10/30/22 08:59 Last Admin: 10/23/22 07:36 Dose: 2 mls/min Sodium Chloride (Nss 1000ml) 1,000 mls @ 80 mls/hr IV .[id number] [facility] Stop: 11/21/22 08:14 Last Infusion: 10/23/22 16:17 Dose: Infused Lactobacillus Acidophilus (Advanced Probiotic 1250 Mg Capsule) 2 cap PO DAILY [facility] Stop: 11/17/22 08:59 Last Admin: 10/23/22 07:36 Dose: 2 cap Magnesium Hydroxide (Magnesium Hydroxide Susp 30 Ml Udc) 30 ml PO Q12H PRN PRN Reason: Constipation Stop: 11/16/22 18:47 Ondansetron HCl (Ondansetron Inj 2 Mg/Ml 2 Ml Vial) 4 mg IV Q6H PRN PRN Reason: Nausea Stop: 11/16/22 18:47 Pantoprazole Sodium (Pantoprazole 40 Mg Tab) 40 mg PO BID [facility] Stop: 11/21/22 20:59 Last Admin: 10/23/22 08:14 Dose: 40 mg Polyethylene Glycol (Polyethylene (Miralax) 17 Gm Pack) 17 gm PO DAILY PRN PRN Reason: Constipation Stop: 11/16/22 18:47 Tamsulosin HCl (Tamsulosin Hcl 0.4 Mg Cap) 0.4 mg PO QAM [facility] Stop: 11/17/22 08:59 Last Admin: 10/23/22 07:36 Dose: 0.4 mg Thiamine HCl (Thiamine Hcl 100 Mg Tab) 100 mg PO DAILY [facility] Stop: 11/17/22 08:59 Last Admin: 10/23/22 07:37 Dose: 100 mg
[2022-10-23] MEDS: SODIUM CHLORIDE 0.9% 1,000 ML IV SCH ×2 (20:01→23:09)
[2022-10-24] MEDS ORDERED: IOVERSOL 350 MG 125mL Prefilled Syringe IV ONE (02:07)
[2022-10-24 02:38] LABS: Basophils # (auto) 0.07 K/uL (0-0.2); Basophils % (auto) 0.3 %; Eosinophils # (auto) 3.54 K/uL (0-0.50); Eosinophils % (auto) 15.1 %; Hematocrit (blood only) 26.4 % (42.0-52.0); Hemoglobin 8.2 g/dl (14.0-18.0); Immature Granulocytes # (auto) 0.32 K/uL (0.01-0.20); Immature Granulocytes % (auto) 1.4 %; Lymphocytes # (auto) 2.42 K/uL (1.2-3.4); Lymphocytes % (auto) 10.3 %; Mean Corpuscular Hemoglobin 24.5 pg (25.0-34.0); Mean Corpuscular Hgb Conc 31.1 g/dL (32.0-36.0); Mean Corpuscular Volume 78.8 fL (80.0-100.0); Monocytes # (auto) 1.04 K/uL (0.11-0.59); Monocytes % (auto) 4.4 %; Neutrophils # (auto) 16.05 K/uL (1.40-6.50); Neutrophils % (auto) 68.5 %; Platelet Count 295 K/uL (130-400); RDW Coefficient of Variation 17.8 % (11.5-14.5); RDW Standard Deviation 50.5 fL (36.4-46.3); Red Blood Count 3.35 M/uL (4.70-6.10); White Blood Count 23.44 K/ul (4.8-10.8)
[2022-10-24 02:42] LABS: Base Excess ABG -1.1 mEq/L (-9-1.8); HCO3 ABG 22 mmol/L (19-24); Oxygen Saturation ABG 99.1 % (90-95); PCO2 ABG 33 mmHg (35-46); PO2 ABG 83 mmHg (80-95); pH ABG 7.44 (7.35-7.45)
[2022-10-24 02:44] LABS: Allen Test Pos (Pos)
--- NOTE | 2022-10-24 02:53 | CT Scan Report ---
Exam(s): CT HEAD Without Contrast EXAM: CT Head Without Intravenous Contrast CLINICAL HISTORY: Reason for exam: AMS. TECHNIQUE: Axial computed tomography images of the head/brain without intravenous contrast. CTDI is 38.17 mGy and DLP is 1205.34 mGy-cm. Automated exposure control was utilized for the study. A dose lowering technique was utilized adhering to the principles of ALARA. COMPARISON: Comparison made to prior head CT from September 29, 2022. FINDINGS: Brain: There is a remote ischemic injury of the bilateral frontal lobe with encephalomalacia and gliosis. There is a remote ischemic injury of the left occipital lobe with encephalomalacia and gliosis. No hemorrhage. Advanced nonspecific white matter changes. No edema. Ventricles: Mild ventriculomegaly. Bones/joints: Unremarkable. No acute fracture. Soft tissues: Unremarkable. Sinuses: Unremarkable as visualized. No acute sinusitis. Mastoid air cells: Unremarkable as visualized. No mastoid effusion. IMPRESSION: No evidence of acute intracranial pathology. Communications: Call Doctor Stroke Electronically signed by: Ruma Norton MD 10/24/22 02:52 AM
[2022-10-24 02:54] LABS: Albumin Globulin Ratio 1.1 (0.9-2); Albumin Level 2.4 gm/dl (3.4-5.0); BUN Creatinine Ratio 24.6 (10-20); Bilirubin,Total 0.3 mg/dl (0.2-1.0); Calcium 8.2 mg/dl (8.6-10.3); Creatinine Clr Calc Pharmacy 72.5 ml/min; Est GFR (African American) 109.3 ml/min; Est GFR (Non-African American) 94.3 ml/min; Globulin 2.2 gm/dl (2.5-4.0); Magnesium 1.4 mg/dl (1.7-2.4); Potassium 3.5 mmol/L (3.5-5.1); Total Protein 4.6 gm/dl (6.0-8.3)
--- NOTE | 2022-10-24 02:55 | CT Scan Report ---
Exam(s): CTA HEAD With Contrast IV Amt: 115 ML OPTIRAY 350 EXAM: CT Angiography Head With Intravenous Contrast CLINICAL HISTORY: Reason for exam: cva?. TECHNIQUE: Axial computed tomographic angiography images of the head with intravenous contrast. CTDI is 38.17 mGy and DLP is 1205.34 mGy-cm. Automated exposure control was utilized for the study. A dose lowering technique was utilized adhering to the principles of ALARA. MIP reconstructed images were created and reviewed. CONTRAST: Patient received 115 ML OPTIRAY 350 of IV contrast COMPARISON: No relevant prior studies available. FINDINGS: The dural venous sinuses are patent. Right internal carotid artery: No acute findings. Intracranial segment is patent with no significant stenosis. No aneurysm. Right anterior cerebral artery: Unremarkable. No occlusion or significant stenosis. No aneurysm. Right middle cerebral artery: Unremarkable. No occlusion or significant stenosis. No aneurysm. Right posterior cerebral artery: Unremarkable. No occlusion or significant stenosis. No aneurysm. Right vertebral artery: Unremarkable as visualized. Left internal carotid artery: No acute findings. Intracranial segment is patent with no significant stenosis. No aneurysm. Left anterior cerebral artery: Unremarkable. No occlusion or significant stenosis. No aneurysm. Left middle cerebral artery: Unremarkable. No occlusion or significant stenosis. No aneurysm. Left posterior cerebral artery: Unremarkable. No occlusion or significant stenosis. No aneurysm. Left vertebral artery: Unremarkable as visualized. Basilar artery: Unremarkable. No occlusion or significant stenosis. No aneurysm. IMPRESSION: Negative CT angiogram of the head. Communications: Call Doctor Stroke Electronically signed by: Ruma Norton MD 10/24/22 02:55 AM
[2022-10-24 03:00] LABS: Troponin I High Sensitivity 5.6 pg/ml (0-20)
--- NOTE | 2022-10-24 03:00 | CT Scan Report ---
Exam(s): CTA NECK With Contrast IV Amt: 115 ML OPTIRAY 350 EXAM: CT Angiography Neck With Intravenous Contrast CLINICAL HISTORY: Reason for exam: cva?. TECHNIQUE: Routine carotid CT angiography protocol was performed with intravenous contrast. NASCET criteria using the distal ICAs for comparison were used for evaluation of stenoses. CTDI is 38.17 mGy and DLP is 1205.34 mGy-cm. Automated exposure control was utilized for the study. A dose lowering technique was utilized adhering to the principles of ALARA. MIP reconstructed images were created and reviewed. CONTRAST: Patient received 115 ML OPTIRAY 350 of IV contrast COMPARISON: None. FINDINGS: VASCULATURE: Ectasia of the ascending aorta. Right common carotid artery: Unremarkable. No occlusion or significant stenosis. No dissection. Right internal carotid artery: Unremarkable. Extracranial segment is patent with no occlusion or significant stenosis. No dissection. Right external carotid artery: Unremarkable. No occlusion. Right vertebral artery: Unremarkable. No occlusion or significant stenosis. No dissection. Left common carotid artery: Unremarkable. No occlusion or significant stenosis. No dissection. Left internal carotid artery: Unremarkable. Extracranial segment is patent with no occlusion or significant stenosis. No dissection. Left external carotid artery: Unremarkable. No occlusion. Left vertebral artery: Unremarkable. No occlusion or significant stenosis. No dissection. NECK: Bones/joints: Moderate to advanced disc degeneration at C3-4, C4-5, C5- 6. Soft tissues: Prominent hilar lymph nodes and mediastinal lymph nodes. Multinodular right thyroid gland. Prominent cervical lymph nodes. Soft tissue lesion about the left superficial neck Lung apices: Bronchitis with pneumonitis, which may be of infectious or inflammatory etiologies. CAROTID STENOSIS REFERENCE USING NASCET CRITERIA: % ICA stenosis = (1 - narrowest ICA diameter/diameter of distal cervical ICA) x 100. Mild - <50% stenosis. Moderate - 50-69% stenosis. Severe - 70-94% stenosis. Near occlusion - 95-99% stenosis. Occluded - 100% stenosis. IMPRESSION: Negative CTA neck. Communications: Call Doctor Stroke Electronically signed by: Ruma Norton MD 10/24/22 02:59 AM
[2022-10-24] MEDS ORDERED: PHARMACIST DISCHARGE MED REC CONSULT PRN (03:03)
--- NOTE | 2022-10-24 07:17 | Communication Note ---
Date of Service: October 24, 2022 LAst night around 1:35am patient suddenly became unresponsive as per nursing staff. He seemed moaned and hit his head on bed railing and then was not resp onding to verbal stimuli and touch stimuli.Seems able to walk and talk prior to the event. Vitals stable. Seen and examined the patient. He was moving extremities on painful stimuli. Trying to open eyes on calling bit not answering. Stroke alert was called. CT head, CTA head and neck unremarkable. [place] examined patient. By that patient mental status somewhat improved. He was able to talk few words, Obeys simple commands Moving extremities, squeezed hands ok. [place] [facility] thought mostly encephalopathy and recommended mri scan to rule out any mets and also eeg and neuro evaluation in am. Son notified and he was ok for further workup.His labs were ok except increasing wbc. Patient on invanz for esbl uti. Notified am providers.
[2022-10-24 07:32] LABS: Hematocrit (blood only) 29.7 % (42.0-52.0); Hemoglobin 9.4 g/dl (14.0-18.0); Mean Corpuscular Hemoglobin 24.7 pg (25.0-34.0); Mean Corpuscular Hgb Conc 31.6 g/dL (32.0-36.0); Mean Corpuscular Volume 78.2 fL (80.0-100.0); Mean Platelet Volume 9.3 fL (9.4-12.4); Platelet Count 377 K/uL (130-400); RDW Coefficient of Variation 18.1 % (11.5-14.5); RDW Standard Deviation 50.2 fL (36.4-46.3); White Blood Count 27.31 K/ul (4.8-10.8)
--- NOTE | 2022-10-24 07:38 | Hospitalist Progress Note ---
Date of Service October 24, 2022 Assessment & Plan (1) Sepsis: (2) Complicated UTI (urinary tract infection): (3) Nephrostomy status: (4) Bladder mass: (5) Ambulatory dysfunction: Plan: Per previous provider note w/ addendum: This is an 82-year-old male who has significant past medical history of alcohol abuse, tobacco abuse, history of lumbar osteomyelitis, hypertension and bladder mass, congenital right clubfoot who presents to ED secondary to inability to ambulate. Sepsis secondary to Klebsiella E. coli UTI In the setting of left nephrostomy tube, large bladder mass Leukocytosis still elevated 22,000 Urine culture: Klebsiella E. coli Blood cultures: Negative Transitioned from IV cefepime to ertapenem day #5 out of 10 Left nephrostomy tube seems to be functioning properly Had hematuria the other day, likely from bladder mass in the setting of UTI, resolved IV fluids for blood pressure on the lower side Stroke alert overnight as pt less responsive CT head, CTA head and neck - negative Brain MRI - pt refuses EEG obtained and neurology consulted - EEG showed some mild slowing of the background activity of a fairly regular nature and no potentially epileptogenic discharges or focal abnormalities. He had weakness in general when he arrived but he has no weakness focally on exam. It was likely secondary to his urosepsis. The episode earlier today is nonspecific but might possibly have been a type of seizure. It also could have been transient decreased cerebral perfusion although his blood pressure was not low when checked by the nurse. I note low phosphorus and low magnesium. Hypomagnesemia can cause seizures. Recommendations: 1. MRI of the brain would be reasonable if he changes his mind 2. Replace magnesium. At 2:24 a.m., calcium was low but at 6:14 a.m. it was normal at 9.0. 3. Hold on anticonvulsants at this time. If he has another episode despite a normal magnesium I would consider adding levetiracetam at that time. Ambulatory dysfunction Congenital right clubfoot Patient admitted to hospital the day of [facility] due to weakness, near fall at home Prior to recent hospitalization patient was mostly wheelchair-bound and lives alone PT and OT Will need to transition to long-term facility Left clavicular fracture POA, occurred prior to 09/29 transfer to [facility] Nonweightbearing to left upper extremity, sling for comfort, remove 3 times daily for elbow range of motion He will need orthopedic follow-up upon discharge He was seen by orthopedics done at [facility] Bladder mass with evidence of metastasis S/P Nephrostomy tube placement at [facility] Discussed with patient and discussed with son separately At this time no further diagnostic or therapeutic intervention has been pursued Given age family currently considering not pursuing further treatment with a goal focused on comfort and quality of life Palliative care team consulted Protein calorie malnutrition, unknown severity Patient appears malnourished with hypoalbuminemia Consulted dietitian Chronic anemia Iron deficiency Hemoglobin around 9 Iron level less than 10 Oral iron ordered Given IV Venofer 300 mg x 1 Hx of alcohol abuse on thiamine/folic acid Tobacco abuse, chewing declines nicotine patch DVT ppx:SQ Lovenox Dispo: Transition to long-term facility when medically stable, will need IV ertapenem to complete 10-day course FULL CODE: DNR/DNI, palliative medicine consulted PCP: Dr. Celaya Admission and Anticipated Discharge Date Admission Date: October 17, 2022 Subjective Follow-up for Klebsiella ESBL UTI, in the setting of left nephrostomy tube, etc. Overnight, pt was less responsive and stroke alert was called - CT head CTA head neck - negative Brain MRI ordered - pt refused Neurology consulted and discussed with this AM - EEG obtained, recommend replete electrolytes and cont. to monitor Currently pt resting in bed, not in distress, has no complaints or concerns Denies any headache r any unusual weakness for him- seems at baseline denies abdominal pain, problems with urination, hematuria, fevers or chills No shortness of breath, cough, dizziness No any other symptom Review of Systems Review of Systems: All systems reviewed & are unremarkable except as noted in Subjective Physical Exam Physical Exam: General- oriented x 3, not in distress, speaks in sentences with no effort or accessory muscle use Eyes- anicteric Neck- no JVD Lungs- clear breath sounds BL Heart- normal rate, regular rhythm; no murmurs Abdomen- normal bowel sounds, nondistended, soft, nontender Left nephrostomy tube in place, draining yellow urine Extremities- no pretibial edema, no calf tenderness Neuro- alert, oriented x 3; no gross focal neurologic deficits Skin- warm & dry Results & Data Results & Data Vital Signs (Past 12 Hours) Vital Signs Temp Pulse Pulse Resp BP Pulse Ox O2 Del Method 10/24/22 07:25 Room Air 10/24/22 07:13 97 H 10/24/22 03:20 37 C 98 H 16 103/64 95 Room Air 10/24/22 01:31 36.4 C L 107 H 18 137/67 99 Room Air 10/24/22 01:16 Room Air 10/23/22 21:59 85 10/23/22 22:16 36.8 C 95 H 18 125/66 97 Room Air Laboratory Results 10/24/22 10/24/22 10/24/22 Range/Units 06:14 06:14 06:14 WBC 27.31 H (4.8-10.8) K/ul RBC 3.80 L (4.70-6.10) M/uL Hgb 9.4 L (14.0-18.0) g/dl Hct 29.7 L (42.0-52.0) % MCV 78.2 L (80.0-100.0) fL MCH 24.7 L (25.0-34.0) pg MCHC 31.6 L (32.0-36.0) g/dL RDW Std Deviation 50.2 H (36.4-46.3) fL RDW Coeff of Flako 18.1 H (11.5-14.5) % Plt Count 377 (130-400) K/uL MPV 9.3 L (9.4-12.4) fL Immature Gran % (Auto) % Neut % (Auto) % Lymph % (Auto) % [place] % (Auto) % Eos % (Auto) % Baso % (Auto) % Neut # (Auto) (1.40-6.50) K/uL Lymph # (Auto) (1.2-3.4) K/uL [place] # (Auto) (0.11-0.59) K/uL Eos # (Auto) (0-0.50) K/uL Baso # (Auto) (0-0.2) K/uL Immature Gran # (Auto) (0.01-0.20) K/uL ABG pH (7.35-7.45) ABG pCO2 (35-46) mmHg ABG pO2 (80-95) mmHg ABG HCO3 (19-24) mmol/L ABG O2 Saturation (90-95) % ABG Base Excess (-9-1.8) mEq/L Leon Test (Pos) Oxygen Given Sodium Pending (136-145) mmol/L Potassium Pending (3.5-5.1) mmol/L Chloride Pending (98-107) mmol/L Carbon Dioxide Pending (21-32) mmol/L Anion Gap Pending (3-11) BUN Pending (6-23) mg/dl Creatinine Pending (0.6-1.4) mg/dl Est Cr Clr Drug Dosing Pending ml/min Est GFR ( Amer) Pending ml/min Est GFR (Non-Af Amer) Pending ml/min BUN/Creatinine Ratio Pending (10-20) Glucose Pending (70-99(Fasting)) mg/dl POC Glucose (70-99) mg/dl Estimat Average Glucose Pending Hemoglobin A1c Pending Lactate (0.4-2.0) mmol/L Calcium Pending (8.6-10.3) mg/dl Phosphorus Pending Magnesium Pending (1.7-2.4) mg/dl Total Bilirubin (0.2-1.0) mg/dl AST (13-39) U/L ALT (7-52) U/L Alkaline Phosphatase (34-104) U/L Ammonia (18-72) umol/L Troponin I High Sens (0-20) pg/ml Total Protein (6.0-8.3) gm/dl Albumin (3.4-5.0) gm/dl Globulin (2.5-4.0) gm/dl Albumin/Globulin Ratio (0.9-2) Triglycerides Pending Cholesterol Pending LDL Cholesterol, Calc Pending VLDL Cholesterol, Calc Pending HDL Cholesterol Pending Cholesterol/HDL Ratio Pending Whole Bld Vitamin B1 (78-185) nmol/L 10/24/22 10/24/22 10/24/22 Range/Units 02:35 02:24 02:24 WBC (4.8-10.8) K/ul RBC (4.70-6.10) M/uL Hgb (14.0-18.0) g/dl Hct (42.0-52.0) % MCV (80.0-100.0) fL MCH (25.0-34.0) pg MCHC (32.0-36.0) g/dL RDW Std Deviation (36.4-46.3) fL RDW Coeff of Flako (11.5-14.5) % Plt Count (130-400) K/uL MPV (9.4-12.4) fL Immature Gran % (Auto) % Neut % (Auto) % Lymph % (Auto) % [place] % (Auto) % Eos % (Auto) % Baso % (Auto) % Neut # (Auto) (1.40-6.50) K/uL Lymph # (Auto) (1.2-3.4) K/uL [place] # (Auto) (0.11-0.59) K/uL Eos # (Auto) (0-0.50) K/uL Baso # (Auto) (0-0.2) K/uL Immature Gran # (Auto) (0.01-0.20) K/uL ABG pH 7.44 (7.35-7.45) ABG pCO2 33 L (35-46) mmHg ABG pO2 83 (80-95) mmHg ABG HCO3 22 (19-24) mmol/L ABG O2 Saturation 99.1 H (90-95) % ABG Base Excess -1.1 (-9-1.8) mEq/L Leon Test Pos (Pos) Oxygen Given RA Sodium 139 (136-145) mmol/L Potassium 3.5 (3.5-5.1) mmol/L Chloride 110 H (98-107) mmol/L Carbon Dioxide 23 (21-32) mmol/L Anion Gap 6 (3-11) BUN 15 (6-23) mg/dl Creatinine 0.61 (0.6-1.4) mg/dl Est Cr Clr Drug Dosing 72.5 ml/min Est GFR ( Amer) 109.3 ml/min Est GFR (Non-Af Amer) 94.3 ml/min BUN/Creatinine Ratio 24.6 H (10-20) Glucose 99 (70-99(Fasting)) mg/dl POC Glucose (70-99) mg/dl Estimat Average Glucose Hemoglobin A1c Lactate (0.4-2.0) mmol/L Calcium 8.2 L (8.6-10.3) mg/dl Phosphorus Magnesium 1.4 L (1.7-2.4) mg/dl Total Bilirubin 0.3 (0.2-1.0) mg/dl AST 10 L (13-39) U/L ALT 6 L (7-52) U/L Alkaline Phosphatase 116 H (34-104) U/L Ammonia 21.0 (18-72) umol/L Troponin I High Sens 5.6 (0-20) pg/ml Total Protein 4.6 L (6.0-8.3) gm/dl Albumin 2.4 L (3.4-5.0) gm/dl Globulin 2.2 L (2.5-4.0) gm/dl Albumin/Globulin Ratio 1.1 (0.9-2) Triglycerides Cholesterol LDL Cholesterol, Calc VLDL Cholesterol, Calc HDL Cholesterol Cholesterol/HDL Ratio Whole Bld Vitamin B1 (78-185) nmol/L 10/24/22 10/24/22 10/24/22 Range/Units 02:24 02:24 01:47 WBC 23.44 H (4.8-10.8) K/ul RBC 3.35 L (4.70-6.10) M/uL Hgb 8.2 L (14.0-18.0) g/dl Hct 26.4 L (42.0-52.0) % MCV 78.8 L (80.0-100.0) fL MCH 24.5 L (25.0-34.0) pg MCHC 31.1 L (32.0-36.0) g/dL RDW Std Deviation 50.5 H (36.4-46.3) fL RDW Coeff of Flako 17.8 H (11.5-14.5) % Plt Count 295 (130-400) K/uL MPV 9.0 L (9.4-12.4) fL Immature Gran % (Auto) 1.4 % Neut % (Auto) 68.5 % Lymph % (Auto) 10.3 % [place] % (Auto) 4.4 % Eos % (Auto) 15.1 % Baso % (Auto) 0.3 % Neut # (Auto) 16.05 H (1.40-6.50) K/uL Lymph # (Auto) 2.42 (1.2-3.4) K/uL [place] # (Auto) 1.04 H (0.11-0.59) K/uL Eos # (Auto) 3.54 H (0-0.50) K/uL Baso # (Auto) 0.07 (0-0.2) K/uL Immature Gran # (Auto) 0.32 H (0.01-0.20) K/uL ABG pH (7.35-7.45) ABG pCO2 (35-46) mmHg ABG pO2 (80-95) mmHg ABG HCO3 (19-24) mmol/L ABG O2 Saturation (90-95) % ABG Base Excess (-9-1.8) mEq/L Leon Test (Pos) Oxygen Given Sodium (136-145) mmol/L Potassium (3.5-5.1) mmol/L Chloride (98-107) mmol/L Carbon Dioxide (21-32) mmol/L Anion Gap (3-11) BUN (6-23) mg/dl Creatinine (0.6-1.4) mg/dl Est Cr Clr Drug Dosing ml/min Est GFR ( Amer) ml/min Est GFR (Non-Af Amer) ml/min BUN/Creatinine Ratio (10-20) Glucose (70-99(Fasting)) mg/dl POC Glucose 103 H (70-99) mg/dl Estimat Average Glucose Hemoglobin A1c Lactate 1.0 (0.4-2.0) mmol/L Calcium (8.6-10.3) mg/dl Phosphorus Magnesium (1.7-2.4) mg/dl Total Bilirubin (0.2-1.0) mg/dl AST (13-39) U/L ALT (7-52) U/L Alkaline Phosphatase (34-104) U/L Ammonia (18-72) umol/L Troponin I High Sens (0-20) pg/ml Total Protein (6.0-8.3) gm/dl Albumin (3.4-5.0) gm/dl Globulin (2.5-4.0) gm/dl Albumin/Globulin Ratio (0.9-2) Triglycerides Cholesterol LDL Cholesterol, Calc VLDL Cholesterol, Calc HDL Cholesterol Cholesterol/HDL Ratio Whole Bld Vitamin B1 (78-185) nmol/L 10/18/22 Range/Units 06:12 WBC (4.8-10.8) K/ul RBC (4.70-6.10) M/uL Hgb (14.0-18.0) g/dl Hct (42.0-52.0) % MCV (80.0-100.0) fL MCH (25.0-34.0) pg MCHC (32.0-36.0) g/dL RDW Std Deviation (36.4-46.3) fL RDW Coeff of Flako (11.5-14.5) % Plt Count (130-400) K/uL MPV (9.4-12.4) fL Immature Gran % (Auto) % Neut % (Auto) % Lymph % (Auto) % [place] % (Auto) % Eos % (Auto) % Baso % (Auto) % Neut # (Auto) (1.40-6.50) K/uL Lymph # (Auto) (1.2-3.4) K/uL [place] # (Auto) (0.11-0.59) K/uL Eos # (Auto) (0-0.50) K/uL Baso # (Auto) (0-0.2) K/uL Immature Gran # (Auto) (0.01-0.20) K/uL ABG pH (7.35-7.45) ABG pCO2 (35-46) mmHg ABG pO2 (80-95) mmHg ABG HCO3 (19-24) mmol/L ABG O2 Saturation (90-95) % ABG Base Excess (-9-1.8) mEq/L Leon Test (Pos) Oxygen Given Sodium (136-145) mmol/L Potassium (3.5-5.1) mmol/L Chloride (98-107) mmol/L Carbon Dioxide (21-32) mmol/L Anion Gap (3-11) BUN (6-23) mg/dl Creatinine (0.6-1.4) mg/dl Est Cr Clr Drug Dosing ml/min Est GFR ( Amer) ml/min Est GFR (Non-Af Amer) ml/min BUN/Creatinine Ratio (10-20) Glucose (70-99(Fasting)) mg/dl POC Glucose (70-99) mg/dl Estimat Average Glucose Hemoglobin A1c Lactate (0.4-2.0) mmol/L Calcium (8.6-10.3) mg/dl Phosphorus Magnesium (1.7-2.4) mg/dl Total Bilirubin (0.2-1.0) mg/dl AST (13-39) U/L ALT (7-52) U/L Alkaline Phosphatase (34-104) U/L Ammonia (18-72) umol/L Troponin I High Sens (0-20) pg/ml Total Protein (6.0-8.3) gm/dl Albumin (3.4-5.0) gm/dl Globulin (2.5-4.0) gm/dl Albumin/Globulin Ratio (0.9-2) Triglycerides Cholesterol LDL Cholesterol, Calc VLDL Cholesterol, Calc HDL Cholesterol Cholesterol/HDL Ratio Whole Bld Vitamin B1 279 H (78-185) nmol/L Medications Administered Current Inpatient Medications Acetaminophen (Acetaminophen 325 Mg Tab) 650 mg PO Q4H PRN PRN Reason: Pain or Fever Stop: 11/16/22 18:47 Al Hydrox/Mg Hydrox/Simethicone (Aluminum/Magnesium Susp 30 Ml Udc) 15 ml PO Q4H PRN PRN Reason: Dyspepsia Stop: 11/16/22 18:47 Aspirin (Aspirin 81 Mg Ectab) 81 mg PO QAM [facility] Stop: 11/23/22 08:59 Ferrous Sulfate (Ferrous Sulfate 325 Mg Tab) 325 mg PO BIDM [facility] Stop: 11/18/22 16:59 Last Admin: 10/23/22 17:45 Dose: 325 mg Folic Acid (Folic Acid 1 Mg Tab) 1 mg PO QAM [facility] Stop: 11/17/22 08:59 Last Admin: 10/23/22 07:37 Dose: 1 mg Ertapenem 1,000 mg/ Syringe 10 mls @ 2 mls/min IV Q24H [facility] Stop: 10/30/22 08:59 Last Admin: 10/23/22 07:36 Dose: 2 mls/min Sodium Chloride (Nss 1000ml) 1,000 mls @ 80 mls/hr IV .[id number] [facility] Stop: 11/21/22 08:14 Last Admin: 10/23/22 23:09 Dose: 80 mls/hr Lactobacillus Acidophilus (Advanced Probiotic 1250 Mg Capsule) 2 cap PO DAILY S Stop: 11/17/22 08:59 Last Admin: 10/23/22 07:36 Dose: 2 cap Magnesium Hydroxide (Magnesium Hydroxide Susp 30 Ml Udc) 30 ml PO Q12H PRN PRN Reason: Constipation Stop: 11/16/22 18:47 Miscellaneous Information (Pharmacist Discharge Med Rec Consult) 1 each N/A UD PRN PRN Reason: Consult Stop: 11/23/22 03:02 Ondansetron HCl (Ondansetron Inj 2 Mg/Ml 2 Ml Vial) 4 mg IV Q6H PRN PRN Reason: Nausea Stop: 11/16/22 18:47 Pantoprazole Sodium (Pantoprazole 40 Mg Tab) 40 mg PO BID [facility] Stop: 11/21/22 20:59 Last Admin: 10/23/22 20:07 Dose: 40 mg Polyethylene Glycol (Polyethylene (Miralax) 17 Gm Pack) 17 gm PO DAILY PRN PRN Reason: Constipation Stop: 11/16/22 18:47 Tamsulosin HCl (Tamsulosin Hcl 0.4 Mg Cap) 0.4 mg PO QAM [facility] Stop: 11/17/22 08:59 Last Admin: 10/23/22 07:36 Dose: 0.4 mg Thiamine HCl (Thiamine Hcl 100 Mg Tab) 100 mg PO DAILY [facility] Stop: 11/17/22 08:59 Last Admin: 10/23/22 07:37 Dose: 100 mg
[2022-10-24 07:54] LABS: BUN Creatinine Ratio 25.5 (10-20); Chol HDL Ratio 3.1 (0-5); Creatinine Clr Calc Pharmacy 79.7 ml/min; Est GFR (African American) 114.1 ml/min; Est GFR (Non-African American) 98.4 ml/min; Magnesium 1.5 mg/dl (1.7-2.4); Phosphorus 2.4 mg/dl (2.5-4.9); Potassium 3.5 mmol/L (3.5-5.1)
[2022-10-24] MEDS ORDERED: PERFLUTREN LIPID MICROSPHERE (DEFINITY) IV ONE (08:08)
[2022-10-24 08:36] LABS: Estimated Average Glucose 108 mg/dl; Hemoglobin A1C 5.4 % (4.5-5.6)
[2022-10-24] MEDS: FERROUS SULFATE 325 MG TAB PO SCH ×2 (09:14→16:29)
[2022-10-24] MEDS: ASPIRIN 81 MG ECTAB PO SCH (09:14)
[2022-10-24] MEDS: TAMSULOSIN HCL 0.4 MG CAP PO SCH (09:14)
[2022-10-24] MEDS: FOLIC ACID 1 MG TAB PO SCH (09:14)
[2022-10-24] MEDS: PANTOprazole 40 MG TAB PO SCH ×2 (09:15→19:16)
[2022-10-24] MEDS: THIAMINE HCL 100 MG TAB PO SCH (09:15)
--- NOTE | 2022-10-24 09:15 | Electroencephalogram ---
EEG Procedure Note Date of Service October 24, 2022 Start / End Times Start Time: 0840 End Time: [address] Gibbs History Patient is an 82-year-old with unresponsive episode October 24, possible seizure Home Medication List Medication Instructions Recorded Confirmed Type folic acid 1 mg tablet 1 mg PO QAM #30 tabs 08/22/22 10/17/22 Rx tamsulosin 0.4 mg capsule 0.4 mg PO QAM #30 caps 08/22/22 10/17/22 Rx L.acidop,casei,lactis,rham-B.lact,kimmy 2 cap PO DAILY #10 caps 09/03/22 10/17/22 Rx 625 mg (10 billion cell) capsule (Advanced Probiotic) thiamine HCl (vitamin B1) 100 mg 100 mg PO DAILY 10/17/22 10/17/22 History tablet Inpatient Medication List Ferrous Sulfate (Ferrous Sulfate 325 Mg Tab) 325 mg PO BIDM [facility] Stop: 11/18/22 16:59 Last Admin: 10/23/22 17:45 Dose: 325 mg Documented By: Admin: 10/23/22 07:37 Dose: 325 mg Documented By: Admin: 10/22/22 17:00 Dose: Not Given Documented By: Admin: 10/22/22 08:33 Dose: 325 mg Documented By: [facility] Admin: 10/21/22 17:58 Dose: 325 mg Documented By: Admin: 10/21/22 09:21 Dose: 325 mg Documented By: Admin: 10/20/22 17:00 Dose: 325 mg Documented By: Admin: 10/20/22 08:40 Dose: Not Given Documented By: Admin: 10/19/22 17:30 Dose: 325 mg Documented By: MT Folic Acid (Folic Acid 1 Mg Tab) 1 mg PO QAM [facility] Stop: 11/17/22 08:59 Last Admin: 10/23/22 07:37 Dose: 1 mg Documented By: Admin: 10/22/22 08:33 Dose: 1 mg Documented By: Admin: 10/21/22 09:21 Dose: 1 mg Documented By: Admin: 10/20/22 08:41 Dose: Not Given Documented By: [facility] Admin: 10/19/22 08:14 Dose: 1 mg Documented By: Admin: 10/18/22 08:13 Dose: 1 mg Documented By: ROXANN Ertapenem 1,000 mg/ Syringe 10 mls @ 2 mls/min IV Q24H [facility] Stop: 10/30/22 08:59 Last Admin: 10/23/22 07:36 Dose: 2 mls/min Documented By: Admin: 10/22/22 08:32 Dose: 2 mls/min Documented By: Admin: 10/21/22 09:21 Dose: 2 mls/min Documented By: Admin: 10/20/22 09:07 Dose: 2 mls/min Documented By: OLIVIA Sodium Chloride (Nss 1000ml) 1,000 mls @ 80 mls/hr IV .[id number] [facility] Stop: 11/21/22 08:14 Last Admin: 10/23/22 23:09 Dose: 80 mls/hr Documented By: Infusion: 10/23/22 23:09 Dose: 80 mls/hr Documented By: Admin: 10/23/22 20:01 Dose: 80 mls/hr Documented By: Infusion: 10/23/22 16:17 Dose: 0 mls/hr Documented By: Admin: 10/22/22 20:26 Dose: 80 mls/hr Documented By: Infusion: 10/22/22 20:26 Dose: 80 mls/hr Documented By: Admin: 10/22/22 08:32 Dose: 80 mls/hr Documented By: OLIVIA Lactobacillus Acidophilus (Advanced Probiotic 1250 Mg Capsule) 2 cap PO DAILY [facility] Stop: 11/17/22 08:59 Last Admin: 10/23/22 07:36 Dose: 2 cap Documented By: Admin: 10/22/22 08:33 Dose: 2 cap Documented By: Admin: 10/21/22 09:21 Dose: 2 cap Documented By: Admin: 10/20/22 08:42 Dose: Not Given Documented By: Admin: 10/19/22 08:14 Dose: 2 cap Documented By: Admin: 10/18/22 08:14 Dose: 2 cap Documented By: ROXANN Pantoprazole Sodium (Pantoprazole 40 Mg Tab) 40 mg PO BID [facility] Stop: 11/21/22 20:59 Last Admin: 10/23/22 20:07 Dose: 40 mg Documented By: Admin: 10/23/22 08:14 Dose: 40 mg Documented By: Admin: 10/22/22 20:26 Dose: 40 mg Documented By: SUKHWINDER Tamsulosin HCl (Tamsulosin Hcl 0.4 Mg Cap) 0.4 mg PO QAM [facility] Stop: 11/17/22 08:59 Last Admin: 10/23/22 07:36 Dose: 0.4 mg Documented By: Admin: 10/22/22 08:33 Dose: 0.4 mg Documented By: MTCorey Admin: 10/21/22 09:21 Dose: 0.4 mg Documented By: Admin: 10/20/22 08:42 Dose: Not Given Documented By: Admin: 10/19/22 08:14 Dose: 0.4 mg Documented By: Admin: 10/18/22 08:14 Dose: 0.4 mg Documented By: ROXANN Thiamine HCl (Thiamine Hcl 100 Mg Tab) 100 mg PO DAILY [facility] Stop: 11/17/22 08:59 Last Admin: 10/23/22 07:37 Dose: 100 mg Documented By: Admin: 10/22/22 08:33 Dose: 100 mg Documented By: Admin: 10/21/22 09:21 Dose: 100 mg Documented By: [facility] Admin: 10/20/22 08:42 Dose: Not Given Documented By: [facility] Admin: 10/19/22 08:14 Dose: 100 mg Documented By: [facility] Admin: 10/18/22 08:14 Dose: 100 mg Documented By: ROXANN Discontinued Medications Enoxaparin Sodium (Enoxaparin Inj 40 Mg/0.4 Ml Syr) 30 mg SQ HS [facility] Stop: 11/16/22 20:59 Last Admin: 10/17/22 21:43 Dose: 30 mg Documented By: RAI Enoxaparin Sodium (Enoxaparin Inj 30 Mg/0.3 Ml Syr) 30 mg SQ HS [facility] Stop: 11/17/22 20:59 Last Admin: 10/19/22 21:55 Dose: 30 mg Documented By: Admin: 10/18/22 22:11 Dose: 30 mg Documented By: SUKHWINDER Sodium Chloride (Nss 1000ml) 1,000 mls @ 999 mls/hr IV .[id number] ONE Stop: 10/17/22 15:47 Last Infusion: 10/17/22 16:47 Dose: 0 mls/hr Documented By: Admin: 10/17/22 14:51 Dose: 999 mls/hr Documented By: LUIS Ceftriaxone Sodium (Rocephin) 2,000 mg in 70 mls @ 140 mls/hr IV NOW STA Stop: 10/17/22 15:59 Last Infusion: 10/17/22 16:47 Dose: 0 mls/hr Documented By: Admin: 10/17/22 16:17 Dose: 140 mls/hr Documented By: AB Vancomycin HCl 1,250 mg/ (Sodium Chloride) 275 mls @ 200 mls/hr IV ONE ONE Stop: 10/17/22 18:52 Last Infusion: 10/17/22 19:24 Dose: 0 mls/hr Documented By: Admin: 10/17/22 17:47 Dose: 200 mls/hr Documented By: Sodium Chloride (Nss 1000ml) 1,000 mls @ 75 mls/hr IV .[id number] [facility] Stop: 10/18/22 21:27 Last Infusion: 10/19/22 09:21 Dose: 0 mls/hr Documented By: Admin: 10/18/22 19:47 Dose: 75 mls/hr Documented By: [id number] Infusion: 10/18/22 09:10 Dose: 75 mls/hr Documented By: [id number] Admin: 10/17/22 19:50 Dose: 75 mls/hr Documented By: RAI Cefepime HCl 2,000 mg/ Syringe 20 mls @ 5 mls/min IV Q12H [facility]; Protocol Stop: 10/24/22 21:59 Last Admin: 10/19/22 21:55 Dose: 5 mls/min Documented By: Admin: 10/19/22 10:22 Dose: 5 mls/min Documented By: Admin: 10/18/22 22:11 Dose: 5 mls/min Documented By: Admin: 10/18/22 10:03 Dose: 5 mls/min Documented By: Admin: 10/17/22 21:43 Dose: 5 mls/min Documented By: RAI Vancomycin HCl 1,250 mg/ (Sodium Chloride) 275 mls @ 200 mls/hr IV Q24H [facility] Stop: 10/19/22 23:59 Last Infusion: 10/19/22 09:21 Dose: 0 mls/hr Documented By: Admin: 10/19/22 05:53 Dose: 200 mls/hr Documented By: Infusion: 10/18/22 10:03 Dose: 0 mls/hr Documented By: Admin: 10/18/22 05:54 Dose: 200 mls/hr Documented By: RAI Iron Sucrose 300 mg/ Sodium (Chloride) 265 mls @ 176.667 mls/hr IV TODAY ONE Stop: 10/19/22 17:29 Last Infusion: 10/19/22 18:20 Dose: 0 mls/hr Documented By: Admin: 10/19/22 16:17 Dose: 176.7 mls/hr Documented By: OLIVIA Pantoprazole Sodium 40 mg/ (Syringe) 10 mls @ 5 mls/min IV BID [facility] Stop: 11/19/22 14:04 Last Admin: 10/22/22 08:32 Dose: 5 mls/min Documented By: Admin: 10/21/22 21:22 Dose: 5 mls/min Documented By: Admin: 10/21/22 09:19 Dose: 5 mls/min Documented By: Admin: 10/20/22 21:17 Dose: 5 mls/min Documented By: Admin: 10/20/22 15:01 Dose: 5 mls/min Documented By: OLIVIA Sodium Chloride (Nss 1000ml) 500 mls @ 999 mls/hr IV .Q31M ONE Stop: 10/22/22 08:38 Last Infusion: 10/22/22 09:40 Dose: 0 mls/hr Documented By: Admin: 10/22/22 08:32 Dose: 999 mls/hr Documented By: OLIVIA Ioversol (Optiray 320 100ml) 92 ml IV ONCE ONE Stop: 10/17/22 15:38 Last Admin: 10/17/22 15:37 Dose: 92 ml Documented By: NIGEL Ioversol (Ioversol 350 Mg 125ml Prefilled Syringe) 125 ml IV ONCE ONE Stop: 10/24/22 02:08 Last Admin: 10/24/22 02:08 Dose: 115 ml Documented By: LEONEL Perflutren Lipid Microsphere (Perflutren Lipid Microsphere (Definity)) 2 ml IV ONCE ONE Stop: 10/24/22 08:09 Last Admin: 10/24/22 08:08 Dose: 2 ml Documented By: CARMEN Potassium Chloride (Potassium Chloride Crtab 20 Meq Tabcr) 20 meq PO NOW STA Stop: 10/20/22 08:16 Last Admin: 10/20/22 08:40 Dose: Not Given Documented By: MTCorey Description This is a 21 electrode EEG with a single channel dedicated to limited EKG. The electrodes were placed in accordance with the International 10-20 system. Interpretation The predominant background activity consists of a faily well modulated 7 Hz activity, of up to 40 mV in amplitude,seen symmetrically distributed over the posterior head regions bilaterally, spreading anteriorly diffusely. This activity attenuates some with eye-opening and other alerting procedures. Photic stimulation was performed and elicited no change in the background activi ty and no abnormal responses were seen. Hyperventilation was not performed. A minimal amount of muscle and movement artifact activity contaminated the recording and did not hinder interpretation to any significant degree. Throughout the recording, no focal abnormalities or potentially epileptogenic discharges were seen. The patient was in the wakeful state with eyes closed throughout the entire recording and did not enter into drowsiness or stage 2 sleep. In summary, this EEG was mildly abnormal during wakefulness, as noted by some very mild generalized slowing of the background rhythm. No focal abnormalities or potentially epileptogenic discharges were seen. Clinical Correlation The abscence of potentially epileptogenic activity does not exclude a seizure disorder, since interictally, EEGs can be normal. The very mild generalized slowing of the background activities can be consistent with a very mild encephalopathy, which could be due to a wide variety of causes and clinical correlation is required [facility] EEG Procedure Codes Indication for Procedure (1) Unresponsive episode: Neurology Neurology: 41151 EEG include record awake & drowsy
[2022-10-24] MEDS: ADVANCED PROBIOTIC 1250 MG CAPSULE PO SCH (09:16)
[2022-10-24] MEDS: ERTAPENEM SODIUM 1,000 MG in SYRINGE 0 ML IV SCH (09:16)
--- NOTE | 2022-10-24 09:27 | Neurology Consultation ---
Date of Consultation October 24, 2022 Assessment & Plan (1) Unresponsive episode: (2) Sepsis: (3) Weakness generalized: Plan This patient has urosepsis having been treated for the last week. He was doing well but had a episode of altered mental status/unresponsiveness around 0130 today. He seems to be back to his mental status baseline this morning and has no obvious focal abnormalities or new changes on neuro exam. CT scan of the head and CT angiography of the head neck were unremarkable. The patient was supposed to get an MRI of the brain but he refused. EEG showed some mild slowing of the background activity of a fairly regular nature and no potentially epileptogenic discharges or focal abnormalities. He had weakness in general when he arrived but he has no weakness focally on exam. It was likely secondary to his urosepsis. The episode earlier today is nonspecific but might possibly have been a type of seizure. It also could have been transient decreased cerebral perfusion although his blood pressure was not low when checked by the nurse. I note low phosphorus and low magnesium. Hypomagnesemia can cause seizures. Recommendations: 1. MRI of the brain would be reasonable if he changes his mind 2. Replace magnesium. At 2:24 a.m., calcium was low but at 6:14 a.m. it was normal at 9.0. 3. Hold on anticonvulsants at this time. If he has another episode despite a normal magnesium I would consider adding levetiracetam at that time. Overall, I spent a total of 75 minutes with this case including review of records, review of CT films, direct evaluation the patient bedside, report generation, and discussing the case with the patient and RN at bedside, and Dr. Valencia including differential diagnosis and treatment options. History of Present Illness Reason for Consultation: The patient is a an 82-year-old, who I was asked to see at the request of Dr. Gibbs, for neurologic evaluation regarding a unresponsive episode earlier today Requesting Physician: Dr. Gibbs Attending Physician: Fabrziio Valencia MD History of Present Illness This patient was admitted December 17 with severe generalized weakness and failure to thrive at home and was found to have urosepsis with Klebsiella. He continues to have elevated white counts but has been walking and responsive with the care team. On October 24 at 1:31 a.m. nursing found him to be unresponsive, moaning, and banging his head on the railing of the bed. Did not have stiffening or jerking in the limbs that was noted. Blood pressure was 137/67, pulse 107, respiratory rate 18, temperature 36.4, and O2 saturation 99%. He was seen by Dr. Gibbs at 1:35 a.m. and had no focal findings. Tele stroke with [facility] was contacted and a stroke evaluation was done. CT scan of the head at 3:[address] angiography of the head and neck were unremarkable as well. The patient was supposed to get an MRI but he refused. An echocardiogram was obtained today but was uninterpretable due to moving and quality of images. He was put on 81 mg aspirin Then the concern was for a seizure, as a stroke seem less likely. This morning he has no complaint of pain, headache, dizziness, weakness, or numbness. He has no vision issues. He did not wet himself or bite his tongue. EEG obtained at 0900 showed some very mild slowing in general with no focal findings or potentially epileptogenic discharge. The type of slowing, although could be postictal, is very nonspecific and could be due to a wide variety of causes including his urosepsis or even his age/condition. Today, CBC shows anemia as before with an elevated white count of 27. ABG s howed an O2 saturation of 99%. Chem profile was unremarkable although the phosphorus and magnesium were both low at 2.4 and 1.5. Ammonia level was normal and liver profile was largely unremarkable. Triglycerides were 87 and total cholesterol 106. Allergies Allergy/AdvReac Type Severity Reaction Status Date / Time No Known Allergies Allergy Verified 10/17/22 14:26 Home Medications Medication Instructions Recorded Confirmed Type folic acid 1 mg tablet 1 mg PO QAM #30 tabs 08/22/22 10/17/22 Rx tamsulosin 0.4 mg capsule 0.4 mg PO QAM #30 caps 08/22/22 10/17/22 Rx L.acidop,casei,lactis,rham-B.lact,kimmy 2 cap PO DAILY #10 caps 09/03/22 10/17/22 Rx 625 mg (10 billion cell) capsule (Advanced Probiotic) thiamine HCl (vitamin B1) 100 mg 100 mg PO DAILY 10/17/22 10/17/22 History tablet Patient History Medical History RESIGHINI (hard of hearing) Lumbar discitis Osteoarthritis Right club foot congenital Surgical History History of surgery Right clubfoot correction - multiple procedures as a child Nephrostomy status Status post left knee replacement Family History Other No family history of adverse response to anesthesia Denies family history of Coronary heart disease Social History Smoking Status: Never smoker Tobacco Type: Smokeless Tobacco (Dip or Chew) Second Hand Exposure: No; Do You Dip or Chew Tobacco: Yes; Tobacco Cessation Education Requested by Patient: No Hx Alcohol Use: Yes Alcohol type: beer Hx Substance Use: Yes Last Used Substance: Unknown Last Used Substance Other:: 3-4 weeks ago Preferred Language: Urdu Communication Ability: Impaired 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 Review of Systems Constitutional: no fever, no fatigue and no weakness Eyes: no diplopia, no eye pain and no worsening vision Ear, Nose, Mouth, Throat: no ear pain, no tinnitus, no hearing loss, no dizziness, no snoring, no hoarseness and no dysphagia Respiratory: no cough and no dyspnea Cardiovascular: no chest pain, no palpitations and no lightheadedness Gastrointestinal: no abdominal pain, no nausea and no vomiting Musculoskeletal: no back pain, no neck pain, no radicular pain, no joint pain and no myalgia Integumentary: no rash and no lesions Neurologic: no gait abnormality, no localized weakness, no generalized w eakness, no tingling, no numbness, no tremor(s), no abnormal movements, no headache(s), no abnormal speech, no confusion and no memory loss Psychiatric: no depression, no irritability, no anxiety, no difficulty concentrating, no confusion and no hallucinations Endocrine: no fatigue and no flushing Hematologic / Lymphatic: no easy bleeding and no easy bruising Allergy / Immunological: no urticaria and no problem reported Exam (Neuro) Physical Exam: He was awake and alert. His speech did not have any obvious aphasia or dysarthria. Mood was reasonable and affect was appropriate. He really just wanted to be left alone but did cooperate for the most part. His mentation shows that his memory is affected but difficult to get a thorough mental status examination due to lack of cooperation. Extraocular eye muscles are intact without nystagmus. Pupils are 3-4 mm bilaterally reactive to light. There is no facial droop tongue was midline. Neck has good range of motion without discomfort. There were no cervical bruits or cardiac dysrhythmias noted. Coordination was normal in the arms without obvious tremor or ataxia. Strength seems symmetrical in all 4 limbs both proximally and distally without any focal weakness. Tone was good in the limbs. Reflexes were absent in the Achilles and brachioradialis tendons bilaterally. Quadriceps, biceps, and triceps tendons were 1/4. Toes were downgoing with plantar stimulation bilaterally. He has a congenital right clubfoot. Results & Data Vital Signs (Past 12 Hours) Vital Signs Temp Pulse Pulse Resp BP BP Pulse Ox 10/24/22 08:03 36.5 C 86 18 138/73 95 10/24/22 07:25 10/24/22 07:13 97 H 10/24/22 03:20 37 C 98 H 16 103/64 95 10/24/22 01:31 36.4 C L 107 H 18 137/67 99 10/24/22 01:16 10/23/22 21:59 85 10/23/22 22:16 36.8 C 95 H 18 125/66 97 O2 Del Method 10/24/22 08:03 Room Air 10/24/22 07:25 Room Air 10/24/22 07:13 10/24/22 03:20 Room Air 10/24/22 01:31 Room Air 10/24/22 01:16 Room Air 10/23/22 21:59 10/23/22 22:16 Room Air PG Care Time/CCT Total # of Minutes Spent Total Time Spent with Patient: Total time spent is greater than 50% in coordination of care (as documented) at patient's floor/unit and/or counseling patient: Coding Level of Care Code 32200 INT INP/OBS CARE 3/75MIN Diagnoses Unresponsive episode R40.4 Sepsis A41.9 Weakness generalized R53.1 Time Spent (min) 75
[2022-10-24] MEDS ORDERED: POTASSIUM CHLORIDE CRTAB 20 MEQ TABCR PO STA (10:01)
[2022-10-24] MEDS: MAGNESIUM SULFATE / D5W 1 GM/100 ML BAG IV SCH ×2 (10:10→12:06)
[2022-10-24] MEDS: SODIUM CHLORIDE 0.9% 1,000 ML IV SCH (16:29)
[2022-10-24] MEDS ORDERED: levETIRAcetam 1,000 MG in 0.9 % SODIUM CHLORIDE 100 ML IV STA (22:55)
[2022-10-25] MEDS: SODIUM CHLORIDE 0.9% 1,000 ML IV SCH ×2 (05:16→17:05)
--- NOTE | 2022-10-25 07:07 | Communication Note ---
Date of Service: October 25, 2022 Last night patient seemed to shake his body for 20seconds and confused after that . Gave iv keppra 1000mg. Notified am providers. thank you
[2022-10-25 08:15] LABS: Hematocrit (blood only) 31.1 % (42.0-52.0); Hemoglobin 9.5 g/dl (14.0-18.0); Mean Corpuscular Hemoglobin 24.2 pg (25.0-34.0); Mean Corpuscular Hgb Conc 30.5 g/dL (32.0-36.0); Mean Corpuscular Volume 79.1 fL (80.0-100.0); Mean Platelet Volume 9.9 fL (9.4-12.4); Platelet Count 364 K/uL (130-400); RDW Coefficient of Variation 18.4 % (11.5-14.5); RDW Standard Deviation 52.2 fL (36.4-46.3); Red Blood Count 3.93 M/uL (4.70-6.10); White Blood Count 26.99 K/ul (4.8-10.8)
[2022-10-25 08:19] LABS: Creatinine Clr Calc Pharmacy 87.2 ml/min; Est GFR (African American) 118.6 ml/min; Est GFR (Non-African American) 102.4 ml/min; Magnesium 1.9 mg/dl (1.7-2.4); Phosphorus 2.5 mg/dl (2.5-4.9); Potassium 3.4 mmol/L (3.5-5.1)
--- NOTE | 2022-10-25 08:29 | Hospitalist Progress Note ---
Date of Service October 25, 2022 Assessment & Plan (1) Sepsis: (2) Complicated UTI (urinary tract infection): (3) Nephrostomy status: (4) Bladder mass: (5) Ambulatory dysfunction: Plan: Per previous provider note w/ addendum: This is an 82-year-old male who has significant past medical history of alcohol abuse, tobacco abuse, history of lumbar osteomyelitis, hypertension and bladder mass, congenital right clubfoot who presents to ED secondary to inability to ambulate. Sepsis secondary to Klebsiella ESBL UTI In the setting of left nephrostomy tube, large bladder mass Leukocytosis - WBC still elevated, initially some trending down but now no significant difference Urine culture: Klebsiella ESBL Blood cultures: Negative Transitioned from IV cefepime to ertapenem day #6 out of 10 Left nephrostomy tube seems to be functioning properly Had hematuria before, likely from bladder mass in the setting of UTI, resolved IV fluids for blood pressure on the lower side Stroke alert overnight as pt less responsive CT head, CTA head and neck - negative Brain MRI - pt refuses - EEG obtained and neurology consulted - EEG showed some mild slowing of the background activity of a fairly regular nature and no potentially epileptogenic discharges or focal abnormalities. He had weakness in general when he arrived but he has no weakness focally on exam. It was likely secondary to his urosepsis. The episode earlier today is nonspecific but might possibly have been a type of seizure. It also could have been transient decreased cerebral perfusion although his blood pressure was not low when checked by the nurse. I note low phosphorus and low magnesium. Hypomagnesemia can cause seizures. Recommendations: 1. MRI of the brain would be reasonable if he changes his mind 2. Replace magnesium. At 2:24 a.m., calcium was low but at 6:14 a.m. it was normal at 9.0. 3. Hold on anticonvulsants at this time. If he has another episode despite a normal magnesium I would consider adding levetiracetam at that time. 10/25 Seizure-like activity noted overnight 1,000 mg Keppra was given by [employer] brm developer Neurology contacted this AM - will continue w/ keppra 500 bid Ambulatory dysfunction Congenital right clubfoot [facility] to [facility] near fall at home Prior to recent hospitalization patient was mostly wheelchair-bound and lives alone PT and OT Will need to [facility] to [facility] Left clavicular fracture POA, occurred prior to 09/29 transfer to [facility] Nonweightbearing to left upper extremity, sling for comfort, remove 3 times daily for elbow range of motion He will need orthopedic follow-up upon discharge He was seen by orthopedics done at [facility] Bladder mass with evidence of metastasis S/P Nephrostomy tube placement at [facility] Discussed with patient and discussed with son separately At this time no further diagnostic or therapeutic intervention has been pursued Given age family currently considering not pursuing further treatment with a goal focused on comfort and quality of life Palliative care team consulted Protein calorie malnutrition, unknown severity Patient appears malnourished with hypoalbuminemia Consulted dietitian Chronic anemia Iron deficiency Hemoglobin around 9 Iron level less than 10 Oral iron ordered Given IV Venofer 300 mg x 1 Hx of alcohol abuse on thiamine/folic acid Tobacco abuse, chewing declines nicotine patch DVT ppx:SQ Lovenox Dispo: Transition to penitentiary facility when medically stable, will need IV ertapenem to complete 10-day course FULL CODE: DNR/DNI, palliative medicine consulted PCP: Dr. Celaya Admission and Anticipated Discharge Date Admission Date: October 17, 2022 Subjective Follow-up for Klebsiella ESBL UTI, in the setting of left nephrostomy tube, etc. 2 nights ago, pt was less responsive and stroke alert was called - CT head CTA head neck - negative Brain MRI ordered - pt refused Then last night pt had shaking episode for several seconds and was confused after that - 1,000 mg Keppra was given. Neurology notified this AM - recommend to continue w/ keppra 500 bid Currently pt resting in bed, not in distress, has no complaints or concerns, however does not seem to be oriented to place Denies any headache or any unusual weakness for him denies abdominal pain, problems with urination, hematuria, fevers or chills No shortness of breath, cough, dizziness Discussed w/ RN at the bedside Review of Systems Review of Systems: All systems reviewed & are unremarkable except as noted in Subjective Physical Exam Physical Exam: General- slim M in NAD Eyes- anicteric Neck- no JVD Lungs- clear breath sounds BL Heart- normal rate, regular rhythm; no murmurs Abdomen- normal bowel sounds, nondistended, soft, nontender Left nephrostomy tube in place, draining yellow urine Extremities- no pretibial edema, no calf tenderness Neuro- awake and alert but appears tired and is not oriented to place. speech fluent, moves extremities. Skin- warm & dry Results & Data Results & Data Vital Signs (Past 12 Hours) Vital Signs Temp Pulse Pulse Resp BP BP Pulse Ox 10/25/22 07:25 36.4 C L 75 17 95/48 L 97 10/25/22 07:16 77 10/25/22 05:43 10/25/22 03:19 36.4 C L 76 18 113/53 L 97 10/24/22 22:41 84 10/24/22 22:32 36.9 C 73 16 117/61 97 O2 Del Method 10/25/22 07:25 Room Air 10/25/22 07:16 10/25/22 05:43 Room Air 10/25/22 03:19 Room Air 10/24/22 22:41 10/24/22 22:32 Room Air Laboratory Results 10/25/22 10/25/22 10/24/22 Range/Units 07:18 07:18 06:14 WBC 26.99 H (4.8-10.8) K/ul RBC 3.93 L (4.70-6.10) M/uL Hgb 9.5 L (14.0-18.0) g/dl Hct 31.1 L (42.0-52.0) % MCV 79.1 L (80.0-100.0) fL MCH 24.2 L (25.0-34.0) pg MCHC 30.5 L (32.0-36.0) g/dL RDW Std Deviation 52.2 H (36.4-46.3) fL RDW Coeff of Flako 18.4 H (11.5-14.5) % Plt Count 364 (130-400) K/uL MPV 9.9 (9.4-12.4) fL Sodium 142 (136-145) mmol/L Potassium 3.4 L (3.5-5.1) mmol/L Chloride 111 H (98-107) mmol/L Carbon Dioxide 22 (21-32) mmol/L Anion Gap 9 (3-11) BUN 11 (6-23) mg/dl Creatinine 0.50 L (0.6-1.4) mg/dl Est Cr Clr Drug Dosing 87.2 ml/min Est GFR ( Amer) 118.6 ml/min Est GFR (Non-Af Amer) 102.4 ml/min BUN/Creatinine Ratio 22.0 H (10-20) Glucose 64 L (70-99(Fasting)) mg/dl Estimat Average Glucose 108 mg/dl Hemoglobin A1c 5.4 (4.5-5.6) % Calcium 9.0 (8.6-10.3) mg/dl Phosphorus 2.5 (2.5-4.9) mg/dl Magnesium 1.9 (1.7-2.4) mg/dl Medications Administered Current Inpatient Medications Acetaminophen (Acetaminophen 325 Mg Tab) 650 mg PO Q4H PRN PRN Reason: Pain or Fever Stop: 11/16/22 18:47 Al Hydrox/Mg Hydrox/Simethicone (Aluminum/Magnesium Susp 30 Ml Udc) 15 ml PO Q4H PRN PRN Reason: Dyspepsia Stop: 11/16/22 18:47 Aspirin (Aspirin 81 Mg Ectab) 81 mg PO QAM [facility] Stop: 11/23/22 08:59 Last Admin: 10/24/22 09:14 Dose: 81 mg Ferrous Sulfate (Ferrous Sulfate 325 Mg Tab) 325 mg PO BIDM [facility] Stop: 11/18/22 16:59 Last Admin: 10/24/22 16:29 Dose: 325 mg Folic Acid (Folic Acid 1 Mg Tab) 1 mg PO QAM [facility] Stop: 11/17/22 08:59 Last Admin: 10/24/22 09:14 Dose: 1 mg Ertapenem 1,000 mg/ Syringe 10 mls @ 2 mls/min IV Q24H [facility] Stop: 10/30/22 08:59 Last Admin: 10/24/22 09:16 Dose: 2 mls/min Sodium Chloride (Nss 1000ml) 1,000 mls @ 80 mls/hr IV .[id number] [facility] Stop: 11/21/22 08:14 Last Admin: 10/25/22 05:16 Dose: 80 mls/hr Potassium Chloride (K Ab / Wtr) 10 meq in 100 mls @ 100 mls/hr IV Q1H [facility] Stop: 10/25/22 10:29 Lactobacillus Acidophilus (Advanced Probiotic 1250 Mg Capsule) 2 cap PO DAILY [facility] Stop: 11/17/22 08:59 Last Admin: 10/24/22 09:16 Dose: 2 cap Magnesium Hydroxide (Magnesium Hydroxide Susp 30 Ml Udc) 30 ml PO Q12H PRN PRN Reason: Constipation Stop: 11/16/22 18:47 Ondansetron HCl (Ondansetron Inj 2 Mg/Ml 2 Ml Vial) 4 mg IV Q6H PRN PRN Reason: Nausea Stop: 11/16/22 18:47 Pantoprazole Sodium (Pantoprazole 40 Mg Tab) 40 mg PO BID [facility] Stop: 11/21/22 20:59 Last Admin: 10/24/22 19:16 Dose: 40 mg Polyethylene Glycol (Polyethylene (Miralax) 17 Gm Pack) 17 gm PO DAILY PRN PRN Reason: Constipation Stop: 11/16/22 18:47 Tamsulosin HCl (Tamsulosin Hcl 0.4 Mg Cap) 0.4 mg PO QAM [facility] Stop: 11/17/22 08:59 Last Admin: 10/24/22 09:14 Dose: 0.4 mg Thiamine HCl (Thiamine Hcl 100 Mg Tab) 100 mg PO DAILY [facility] Stop: 11/17/22 08:59 Last Admin: 10/24/22 09:15 Dose: 100 mg
[2022-10-25] MEDS: ERTAPENEM SODIUM 1,000 MG in SYRINGE 0 ML IV SCH (08:49)
[2022-10-25] MEDS: POTASSIUM CHLORIDE / WTR 10 MEQ/100 ML PLCT IV SCH ×2 (08:49→09:50)
[2022-10-25] MEDS: THIAMINE HCL 100 MG TAB PO SCH (08:50)
[2022-10-25] MEDS: FOLIC ACID 1 MG TAB PO SCH (08:50)
[2022-10-25] MEDS: FERROUS SULFATE 325 MG TAB PO SCH ×2 (08:50→17:06)
[2022-10-25] MEDS: ASPIRIN 81 MG ECTAB PO SCH (08:50)
[2022-10-25] MEDS: PANTOprazole 40 MG TAB PO SCH ×2 (08:50→20:24)
[2022-10-25] MEDS: TAMSULOSIN HCL 0.4 MG CAP PO SCH (08:50)
[2022-10-25] MEDS: ADVANCED PROBIOTIC 1250 MG CAPSULE PO SCH (08:50)
[2022-10-25] MEDS ORDERED: POTASSIUM CHLORIDE CRTAB 20 MEQ TABCR PO STA (09:01)
--- NOTE | 2022-10-25 10:35 | XRay Report ---
XR chest 1V portable CLINICAL HISTORY: consistently elev. WBC TECHNIQUE: Single frontal radiograph of the chest was obtained. Comparison: Comparison is made to chest radiograph 03/19/2022 FINDINGS: No lines and tubes are seen. The cardiomediastinal silhouette is normal. The lungs are clear. No evid ence of pleural effusion or pneumothorax. IMPRESSION: No acute abnormalities and in particular no radiographic evidence of pneumonia. ACT 112: Negative or not required by law. Electronically signed by: Larry Mercado M.D. 10/25/2022 10:33 AM
[2022-10-25] MEDS: levETIRAcetam 500 MG in 0.9 % SODIUM CHLORIDE 100 ML IV SCH ×2 (10:52→20:37)
[2022-10-25] MEDS: MAGNESIUM OXIDE 400 MG TAB PO SCH (10:52)
[2022-10-25] MEDS: CYANOCOBALAMIN (B-12) 500 MCG TABLET PO SCH (10:52)
[2022-10-25] MEDS: POT PHOSPHATE MONOBASIC W/ SOD TAB PO SCH ×3 (14:30→20:24)
[2022-10-25] MEDS: HEPARIN SOD 5,000 UNIT/0.5 ML VIAL SQ SCH (20:24)
[2022-10-26] MEDS: NYSTATIN CR 15 GM TUBE EXT SCH ×3 (03:21→21:47)
[2022-10-26] MEDS: SODIUM CHLORIDE 0.9% 1,000 ML IV SCH ×2 (05:11→16:37)
[2022-10-26 07:13] LABS: BUN Creatinine Ratio 19.6 (10-20); Calcium 8.6 mg/dl (8.6-10.3); Creatinine Clr Calc Pharmacy 84.7 ml/min; Est GFR (African American) 117.7 ml/min; Est GFR (Non-African American) 101.5 ml/min; Magnesium 1.7 mg/dl (1.7-2.4); Phosphorus 2.7 mg/dl (2.5-4.9); Potassium 3.6 mmol/L (3.5-5.1)
[2022-10-26 07:25] LABS: Hematocrit (blood only) 29.9 % (42.0-52.0); Hemoglobin 9.2 g/dl (14.0-18.0); Mean Corpuscular Hemoglobin 24.9 pg (25.0-34.0); Mean Corpuscular Hgb Conc 30.8 g/dL (32.0-36.0); Mean Platelet Volume 9.1 fL (9.4-12.4); Platelet Count 335 K/uL (130-400); RDW Coefficient of Variation 18.3 % (11.5-14.5); Red Blood Count 3.69 M/uL (4.70-6.10); White Blood Count 25.64 K/ul (4.8-10.8)
--- NOTE | 2022-10-26 07:36 | Hospitalist Progress Note ---
Date of Service October 26, 2022 Assessment & Plan (1) Sepsis: (2) Complicated UTI (urinary tract infection): (3) Nephrostomy status: (4) Bladder mass: (5) Ambulatory dysfunction: Plan: Per previous provider note w/ addendum: This is an 82-year-old male who has significant past medical history of alcohol abuse, tobacco abuse, history of lumbar osteomyelitis, hypertension and bladder mass, congenital right clubfoot who presents to ED secondary to inability to ambulate. Sepsis secondary to Klebsiella ESBL UTI In the setting of left nephrostomy tube, large bladder mass Leukocytosis - WBC still elevated, initially some trending down but now no significant difference Urine culture: Klebsiella ESBL Blood cultures: Negative Transitioned from IV cefepime to ertapenem day #7 out of 10 Left nephrostomy tube seems to be functioning properly Had hematuria before, likely from bladder mass in the setting of UTI, resolved IV fluids for blood pressure on the lower side Stroke alert overnight as pt less responsive CT head, CTA head and neck - negative Brain MRI - pt refuses - EEG obtained and neurology consulted - EEG showed some mild slowing of the background activity of a fairly regular nature and no potentially epileptogenic discharges or focal abnormalities. He had weakness in general when he arrived but he has no weakness focally on exam. It was likely secondary to his urosepsis. The episode earlier today is nonspecific but might possibly have been a type of seizure. It also could have been transient decreased cerebral perfusion although his blood pressure was not low when checked by the nurse. I note low phosphorus and low magnesium. Hypomagnesemia can cause seizures. Recommendations: 1. MRI of the brain would be reasonable if he changes his mind 2. Replace magnesium. At 2:24 a.m., calcium was low but at 6:14 a.m. it was normal at 9.0. 3. Hold on anticonvulsants at this time. If he has another episode despite a normal magnesium I would consider adding levetiracetam at that time. 10/25 Seizure-like activity noted overnight 1,000 mg Keppra was given by student development specialist Neurology contacted this AM - will continue w/ keppra 500 bid 10/26 Pt resting, no acute events overnight. Pt's son updated last evening at the bedside. Ambulatory dysfunction Congenital right clubfoot Patient admitted to hospital the day of discharge from [facility] due to weakness, near fall at home Prior to recent hospitalization patient was mostly wheelchair-bound and lives alone PT and OT Will need to transition to halfway facility Left clavicular fracture POA, occurred prior to 09/29 transfer [place] [facility] Nonweightbearing to left upper extremity, sling for comfort, remove 3 times daily for elbow range of motion He will need orthopedic follow-up upon discharge He was seen by orthopedics done at [facility] Bladder mass with evidence of metastasis S/P Nephrostomy tube placement [place] [facility] Discussed with patient and discussed with son separately At this time no further diagnostic or therapeutic intervention has been pursued Given age family currently considering not pursuing further treatment with a goal focused on comfort and quality of life Palliative care team consulted Protein calorie malnutrition, unknown severity Patient appears malnourished with hypoalbuminemia Consulted dietitian Chronic anemia Iron deficiency Hemoglobin around 9 Iron level less than 10 Oral iron ordered Given IV Venofer 300 mg x 1 Hx of alcohol abuse on thiamine/folic acid Tobacco abuse, chewing declines nicotine patch DVT ppx:SQ Lovenox Dispo: Transition to halfway facility when medically stable, will need IV ertapenem to complete 10-day course FULL CODE: DNR/DNI, palliative medicine consulted PCP: Dr. Celaya Admission and Anticipated Discharge Date Admission Date: October 17, 2022 Subjective Follow-up for Klebsiella ESBL UTI, in the setting of left nephrostomy tube, etc. The other night, pt was less responsive and stroke alert was called - CT head CTA head neck - negative Brain MRI ordered - pt refused Then following night pt had shaking episode for several seconds and was confused after that - 1,000 mg Keppra was given. Neurology notified next AM - recommend to continue w/ keppra 500 bid Currently pt resting in bed, not in distress, has no complaints or concerns Denies any headache or any unusual weakness for him denies abdominal pain, problems with urination, hematuria, fevers or chills No shortness of breath, cough, dizziness Son updated at the bedside yesterday. Review of Systems Review of Systems: All systems reviewed & are unremarkable except as noted in Subjective Physical Exam Physical Exam: General- slim M in NAD Eyes- anicteric Neck- no JVD Lungs- clear breath sounds BL Heart- normal rate, regular rhythm; no murmurs Abdomen- normal bowel sounds, nondistended, soft, nontender Left nephrostomy tube in place, draining yellow urine Extremities- no pretibial edema, no calf tenderness Neuro- awake but drowsy, appears tired. speech fluent, moves extremities. Skin- warm & dry Results & Data Results & Data Vital Signs (Past 12 Hours) Vital Signs Temp Pulse Pulse Resp BP Pulse Ox O2 Del Method 10/26/22 06:54 88 10/26/22 04:27 Room Air 10/25/22 22:15 117 H 10/26/22 03:15 36.5 C 92 H 16 111/75 99 Room Air 10/26/22 00:00 36.7 C 92 H 16 97/55 L 98 Room Air 10/25/22 19:50 36.6 C 100 H 20 118/68 92 Room Air Laboratory Results 10/26/22 10/26/22 Range/Units 06:37 06:37 WBC 25.64 H (4.8-10.8) K/ul RBC 3.69 L (4.70-6.10) M/uL Hgb 9.2 L (14.0-18.0) g/dl Hct 29.9 L (42.0-52.0) % MCV 81.0 (80.0-100.0) fL MCH 24.9 L (25.0-34.0) pg MCHC 30.8 L (32.0-36.0) g/dL RDW Std Deviation 53.0 H (36.4-46.3) fL RDW Coeff of Flaok 18.3 H (11.5-14.5) % Plt Count 335 (130-400) K/uL MPV 9.1 L (9.4-12.4) fL Sodium 144 (136-145) mmol/L Potassium 3.6 (3.5-5.1) mmol/L Chloride 113 H (98-107) mmol/L Carbon Dioxide 20 L (21-32) mmol/L Anion Gap 11 (3-11) BUN 10 (6-23) mg/dl Creatinine 0.51 L (0.6-1.4) mg/dl Est Cr Clr Drug Dosing 84.7 ml/min Est GFR ( Amer) 117.7 ml/min Est GFR (Non-Af Amer) 101.5 ml/min BUN/Creatinine Ratio 19.6 (10-20) Glucose 57 L (70-99(Fasting)) mg/dl Calcium 8.6 (8.6-10.3) mg/dl Phosphorus 2.7 (2.5-4.9) mg/dl Magnesium 1.7 (1.7-2.4) mg/dl Medications Administered Current Inpatient Medications Acetaminophen (Acetaminophen 325 Mg Tab) 650 mg PO Q4H PRN PRN Reason: Pain or Fever Stop: 11/16/22 18:47 Al Hydrox/Mg Hydrox/Simethicone (Aluminum/Magnesium Susp 30 Ml Udc) 15 ml PO Q4H PRN PRN Reason: Dyspepsia Stop: 11/16/22 18:47 Aspirin (Aspirin 81 Mg Ectab) 81 mg PO [facility] Stop: 11/23/22 08:59 Last Admin: 10/25/22 08:50 Dose: 81 mg Cyanocobalamin (Cyanocobalamin (B-12) 500 Mcg Tablet) 500 mcg PO [facility] Stop: 11/24/22 09:14 Last Admin: 10/25/22 10:52 Dose: 500 mcg Ferrous Sulfate (Ferrous Sulfate 325 Mg Tab) 325 mg PO BIDM [facility] Stop: 11/18/22 16:59 Last Admin: 10/25/22 17:06 Dose: 325 mg Folic Acid (Folic Acid 1 Mg Tab) 1 mg PO [facility] Stop: 11/17/22 08:59 Last Admin: 10/25/22 08:50 Dose: 1 mg Heparin Sodium (Porcine) (Heparin Sod 5,000 Unit/0.5 Ml Vial) 5,000 units SQ Q12 [facility] Stop: 11/24/22 20:59 Last Admin: 10/25/22 20:24 Dose: 5,000 units Ertapenem 1,000 mg/ Syringe 10 mls @ 2 mls/min IV Q24H [facility] Stop: 10/30/22 08:59 Last Admin: 10/25/22 08:49 Dose: 2 mls/min Sodium Chloride (Nss 1000ml) 1,000 mls @ 80 mls/hr IV .[id number] [facility] Stop: 11/21/22 08:14 Last Admin: 10/26/22 05:11 Dose: 80 mls/hr Levetiracetam 500 mg/ Sodium (Chloride) 105 mls @ 420 mls/hr IV Q12H [facility] Stop: 11/24/22 09:29 Last Infusion: 10/25/22 21:29 Dose: Infused Magnesium Sulfate/Dextrose (Magnesium Sulfate / D5w) 1 gm in 100 mls @ 50 mls/hr IV ONE ONE Stop: 10/26/22 09:32 Lactobacillus Acidophilus (Advanced Probiotic 1250 Mg Capsule) 2 cap PO DAILY [facility] Stop: 11/17/22 08:59 Last Admin: 10/25/22 08:50 Dose: 2 cap Magnesium Hydroxide (Magnesium Hydroxide Susp 30 Ml Udc) 30 ml PO Q12H PRN PRN Reason: Constipation Stop: 11/16/22 18:47 Magnesium Oxide (Magnesium Oxide 400 Mg Tab) 400 mg PO QAM [facility] Stop: 11/24/22 09:14 Last Admin: 10/25/22 10:52 Dose: 400 mg Nystatin (Nystatin Cr 15 Gm Tube) 1 appln EXT BID [facility] Stop: 11/24/22 23:14 Last Admin: 10/26/22 03:21 Dose: 1 appln Ondansetron HCl (Ondansetron Inj 2 Mg/Ml 2 Ml Vial) 4 mg IV Q6H PRN PRN Reason: Nausea Stop: 11/16/22 18:47 Pantoprazole Sodium (Pantoprazole 40 Mg Tab) 40 mg PO BID [facility] Stop: 11/21/22 20:59 Last Admin: 10/25/22 20:24 Dose: 40 mg Polyethylene Glycol (Polyethylene (Miralax) 17 Gm Pack) 17 gm PO DAILY PRN PRN Reason: Constipation Stop: 11/16/22 18:47 Potassium Chloride (Potassium Chloride Crtab 20 Meq Tabcr) 20 meq PO NOW STA Stop: 10/26/22 07:34 Potassium Phosphate (Pot Phosphate Monobasic W/ Sod Tab) 1 tab PO QID [facility] Stop: 11/24/22 12:59 Last Admin: 10/25/22 20:24 Dose: 1 tab Tamsulosin HCl (Tamsulosin Hcl 0.4 Mg Cap) 0.4 mg PO QAM [facility] Stop: 11/17/22 08:59 Last Admin: 10/25/22 08:50 Dose: 0.4 mg Thiamine HCl (Thiamine Hcl 100 Mg Tab) 100 mg PO DAILY [facility] Stop: 11/17/22 08:59 Last Admin: 10/25/22 08:50 Dose: 100 mg
[2022-10-26] MEDS ORDERED: MAGNESIUM SULFATE / D5W 1 GM/100 ML BAG IV ONE (07:45)
[2022-10-26] MEDS: POTASSIUM CHLORIDE CRTAB 20 MEQ TABCR PO STA ×2 (09:11→09:39)
[2022-10-26] MEDS: ERTAPENEM SODIUM 1,000 MG in SYRINGE 0 ML IV SCH (09:12)
[2022-10-26] MEDS: CYANOCOBALAMIN (B-12) 500 MCG TABLET PO SCH ×2 (09:16→09:40)
[2022-10-26] MEDS: FERROUS SULFATE 325 MG TAB PO SCH ×3 (09:16→16:28)
[2022-10-26] MEDS: MAGNESIUM OXIDE 400 MG TAB PO SCH ×2 (09:16→09:40)
[2022-10-26] MEDS: THIAMINE HCL 100 MG TAB PO SCH ×2 (09:16→09:39)
[2022-10-26] MEDS: HEPARIN SOD 5,000 UNIT/0.5 ML VIAL SQ SCH ×2 (09:16→22:02)
[2022-10-26] MEDS: ADVANCED PROBIOTIC 1250 MG CAPSULE PO SCH ×2 (09:16→09:40)
[2022-10-26] MEDS: PANTOprazole 40 MG TAB PO SCH ×3 (09:17→21:51)
[2022-10-26] MEDS: TAMSULOSIN HCL 0.4 MG CAP PO SCH ×2 (09:17→09:40)
[2022-10-26] MEDS: ASPIRIN 81 MG ECTAB PO SCH ×2 (09:17→09:40)
[2022-10-26] MEDS: POT PHOSPHATE MONOBASIC W/ SOD TAB PO SCH ×5 (09:17→21:51)
[2022-10-26] MEDS: FOLIC ACID 1 MG TAB PO SCH ×2 (09:17→09:40)
[2022-10-26] MEDS: levETIRAcetam 500 MG in 0.9 % SODIUM CHLORIDE 100 ML IV SCH ×2 (12:16→22:02)
[2022-10-27] MEDS: SODIUM CHLORIDE 0.9% 1,000 ML IV SCH (05:04)
[2022-10-27 07:33] LABS: Hemoglobin 9.1 g/dl (14.0-18.0); Mean Corpuscular Hemoglobin 24.7 pg (25.0-34.0); Mean Corpuscular Hgb Conc 30.3 g/dL (32.0-36.0); Mean Corpuscular Volume 81.3 fL (80.0-100.0); Mean Platelet Volume 9.3 fL (9.4-12.4); Platelet Count 339 K/uL (130-400); RDW Coefficient of Variation 18.5 % (11.5-14.5); Red Blood Count 3.69 M/uL (4.70-6.10); White Blood Count 32.47 K/ul (4.8-10.8)
--- NOTE | 2022-10-27 07:53 | Hospitalist Progress Note ---
Date of Service October 27, 2022 Assessment & Plan (1) Sepsis: (2) Complicated UTI (urinary tract infection): (3) Nephrostomy status: (4) Bladder mass: (5) Ambulatory dysfunction: Plan: Per previous provider note w/ addendum: This is an 82-year-old male who has significant past medical history of alcohol abuse, tobacco abuse, history of lumbar osteomyelitis, hypertension and bladder mass, congenital right clubfoot who presents to ED secondary to inability to ambulate. Sepsis secondary to Klebsiella ESBL UTI In the setting of left nephrostomy tube, large bladder mass Leukocytosis - WBC elevated Urine culture: Klebsiella ESBL Blood cultures: Negative Transitioned from IV cefepime to ertapenem day #8 out of 10 Left nephrostomy tube seems to be functioning properly Had hematuria before, likely from bladder mass in the setting of UTI, resolved IV fluids for blood pressure on the lower side 10/27 Pt clinically not improved. Now drowsy and not answering questions. WBC 32K. Updated the son over the phone this AM and discussed again at the bedside. Son would like the pt's care to be transitioned to comfort care. Discontinued unnecessary meds and will cont. w/ comfort care measures. Stroke alert overnight as pt less responsive CT head, CTA head and neck - negative Brain MRI - pt refuses - EEG obtained and neurology consulted - EEG showed some mild slowing of t he background activity of a fairly regular nature and no potentially epileptogenic discharges or focal abnormalities. He had weakness in general when he arrived but he has no weakness focally on exam. It was likely secondary to his urosepsis. The episode earlier today is nonspecific but might possibly have been a type of seizure. It also could have been transient decreased cerebral perfusion a lthough his blood pressure was not low when checked by the nurse. I note low phosphorus and low magnesium. Hypomagnesemia can cause seizures. Recommendations: 1. MRI of the brain would be reasonable if he changes his mind 2. Replace magnesium. At 2:24 a.m., calcium was low but at 6:14 a.m. it was normal at 9.0. 3. Hold on anticonvulsants at this time. If he has another episode despite a normal magnesium I would consider adding levetiracetam at that time. 10/25 Seizure-like activity noted overnight 1,000 mg Keppra was given by case loader operator Neurology contacted - continue w/ keppra 500 bid Ambulatory dysfunction Congenital right clubfoot Patient admitted to hospital the day of discharge from [facility] due to weak ness, near fall at home Prior to recent hospitalization patient was mostly wheelchair-bound and lives alone PT and OT, Will need to transition to halfway facility Left clavicular fracture POA, occurred prior to 09/29 transfer to [facility] [place] Nonweightbearing to left upper extremity, sling for comfort, remove 3 times daily for elbow range of motion He will need orthopedic follow-up upon discharge He was seen by orthopedics done at [facility] Bladder mass with evidence of metastasis S/P Nephrostomy tube placement at [facility] [place] Discussed with patient and son At this time no further diagnostic or therapeutic intervention has been pursued Given age family currently considering not pursuing further treatment with a goal focused on comfort and quality of life Palliative care team consulted Protein calorie malnutrition, unknown severity Patient appears malnourished with hypoalbuminemia Consulted dietitian Chronic anemia Iron deficiency Hemoglobin around 9 Iron level less than 10 Oral iron ordered Given IV Venofer 300 mg x 1 Hx of alcohol abuse on thiamine/folic acid Tobacco abuse, chewing declines nicotine patch DVT ppx:SQ Lovenox, nwo stopped Dispo: plan was to Transition to halfway facility when medically stable, now pt on comfort care, CM involved FULL CODE: DNR/DNI, palliative medicine consulted PCP: Dr. Celaya Admission and Anticipated Discharge Date Admission Date: October 17, 2022 Subjective Follow-up for Klebsiella ESBL UTI, in the setting of left nephrostomy tube, bladder mass, etc. The other night, pt was less responsive and stroke alert was called - CT head CTA head neck - negative Brain MRI ordered - pt refused Then following night pt had shaking episode for several seconds and was confused after that - 1,000 mg Keppra was given. Neurology notified next AM - recommend to continue w/ keppra 500 bid Currently pt is very drowsy - not able to answer questions or have PO intake, labs - WBC worsening. Discussed w/ the son over the phone this AM and then again at the bedside. Pt's son would like pt to be on comfort care. Discontinued unnecessary meds and will cont. w/ comfort care measures. Review of Systems Review of Systems: Unobtainable due to cognitive status Physical Exam Physical Exam: General- thin M in NAD Eyes- anicteric Neck- no JVD Lungs- clear breath sounds BL Heart- normal rate, regular rhythm; no murmurs Abdomen- normal bowel sounds, nondistended, soft, nontender Left nephrostomy tube in place, draining yellow urine Extremities- no pretibial edema, no calf tenderness Neuro- drowsy, not answering questions, moves extremities. Skin- warm & dry Results & Data Results & Data Vital Signs (Past 12 Hours) Vital Signs Temp Pulse Pulse Resp BP Pulse Ox O2 Del Method 10/27/22 07:43 104 H 10/27/22 04:26 36.6 C 98 H 20 110/72 99 Room Air 10/26/22 22:07 94 H 10/27/22 00:59 36.5 C 93 H 20 118/62 96 Room Air 10/26/22 23:00 Room Air 10/26/22 20:31 36.8 C 92 H 20 113/63 94 Room Air Laboratory Results labs reviewed - WBC elevated at 32K Medications Administered Current Inpatient Medications Acetaminophen (Acetaminophen 325 Mg Tab) 650 mg PO Q4H PRN PRN Reason: Pain or Fever Stop: 11/16/22 18:47 Al Hydrox/Mg Hydrox/Simethicone (Aluminum/Magnesium Susp 30 Ml Udc) 15 ml PO Q4H PRN PRN Reason: Dyspepsia Stop: 11/16/22 18:47 Aspirin (Aspirin 81 Mg Ectab) 81 mg PO [facility] Stop: 11/23/22 08:59 Last Admin: 10/26/22 09:40 Dose: Not Given Cyanocobalamin (Cyanocobalamin (B-12) 500 Mcg Tablet) 500 mcg PO [facility] Stop: 11/24/22 09:14 Last Admin: 10/26/22 09:40 Dose: Not Given Ferrous Sulfate (Ferrous Sulfate 325 Mg Tab) 325 mg PO BIDM [facility] Stop: 11/18/22 16:59 Last Admin: 10/26/22 16:28 Dose: Not Given Folic Acid (Folic Acid 1 Mg Tab) 1 mg PO [facility] Stop: 11/17/22 08:59 Last Admin: 10/26/22 09:40 Dose: Not Given Heparin Sodium (Porcine) (Heparin Sod 5,000 Unit/0.5 Ml Vial) 5,000 units SQ Q12 [facility] Stop: 11/24/22 20:59 Last Admin: 10/26/22 22:02 Dose: 5,000 units Ertapenem 1,000 mg/ Syringe 10 mls @ 2 mls/min IV Q24H [facility] Stop: 10/30/22 08:59 Last Admin: 10/26/22 09:12 Dose: 2 mls/min Sodium Chloride (Nss 1000ml) 1,000 mls @ 80 mls/hr IV .[id number] [facility] Stop: 11/21/22 08:14 Last Admin: 10/27/22 05:04 Dose: 80 mls/hr Levetiracetam 500 mg/ Sodium (Chloride) 105 mls @ 420 mls/hr IV Q12H [facility] Stop: 11/24/22 09:29 Last Infusion: 10/26/22 22:47 Dose: Infused Lactobacillus Acidophilus (Advanced Probiotic 1250 Mg Capsule) 2 cap PO DAILY [facility] Stop: 11/17/22 08:59 Last Admin: 10/26/22 09:40 Dose: Not Given Magnesium Hydroxide (Magnesium Hydroxide Susp 30 Ml Udc) 30 ml PO Q12H PRN PRN Reason: Constipation Stop: 11/16/22 18:47 Magnesium Oxide (Magnesium Oxide 400 Mg Tab) 400 mg PO QAM [facility] Stop: 11/24/22 09:14 Last Admin: 10/26/22 09:40 Dose: Not Given Nystatin (Nystatin Cr 15 Gm Tube) 1 appln EXT BID [facility] Stop: 11/24/22 23:14 Last Admin: 10/26/22 21:47 Dose: 1 appln Ondansetron HCl (Ondansetron Inj 2 Mg/Ml 2 Ml Vial) 4 mg IV Q6H PRN PRN Reason: Nausea Stop: 11/16/22 18:47 Pantoprazole Sodium (Pantoprazole 40 Mg Tab) 40 mg PO BID [facility] Stop: 11/21/22 20:59 Last Admin: 10/26/22 21:51 Dose: 40 mg Polyethylene Glycol (Polyethylene (Miralax) 17 Gm Pack) 17 gm PO DAILY PRN PRN Reason: Constipation Stop: 11/16/22 18:47 Potassium Phosphate (Pot Phosphate Monobasic W/ Sod Tab) 1 tab PO QID [facility] Stop: 11/24/22 12:59 Last Admin: 10/26/22 21:51 Dose: 1 tab Tamsulosin HCl (Tamsulosin Hcl 0.4 Mg Cap) 0.4 mg PO QAM [facility] Stop: 11/17/22 08:59 Last Admin: 10/26/22 09:40 Dose: Not Given Thiamine HCl (Thiamine Hcl 100 Mg Tab) 100 mg PO DAILY [facility] Stop: 11/17/22 08:59 Last Admin: 10/26/22 09:39 Dose: Not Given
[2022-10-27 07:54] LABS: Calcium 8.7 mg/dl (8.6-10.3); Creatinine Clr Calc Pharmacy 82.4 ml/min; Est GFR (African American) 115.8 ml/min; Est GFR (Non-African American) 99.9 ml/min; Magnesium 1.8 mg/dl (1.7-2.4); Phosphorus 2.6 mg/dl (2.5-4.9); Potassium 3.7 mmol/L (3.5-5.1)
[2022-10-27] MEDS ORDERED: DEXTROSE 50% 50 ML SYRINGE IV STA (07:57)
--- NOTE | 2022-10-27 08:37 | XRay Report ---
XR chest 1V portable HISTORY: Tachypnea. Altered mental status. COMPARISON: Chest 10/25/2022. FINDINGS: No pneumothorax. No pleural effusions. No focal lung consolidations to suggest pneumonia. N o evidence for pulmonary edema. The cardiac silhouette is normal in size. There is a slightly rotated study. Healing distal left clavicle fracture again noted. IMPRESSION: 1. No acute process within the chest. 2. Healing distal left clavicle fracture again noted. ACT 112: Negative or not required by law. Electronically signed by: Donovan Nguyen M.D. 10/27/2022 8:36 AM
[2022-10-27] MEDS: ASPIRIN 81 MG ECTAB PO SCH (08:57)
[2022-10-27] MEDS: FERROUS SULFATE 325 MG TAB PO SCH (08:57)
[2022-10-27] MEDS: FOLIC ACID 1 MG TAB PO SCH (08:58)
[2022-10-27] MEDS: CYANOCOBALAMIN (B-12) 500 MCG TABLET PO SCH (08:58)
[2022-10-27] MEDS: MAGNESIUM OXIDE 400 MG TAB PO SCH (08:58)
[2022-10-27] MEDS: TAMSULOSIN HCL 0.4 MG CAP PO SCH (08:58)
[2022-10-27] MEDS: PANTOprazole 40 MG TAB PO SCH (08:58)
[2022-10-27] MEDS: POT PHOSPHATE MONOBASIC W/ SOD TAB PO SCH ×2 (08:58→12:17)
[2022-10-27] MEDS: ADVANCED PROBIOTIC 1250 MG CAPSULE PO SCH (08:58)
[2022-10-27] MEDS: THIAMINE HCL 100 MG TAB PO SCH (08:58)
[2022-10-27] MEDS: ERTAPENEM SODIUM 1,000 MG in SYRINGE 0 ML IV SCH (09:06)
[2022-10-27] MEDS: HEPARIN SOD 5,000 UNIT/0.5 ML VIAL SQ SCH (09:06)
[2022-10-27] MEDS: NYSTATIN CR 15 GM TUBE EXT SCH ×2 (09:07→22:28)
[2022-10-27] MEDS: levETIRAcetam 500 MG in 0.9 % SODIUM CHLORIDE 100 ML IV SCH ×2 (09:11→21:53)
[2022-10-27] MEDS ORDERED: ONDANSETRON 4 MG OD TAB SL PRN (12:21)
[2022-10-27] MEDS: GLYCOPYRROLATE 0.2 MG/ML VIAL IV PRN (12:46)
[2022-10-28] MEDS: LORazepam 2 MG/1 ML VIAL IV PRN (00:09)
[2022-10-28] MEDS: ACETAMINOPHEN 1,000 MG/100 ML VIAL IV PRN ×2 (03:29→15:11)
[2022-10-28] MEDS: GLYCOPYRROLATE 0.2 MG/ML VIAL IV PRN (03:46)
[2022-10-28] MEDS: levETIRAcetam 500 MG in 0.9 % SODIUM CHLORIDE 100 ML IV SCH ×2 (08:32→21:58)
[2022-10-28] MEDS: NYSTATIN CR 15 GM TUBE EXT SCH ×2 (08:37→22:06)
--- NOTE | 2022-10-28 08:52 | Hospitalist Progress Note ---
Date of Service October 28, 2022 Assessment & Plan (1) Sepsis: (2) Complicated UTI (urinary tract infection): (3) Nephrostomy status: (4) Bladder mass: (5) Ambulatory dysfunction: Plan: Per previous provider note w/ addendum: This is an 82-year-old male who has significant past medical history of alcohol abuse, tobacco abuse, history of lumbar osteomyelitis, hypertension and bladder mass, congenital right clubfoot who presents to ED secondary to inability to ambulate. Sepsis secondary to Klebsiella ESBL UTI In the setting of left nephrostomy tube, large bladder mass Leukocytosis - WBC elevated Urine culture: Klebsiella ESBL Blood cultures: Negative Transitioned from IV cefepime to ertapenem day #8 out of 10 Left nephrostomy tube seems to be functioning properly Had hematuria before, likely from bladder mass in the setting of UTI, resolved IV fluids for blood pressure on the lower side 10/27 Pt clinically not improved. Now drowsy and not answering questions. WBC 32K. Updated the son over the phone this AM and discussed again at the bedside. Son would like the pt's care to be transitioned to comfort care. Discontinued unnecessary meds and will cont. w/ comfort care measures. Stroke alert overnight as pt less responsive CT head, CTA head and neck - negative Brain MRI - pt refuses - EEG obtained and neurology consulted - EEG showed some mild slowing of t he background activity of a fairly regular nature and no potentially epileptogenic discharges or focal abnormalities. He had weakness in general when he arrived but he has no weakness focally on exam. It was likely secondary to his urosepsis. The episode earlier today is nonspecific but might possibly have been a type of seizure. It also could have been transient decreased cerebral perfusion a lthough his blood pressure was not low when checked by the nurse. I note low phosphorus and low magnesium. Hypomagnesemia can cause seizures. Recommendations: 1. MRI of the brain would be reasonable if he changes his mind 2. Replace magnesium. At 2:24 a.m., calcium was low but at 6:14 a.m. it was normal at 9.0. 3. Hold on anticonvulsants at this time. If he has another episode despite a normal magnesium I would consider adding levetiracetam at that time. 10/25 Seizure-like activity noted overnight 1,000 mg Keppra was given by hobbies and crafts sales representative Neurology contacted - continue w/ keppra 500 bid Ambulatory dysfunction Congenital right clubfoot Patient admitted to hospital the day of discharge from [facility] due to weak ness, near fall at home Prior to recent hospitalization patient was mostly wheelchair-bound and lives alone PT and OT, plan [facility] to [facility] -> now pt is on comfort care Left clavicular fracture POA, occurred prior to 09/29 [place] [facility]weightbearing to left upper extremity, sling for comfort, remove 3 times daily for elbow range of motion He will need orthopedic follow-up upon discharge He was seen by orthopedics done at [facility] pt now on comfort care Bladder mass with evidence of metastasis S/P Nephrostomy tube [place] [facility] Discussed with patient and son At this time no further diagnostic or therapeutic intervention has been pursued Given age family currently considering not pursuing further treatment with a goal focused on comfort and quality of life Palliative care team consulted Protein calorie malnutrition, unknown severity Patient appears malnourished with hypoalbuminemia Consulted dietitian Chronic anemia Iron deficiency Hemoglobin around 9 Iron level less than 10 Oral iron ordered Given IV Venofer 300 mg x 1 Hx of alcohol abuse on thiamine/folic acid Tobacco abuse, chewing declined nicotine patch DVT ppx:SQ Lovenox, now stopped Dispo: plan was to [facility] to [facility] facility when medically stable, now pt on comfort care, CM involved FULL CODE: DNR/DNI, palliative medicine consulted PCP: Dr. Celaya Admission and Anticipated Discharge Date Admission Date: October 17, 2022 Subjective Follow-up for Klebsiella ESBL UTI, in the setting of left nephrostomy tube, bladder mass, etc. The other night, pt was less responsive and stroke alert was called - CT head CTA head neck - negative Brain MRI ordered - pt refused Then following night pt had shaking episode for several seconds and was confused after that - 1,000 mg Keppra was given. Neurology notified next AM - recommend to continue w/ keppra 500 bid Yesterday pt very drowsy - not able to answer questions or have PO intake, labs - WBC worsening. Discussed w/ the son over the phone AM and then again at the bedside. Pt's son would like pt to be on comfort care. Discontinued unnecessary meds and will cont. w/ comfort care measures. Today, continues to be very drowsy and not answering questions, poor eye contact. Review of Systems Review of Systems: Unobtainable due to cognitive status Physical Exam Physical Exam: General- thin M in NAD Eyes- anicteric Neck- no JVD Lungs- clear breath sounds BL Heart- normal rate, regular rhythm; no murmurs Abdomen- normal bowel sounds, nondistended, soft, nontender Left nephrostomy tube in place, draining yellow urine Extremities- no pretibial edema, no calf tenderness Neuro- drowsy, not answering questions Skin- warm & dry Results & Data Results & Data Vital Signs (Past 12 Hours) Vital Signs O2 Del Method 10/27/22 22:35 Room Air Medications Administered Current Inpatient Medications Acetaminophen (Acetaminophen 325 Mg Tab) 650 mg PO Q4H PRN PRN Reason: Pain or Fever Stop: 11/16/22 18:47 Glycopyrrolate (Glycopyrrolate 0.2 Mg/Ml Vial) 0.2 mg IV Q4H PRN PRN Reason: Secretions or Pulm Congestion Stop: 11/26/22 12:20 Last Admin: 10/28/22 03:46 Dose: 0.2 mg Levetiracetam 500 mg/ Sodium (Chloride) 105 mls @ 420 mls/hr IV Q12H CHEO Stop: 11/24/22 09:29 Last Admin: 10/28/22 08:32 Dose: 420 mls/hr Acetaminophen (Ofirmev) 1,000 mg in 100 mls @ 400 mls/hr IV Q8H PRN PRN Reason: pain or discomfort Stop: 10/30/22 12:23 Last Infusion: 10/28/22 04:02 Dose: Infused Lorazepam (Lorazepam 2 Mg/1 Ml Vial) 0.5 mg IV Q4H PRN PRN Reason: Anxiety/Agitation Stop: 11/26/22 12:20 Last Admin: 10/28/22 00:09 Dose: 0.5 mg Nystatin (Nystatin Cr 15 Gm Tube) 1 appln EXT BID CHEO Stop: 11/24/22 23:14 Last Admin: 10/28/22 08:37 Dose: 1 appln Ondansetron HCl (Ondansetron Inj 2 Mg/Ml 2 Ml Vial) 4 mg IV Q6H PRN PRN Reason: Nausea Stop: 11/16/22 18:47 Ondansetron HCl (Ondansetron 4 Mg Od Tab) 4 mg SL Q4H PRN PRN Reason: Nausea &/or Vomiting Stop: 11/26/22 12:20
[2022-10-28] MEDS: MoRPHine SULFATE 2 MG/ML CARP IV PRN ×3 (11:49→20:05)
[2022-10-29] MEDS: GLYCOPYRROLATE 0.2 MG/ML VIAL IV PRN ×2 (06:22→22:24)
[2022-10-29] MEDS: LORazepam 2 MG/1 ML VIAL IV PRN (06:27)
[2022-10-29] MEDS: MoRPHine SULFATE 2 MG/ML CARP IV PRN ×9 (07:53→21:52)
[2022-10-29] MEDS: levETIRAcetam 500 MG in 0.9 % SODIUM CHLORIDE 100 ML IV SCH ×2 (07:56→21:58)
[2022-10-29] MEDS: NYSTATIN CR 15 GM TUBE EXT SCH ×2 (07:57→21:58)
[2022-10-29] MEDS ORDERED: LORazepam 2 MG/1 ML VIAL IV PRN (09:52)
--- NOTE | 2022-10-29 09:54 | Communication Note ---
Date of Service: October 29, 2022 Brief Pall Med note patient on comfort care orders modified all non essential and non comfort meds, labs, interventions were d/c full note to follow later today. Thank you for allowing us to participate in the ongoing care of this patient. Please don't hesitate to call or page with any additional concerns. Dr. Melani Marina DNP Director, Palliative Care
--- NOTE | 2022-10-29 11:37 | Hospitalist Progress Note ---
Date of Service October 29, 2022 Assessment & Plan (1) Sepsis: (2) Complicated UTI (urinary tract infection): (3) Nephrostomy status: (4) Bladder mass: (5) Ambulatory dysfunction: Plan: This is an 82-year-old male who has significant past medical history of alcohol abuse, tobacco abuse, history of lumbar osteomyelitis, hypertension and bladder mass, congenital right clubfoot who presents to ED secondary to inability to ambulate. Sepsis secondary to Klebsiella ESBL UTI In the setting of left nephrostomy tube, large bladder mass Leukocytosis - WBC elevated Urine culture: Klebsiella ESBL Blood cultures: Negative Transitioned from IV cefepime to ertapenem day #8 out of 10 Left nephrostomy tube seems to be functioning properly Had hematuria before, likely from bladder mass in the setting of UTI, resolved IV fluids for blood pressure on the lower side 10/27 Pt clinically not improved. Now drowsy and not answering questions. WBC 32K. Updated the son over the phone this AM and discussed again at the bedside. Son would like the pt's care to be transitioned to comfort care. Discontinued unnecessary meds and will cont. w/ comfort care measures. Stroke alert overnight as pt less responsive CT head, CTA head and neck - negative Brain MRI - pt refuses - EEG obtained and neurology consulted - EEG showed some mild slowing of the background activity of a fairly regular nature and no potentially epileptogenic discharges or focal abnormalities. He had weakness in general when he arrived but he has no weakness focally on exam. It was likely secondary to his urosepsis. The episode earlier today is nonspecific but might possibly have been a type of seizure. It also could have been transient decreased cerebral perfusion although his blood pressure was not low when checked by the nurse. I note low phosphorus and low magnesium. Hypomagnesemia can cause seizures. Recommendations: 1. MRI of the brain would be reasonable if he changes his mind 2. Replace magnesium. At 2:24 a.m., calcium was low but at 6:14 a.m. it was normal at 9.0. 3. Hold on anticonvulsants at this time. If he has another episode despite a normal magnesium I would consider adding levetiracetam at that time. 10/25 Seizure-like activity noted overnight 1,000 mg Keppra was given by meal attendant Neurology contacted - continue w/ keppra 500 bid Ambulatory dysfunction Congenital right clubfoot Patient admitted to hospital the day of discharge [facility] due to weakness, near fall at home Prior to recent hospitalization patient was mostly wheelchair-bound and lives alone PT and OT, plan was to transition to shelter facility -> now pt is on comfort care Left clavicular fracture POA, occurred prior to 09/29 transfer to [facility] [place] Nonweightbearing to left upper extremity, sling for comfort, remove 3 times daily for elbow range of motion He will need orthopedic follow-up upon discharge He was seen by orthopedics done at [facility] pt now on comfort care Bladder mass with evidence of metastasis S/P Nephrostomy tube placement at [facility] Discussed with patient and son At this time no further diagnostic or therapeutic intervention has been pursued Given age family currently considering not pursuing further treatment with a goal focused on comfort and quality of life Palliative care team consulted Protein calorie malnutrition, unknown severity Patient appears malnourished with hypoalbuminemia Consulted dietitian Chronic anemia Iron deficiency Hemoglobin around 9 Iron level less than 10 Oral iron ordered Given IV Venofer 300 mg x 1 Hx of alcohol abuse on thiamine/folic acid Tobacco abuse, chewing declined nicotine patch DVT ppx:SQ Lovenox, now stopped Dispo: plan was to Transition to shelter facility when medically stable, now pt on comfort care, CM involved FULL CODE: DNR/DNI, palliative medicine consulted PCP: Dr. Celaya Admission and Anticipated Discharge Date Admission Date: October 17, 2022 Subjective Follow-up for Klebsiella ESBL UTI, in the setting of left nephrostomy tube, bladder mass, etc. - now on comfort care The other night, pt was less responsive and stroke alert was called - CT head CTA head neck - negative Brain MRI ordered - pt refused Then following night pt had shaking episode for several seconds and was confused after that - 1,000 mg Keppra was given. Neurology notified next AM - recommend to continue w/ keppra 500 bid Over next 2 days pt became very drowsy - not able to answer questions or have PO intake, labs - WBC worsening. Discussed w/ the son over the phone AM and then again at the bedside. Pt's son would like pt to be on comfort care. Discontinued unnecessary meds and cont. w/ comfort care measures. Today, pt lethargic, laying in bed and not answering questions. Review of Systems Review of Systems: All systems reviewed & are unremarkable except as noted in Subjective Physical Exam Physical Exam: General- thin M in NAD Lungs- clear breath sounds BL Heart- mildly tachycardic Abdomen- + bowel sounds, nondistended, soft Left nephrostomy tube in place, draining yellow urine Extremities- no pretibial edema Neuro- lethargic, not answering questions Skin- warm & dry Results & Data Results & Data Vital Signs (Past 12 Hours) Vital Signs Temp Pulse Resp BP Pulse Ox O2 Del Method 10/29/22 11:03 Room Air 10/29/22 08:04 37.0 C 119 H 20 92/52 L 89 L Room Air Medications Administered Current Inpatient Medications Glycopyrrolate (Glycopyrrolate 0.2 Mg/Ml Vial) 0.4 mg IV Q4H PRN PRN Reason: Secretions or Pulm Congestion Stop: 11/26/22 12:20 Levetiracetam 500 mg/ Sodium (Chloride) 105 mls @ 420 mls/hr IV Q12H CHEO Stop: 11/24/22 09:29 Last Infusion: 10/29/22 08:28 Dose: Infused Acetaminophen (Ofirmev) 1,000 mg in 100 mls @ 400 mls/hr IV Q8H PRN PRN Reason: pain or discomfort Stop: 10/30/22 12:23 Last Infusion: 10/28/22 15:37 Dose: Infused Lorazepam (Lorazepam 2 Mg/1 Ml Vial) 1 mg IV Q4H PRN PRN Reason: Anxiety/Agitation,spasms Stop: 11/26/22 12:20 Morphine Sulfate (Morphine Sulfate 2 Mg/Ml Carp) 2 mg IV Q30M PRN PRN Reason: Pain or shortness of breath Stop: 11/11/22 17:14 Last Admin: 10/29/22 11:31 Dose: 2 mg Nystatin (Nystatin Cr 15 Gm Tube) 1 appln EXT BID CHEO Stop: 11/24/22 23:14 Last Admin: 10/29/22 07:57 Dose: 1 appln Ondansetron HCl (Ondansetron Inj 2 Mg/Ml 2 Ml Vial) 4 mg IV Q6H PRN PRN Reason: Nausea Stop: 11/16/22 18:47
--- NOTE | 2022-10-29 12:15 | Palliative Care Progress Note ---
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 TS 60min Thank you for allowing us to participate in the ongoing care of this patient. Please don't hesitate to call or page with any additional concerns. Dr. Melani Marina DNP Director, Palliative Care Admission and Anticipated Discharge Date Admission Date: October 17, 2022 Subjective on comfort care at time of my visit, + resp effort with RR 30's, use of accessry muscles, diaphoretic no family present pt does not respond eyes open but not tracking diaphoretic Review of Systems Review of Systems: Unobtainable due to reduced consciousness lying supine not responding eyes open, no tracking diaphoretic resp effort increased RR mid 30s _use of accessory muscles +abd breathing +tachy with mild JVD abd soft, scaphoid skin clammy Results & Data Vital Signs (Past 12 Hours) Vital Signs Temp Pulse Resp BP Pulse Ox O2 Del Method 10/29/22 11:03 Room Air 10/29/22 08:04 37.0 C 119 H 20 92/52 L 89 L Room Air Laboratory Results no new data Diagnostic Findings no new data PG Care Time/CCT Total # of Minutes Spent Total Time Spent: 60 Total Time Spent with Patient: Total time spent is greater than 50% in coordination of care (as documented) at patient's floor/unit and/or counseling patient: C[place] [address] SUB INP/OBS CARE 3/50MIN Patient Type Established History Comprehensive Exam Comprehensive Medical Decision Making High Complexity Diagnoses Dyspnea and respiratory abnormalities R06.00; R06.89 Cancer related pain G89.3 Altered mental status R41.82 Weakness generalized R53.1 Encounter for end of life care Z51.5 Palliative care by specialist Z51.5
[2022-10-30] MEDS: MoRPHine SULFATE 2 MG/ML CARP IV PRN ×14 (00:02→22:00)
[2022-10-30] MEDS: GLYCOPYRROLATE 0.2 MG/ML VIAL IV PRN (02:45)
[2022-10-30] MEDS: ACETAMINOPHEN 1,000 MG/100 ML VIAL IV PRN (02:56)
[2022-10-30] MEDS: levETIRAcetam 500 MG in 0.9 % SODIUM CHLORIDE 100 ML IV SCH ×2 (08:08→22:04)
[2022-10-30] MEDS: NYSTATIN CR 15 GM TUBE EXT SCH ×2 (08:09→22:06)
--- NOTE | 2022-10-30 17:47 | Hospitalist Progress Note ---
Date of Service October 30, 2022 delayed entry date of service noted above Assessment & Plan (1) Sepsis: (2) Complicated UTI (urinary tract infection): (3) Nephrostomy status: (4) Bladder mass: (5) Ambulatory dysfunction: Plan: per previous hosp notes with addendum: This is an 82-year-old male who has significant past medical history of alcohol abuse, tobacco abuse, history of lumbar osteomyelitis, hypertension and bladder mass, congenital right clubfoot who presents to ED secondary to inability to ambulate. Sepsis secondary to Klebsiella ESBL UTI In the setting of left nephrostomy tube, large bladder mass Leukocytosis - WBC elevated Urine culture: Klebsiella ESBL Blood cultures: Negative Transitioned from IV cefepime to ertapenem day #8 out of 10 Left nephrostomy tube seems to be functioning properly Had hematuria before, likely from bladder mass in the setting of UTI, resolved IV fluids for blood pressure on the lower side 10/27 Pt clinically not improved. Now drowsy and not answering questions. WBC 32K. Updated the son over the phone this AM and discussed again at the bedside. Son would like the pt's care to be transitioned to comfort care. Discontinued unnecessary meds and will cont. w/ comfort care measures. 10/30 drowsy not in tachypneic, no signs of pain continue comfort measures Stroke alert overnight as pt less responsive CT head, CTA head and neck - negative Brain MRI - pt refuses - EEG obtained and neurology consulted - EEG showed some mild slowing of the background activity of a fairly regular nature and no potentially epileptogenic discharges or focal abnormalities. He had weakness in general when he arrived but he has no weakness focally on exam. It was likely secondary to his urosepsis. The episode earlier today is nonspecific but might possibly have been a type of seizure. It also could have been transient decreased cerebral perfusion although his blood pressure was not low when checked by the nurse. I note low phosphorus and low magnesium. Hypomagnesemia can cause seizures. Recommendations: 1. MRI of the brain would be reasonable if he changes his mind 2. Replace magnesium. At 2:24 a.m., calcium was low but at 6:14 a.m. it was normal at 9.0. 3. Hold on anticonvulsants at this time. If he has another episode despite a normal magnesium I would consider adding levetiracetam at that time. 10/25 Seizure-like activity noted overnight 1,000 mg Keppra was given by homicide squad lieutenant Neurology contacted - continue w/ keppra 500 bid 10/30 no seizures so far Ambulatory dysfunction Congenital right clubfoot Patient admitted to hospital the day of discharge from [facility] due to weakness, near fall at home Prior to recent hospitalization patient was mostly wheelchair-bound and lives alone PT and OT, plan was to [facility] -> now pt is on comfort care Left clavicular fracture POA, occurred prior to 09[place]29 [place] [facility] [place]weightbearing to left upper extremity, sling for comfort, remove 3 times daily for elbow range of motion He will need orthopedic follow-up upon discharge He was seen by orthopedics done at [facility] pt now on comfort care Bladder mass with evidence of metastasis S/P [place] [facility] [place] Discussed with patient and son At this time no further diagnostic or therapeutic intervention has been pursued Given age family currently considering not pursuing further treatment with a goal focused on comfort and quality of life Palliative care team consulted Protein calorie malnutrition, unknown severity Patient appears malnourished with hypoalbuminemia Consulted dietitian Chronic anemia Iron deficiency Hemoglobin around 9 Iron level less than 10 Oral iron ordered Given IV Venofer 300 mg x 1 Hx of alcohol abuse on thiamine/folic acid Tobacco abuse, chewing declined nicotine patch DVT ppx:SQ Lovenox, now stopped Dispo: plan was to Transition to correction facility when medically stable, now pt on comfort care, CM involved FULL CODE: DNR/DNI, palliative medicine consulted PCP: Dr. Celaya Admission and Anticipated Discharge Date Admission Date: October 17, 2022 Subjective ff up for UTI, comfort measures, etc seen resting in bed, sleeping not in distress, no signs of pain or discomfort no other issues per tinner helper of Systems Review of Systems: Unobtainable due to cognitive status Physical Exam Physical Exam: General- sleeping not in distress Eyes- anicteric Neck- no JVD Lungs- clear breath sounds bilaterally, no rales/wheezes Heart- normal rate, regular rhythm; no murmurs Abdomen- non distended Extremities- no pretibial edema Results & Data Results & Data Vital Signs (Past 12 Hours) Vital Signs O2 Del Method 10/30/22 10:57 Room Air all noted and reviewed including below
--- NOTE | 2022-11-13 20:23 | Discharge Summary ---
Discharge Summary Date of Service November 13, 2022 delayed entry date of service 10/30/22 Notes For Next Care Provider Medication Changes From Visit patient Admission HPI Per Admitting Provider Constitutional: malnourished appearing M, lying in bed, minimal eye contact, hard of hearing, vitals as above, NAD, sitting up in bed, not pleasant Head: Normocephalic, Atraumatic Eyes: PERRL, conjunctivae normal, anicteric sclerae ENMT: external ear and nose normal, oropharynx dry membranes with dried tobacco on lips Neck: trachea midline, no thyromegaly normal visual inspection Respiratory: normal respiratory effort, lungs clear to auscultation, no wheeze, rales, rhonchi. Normal insp/exp effort, no accessory muscle use Cardiovascular: tachycardic rate, regular rhythm no murmur, no edema Vessels: no JVD or carotid bruit Chest: normal inspection of chest Abdomen: normal bowel sounds, soft, nontender, no hepatosplenomegaly, left nephrostomy tube in place draining yellow urine Musculoskeletal: no cyanosis or clubbing, R foot club foot, scars to b/l ankles and knee Skin: no rashes, warm and dry normal turgor Neurologic: PERRL, EOMI, accommodation nl, no face palsy, no dysarthria CN's II-XI intact bilaterally and moves all extremities Psychiatric: A+Ox2 basics only, euthymic affect Lymphatic: no cervical or axillary lymphadenopathy : deferred Admission Exam Per Admitting Provider Constitutional: malnourished appearing M, lying in bed, minimal eye contact, hard of hearing, vitals as above, NAD, sitting up in bed, not pleasant Head: Normocephalic, Atraumatic Eyes: PERRL, conjunctivae normal, anicteric sclerae ENMT: external ear and nose normal, oropharynx dry membranes with dried tobacco on lips Neck: trachea midline, no thyromegaly normal visual inspection Respiratory: normal respiratory effort, lungs clear to auscultation, no wheeze, rales, rhonchi. Normal insp/exp effort, no accessory muscle use Cardiovascular: tachycardic rate, regular rhythm no murmur, no edema Vessels: no JVD or carotid bruit Chest: normal inspection of chest Abdomen: normal bowel sounds, soft, nontender, no hepatosplenomegaly, left nephrostomy tube in place draining yellow urine Musculoskeletal: no cyanosis or clubbing, R foot club foot, scars to b/l ankles and knee Skin: no rashes, warm and dry normal turgor Neurologic: PERRL, EOMI, accommodation nl, no face palsy, no dysarthria CN's II-XI intact bilaterally and moves all extremities Psychiatric: A+Ox2 basics only, euthymic affect Lymphatic: no cervical or axillary lymphadenopathy : deferred Principal Dx & Hospital Course #1 = Principal Diagnosis (1) Sepsis: (2) Complicated UTI (urinary tract infection): (3) Nephrostomy status: (4) Bladder mass: (5) Ambulatory dysfunction: per previous hosp notes with addendum: This is an 82-year-old male who has significant past medical history of alcohol abuse, tobacco abuse, history of lumbar osteomyelitis, hypertension and bladder mass, congenital right clubfoot who presents to ED secondary to inability to ambulate. Sepsis secondary to Klebsiella ESBL UTI In the setting of left nephrostomy tube, large bladder mass Leukocytosis - WBC elevated Urine culture: Klebsiella ESBL Blood cultures: Negative Transitioned from IV cefepime to ertapenem day #8 out of 10 Left nephrostomy tube seems to be functioning properly Had hematuria before, likely from bladder mass in the setting of UTI, resolved IV fluids for blood pressure on the lower side 10/27 Pt clinically not improved. Now drowsy and not answering questions. WBC 32K. Updated the son over the phone this AM and discussed again at the bedside. Son would like the pt's care to be transitioned to comfort care. Discontinued unnecessary meds and will cont. w/ comfort care measures. 10/30 drowsy not in tachypneic, no signs of pain comfort measures patient pronounced in the evening Stroke alert overnight as pt less responsive CT head, CTA head and neck - negative Brain MRI - pt refuses - EEG obtained and neurology consulted - EEG showed some mild slowing of the background activity of a fairly regular nature and no potentially epileptogenic discharges or focal abnormalities. He had weakness in general when he arrived but he has no weakness focally on exam. It was likely secondary to his urosepsis. The episode earlier today is nonspecific but might possibly have been a type of seizure. It also could have been transient decreased cerebral perfusion although his blood pressure was not low when checked by the nurse. I note low phosphorus and low magnesium. Hypomagnesemia can cause seizures. Recommendations: 1. MRI of the brain would be reasonable if he changes his mind 2. Replace magnesium. At 2:24 a.m., calcium was low but at 6:14 a.m. it was normal at 9.0. 3. Hold on anticonvulsants at this time. If he has another episode despite a normal magnesium I would consider adding levetiracetam at that time. 10/25 Seizure-like activity noted overnight 1,000 mg Keppra was given by engineering officer Neurology contacted - keppra 500 bid Ambulatory dysfunction Congenital right clubfoot Left clavicular fracture POA, occurred prior to 09/29 [place] [facility] [place] Bladder mass with evidence of metastasis S/P Nephrostomy tube placement [place] [facility] [place] Discussed with patient and son no further diagnostic or therapeutic intervention has been pursued Given age family currently considering not pursuing further treatment with a goal focused on comfort and quality of life Palliative care team consulted Protein calorie malnutrition, unknown severity Chronic anemia Iron deficiency Hx of alcohol abuse Tobacco abuse, chewing Discharge Exam patient Updated Medication List Medication Instructions Recorded Confirmed Type folic acid 1 mg tablet 1 mg PO QAM #30 tabs 08/22/22 10/17/22 Rx tamsulosin 0.4 mg capsule 0.4 mg PO QAM #30 caps 08/22/22 10/17/22 Rx L.acidop,casei,lactis,rham-B.lact,kimmy 2 cap PO DAILY #10 caps 09/03/22 10/17/22 Rx 625 mg (10 billion cell) capsule (Advanced Probiotic) thiamine HCl (vitamin B1) 100 mg 100 mg PO DAILY 10/17/22 10/17/22 History tablet Hospital Stay Data Consultations 10/17/22 15:30 ED Decision to Admit Stat 10/17/22 18:48 Consult Palliative Care Routine 10/24/22 08:00 Consult Neurology Routine Diagnostic Imagining Performed 10/17/22 14:47 CT abd pelvis IV con only Stat 10/24/22 01:40 CT head/brain wo con Stat 10/24/22 01:45 CTA head w con [CT angio head w con] Stat CTA neck with con [CT angio neck with con] Stat Total Time Total Time Spent Total Time Spent (In Minutes): >30 MINUTES
== END 2022-10-30 23:00 | disposition expired | DRG 872 ==
LOC: ED 13:44 → EDINP 16:52 → SUATTDRO 16:52 → 2N 18:48